=== PATIENT | female | born 1965 | race Caucasian/White ===

== ENCOUNTER 2024-09-18 19:19 | Emergency (ER) | payer MEDICARE, SELFPAY ==
--- NOTE | ~2024-09-18 | US_ITS ---
RIGHT LOWER EXTREMITY VENOUS ULTRASOUND Ordering provider: Kike Kim MD History: . Lower extremity pain evaluate for DVT . Comparison: None. FINDINGS: --COMMON FEMORAL: Patent and free of thrombus. Normal compressibility, phasic flow and augmentation. --PROXIMAL SUPERFICIAL FEMORAL: Patent and free of thrombus. Normal compressibility, phasic flow and augmentation. --DISTAL SUPERFICIAL FEMORAL: Patent and free of thrombus. Normal compressibility, phasic flow and au gmentation. --POPLITEAL: Patent and free of thrombus. Normal compressibility, phasic flow and augmentation. --POSTERIOR TIBIAL: Patent and free of thrombus. Normal compressibility, phasic flow and augmentation . IMPRESSION: Negative right lower extremity venous US. No deep vein thrombosis. Reviewed, dictated and finalized at location A.
--- NOTE | ~2024-09-18 | CT_ITS ---
Procedure: CT knee RT w con Ordering provider: Kike Kim MD History: . Cellulitis/abscess . Comparison: None. Technique: Thin slice axial CT of the IV contrast was given. Sagittal and coronal reformatted images were also obtained and reviewed. Radiation reduction technique utilized.The dose-length product was 4 76.5 mGy-cm. 100 mL Omnipaque 350 was given IV. Findings: BONES: Osteopenia of the bones. No definite fracture noted. JOINT SPACES: Minimal fluid seen in the joint space. Narrowing of both compartments of the knee is se en. SOFT TISSUES: Slightly hyperdense collection is seen anterior to the patella which is suggestive of a bscess measuring 8.5 x 3.1 x 5.6 cm. Further evaluation advised. Hematoma is less likely. Edema and f at stranding is seen in the subcutaneous tissues in the same area. Edema is also seen in the deep sub cutaneous area of the calf.. IMPRESSION: Collection seen anterior to the patella suggestive of an abscess. No definite fractures seen. Reviewed, dictated and finalized at location A.
[2024-09-18 19:19] VITALS: PULSE 85; RESP 11; TEMP 36.8; O2SAT 93
--- OUTSIDE RECORDS SUMMARY | 2024-09-18 20:00 | XMS_ITS | Data Portability ---
Author Organization [facility], Main Office Address [address] [place] [address] Assessment No assessment recorded. Plan of Treatment Reminders Order Date Submit Date Provider Last Modified By Organization Details Last Modified Time Details Appointments None recorded. Lab CBC w/ auto diff 2024 025 [place] [id number] [facility], [address], [address], [place], [address], 09:41:31 lipid panel, serum [address] (Lab), [address] [place], [address], 09:41:30 CMP, serum or plasma [address] (Lab), [address] [place], [address], 09:41:31 glycohemog lobin, total, blood [address] (Lab), [address] [place], [address], 09:41:31 vitamin D, 25-hydroxy , total, serum [address] (Lab), [address] [place], [address], 09:41:31 TSH, serum or plasma 2024 025 [email or web address] [facility] (Lab), [address] [place], [address], 5 09:41:31 glycohemog lobin, total, blood [address] (Lab), [address] [place], [address], 4 08:40:39 vitamin D, 25-hydroxy , total, serum [address] (Lab), [address] [place], [address], 4 08:40:38 lipid panel, serum [address] (Lab), [address] [place], [address], 4 08:40:38 CMP, serum or plasma [address] (Lab), [address] [place], [address], 4 08:40:39 TSH, serum or plasma [address] (Lab), [address] [place], [address], 4 08:40:39 glycohemog lobin, total, blood [address] (Lab), [address] [place], [address], 4 08:41:47 CMP, serum or plasma [address] (Lab), [address] [place], [address], 4 08:41:47 vitamin D, 25-hydroxy , total, serum [address] (Lab), [address] [place], [address], 4 08:41:47 lipid panel, serum [address] (Lab), [address] [place], [address], 4 08:41:47 lipid panel, serum [address] (Lab), [address] [place], [address], 4 08:12:18 glycohemog lobin, total, blood [address] (Lab), [address] [place], [address], 4 08:12:18 vitamin D, 25-hydroxy , total, serum [address] (Lab), [address] [place], [address], 4 08:12:18 TSH, serum or plasma [address] (Lab), [address] [place], [address], 4 08:12:19 Referral neurologis t referral 2023 [email or web address] [id number] Ramesh Muse MD, [address], [address], 4 07:50:47 Procedures None recorded. Surgeries None recorded. Imaging MAMMO, screening, bilateral - Please call patient to schedule. [address], [facility] [place] [address], [place], [address], 5 12:49:34 LDCT, chest, for lung cancer screening - Please call patient to schedule. 2024 025 [facility], [address] [place] [address], [place], [address], 5 12:50:41 DEXA [address], [address] [place] [address], [address], 5 12:49:34 MAMMO, screening, digital, bilateral [address] ([facility]), [address] [place], [address], 4 09:51:50 CT, chest, w/o contrast - Please call patient to schedule. [address] ([facility]), [address] [place], [address], 5 11:36:33 MAMMO, screening, digital, bilateral [address] [place] [address] ([facility]), [address] [place], [address], 4 09:18:16 CT, chest, w/o contrast - No auth required per [facility] website for CPT code [address] ([facility]), [address] [place], [address], 5 17:22:45 Medication Orders Advair Diskus 500 mcg-50 mcg/dose powder for inhalation 2023 024 [email or web address] [facility] [address] [place] [address], [address], 5 18:01:36 Advair Diskus 500 mcg-50 mcg/dose powder for inhalation 2023 024 [email or web address] [facility], [address] [place] [address], [address], 5 18:01:36 metoprolol succinate ER 100 mg tablet,ext ended release 24 hr 2023 024 [facility], [address] [place] [address], [address], 4 16:28:23 Patient TargetsNo targets recorded. Patient InstructionsNo instructions recorded. Reason for Referral Neurologist Referral for Maurilio hsieh Referring Physician: Nino Carrillo, Internal Medicine, Encounter Date: 06/15/2023 Results Created Date Observation Date Name Description Value Unit Range Abnormal Flag Note LastModifiedBy Organization Detail LastModifiedTime 12/02/19 24 12/01/2023 myoca rdial perfu dixie study w/ eject ion fract ion (PROC ) No observ ation record ed. [email or web address] [facility] [address], [place], [address], 12/04/2023 09:39:55 12/04/19 24 12/01/2023 myoca rdial perfu dixie study w/ eject ion fract ion (PROC ) No observ ation record ed. BARCODE Not Available 2023 17:52:46 Result Notes None recorded. Problems Name Problem SNOMED Code Status Onset Date Resolution Date Notes Provider Name and Address Organization Details Recorded Time Dyspnea on exertion 71945314 Active 2022 Anam Baptiste MD [address] [facility], [facility] [address], [place], [address] , [place] [facility] 3 13:14:17 Multiple nodules of lung 916949688 Active 2022 Anam Baptiste MD [address] [facility], [address], [place], [address] , [place] [facility] 3 13:30:46 Atrial fibrillat ion 70390288 Active 2022 Sylvia owen, RMA null, [place] [facility] 3 08:51:51 Hyperchol esterolem ia 04171512 Active 2022 Sylvia owen, RMA null, [place] [facility] 3 08:52:18 Insomnia 128630518 Active 2022 Sylvia owen, RMA null, [place] [facility] 3 14:25:22 Yeast detected 427415046 Active 2022 Maxine Mtz LPN null, [place] - [facility] 3 16:48:57 Pain of left hip joint 81291471027 9100 Active 2022 Nino Carrillo MD [address] [facility], [address], [place], [address] , [facility] 3 12:58:51 Injury of elbow 225304648 Completed Not Available [facility] 3 03:15:58 Chronic obstructi ve pulmonary disease 46153949 Active Not Available [facility] 3 03:15:58 Bipolar disorder 37317279 Active Not Available [facility] 3 03:15:58 Gangrene of toe of left foot 30391087419 559584 Completed 201901/07/2022 Not Available [facility] 3 03:15:58 History of alcoholis m 873627601 Active 2016 Not Available [facility] 3 03:15:58 Transitio n of care 26438615062 05 Completed 202101/07/2022 Not Available [facility] 3 03:15:58 Anxiety disorder 947606025 Active 2021 Not Available [facility] 3 03:15:58 Anxiety disorder 486069457 Completed 201901/11/2021 Not Available [facility] 3 03:15:58 Gastroeso phageal reflux disease 351083128 Active Not Available [facility] 3 03:15:58 Closed fracture of upper end of tibia 87128433 Completed Not Available [facility] 3 03:15:58 Long-term drug therapy Completed 202001/07/2022 Not Available [facility] 3 03:15:59 Edema 918473723 Active 2020 Not Available [facility] 3 03:15:59 Adult health examinati on Active 2020 Not Available [facility] 3 03:15:59 Pain in toe 503274485 Completed 201901/07/2022 Not Available [facility] 3 03:15:59 Pain in left lower limb 833191914 Completed Not Available [facility] 3 03:15:59 Ulcer of toe 075220223 Completed 201901/07/2022 Not Available [facility] 3 03:15:59 Knee pain Completed Not Available [facility] 3 03:15:59 Fracture of tibia 21088867 Completed Not Available [facility] 3 03:15:59 Bronchiti s 83137609 Completed 201901/11/2021 Not Available [facility] 3 03:15:59 Vitamin D deficienc y 07388719 Active 2021 Not Available [facility] 3 03:15:59 Depressiv e disorder 18818643 Active 2019 Not Available [facility] 3 03:15:59 Cannabis abuse 26417135 Active Not Available [facility] 3 03:16:00 Neuropath y 994028489 Active 2020 Not Available [facility] 3 03:16:00 Umbilical hernia 059677074 Active 2021 Not Available [facility] 3 03:16:00 Sleep disorder 14938530 Active 2019 Not Available [facility] 3 03:16:00 Periphera l vascular disease 376747710 Active 2021 Not Available [facility] 3 03:16:00 Hypothyro idism 45047553 Active 2021 Not Available [facility] 3 03:16:00 Fracture of lower leg 872748413 Completed Not Available [facility] 3 03:16:00 Bacterial vaginosis 242922910 Completed Not Available [facility] 3 03:16:01 History of amputatio n of lesser toe 579849472 Active 2019 Not Available [facility] 3 03:16:01 Atypical squamous cells of undetermi al significa nce on cervical Papanicol aou smear 536335120 Active Not Available [facility] 3 03:16:01 Anxiety 00476167 Completed Not Available [facility] 3 03:16:01 Atheroscl erosis of arteries of the extremiti es 71120228 Completed 201901/11/2021 Not Available [facility] 3 03:16:01 Atheroscl erosis of arteries of the extremiti es 05823649 Active 2019 Not Available [facility] 3 03:16:01 Atrial flutter 1408848 Active 2020 Not Available [facility] 3 03:16:02 Hyperlipi demia 20438242 Active Not Available [facility] 3 03:16:02 Cigarette smoker 41790665 Completed 201901/07/2022 Not Available [facility] 3 03:16:02 Urinary tract infectiou s disease 66137589 Completed Not Available [facility] 3 03:16:02 Smoker 52336106 Active Not Available [facility] 3 03:16:02 Overactiv e urinary bladder 421850781 Active 2021 Not Available [facility] 3 03:16:02 Nodule of lung 104089378 Active 2022 Not Available [facility] 3 03:16:03 Hyperglyc emia 77469751 Active Not Available [facility] 3 03:16:03 Pneumonia caused by SARS-CoV- 2 [id number] 6303084 Completed 202101/20/2022 Not Available [facility] 3 03:16:03 Migraine 90114786 Active 2022 Nino Carrillo MD [address], [facility] [address], [address] , [facility] 3 12:52:02 Essential hypertens ion 26316339 Active 2023 Nino Carrillo MD [address], [address], [place], [address] , [facility] 4 11:51:05 Hypoxia 487337584 Active 2024 Nino Carrillo MD [address], [address], [address] , [facility] 5 12:11:57 Congestiv e heart failure 58181503 Active 2024 S[facility] [place], [facility] 5 18:04:52 Notes:Medical History: Anxie ty/Bipolar depression Bilateral hearing loss/tinnitus Alcohol use Cannabis use Nicotine use ?COPD on 4 Lpm exertional and nocturnal O2 c/o [facility] Obesity Hypothyroidism Mixed hyperlipidemia Hypertension Atrial flutter CHAMP Cholelithiasis Umbilical hernia Left adrenal adenoma Urge urinary incontinence Vit D deficiency Osteoporosis Neuropathy PVD Procedure History: Cardiac ablation 2018 Left 5th toe amputation 2020 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 Procedures Surgical History Date Name Laterality Status Provider Name and Address Organization Details Recorded Time 3 Advanced Care Planning completed Ling Moody RN [facility] [employer] 01/19/2023 12:49:00 2 Date of Last Pap Smear completed Ling Moody RN [facility] [employer] 01/19/2023 12:44:34 2 Date of Last Mammogram completed Ling Moody RN [facility] [employer] [facility] 01/19/2023 12:42:58 2 Most Recent Bone Density completed Ling Moody RN [facility] [employer] [facility] 01/19/2023 12:43:18 [employer] Surgery completed Not Available [facility] 08/10/2022 03:08:08 ENT Procedure completed Not Available [facility] 08/10/2022 03:08:08 Imaging Results Imaging Date Name Status LastModified by Organiz ation Details LastModified Time 12/01/2023 myocardial perfusion study w/ ejection fraction (PROC) completed [email or web address] [facility] [address], [place], [address], 12/04/2023 09:39:55 12/01/2023 myocardial perfusion study w/ ejection fraction (PROC) completed [facility] Information not available 12/04/2023 17:52:46 Procedure Notes None recorded. Medical Equipment None Reported. Allergies Allergen ID Allergen Name Allergen Category Reaction Reaction Severity Criticality Documentation Date Start Date Code Code System Note Provider Name and Address Organization Details Recorded Time 5780 lithium Not available vomiting Not available Not available 08/10/2022 6448 RxNorm Not Available [facility] 3 03:25:43 5781 Dolobid medicatio n vomiting Not available Not available 08/10/2022 68416 6 RxNorm Not Available [facility] 3 03:25:43 5782 Dilaudid medicatio n vomiting Not available Not available 08/10/2022 99529 3 RxNorm Not Available [facility] 3 03:25:43 5783 Bactrim medicatio n vomiting Not available Not available 08/10/2022 93963 9 RxNorm Not Available [facility] 3 03:25:43 Medications Name Sig Start Date Stop Date Status Note LastModified by Organization Details LastModified Time multivita min tablet TAKE 1 TABLET BY MOUTH DAILY 08/19 completed Not Available Not Available Not Available quetiapin e 25 mg tablet active Not Available Not Available Not Available cyclobenz aprine 10 mg tablet TAKE 1 TABLET BY MOUTH EVERY 8 HOURS 09/05 completed Not Available Not Available Not Available hydroxyzi ne pamoate 100 mg capsule TK ONE C PO EVERY NIGHT AT BEDTIME active Not Available Not Available No t Available furosemid e 40 mg tablet TAKE 1 TABLET BY MOUTH EVERY MORNING active Not Available Not Available No t Available atorvasta tin 40 mg tablet TAKE 1 TABLET BY MOUTH EVERY DAY active Not Available Not Available No t Available bupropion HCl SR 150 mg tablet,12 hr sustained -release 01/11 completed Not Available Not Available Not Available fluticaso ne 250 mcg-salme terol 50 mcg/dose blistr powdr for inhalatio n INHALE 1 PUFF BY MOUTH TWICE DAILY NEEDED 05/18 completed Not Available Not Available Not Available atorvasta tin 80 mg tablet Take 1 tablet every day by oral route. active Not Available Not Available No t Available acetamino phen 325 mg tablet Take 2 tablets every 4 hours by oral route as needed. 09/19 completed Not Available Not Available Not Available gabapenti n 600 mg tablet TAKE 1 TABLET BY MOUTH 3 TIMES DAILY active Not Available Not Available No t Available doxycycli ne hyclate 100 mg capsule Take 1 capsule twice a day by oral route for 7 days. active Not Available Not Available No t Available atorvasta tin 20 mg tablet TAKE 1 TABLET BY MOUTH EVERY DAY 01/03 completed Not Available Not Available Not Available quetiapin e 300 mg tablet TK 2 TS PO QHS 08/11 completed Not Available Not Available Not Available clindamyc in HCl 300 mg capsule TK 1 C PO Q 8 H FOR 10 DAYS 05/31 completed Not Available Not Available Not Available albuterol sulfate 2.5 mg/3 mL (0.083 %) solution for nebulizat ion USE 3 ML VIA NEBULIZE R EVERY 6 HOURS NEEDED 09/05 completed Not Available Not Available Not Available azithromy zaira 250 mg tablet TK 1 T PO D active Not Available Not Available No t Available ibuprofen 800 mg tablet Take 1 tablet 3 times a day by oral route. active Not Available Not Available No t Available alprazola m 1 mg tablet active Not Available Not Available Not Available tramadol 37.5 mg-acetam inophen 325 mg tablet TK 1 TO 2 TS PO Q 6 H PRN 01/10 completed Not Available Not Available Not Available fluconazo le 150 mg tablet one daily active Not Available Not Available No t Available amiodaron e 200 mg tablet active on hold until after her procdure wed Not Available Not Available Not Available metoprolo l succinate ER 50 mg tablet,ex tended release 24 hr TAKE 1 TABLET BY MOUTH DAILY 11/06 completed Not Available Not Available Not Available sumatript an 100 mg tablet TAKE 1 TABLET BY MOUTH EVERY DAY NEEDED 11/06 completed increase d to 200mg Not Available Not Available Not Available hydrocodo ne 5 mg-acetam inophen 325 mg tablet TAKE 1 TABLET BY MOUTH EVERY 6 HOURS NEEDED 11/06 completed Not Available Not Available Not Available diltiazem CD 240 mg capsule,e xtended release 24 hr TK 1 C PO D 03/12 completed Not Available Not Available Not Available naltrexon e 50 mg tablet Take 1 tablet every day by oral route for 30 days. 01/10 completed Not Available Not Available Not Available metronida zole 0.75 % (37.5 mg/5 gram) vaginal gel Insert 1 applicat orful by vaginal route for 5 days. active Not Available Not Available No t Available lisinopri l 20 mg tablet active Not Available Not Available Not Available ondansetr on HCl 4 mg tablet 07/11 completed Not Available Not Available Not Available prednison e 20 mg tablet TAKE 2 TABLETS BY MOUTH DAILY 11/06 completed Not Available Not Available Not Available clonazepa m 0.5 mg tablet active Not Available Not Available Not Available metoprolo l succinate ER 100 mg tablet,ex tended release 24 hr TAKE 1 TABLET BY MOUTH EVERY DAY active Not Available Not Available No t Available quetiapin e 200 mg tablet TAKE 1 TABLET BY MOUTH DAILY AT BEDTIME 09/05 completed Not Available Not Available Not Available clindamyc in HCl 150 mg capsule TAKE 4 CAPSULES BY MOUTH 1 HOUR BEFORE APPOINTM ENT 08/19 completed Not Available Not Available Not Available clopidogr el 75 mg tablet TAKE 1 TABLET BY MOUTH DAILY active Not Available Not Available No t Available ciproflox acin 250 mg tablet TK 1 T PO Q 12 H FOR 5 DAYS active Not Available Not Available No t Available levofloxa zaria 250 mg tablet TAKE 1 TABLET BY MOUTH DAILY 11/06 completed Not Available Not Available Not Available ciproflox acin 500 mg tablet TK 1 T PO BID TAT 02/27 completed Not Available Not Available Not Available hydrocodo ne 10 mg-acetam inophen 325 mg tablet active Not Available Not Available Not Available peg-elect rolyte solution 420 gram oral solution 09/19 completed Not Available Not Available Not Available omeprazol e 40 mg capsule,d elayed release TAKE ONE CAPSULE BY MOUTH EVERY DAY active Not Available Not Available No t Available aspirin 81 mg tablet,de layed release TAKE 1 TABLET BY MOUTH EVERY DAY 09/05 completed Not Available Not Available Not Available tramadol 50 mg tablet TK 1 T PO Q 6 H active Not Available Not Available No t Available quetiapin e 100 mg tablet TAKE 1 TABLET BY MOUTH EVERY DAY AT BEDTIME FOR MOOD SWINGS active Not Available Not Available No t Available amitripty line 50 mg tablet TAKE 1 TABLET BY MOUTH EVERY NIGHT AT BEDTIME active Not Available Not Available No t Available bupropion HCl SR 100 mg tablet,12 hr sustained -release 01/10 completed Not Available Not Available Not Available vancomyci n 125 mg capsule TK 1 C PO RACHEL 6 HOURS FOR 6 DAYS 09/05 completed Not Available Not Available Not Available levothyro xine 75 mcg tablet TK 1 T PO QAM B JEFFREY 03/12 completed Not Available Not Available Not Available oxycodone -acetamin ophen 5 mg-325 mg tablet 09/05 completed Not Available Not Available Not Available levothyro xine 88 mcg tablet TAKE 1 TABLET BY MOUTH EVERY DAY active Not Available Not Available No t Available famotidin e 20 mg tablet active Not Available Not Available Not Available lorazepam 0.5 mg tablet 01/10 completed Not Available Not Available Not Available oxycodone -acetamin ophen 10 mg-325 mg tablet active Not Available Not Available Not Available lithium carbonate 300 mg capsule active Not Available Not Available Not Available benzonata te 100 mg capsule Take 1 capsule 3 times a day by oral route as needed. 05/20 completed Not Available Not Available Not Available hydrocodo ne 7.5 mg-acetam inophen 325 mg tablet TK 1 T PO TID active Not Available Not Available No t Available cephalexi n 500 mg capsule TAKE 1 CAPSULE BY MOUTH THREE TIMES DAILY 03/07 completed Not Available Not Available Not Available ranitidin e 150 mg tablet active Not Available Not Available Not Available divalproe x ER 500 mg tablet,ex tended release 24 hr TAKE 1 TABLET BY MOUTH AT BEDTIME *PATIENT NEEDS APPOINTM ENT FOR FURTHER REFILLS* active Not Available Not Available No t Available promethaz ine 25 mg tablet TK 1 T PO Q 4 TO 6 H 04/27 completed Not Available Not Available Not Available vancomyci n 250 mg capsule TAKE DIRECTED PER ATTACHED INSTRUCT IONS 03/12 completed Not Available Not Available Not Available fluticaso ne 500 mcg-salme terol 50 mcg/dose blistr powdr for inhalatio n INHALE 1 PUFF BY MOUTH TWICE DAILY active Not Available Not Available No t Available nicotine 21 mg/24 hr daily transderm al patch APPLY 1 PATCH QD FOR 7 DAYS ONLY 12/27 completed Not Available Not Available Not Available gabapenti n 300 mg capsule TAKE ONE CAPSULE BY MOUTH THREE TIMES DAILY 09/19 completed Not Available Not Available Not Available folic acid 1 mg tablet TK 2 TS PO QD. 09/19 completed Not Available Not Available Not Available hydroxyzi ne HCl 25 mg tablet active Not Available Not Available No t Available metoprolo l succinate ER 25 mg tablet,ex tended release 24 hr TAKE 1 TABLET BY MOUTH EVERY DAY 11/06 completed Not Available Not Available Not Available ergocalci ferol (vitamin D2) 1,250 mcg (50,000 unit) capsule Take 1 capsule every week by oral route for 90 days. active Not Available Not Available No t Available clobetaso l 0.05 % topical ointment APPLY THIN LAYER TOPICALL Y TO THE AFFECTED AREA TWICE DAILY 08/19 completed Not Available Not Available Not Available levofloxa zaira 500 mg tablet TAKE 1 TABLET BY MOUTH DAILY 11/06 completed Not Available Not Available Not Available methylpre dnisolone 4 mg tablets in a dose pack FOLLOW PACKAGE DIRECTIO NS 11/06 completed Not Available Not Available Not Available albuterol sulfate HFA 90 mcg/actua tion aerosol inhaler INHALE 2 PUFFS PO QID PRN active Not Available Not Available No t Available Vitamin B-1 100 mg tablet TK 1 T PO QD 09/19 completed Not Available Not Available Not Available ondansetr on 4 mg disintegr ating tablet DIS ONE T PO Q 6 H PRN N 12/22 completed Not Available Not Available Not Available cefdinir 300 mg capsule TAKE ONE CAPSULE BY MOUTH TWICE DAILY FOR 10 DAYS 04/11 completed Not Available Not Available Not Available piroxicam 20 mg capsule active Not Available Not Available Not Available naproxen 500 mg tablet TAKE 1 TABLET BY MOUTH TWICE DAILY WITH FOOD 09/05 completed Not Available Not Available Not Available amoxicill in 875 mg-potass ium clavulana te 125 mg tablet TAKE 1 TABLET BY MOUTH TWICE DAILY 11/06 completed Not Available Not Available Not Available hydroxyzi ne pamoate 25 mg capsule TK ONE C PO BID active Not Available Not Available No t Available divalproe x ER 250 mg tablet,ex tended release 24 hr TAKE 1 TABLET BY MOUTH EVERY DAY AT BEDTIME 11/06 completed increase d to 500mg Not Available Not Available Not Available metoprolo l tartrate 25 mg tablet TAKE 1 TABLET (25 MG TOTAL) BY MOUTH EVERY 8 (EIGHT) HOURS active Not Available Not Available No t Available topiramat e 50 mg tablet TAKE 1 TABLET BY MOUTH TWICE DAILY 11/06 completed Not Available Not Available Not Available acamprosa te 333 mg tablet,de layed release 09/19 completed Not Available Not Available Not Available duloxetin e 20 mg capsule,d elayed release active Not Available Not Available Not Available duloxetin e 30 mg capsule,d elayed release TK 1 C PO QD. 03/13 completed Not Available Not Available Not Available duloxetin e 60 mg capsule,d elayed release TAKE 1 CAPSULE BY MOUTH EVERY DAY IN THE MORNING active Not Available Not Available No t Available fentanyl 12 mcg/hr transderm al patch active Not Available Not Available Not Available Lyrica 50 mg capsule TK ONE C PO TID 11/15 completed Not Available Not Available Not Available vitamin E 09/05 completed Not Available Not Available Not Available Vitamin D3 09/05 completed Not Available Not Available Not Available Medrol (Gene) 4mg - ONCE A DAY 07/30 completed Not Available Not Available Not Available multivita min 09/05 completed Not Available Not Available Not Available Vitamin B12 09/05 completed Not Available Not Available Not Available quetiapin e 400 mg tablet TK 1 T PO QHS 02/14 completed Not Available Not Available Not Available Activella 0.5 mg-0.1 mg tablet Take 1 tablet every day by oral route for 90 days. active Not Available Not Available No t Available Symbicort 160 mcg-4.5 mcg/actua tion HFA aerosol inhaler INL 2 PFS PO BID 03/12 completed Not Available Not Available Not Available fenofibri c acid (choline) 135 mg capsule,d elayed release TAKE 1 CAPSULE BY MOUTH EVERY DAY 12/29 completed Not Available Not Available Not Available Jinteli 1 mg-5 mcg tablet Take 1 tablet every day by oral route. active Not Available Not Available No t Available Chantix Continuin g Month Box 1 mg tablet FPD. active Muddassa ni Not Available Not Available Not Available Saphris (black cordero) 10 mg sublingua l tablet active Not Available Not Available Not Available Eliquis 5 mg tablet TAKE 1 TABLET BY MOUTH TWICE DAILY active Not Available Not Available No t Available Breo Ellipta 100 mcg-25 mcg/dose powder for inhalatio n USE 1 INHALATI ON PO QD. active Not Available Not Available No t Available Jardiance 10 mg tablet 09/05 completed Not Available Not Available Not Available Entresto 49 mg-51 mg tablet TAKE 1 TABLET BY MOUTH TWICE DAILY 09/05 completed Not Available Not Available Not Available Entresto 24 mg-26 mg tablet TAKE 1 TABLET BY MOUTH TWICE DAILY active Not Available Not Available No t Available Gemtesa 75 mg tablet Take 1 tablet every day by oral route. 08/29 completed Not Available Not Available Not Available Vitals Date Recorded Body weight Body mass index (BMI) Body height Body temperature Heart rate Oxygen saturation Oxygen saturation in Arterial blood by Pulse oximetry Systolic blood pressure Diastolic blood pressure Provider Name and Address Organization Details Last Updated DateTime 4 17796 g 28.7 kg/m2 157.48 cm 96.6 [degF] 80 /min 97 % 97 % 150 mm[Hg] 90 mm[Hg] SURESH Hoyt [place] [facility] [place] [employer] [facility] 4 11:25:04 Date Recorded Body height Body mass index (BMI) Body weight Body temperature Heart rate Respiratory rate Oxygen saturation Oxygen saturation in Arterial blood by Pulse oximetry Systolic blood pressure Diastolic blood pressure Provider Name and Address Organization Details Last Updated DateTime 4 157.48 cm 29.4 kg/m2 87640.3 7 g 97.7 [degF] 80 /min 16 /min 94 % 94 % 154 mm[Hg] 84 mm[Hg] Diamond Reddy [place] [facility] [employer] [facility] 4 11:16:43 Date Recorded Body height Body mass index (BMI) Body weight Body temperature Heart rate Oxygen saturation Oxygen saturation in Arterial blood by Pulse oximetry Systolic blood pressure Diastolic blood pressure Provider Name and Address Organization Details Last Updated DateTime 4 157.48 cm 27.6 kg/m2 76868.4 5 g 98.2 [degF] 70 /min 96 % 96 % 138 mm[Hg] 70 mm[Hg] Shannon Anselmo [place] [employer] [facility] [employer] 4 15:39:39 Date Recorded Body height Body mass index (BMI) Body weight Body temperature Heart rate Oxygen saturation Oxygen saturation in Arterial blood by Pulse oximetry Systolic blood pressure Diastolic blood pressure Provider Name and Address Organization Details Last Updated DateTime 4 157.48 cm 27.8 kg/m2 16664.0 4 g 97.1 [degF] 87 /min 90 % 90 % 136 mm[Hg] 80 mm[Hg] SURESH Hoyt [place] [employer] [facility] [employer] 4 11:38:57 Date Recorded Body height Body mass index (BMI) Body weight Body temperature Oxygen saturation Oxygen saturation in Arterial blood by Pulse oximetry Inhaled oxygen flow rate Heart rate Systolic blood pressure Diastolic blood pressure Provider Name and Address Organization Details Last Updated DateTime 5 157.48 cm 32.2 kg/m2 09402.2 6 g 96.8 [degF] 84 % 84 % 4 L/min 84 /min 170 mm[Hg] 84 mm[Hg] SURESH Hoyt [place] [employer] [facility] [employer] 5 11:25:19 Social History Question Answer Notes LastModified by Organization Details LastModified Time Tobacco Smoking Status Current Every Day Smoker Not Available [facility] 08/10/2022 02:52:35 Do You Have An Advance Directive? No MIGRATION.030 [id number] Information not available 08/10/2022 What Is Your Level Of Alcohol Consumption? Occasional MIGRATION.030 164483 Information not available 08/10/2022 Are You Blind Or Do You Have Difficulty Seeing? No MIGRATION.030 [id number] Information not available 08/10/2022 What Is Your Level Of Caffeine Consumption? Moderate MIGRATION.030 521301 Information not available 08/10/2022 In The 14 Days Before Symptom Onset, Have You Had Close Contact With A Laboratory-conf irmed COVID-19 While That Case Was Ill? No MIGRATION.030 098334 Information not available 08/10/2022 In The 14 Days Before Symptom Onset, Have You Had Close Contact With A Person Who Is Under Investigation For COVID-19 While That Person Was Ill? No MIGRATION.030 219067 Information not available 08/10/2022 Are You Deaf Or Do You Have Serious Difficulty Hearing? No MIGRATION.030 611440 Information not available 08/10/2022 What Type Of Diet Are You Following? REGULAR MIGRATION.030 380727 Information not available 08/10/2022 Which Illicit Or Recreational Drugs Have You Used? Marijuana MIGRATION.030 475829 Information not available 08/10/2022 What Is The Highest Grade Or Level Of School You Have Completed Or The Highest Degree You Have Received? [id number] MIGRATION.030 979911 Information not available 08/10/2022 Do You Have An Electrostatic Air Filter? No Information not available 08/29/2022 What Is Your Occupation? N/a MIGRATION.030 817304 Information not available 08/10/2022 Have There Been Any Changes To Your Family Or Social Situation? No MIGRATION.030 096317 Information not available 08/10/2022 What Is The Fluoride Status Of Your Home? Unknown MIGRATION.030 927813 Information not available 08/10/2022 Are There Any Guns Present In Your Home? No MIGRATION.030 330477 Information not available 08/10/2022 Do You Have A Humidifier? Yes Information not available 08/29/2022 Do You Use Insect Repellent Routinely? No MIGRATION.030 779254 Information not available 08/10/2022 Where Do You Live? [place]House MIGRATION.030 589054 Information not available 08/10/2022 Do You Have A Medical Power Of Cutting And Splicing Supervisor? No MIGRATION.030 664620 Information not available 08/10/2022 Do You Have Moisture Problems In Your Home? Yes Leak In Bathroom Information not available 08/29/2022 What Was The Date Of Your Most Recent Tobacco Screening? 01/19/2023 [email or web address] Information not available 01/19/2023 What Is Your Current Pack Years? 30ormorepackyears MIGRATION.0301 111565 Information not available 08/10/2022 Do You Have Any Pets? Yes MIGRATION.0301 779198 Information not available 08/10/2022 What Is Your Relationship Status? MIGRATION.0301 960133 Information not available 08/10/2022 Do You Use Your Seat Belt Or Car Seat Routinely? No MIGRATION.0301 239885 Information not available 08/10/2022 Do You Have Smoke And Carbon Monoxide Detectors In Your Home? Yes MIGRATION.0301 885830 Information not available 08/10/2022 At What Age Did You Start Smoking Tobacco? 11 MIGRATION.0301 474122 Information not available 08/10/2022 Are You Passively Exposed To Smoke? Yes MIGRATION.0301 151544 Information not available 08/10/2022 Are There Any Smokers In Your House? Yes MIGRATION.0301 220715 Information not available 08/10/2022 How Much Tobacco Do You Smoke? 1 PPD MIGRATION.0301 098508 Information not available 08/10/2022 Do You Feel Stressed (tense, Restless, Nervous, Or Anxious, Or Unable To Sleep At Night)? [id number] MIGRATION.0301 586132 Information not available 08/10/2022 Do You Use Any Illicit Or Recreational Drugs? Yes MIGRATION.0301 879722 Information not available 08/10/2022 Do You Use Sunscreen Routinely? No MIGRATION.0301 534358 Information not available 08/10/2022 Has Tobacco Cessation Counseling Been Provided? Yes MIGRATION.0301 548281 Information not available 08/10/2022 On What Date Was Tobacco Cessation Counseling Provided? 09/23/2021 MIGRATION.0301 614416 Information not available 08/10/2022 How Many Years Have You Smoked Tobacco? 48 [email or web address] Information not available 09/05/2024 Have You Recently Traveled Abroad? No MIGRATION.0301 235511 Information not available 08/10/2022 Have You Used IV Drugs? No MIGRATION.0301 536679 Information not available 08/10/2022 Do You Have Any Dietary Restrictions? No MIGRATION.0301 848400 Information not available 08/10/2022 Do You Or Have You Ever Used Any Other Forms Of Tobacco Or Nicotine? No MIGRATION.0301 048277 Information not available 08/10/2022 Sex: Unknown Functional Status Question Answer Note LastModified by Organizat ion Details LastModified Time Do you have difficulty walking or climbing stairs? No MIGRATION.[id number] 026 Information not available 08/10/2022 Do you have transportation difficulties? No MIGRATION.6900686 026 Information not available 08/10/2022 Are you able to walk? YESASSIST MIGRATION.5206993 026 Information not available 08/10/2022 Do you have difficulty doing errands alone? No MIGRATION.7103712 026 Information not available 08/10/2022 Are you able to care for yourself? Yes MIGRATION.3474433 026 Information not available 08/10/2022 Do you have difficulty dressing or bathing? No MIGRATION.6259412 026 Information not available 08/10/2022 What is your exercise level? None MIGRATION.0474481 026 Information not available 08/10/2022 Mental Status Question Answer Note LastModified by Organizat ion Details LastModified Time Do you have difficulty concentrating, remembering or making decisions? No MIGRATION.[id number] 6 Information not available 08/10/2022 Family History Relationship Description Onset Age of this Age Resolved Age Notes LastModified by Organization Details LastModified Time Mother Malignant tumor of esophagus [email or web address] Not available 2022 13:32:41 Mother Heart disease [email or web address] Not available 2022 13:35:01 Maternal Aunt Malignant tumor of lung [email or web address] Not available 2022 13:32:52 Maternal Aunt Diabetes mellitus [email or web address] Not available 2022 13:34:31 Paternal Uncle Malignant tumor of lung [email or web address] Not available 2022 13:33:13 Paternal Uncle Heart disease [email or web address] Not available 2022 13:35:10 Paternal Aunt Malignant tumor of lung [email or web address] Not available 2022 13:33:18 Maternal Uncle Diabetes mellitus [email or web address] Not available 2022 13:34:26 Maternal Uncle Heart disease [email or web address] Not available 2022 13:34:55 Notes:CANCER-MOTHER/AUNTS/CO USINS/UNCLES Medical History No medical history recorded. Gynecological History Statement/Question Response Date of Last Pap Smear 10/29/2021 Date of Last Mammogram 06/15/2021 Most Recent Bone Density 06/15/2021 Obstetrics History GPAL:G 0 P 0 0 0 0 Immunizations Vaccine Type Date Status Note Provider Nam e and Address Organization Details Recorded Time Tdap 2 completed Not Available [facility] 07/22/2023 00:44:00 Influenza, split virus, quadrivalent, PF 7 completed Not Available [facility] 07/22/2023 00:44:00 Influenza, split virus, quadrivalent, preservative 6 completed Not Available [facility] 07/22/2023 00:43:59 pneumococcal polysaccharide PPV23 4 completed Not Available [facility] 07/22/2023 00:43:59 Influenza, split virus, trivalent, PF 4 completed Not Available [facility] 07/22/2023 00:44:00 Past Encounters Encounter ID Performer Location Encounter Start Date Encounter Closed Date Diagnosis/Indication Diagnosis SNOMED-CT Code Diagnosis ICD10 Code Diagnosis Note [id number] [facility] [address] [address] 09/11/2020 00:00:00 09/11/2020 11:08:04 [id number] [facility] [address] [address] 01/11/2021 00:00:00 01/11/2021 14:38:32 [id number] [facility] [address] [address] 05/20/2021 00:00:00 05/20/2021 13:16:35 [id number] [facility] [address] [address] 07/30/2021 00:00:00 07/30/2021 10:49:05 [id number] [facility] [address] [address] 09/23/2021 00:00:00 09/23/2021 13:25:27 [id number] [facility] [address] [facility] [place] [address] 10/29/2021 00:00:00 10/29/2021 15:55:29 [id number] [facility] [address] [facility] [place] [address] 01/20/2022 00:00:00 01/20/2022 13:28:48 [id number] [facility] [address] [facility] [place] [address] 05/18/2022 00:00:00 05/18/2022 12:06:29 [id number] Anam Baptiste MD [facility] [place] [address] [facility] [address] [place] [address] 08/29/2022 12:29:35 08/30/2022 08:35:13 Dyspnea on exertion 45442342 R06.09 Smoker 28919460 F17.218 F17.219 Z87.891 Multiple n odules of lung 939323752 R91.8 [id number] Nino Carrillo MD [facility] Internal Med [place] [address] [facility] [place] [address] 09/21/2022 11:21:46 09/21/2022 12:05:26 Chronic obstructive pulmonary disease 49576581 J44.9 advise dto use o2 Anxiety disorder 5277849 06 F41.9 under control Atrial flutter 9096784 I 48.92 in sinus, to f/u with cardiology Depressive disorder 3548 9007 F32.A under control Gastroesop hageal reflux disease 261391460 K21.9 on omeprazole Hypercholesterolemia 136 53726 E78.00 watch diet Neuropathy 427152448 G62 .9 stable with meds Peripheral vascular disease 330995903 I73.9 better since stents Sleep disorder 73017502 G47.9 better with meds Vitamin D deficiency 347 20664 E55.9 can not tolerate vit d Cannabis abuse 65199184 F12.10 Has not smoked for a long time Hyperglycemia 39754758 R 73.9 watch diet, labs Umbilical hernia 3674858 07 K42.9 small, asymptomat ic Smoker 42628928 F17.218 F17.219 Z87.891 advised to quit Overactive urinary bladder 488448853 N32.81 tried samples Screening mammography 24 589077 Z12.31 [id number] Nino Carrillo MD [facility] Internal Med [address] [facility] [place] [address] 01/19/2023 12:00:06 01/19/2023 13:02:10 Chronic obstructive pulmonary disease 53181780 J44.9 advised to use o2, pulse ox is only 88%, no symptoms Anxiety disorder F41.9 under control Atrial flutter 4935893 I 48.92 in sinus, to f/u with cardiology Depressive disorder 3548 9007 F32.A under control Gastroesop hageal reflux disease 113226233 K21.9 on omeprazole Hypercholesterolemia 136 74844 E78.00 watch diet Neuropathy 828865735 G62 .9 stable with meds Peripheral vascular disease 368137242 I73.9 better since stents Sleep disorder 43317810 G47.9 better with meds Vitamin D deficiency 347 89002 E55.9 can not tolerate vit d Cannabis abuse 45756133 F12.10 Has not smoked for a long time Hyperglycemia 03562142 R 73.9 watch diet, labs Umbilical hernia 8466804 07 K42.9 small, asymptomat ic Smoker 73628033 F17.218 F17.219 Z87.891 advised to quit Overactive urinary bladder 580101137 N32.81 tried samples Adult heal th examination 489567904 Z00.00 Depression screening 171 272303 Z13.[address] care [address]ri st Pain of le ft hip joint 6569027332 54895 M25.552 Screening mammography 24 130564 Z12.31 Body mass index 30+ - obesity 194113670 Z68.30 healthy diet and exercise discussed [id number] Nino Carrillo MD [facility] Internal Med [address] [facility] [place] [address] 05/18/2023 11:47:48 05/18/2023 12:28:38 Chronic obstructive pulmonary disease 21221273 J44.9 advised to use inhalers daily, use o2 Anxiety disorder F41.9 under control Atrial flutter 0350618 I 48.92 in sinus, to f/u with cardiology Depressive disorder 3548 9007 F32.A under control Gastroesop hageal reflux disease 424845940 K21.9 on omeprazole Hypercholesterolemia 136 70763 E78.00 watch diet Neuropathy 376710389 G62 .9 stable with meds Peripheral vascular disease 608339223 I73.9 better since stents Sleep disorder 44458022 G47.9 better with meds Vitamin D deficiency 347 73258 E55.9 can not tolerate vit d Cannabis abuse 72072647 F12.10 Has not smoked for a long time Hyperglycemia 84919979 R 73.9 watch diet, labs Umbilical hernia 1267059 07 K42.9 small, asymptomat ic Smoker 12512659 F17.218 F17.219 Z87.891 advised to quit Overactive urinary bladder 843059944 N32.81 meds did not help Screening mammography 24 096495 Z12.31 Nodule of lung 208369602 R91.1 Hyperlipidemia 90511448 E78.5 on meds Hypothyroidism 89321022 E03.9 on meds Bipolar disorder 4055418 4 F31.9 seeing psych Edema 608061399 R60.9 better [id number] Nino Carrillo MD [facility] Internal Med [address] [address] 05/31/2023 12:08:31 05/31/2023 12:56:01 Migraine 05477242 G43.353 [id number] Nino Carrillo MD [facility] Internal Med [address] [place] [address] 06/15/2023 11:13:51 06/15/2023 11:56:54 Essential hypertension 11999360 I10 ^ METOPROLOL Migraine 62440561 G43.90 9 keep taking the same [id number] Nino Carrillo MD [facility] Internal [address] [place] [address] 11/07/2023 10:54:50 11/07/2023 12:02:07 Chronic obstructive pulmonary disease 15066792 J44.9 use o2 Anxiety disorder F41.9 under control Atrial flutter 9648981 I 48.92 in sinus, Depressive disorder 3548 9007 F32.A under control Gastroesop hageal reflux disease 893002398 K21.9 on omeprazole Hypercholesterolemia 136 42531 E78.00 watch diet Neuropathy 069124999 G62 .9 stable with meds Peripheral vascular disease 845448083 I73.9 better since stents Sleep disorder 68294571 G47.9 better with meds Vitamin D deficiency 347 14173 E55.9 can not tolerate vit d Cannabis abuse 27386985 F12.10 Has not smoked for a long time Hyperglycemia 32324058 R 73.9 watch diet, labs Umbilical hernia 9479424 07 K42.9 small, asymptomat ic Smoker 02852465 F17.218 F17.219 Z87.891 advised to quit Overactive urinary bladder 949486570 N32.81 meds did not help Screening mammography 24 085442 Z12.31 Nodule of lung 693224662 R91.1 Hypothyroidism 50760183 E03.9 on meds Bipolar disorder 3549623 4 F31.9 seeing psych Edema 736255566 R60.9 better [id number] Nino Carrillo MD [facility] [address] [facility] [place] [address] 02/07/2024 15:24:36 02/07/2024 16:18:40 Chronic obstructive pulmonary disease 92692830 J44.9 under control Anxiety disorder 1348867 06 F41.9 under control Atrial flutter 0462251 I 48.92 in sinus, Depressive disorder 3548 9007 F32.A under control Gastroesop hageal reflux disease 003925795 K21.9 on omeprazole Hypercholesterolemia 136 25354 E78.00 watch diet Neuropathy 238871297 G62 .9 stable with meds Peripheral vascular disease 619955722 I73.9 better since stents Sleep disorder 84774133 G47.9 better with meds Vitamin D deficiency 347 08691 E55.9 can not tolerate vit d Cannabis abuse 02718718 F12.10 Has not smoked for a long time Hyperglycemia 49474143 R 73.9 watch diet, labs Umbilical hernia 9259884 07 K42.9 small, asymptomat ic Smoker 71800321 F17.218 F17.219 Z87.891 advised to quit Overactive urinary bladder 674387300 N32.81 meds did not help Screening mammography 24 662779 Z12.31 Nodule of lung 724662226 R91.1 Hypothyroidism 73656589 E03.9 on meds Bipolar disorder 5305047 4 F31.9 seeing psych Edema 556168301 R60.9 better [id number] Nino Carrillo MD [facility] Internal Med [facility] [address] [facility] [place] [address] 03/07/2024 11:24:58 03/07/2024 11:59:21 Chronic obstructive pulmonary disease 68036328 J44.9 under control Anxiety disorder 06 F41.9 under control Atrial flutter 7987358 I 48.92 in sinus, Depressive disorder 3548 9007 F32.A under control Gastroesop hageal reflux disease 579643205 K21.9 on omeprazole Hypercholesterolemia 136 09742 E78.00 watch diet Neuropathy 594703089 G62 .9 meds help Peripheral vascular disease 690121368 I73.9 better since stents Sleep disorder 13500973 G47.9 better with meds Vitamin D deficiency 347 41073 E55.9 can not tolerate vit d Cannabis abuse 40256180 F12.10 Has not smoked for a long time Hyperglycemia 37765286 R 73.9 watch diet, labs Umbilical hernia 1243381 07 K42.9 small, asymptomat ic Smoker 67720865 F17.218 F17.219 Z87.891 advised to quit Overactive urinary bladder 153758976 N32.81 meds did not help Screening mammography 24 300593 Z12.31 Scheduled in Mar Nodule of lung 906093752 R91.1 scheduled 03/2024 Hypothyroidism 75616839 E03.9 on meds Bipolar disorder 0131758 4 F31.9 seeing psych Edema 813585038 R60.9 better Adult heal th examination 943183114 Z00.00 Flu- Declined- 2022 [id number] Nino Carrillo MD [facility] Internal Med [facility] [address] [facility] [place] [address] 09/05/2024 11:06:13 09/05/2024 12:22:51 Chronic obstructive pulmonary disease 57770526 J44.9 under control Anxiety disorder F41.9 under control Atrial flutter 8549250 I 48.92 in sinus, Depressive disorder 3548 9007 F32.A under control Gastroesop hageal reflux disease 054715913 K21.9 on omeprazole Hypercholesterolemia 136 12316 E78.00 watch diet Neuropathy 145341713 G62 .9 meds help Peripheral vascular disease 555993523 I73.9 better since stents Sleep disorder 87125837 G47.9 better with meds Vitamin D deficiency 347 41457 E55.9 can not tolerate vit d Cannabis abuse 74341124 F12.10 Has not smoked for a long time Hyperglycemia 70492494 R 73.9 watch diet, labs Umbilical hernia 1157916 07 K42.9 small, asymptomat ic Smoker 12498087 F17.218 F17.219 Z87.891 advised to quit Overactive urinary bladder 465351530 N32.81 meds did not help Nodule of lung 367850515 R91.1 scheduled 03/2024, to get CT scan Hypothyroidism 12505794 E03.9 on meds Bipolar disorder 6102113 4 F31.9 seeing psych Edema 256004327 R60.9 on Furosemide Adult heal th examination 734951949 Z00.00 Colonoscop y- 03/21/2017 Mammogram- 06/15/2021 ORDEREDDEX A- 06/15/2021 ORDEREDLDC T- 07/22/2022 - ORDEREDFlu - Declined- 3Pneumo vax- NEVERCOVID - DECLINED Screening mammography 24 599927 Z12.31 Scheduled in Mar Screening for osteoporosis 264512581 Z13.820 Essential hypertension 24651417 I10 bp is high, confused about her medshusban d is going to call us today about all her meds Hypoxia 535147864 R09.02 NOT IMPROVING EVEN AFTER MULTIPLE ATTEMPTS, WILL SEND TO ER Health Concerns Section Related Observation LastModified by Organization Detai ls LastModified Time None Recorded Concern Status LastModified by Organization Details LastModified Time None Recorded Advance Directives Directive N: Payers Encounter Date Sequence Insurance Name Policy Number Policy Perez Covered Member ID Perez Member ID Guarantor Name 06/15/2023 1 [facility] [id number] Yaneli Conroy [id number] Yaneli Conroy 11/07/2023 1 [facility] [id number] Yaneli Conroy [id number] Yaneli Conroy 02/07/2024 1 [facility] [id number] Yaneli Conroy [id number] Yanelisteffen Conroy 03/07/2024 1 [facility] [id number] Yanelilanre Conroy [id number] Yaneli Mike Rafiq 09/05/2024 1 [facility] (MEDICARE REPLACEMENT/A DVANTAGE - PPO) [id number] Yaneli Conroy [id number] Yaneli Conroy Notes Date Note Type Note Provider Name and Address Organization Details Recorded Time 06/15/2023 text/html Se is here today wanting a referral to a neurologist.She has been having uncontrollable migraines and the meds that were given at the last OV just is not helping.B/p today is 150/90. States her head does hurt 11/19HER HOME NUMBERS ARE REVIEWED AND BP IS AROUND 160 Nino Carrillo MD [address] [facility] [facility] [address], [place], [address], [facility] [employer] 06/15/2023 11:56:01 11/07/2023 text/html Here today for routine f/u, compliant to meds.COPD- has not quit smoking yet, using inhalers, Advair and proair, some wheezing some times , using o2 when walks and goes out, no o2 needed when resting . ON 4L of O2, NO SYMPTOMSno using Advair daily, needs refillGERD- does not take meds, Milagros helps Hypertension- under control with medsMeds- Metoprolol 100mg dailyH/o A flutter-she had episode of v tach in 07/01 but got hypotensive with metoprolol.had nl GREG, seen fabric inspector. Dr Uribe- Clopidogrel 75 mg daily Migraines- Has not had in a whileMeds- Divalproex ER 500mg HSHyperlipidemia- on meds, LABS 10/02,Meds- Atorvastatin 80 mg qd Hypertriglyceridemia - advised to watch dietAnxiety- stable with meds, seeing psych, not under controlBipolar disorder- seeing psych Dr. Boston grande- A1c- 6.1, advised to watch dietSmoker- advised to quit-still smoking / -1 ppd, LDCT 08/04H/o alcoholism, sober since 2012H/o marijuana abuse, none since 2015Insomnia- Sees Psych, meds helpMeds- Quetiapine 100 mg 2 at bedtimeNeuropathy- better with medsMeds- Gabapentin 600mg TID , Duloxetine 60mg every morningPVD- s/p stents, no symptomsMeds- Plavix 75mg dailyVit d def- taking otc, Pulm nodules- LDCT 08/04, seen pulm , f/u due, has seen dr Oliva Carrillo MD [address] [facility], [address], [place], [address], [place] [facility] 11/07/2023 11:53:22 02/07/2024 text/html Here today for routine f/u, compliant to meds. Has been in and out of the hospital for 1st for dizziness, fever and unstable gait Had UTI. 2nd time for diarrhea Dx w/C.diff still on ABX and getting betterCOPD- has not quit smoking yet, using inhalers, Advair and proair, some wheezing some times , using o2 when walks and goes out and at night time no o2 needed when resting . ON 4L of O2, NO SYMPTOMS GERD- otc Hypertension- under control with medsMeds- Metoprolol 100mg dailyH/o A flutter-she had episode of v tach in 07/01 but got hypotensive with metoprolol.had nl GREG, seen fabric inspector. Dr Uribe- Clopidogrel 75 mg daily Migraines- Has not had in a while, under contyrolMeds- Divalproex ER 500mg HSHyperlipidemia- on meds, LABS 10/02, were orderedMeds- Atorvastatin 80 mg qd Hypertriglyceridemia - advised to watch dietAnxiety- stable with meds, seeing psych, not under controlBipolar disorder- seeing psych Dr. Boston grande- A1c- 6.1, advised to watch diet, has some weightSmoker- advised to quit-still smoking 06/13 -1 ppd, LDCT 08/04H/o alcoholism, sober since 2012H/o marijuana abuse, none since 2015Insomnia- Sees Psych, meds helpMeds- Quetiapine 100 mg 2 at bedtimeNeuropathy- better with medsMeds- Gabapentin 600mg TID , Duloxetine 60mg every morningPVD- s/p stents, no symptomsMeds- Plavix 75mg dailyVit d def- taking otc, Pulm nodules- LDCT 08/04, seen pulm , f/u due, has seen dr Echevarria was ordered, willing to get Nino Carrillo MD [address], [address], [place], [address], [place] [facility] 02/07/2024 16:17:46 03/07/2024 text/html Here today for routine f/u, compliant to meds.PT IS NOT FASTINGCOPD- has not quit smoking yet, using inhalers, Advair and proair, some wheezing some times , using o2 when walks and goes out, no o2 needed when resting . said she does not use her oxygen as she should. Her O2 today is 90GERD- OTC Dejaivette helps Hypertension- under control with medsMeds- Metoprolol 100mg dailyH/o A flutter-she had episode of v tach in 07/01 but got hypotensive with metoprolol.had nl GREG, seen fabric inspector. Dr Uribe- Clopidogrel 75 mg daily Migraines- Has not had in a whileMeds- Divalproex ER 500mg HSHyperlipidemia- on meds, LABS DUEMeds- Atorvastatin 80 mg qd Hypertriglyceridemia - advised to watch dietAnxiety- stable with meds, seeing psych, not under controlBipolar disorder- seeing psych Dr. Mead christiane- A1c- 6.1, advised to watch dietSmoker- advised to quit-still smoking 1/2 -1 ppd, LDCT 08/04, GIN TO HAVE LDCT next monthH/o alcoholism, sober since 2012H/o marijuana abuse, none since 2015Insomnia- Sees Psych, meds helpMeds- Quetiapine 100 mg 2 at bedtimeNeuropathy- better with meds , FEELS SYMPTOMS IF MISSES HER MEDSMeds- Gabapentin 600mg TID , Duloxetine 60mg every morningPVD- s/p stents, no symptomsMeds- Plavix 75mg dailyVit d def- taking otc, Pulm nodules- LDCT 08/04, seen pulm , f/u due, has seen dr Oliva Carrillo MD [address], [address], [place], [address], [place] [facility] 03/07/2024 11:57:05 09/05/2024 text/html Here today for routine f/u, compliant to meds.PT IS FASTING ( [facility] )Evicted from her place, now living in a trailer, not active, diet not under control and gaining lots of weight, advised to watch diet. She has gained 24 lbs since last OV, Not able to walk. States that she has been falling a lot when she does try, Has already fell twice this week. Nothing major just bruising herself up in the process COPD- has not quit smoking yet, using inhalers, some wheezing some times , using o2 when walks and goes out, no o2 needed when restingmeds- Casimiro, Constanceband said she does not use her oxygen as she should. Her O2 today is 84 when she came on , later on found out that her o2 tank was empty, put a new tank and 02 sat 82- 84 % on 4 LGE- OTC Deja-bluer helps Hypertension- Has been running high at home and also C/o having a lot of headaches. Her b/p today is 170/84SHE IS VERY CONFUSED WITH HER MEDS AND COULD NOT NAME HER MEDSMeds- Metoprolol 100mg dailyH/o A flutter-she had episode of v tach in 07/01 but got hypotensive with metoprolol.had nl GREG, seen fabric inspector. Dr Uribe- Clopidogrel 75 mg daily Migraines- Has not had in a whileMeds- Divalproex ER 500mg HSHyperlipidemia- on meds, LABS DUEMeds- Atorvastatin 80 mg qd Hypertriglyceridemia - advised to watch dietAnxiety- stable with meds, seeing psych, not under controlBipolar disorder- seeing psych Dr. Vermaglycarlos a grande- A1c- 6.1, advised to watch dietSmoker- advised to quit-still smoking 1/2 -1 ppd, LDCT 08/04was orderedH/o alcoholism, sober since 2012H/o marijuana abuse, none since 2015Insomnia- Sees Psych, meds helpMeds- Quetiapine 100 mg 2 at bedtimeNeuropathy- better with meds , FEELS SYMPTOMS IF MISSES HER MEDSMeds- Gabapentin 600mg TID , Duloxetine 60mg every morningPVD- s/p stents, no symptomsMeds- Plavix 75mg dailyVit d def- taking otc, Pulm nodules- LDCT 08/04, seen pulm , f/u due, has seen dr Oliva Carrillo MD [address] [facility], [facility] [address], [place], [address], [place] [facility] 09/05/2024 12:13:06 OBGyn Episode No OBEpisode recorded.
--- OUTSIDE RECORDS SUMMARY | 2024-09-18 20:00 | XMS_ITS | Data Portability ---
Author Organization [facility] [place] Address [address] [place] [address] Care Team Providers Care Double End Tenoner Setter Name Role Phone EMILIE VERMA Primary Care Provider Assessment No assessment recorded. Plan of Treatment Reminders Order Date Submit Date Provider Last Modified By Organization Details Last Modified Time Details Appointments None record ed. Lab None record ed. Referral None record ed. Procedures None record ed. Surgeries None record ed. Imaging None record ed. Medication Orders None record ed. Patient TargetsNo targets recorded. Patient InstructionsNo instructions recorded. Reason for Referral None Reported. Results Created Date Observation Date Name Description Value Unit Range Abnormal Flag Note LastModifiedBy Organization Detail LastModifiedTime 01/21/20 22 01/20/2022 [facility] surgical pathology SEE RESULT S BELOW CASE REPOR T: [facility]urgi [facility] Patho logy Repor t Case: [id number] Autho tristian cohen Provi zane: Connor Disla Colle cted: 01/20 1312 UNIT SECRETARY Order ing Locat ion: [place] [facility] Recei marah: 01/21 0613 Patho logis t: Ryan Painter MD Speci mens: A) - Cervi x, TMZ B) - Endoc ervix , ECC FINAL DIAGN OSIS: A. Cervi x, trans forma tion zone, biops y: -Foca l low-g rade squam ous intra epith elial lesio n (MARY- 1). B. Endoc ervix , curet tage: -Frag ments of benig n ectoc ervic al mucos a. -No endoc ervic al mucos a prese nt for evalu ation . Elect cristopher shaffer by Ryan Painter MD on 2021 at 1:26 PM ----- ----- ----- ----- ----- ----- ----- ----- ----- ----- ----- ----- ----- ----- ----- ----- ----- ---- CLINI ADORE INFOR MATIO N: r87.6 12 MICRO SCOPI C DESCR IPTIO N: A micro scopi c exami natio n was perfo rmed. GROSS DESCR IPTIO N: A. Cervi x. The speci men is label ed with the patie nt's name, demog raphi cs and TMZ. Recei marah in forma jackson is a 2.0 x 1.5 x 0.1 cm aggre gate of mucus and minut e white -garcia tissu e. The entir e speci men is submi tted in one casse tte. Gross ed by Federica Simmons. Endoc ervix . The speci men is label ed with the patie nt's name, demog raphi cs and ECC . Recei marah in forma jackson is a 0.2 x 0.2 x 0.1 cm aggre gate of mucus and minut e white -garcia tissu e. The entir e speci men is submi tted in one casse tte. Pleas e note speci men a is recei marah on a cervi adore ECC biops y brush and speci men B is recei marah on a cervi adore biops y spin brush , despi te label ing. Gross ed by Federica Pruitt Not Available [facility] [address] [place], [address], 01/21/2022 14:29:19 Result Notes None recorded. Procedures Surgical History Date Name Laterality Status Provider Name and Address Organization Details Recorded Time 01/21/20 22 Colposcopy completed Abbie Barajas, [facility]- [address], [place], [address], [facility] 01/20/2022 09:54:24 01/21/20 22 Colposcopy completed [facility] 01/20/2022 09:39:47 10/30/19 22 Date of Last Pap Smear completed Kiana Leena [facility] 03/28/2022 18:06:36 04/12/20 20 amputation of toe completed [facility] 01/18/2022 14:48:49 04/12/20 20 fluoroscopy guided angioplasty of bilateral iliac arteries and insertion of bilateral iliac artery stents with contrast completed [facility] 01/18/2022 14:49:05 Imaging Results None recorded. Procedure Notes None recorded. Medical Equipment None Reported. Allergies Allergen ID Allergen Name Allergen Category Reaction Reaction Severity Criticality Documentation Date Start Date Code Code System Note Provider Name and Address Organization Details Recorded Time 52488 lithium Not available Not available Not available Not available 01/18/2022 6448 RxNorm [facility] 2 14:41:39 85812 Dolobid medicatio n Not available Not available Not available 01/18/2022 50504 6 RxNorm [facility] 2 14:41:55 Medications Name Sig Start Date Stop Date Status Note LastModified by Organization Details LastModified Time multivitami n tablet TAKE 1 TABLET BY MOUTH DAILY active Not Available Not Available No t Available furosemide 40 mg tablet TAKE 1 TABLET BY MOUTH EVERY MORNING active Not Available Not Available No t Available atorvastati n 40 mg tablet TAKE 1 TABLET BY MOUTH EVERY DAY active Not Available Not Available No t Available fluticasone 250 mcg-salmete rol 50 mcg/dose blistr powdr for inhalation INHALE 1 PUFF BY MOUTH TWICE DAILY NEEDED active Not Available Not Available No t Available gabapentin 600 mg tablet TAKE 1 TABLET BY MOUTH THREE TIMES DAILY active Not Available Not Available No t Available albuterol sulfate 2.5 mg/3 mL (0.083 %) solution for nebulizatio n USE 3 ML VIA NEBULIZER EVERY 6 HOURS NEEDED active Not Available Not Available No t Available azithromyci n 250 mg tablet TAKE 1 TABLET BY MOUTH EVERY DAY 01/18 completed Not Available Not Available Not Available fluconazole 150 mg tablet TAKE 1 TABLET BY MOUTH EVERY 72 HOURS FOR 9 DAYS 01/18 completed Not Available Not Available Not Available metoprolol succinate ER 50 mg tablet,exte nded release 24 hr TAKE 1 TABLET BY MOUTH DAILY active Not Available Not Available No t Available quetiapine 200 mg tablet active Not Available Not Available Not Available clopidogrel 75 mg tablet TAKE 1 TABLET BY MOUTH DAILY active Not Available Not Available No t Available quetiapine 100 mg tablet 01/18 completed Not Available Not Available Not Available amitriptyli ne 50 mg tablet TAKE 1 TABLET BY MOUTH EVERY NIGHT AT BEDTIME active Not Available Not Available No t Available levothyroxi ne 88 mcg tablet TAKE 1 TABLET BY MOUTH EVERY DAY active Not Available Not Available No t Available clobetasol 0.05 % topical ointment APPLY THIN LAYER TOPICALLY TO THE AFFECTED AREA TWICE DAILY active Not Available Not Available No t Available methylpredn isolone 4 mg tablets in a dose pack FOLLOW PACKAGE DIRECTION S 01/18 completed Not Available Not Available Not Available divalproex ER 250 mg tablet,exte nded release 24 hr TAKE 1 TABLET BY MOUTH DAILY active Not Available Not Available No t Available duloxetine 60 mg capsule,del ayed release active Not Available Not Available Not Available Vitals Date Recorded Body weight Provider Name an d Address Organization Details Last Updated DateTime 01/18/2022 32740.25 g Belia Layne [facility] 01/18/2022 14:40:25 Date Recorded Systolic blood pressure Diastolic blood pressure Provider Name and Address Organization Details Last Updated DateTime 01/18/2022 136 mm[Hg] 82 mm[Hg] Abbie Barajas, [facility]- [address], [place], [address], [facility] 01/18/2022 14:58:03 Date Recorded Body weight Systolic blood pressure Diastolic blood pressure Provider Name and Address Organization Details Last Updated DateTime 01/20/2022 39719.25 g 108 mm[Hg] 70 mm[Hg] Belia Layne [facility] 01/20/2022 09:39:18 Date Recorded Body weight Systolic blood pressure Diastolic blood pressure Provider Name and Address Organization Details Last Updated DateTime 03/28/2022 14803.52 g 137 mm[Hg] 69 mm[Hg] Kiana Setrn [facility] 03/28/2022 17:33:41 Social History Question Answer Notes LastModified by Organizat ion Details LastModified Time Tobacco Smoking Status Current Every Day Smoker Belia Layne [facility] 01/18/2022 14:48:21 What Is Your Level Of Alcohol Consumption? None Information not available 01/18/2022 Are You Blind Or Do You Have Difficulty Seeing? No Information not available 01/18/2022 What Is Your Level Of Caffeine Consumption? None Information not available 01/18/2022 Are You Deaf Or Do You Have Serious Difficulty Hearing? No Information not available 01/18/2022 What Type Of Diet Are You Following? REGULAR Information not available 01/18/2022 Do You Use Your Seat Belt Or Car Seat Routinely? Yes Information not available 01/18/2022 Do You Have Smoke And Carbon Monoxide Detectors In Your Home? Yes Information not available 01/18/2022 Do You Feel Stressed (tense, Restless, Nervous, Or Anxious, Or Unable To Sleep At Night)? [id number] Information not available 01/18/2022 Do You Use Any Illicit Or Recreational Drugs? No Information not available 01/18/2022 Do You Use Sunscreen Routinely? Yes Information not available 01/18/2022 Sex: Unknown Functional Status Question Answer Note LastModified by Organizat ion Details LastModified Time Do you have difficulty walking or climbing stairs? Yes Information not available 01/18/2022 Are you able to walk? YESASSIST Information not available 01/18/2022 Are you able to care for yourself? Yes Information not available 01/18/2022 Do you have difficulty dressing or bathing? No Information not available 01/18/2022 What is your exercise level? None Information not available 01/18/2022 Mental Status None recorded. Family History Relationship Description Onset Age of this Age Resolved Age Notes LastModified by Organization Details LastModified Time Mother Heart disease Not available 2021 14:45:37 Maternal Grandfather Heart disease Not available 2021 14:45:37 Maternal Grandmother Heart disease Not available 2021 14:45:37 Paternal Grandfather Heart disease Not available 2021 14:45:37 Paternal Grandmother Heart disease Not available 2021 14:45:37 Paternal Grandmother Mental disorder Not available 2021 14:47:30 Brother Heart disease Not available 2021 14:45:44 Brother Asthma Not available 14:46:02 Brother Hypercholest erolemia Not available 2021 14:46:45 Brother Hypertensive disorder Not available 2021 14:46:55 Maternal Uncle Heart disease Not available 2021 14:45:53 Maternal Uncle Diabetes mellitus Not available 2021 14:46:36 Maternal Aunt Malignant tumor of breast Not available 2021 14:46:14 Maternal Aunt Blood coagulation disorder Not available 2021 14:46:21 Maternal Aunt Diabetes mellitus Not available 2021 14:46:36 Maternal Aunt Malignant tumor of lung Not available 2021 14:47:08 Paternal Uncle Malignant tumor of lung Not available 2021 14:47:08 Father Mental disorder Not available 2021 14:47:30 Sister Mental disorder Not available 2021 14:47:30 Medical History Condition Response Other Y Thyroid Problems Y Gynecological History Statement/Question Response Age of first menstrual cycle 13 Abnormal Pap Y If Post Menopausal, Age at Menopause [age] Date of Last Pap Smear 10/29/2021 Current Control Method Menopause Obstetrics History GPAL:G 0 P 0 0 0 0 Type Value Living 0 Total 0 Past Encounters Encounter ID Performer Location Encounter Start Date Encounter Closed Date Diagnosis/Indication Diagnosis SNOMED-CT Code Diagnosis ICD10 Code Diagnosis Note [id number] Abbie Barajas [facility] [address] [address] 01/18/2022 14:10:17 01/18/2022 15:18:35 Low grade squamous intraepithelial lesion on cervical Papanicolaou smear [id number] 9105 R87.612 Today we agreed on an updated Colposcopy & possible MD referral based on those results.Re quest for additional pap records YAHAIRA signed Counseled on Pap/HPV guidelines /Testing/R esults with understand ing verbalized .All questions answered to patient satisfacti on. Booklet & additional resources regarding pap smear/HPV/ Pap results given. [email or web address].cancer.g ov/types/c ervical/un derstandin g-abnormal -hpv-and-p ap-test-re sults/unde rstanding- cervical-c hanges.pdf Scheduled for Colposcopy . Time spent in visit is a total of 30 mins with at least 50% of visit consisting of counseling and review of plan of care. [id number] Abbie Barajas [facility] [address],[place] [address] 01/20/2022 09:04:35 01/20/2022 10:06:23 Low grade squamous intraepithelial lesion on cervical Papanicolaou smear [id number] 9105 R87.612 See procedure notes.Post -procedure instructio ns reviewed with understand ing verbalized .Will contact with results & next steps in plan of care.Likel y need MD consult for persistent ly abn pap/HPV readings.R OI signed last visit & awaiting additional documentat ion of pap/hpv hx. Counseled on Pap/HPV guidelines /Testing/R esults with understand ing verbalized .All questions answered to patient satisfacti on. Booklet & additional resources regarding pap smear/HPV/ Pap results given. [email or web address] [email or web address].g ov/types/c ervical/un kyliein g-abnormal -hpv-and-p ap-test-re sults/unde rstanding- cervical-c hangkirill.pdf [id number] David Angel MD [place] [address] [address] 03/28/2022 16:27:49 03/29/2022 14:49:16 Dysplasia of cervix [id number] N87.9 This patient is a 57-year-ol d female with longstandi ng abnormal Pap smears and biopsies with mild cervical dysplasia. We discussed HPV, cervical dysplasia, cervical cancer. We discussed HPV transmissi on, natural history, and dormancy. We discussed cervical dysplasia screening, diagnosis, treatment. She was given precaution s about follow-up. She was warned of the potential cervical cancer as an outcome in this situation. We discussed LEEP procedure. We discussed possible cervical incompeten ce as it relates to the LEEP procedure. Talked about colposcopi c exam. we will proceed with a colposcopi c examinatio n. We considered LEEP very seriously to try to cure the patient of this longstandi ng problem. She is on blood thinners. She has a bleeding history. We agreed to continue observatio n for this time. We will consider treatment if she gets severe dysplasia. We spent over 40 minutes face-to-fa ce. More than 50% was counseling . She will return in 1 year for colposcopi c examinatio n. Health Concerns Section Related Observation LastModified by Organization Detai ls LastModified Time None Recorded Concern Status LastModified by Organization Details LastModified Time None Recorded Advance Directives Directive None Recorded Payers Encounter Date Sequence Insurance Name Policy Number Policy Perez Covered Member ID Perez Member ID Guarantor Name 01/18/2022 1 [facility] Yaneli Conroy [id number] Yaneli Conroy 01/20/2022 1 [facility] Yaneli Conroy [id number] Yaneli Conroy 03/28/2022 1 [facility] Yaneli Conroy [id number] Yaneli Conroy Notes Date Note Type Note Provider Name and Address Organization Details Recorded Time 01/18/2022 text/html Referred from Dr Esthela Marrufo's office for continuous abn pap. Here today with this years pap/hpv testing 10/2021 LGSIL with assumed HPV.She voices a Hx of abn pap smear results since her late 30's.She has had colposcopy's but does not report Hx of Leep or other procedure like cryo that she can recall when asked these questions. Feels pap/hpv have been on/off normal/abn.Consist ent abn pap/hpv for the past few years which feels frustrating to her as she has come back q3-6mos for repeat pap/hpv testing. Her general hx has been updated as documented. Abbie Barajas [facility] [address], [place], [address], [facility] 01/18/2022 15:06:38 01/20/2022 text/html Here today for colposcopy. Abbie Barajas [facility] [address], [place], [address], [facility] 01/20/2022 10:01:05 03/28/2022 text/html This patient is a 57-year-old female with longstanding abnormal Pap smears and biopsies with mild cervical dysplasia. We discussed HPV, cervical dysplasia, cervical cancer. We discussed HPV transmission, natural history, and dormancy. We discussed cervical dysplasia screening, diagnosis, treatment. She was given precautions about follow-up. She was warned of the potential cervical cancer as an outcome in this situation. We discussed LEEP procedure. We discussed possible cervical incompetence as it relates to the LEEP procedure. Talked about colposcopic exam. we will proceed with a colposcopic examination. We considered LEEP very seriously to try to cure the patient of this longstanding problem. She is on blood thinners. She has a bleeding history. We agreed to continue observation for this time. We will consider treatment if she gets severe dysplasia. We spent over 40 minutes sufr-bn-ikov. More than 50% was counseling. She will return in 1 year for colposcopic examination. David Angel MD [address], [place], [address], [facility] 03/28/2022 22:06:04 OBGyn Episode No OBEpisode recorded.
--- OUTSIDE RECORDS SUMMARY | 2024-09-18 20:00 | XMS_ITS | Clinical Summary ---
Author Organization [email or web address] Address [address] [place] [address] Care Team Providers Care Credit Card Specialist Name Role Phone Nayan Torre MD Primary Care Provider Source Comments [email or web address],non-owned Affiliates and Associated Physician Practices is amultiple site organization consisting of ambulatory clinics and hospital sitesin [place], [place], [place] and [place]. This disclosure is being madepursuant to the Care Everywhere program and may not contain all information available regarding this patient. Last updated 18.[email or web address] Allergies Active Allergy Reactions Criticality Noted Date Comments Diflunisal Vomiting 07/18/2019 Hydromorphone Nausea and/or Vomiting,Vomiting 01/07/2017 Latex Itching,Rash Medium 03/06/2012 [place] Vomiting 01/07/2017 Propoxyphene Other Low 03/06/2012 Vaginal bleeding Sulfamethoxazole-Trimet hoprim Anaphylaxis High 02/05/2012 Medications * Be aware that medications may not be up to date on this document. Always verify current medications with the patient. Medication Sig Dispensed Refills Start Date End Date Status levothyroxine (SYNTHROID) 75 MCG tabletIndications:H ypothyroidism,Pt takes 80mcg at home Take 75 mcg by mouth daily before breakfast Reasons: Underactive Thyroid, Pt takes 80mcg at home Active gabapentin (NEURONTIN) 600 MG tablet Take 600 mg by mouth 3 times daily Active amitriptyline (ELAVIL) 50 MG tablet Take 50 mg by mouth at bedtime Active furosemide (LASIX) 40 MG tablet Take 40 mg by mouth once daily Active DULoxetine (CYMBALTA) 60 MG capsule Take 60 mg by mouth at bedtime Active metoprolol tartrate (LOPRESSOR) 25 MG tablet Take 1 tablet by mouth 2 times daily 60 tablet 07/04/2019 Active estradiol-norethind anthony (ACTIVELLA) 0.5-0.1 MG tablet every 24 hours Act matty albuterol HFA (PROVENTIL;VENTOLIN ;PROAIR) 108 (90 Base) MCG/ACT inhaler albuterol sulfate HFA 90 mcg/actuation aerosol inhaler INHALE 2 PUFFS BY MOUTH FOUR TIMES DAILY NEEDED Active atorvastatin (LIPITOR) 40 MG tablet TK 1 T PO QD 05/10/2019 Active fluticasone-salmete rol (ADVAIR DISKUS) 250-50 MCG/DOSE inhaler Advair Diskus 250 mcg-50 mcg/dose powder for inhalation Inhale 1 puff twice a day by inhalation route as needed for 30 days. 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 Anxiety 07/18/2019 Cannabis abuse 07/18/2019 Chronic obstructive lung disease 07/18/2019 C. 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 No evidence of recurrence. Pt reports groin healing ok. Needs to continue apixaban until November 2019. No followup required unless recurrence. 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 I discussed ablation procedure with patient and with Dr. Jeb Mayen. Due to patient's history of hypothyroidism, I do not recommend half-way use of amiodarone for rhythm control. Atrial flutter ablation has a high success rate. Patient aware of risks of procedure. All in agreement to proceed with atrial flutter ablation on 08/14/19. Continue amiodarone as ordered. Hold amiodarone 7 days prior to ablation per Dr. Mayen. Continue Eliquis 5 mg BID. Immunizations Name Administration Dates Next Due TD (ADULT), 5 LF TETANUS TOXOID, ADSORBED, PF Family History Medical History Relation Name Comments Cancer Maternal Aunt Diabetes Maternal Aunt Mental Illness Maternal Uncle Alcohol abuse Mother COPD - Chronic Obstructive Pulmonary Disease Mother Cancer Mother Depression Mother Drug Abuse Mother Heart Disease Mother Hypertension Mother Learning Disability Mother Mental Illness Mother Mental Retardation Mother Stillbirth/Multiple Miscarriages/Infertility Mother Relation Name Status Comments Maternal Aunt Maternal Uncle Mother Social History Tobacco Use Types Packs/Day Years Used Date Smoking Tobacco: Every Day Cigarettes Smokeless Tobacco: Never Tobacco Cessation:Ready to Q uit: No; Counseling Given: No Alcohol Use Standard Drinks/Week Comments Yes 40 (1 standard drink = 0.6 oz pu re alcohol) AUDIT-C Answer Date Recorded Frequency of Alcohol Consumption Never 08/26/2019 Average Number of Drinks 1 or 2 020 Frequency of Binge Drinking Never 08/10 Sex and Gender Information Value Date Recorded Sex Assigned at Not on file Gender Identity Not on file Sexual Orientation Not on file Last Filed Vital Signs Vital Sign Reading Time Taken Comments Blood Pressure 93/59 08/27/2019 8:00 AM CDT Pulse 84 08/27/2019 8:00 AM CDT Temperature 36.6 C (97.9 F) 08/27/2019 8:00 AM CDT Respiratory Rate 18 08/27/2019 8:00 AM CDT Oxygen Saturation 98% 08/27/2019 8:00 AM CDT Inhaled Oxygen Concentration 40% 06/30/2019 1 2:48 PM SET MAKING 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 Weight 81.6 kg (180 lb) 08/26/2019 6:48 AM CDT Height 158.8 cm (5' 2.5 ) 08/26/2019 6:48 AM CDT Body Mass Index 32.4 08/26/2019 6:48 AM CDT Plan of Treatment Health Maintenance Due Date Last Done Comments COLOGUARD (AGES 45-75) - COLON CA SCREENING 1966 COLON MONITORING 1966 COLONOSCOPY - COLON CA SCREENING 1966 CT COLONOGRAPHY - COLON CA SCREENING 1966 Colorectal Cancer Screening 1966 FIT - COLON CA SCREENING 1966 FLEX SIG - COLON CA SCREENING 1966 MAMMOGRAM 1966 PAP SMEAR 1966 HIV SCREENING 1981 HEPATITIS C SCREENING 02/10/1984 HEPATITIS B VACCINE (1 of 3 - 19+ 3-dose series) 1985 PNEUMOCOCCAL VACCINE 50+ (1 of 2 - PCV) 1985 PNEUMOCOCCAL VACCINE (1 of 2 - PCV) 1985 ZOSTER VACCINE (1 of 2) 02/15/2016 DTAP/TDAP/TD VACCINES (2 - Td or Tdap) 02/04/2022 02/05/2012 SCREENING FOR DIABETES 08/25/2022 0, 07/04/2019, 07/03/2019, Additional history exists COVID-19 VACCINE ( - 2023- season) 2024 MEDICARE AWV CALENDAR YEAR 2024 INFLUENZA VACCINE (Season Ended) 2025 HIB VACCINE Aged Out No longer eligi ble based on patient's age to complete this topic HPV VACCINE Aged Out No longer eligi ble based on patient's age to complete this topic MENINGOCOCCAL (Group B) VACCINE SHARED DECISION-MAKING Aged Out No longer eligible based on patient's age to complete this topic MENINGOCOCCAL GROUPS A/C/Y/W VACCINE Aged Out No longer eligible based on patient's age to complete this topic Procedures Procedure Name Priority Date/Time Associated Diagnosis Comments BASIC METABOLIC PANEL (CALCIUM TOTAL) STAT 08/26/2019 6:42 AM CDT Typical atrial flutter from Last 3 Months or Most Recently Relevant to Health Maintenance Results * (ABNORMAL) BASIC METABOLIC PANEL (CALCIUM TOTAL) (08/26/2019 6:42 AM CDT) BUN 8 7 - 26 mg/dL 08/26/2019 7:16 AM [facility] Creatinine 1.0 0.6 - 1.2 mg/dL 08/26/2019 7:16 AM [facility] Sodium 136 136 - 145 mmol/L 08/26/2019 7:16 AM [facility] Potassium 4.7(H) 3.5 - 4.5 mmol/L 08/26/2019 7:16 AM [facility] Comment:Hemolysis detected i n this specimen. Hemolysis is known to cause elevations in this analyte. Caution should be exercised in the interpretation of this result. Recommend repeat testing if clinically indicated. Chloride 100 98 - 107 mmol/L 08/26/2019 7:16 AM [facility] CO2 24 22 - 29 mmol/L 08/26/2019 7:16 AM [facility] Glucose 101 70 - 115 mg/dL 08/26/2019 7:16 AM [facility] Calcium 8.8 8.4 - 10.2 mg/dL 08/26/2019 7:16 AM [facility] Anion Gap 17 8 - 18 08/26/2019 7:16 AM [facility] BUN/Creatinine Ratio 8 7 - 23 08/26/2019 7:16 AM [facility] Osmolality Calculated 280 270 - 300 mOsm/kg 08/26/2019 7:16 AM [facility] eGFR 58(L) >60 mL/min/1. 73 m2 08/26/2019 7:16 AM [facility] Blood BLOOD SPECIMEN / Unknown Venipuncture / Unknown 08/26/2019 6:42 AM CDT 08/26/2019 6:49 AM CDT Uriel Marie MD LAB - CHEMISTRY [facility] Organization Address City/State/ZIP Co de Phone Number [facility] [address] [phone] from Last 3 Months or Most Recently Relevant to Health Maintenance Additional Health Concerns Infection Onset Date Last Indicated C DIFF 06/30/2019 06/30/2019 Advance Directives * Full Code (Latest Code Status on File) Date Activated Date Inactivated Comments 08/26/2019 12:21 PM 08/27/2019 12:06 PM * Full Code Date Activated Date Inactivated Comments 06/30/2019 12:42 AM 07/04/2019 6:09 PM Care Teams Credit Card Specialist Relationship Specialty Start Date End Date Nayan Torre MD [address] [place] [address] PCP - General 07/26/21
--- OUTSIDE RECORDS SUMMARY | 2024-09-18 20:01 | XMS_ITS | CONTINUITY OF CARE DOCUMENT ---
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; s/p amputation active Micky Guerra MD Depression / anxiety active Micky Guerra MD Hyperlipidemia active Micky Guerra MD Sleep disorder active Micky Guerra MD Tobacco abuse active Micky Guerra MD Cardiac arrhythmia active Micky Guerra MD COPD active Micky Guerra MD HTN essential active Micky Guerra MD Hypothyroidism active Micky Guerra MD Neuropathy active Micky Guerra MD Leg pain - left active Micky Guerra MD CHF, systolic dysfunction active Micky angel MD Hypoxemia active Micky Guerra MD AFIB active Micky Guerra MD ENCOUNTERS Date Type Provider Location Encounter Diag nosis 7 - 7 In-person encounter Office Visit Micky Guerra MD [facility] AFIB 1 - 1 In-person encounter Office Visit Micky Guerra MD [facility] Hypoxemia 0 - 0 In-person encounter Office Visit Micky Guerra MD [facility] 8 - 8 In-person encounter Office Visit Micky Guerra MD [facility] CHF, systolic dysfunction 5 - 5 In-person encounter Office Visit Micky Guerra MD [facility] 5 - 5 In-person encounter Office Visit Micky Guerra MD [facility] 0 - 0 In-person encounter Office Visit Micky Guerra MD [facility] 6 - 6 In-person encounter Office Visit Micky Guerra MD [facility] Leg pain - left 9 - 9 In-person encounter Office Visit Micky Guerra MD [facility] 8 - 9 In-person encounter Office Visit Micky Guerra MD [facility] Atherosclerotic PVD with gangrene, 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; s/p amputation 6 - 6 In-person encounter Office Visit Micky Guerra MD [facility] 8 - 8 In-person encounter Office Visit Micky Guerra MD [facility] Cardiology examinationAtherosclerotic PVD with gangrene, L 5th toe; s/p amputationDepression / anxietyHyperlipidemiaSleep disorderTobacco abuseCardiac arrhythmiaCOPDHTN essentialHypothyroidismNeuropathy VITAL SIGNS Date Observation Value Provider Body Mass Index (Ratio) 29.99 kg/m2 Joyce Guerra MD blood pressure, diastolic 89 mm[Hg] [facility]se [facility], systolic 147 mm[Hg] Imani wills [facility] oxygen saturation, oximetry 98 % Brenda [facility] pulse rate 65 /min Brenda [facility] blood pressure, cuff size regular Therese stanton [facility] weight E&M 164 [lb_av] Brenda [facility] height E&M 62 [in_i] [facility] Body Mass Index (Ratio) 28.49 kg/m2 Joyce Guerra MD blood pressure, diastolic 87 mm[Hg] [facility] blood pressure, systolic 128 mm[Hg] [facility] blood pressure, cuff size regular [facility] oxygen saturation, oximetry 89 % [facility] pulse rate 97 /min [facility] respiratory rate E&M 18 /min [facility] weight E&M 155.8 [lb_av] [facility] height E&M 62 [in_i] [facility] Body Mass Index (Ratio) 27.25 kg/m2 Joyce Guerra MD blood pressure, cuff size regular Ke rri Gruenenfeld blood pressure, diastolic 70 mm[Hg] Ke rri Gruenenfelder blood pressure, systolic 142 mm[Hg] Herminio ri Leonoranedaryl oxygen saturation, oximetry 86 % Valerie Leonoranenfeldrobinson respiratory rate E&M 12 /min Valerie Philippe benderenenfelder pulse rate 93 /min Valerie Rojas lder weight E&M 149 [lb_av] Valerie Leonoraneligiae [facility] height E&M 62 [in_i] Valerie ward blood pressure, diastolic 87 mm[Hg] An regina Bryant blood pressure, systolic 142 mm[Hg] Any camille Bryant pulse rate 74 /min Giovana Bryant oxygen saturation, oximetry 89 % Giovana Bryant blood pressure, cuff size large An regina Bryant height E&M 62 [in_i] Giovana Bryant Body Mass Index (Ratio) 28.90 kg/m2 Joyce Guerra MD Inhaled O2 4 L/min [facility] pulse rate 86 /min [facility] blood pressure, cuff size regular [facility] blood pressure, diastolic 52 mm[Hg] [facility] blood pressure, systolic 144 mm[Hg] [facility] oxygen saturation, oximetry 93 % [facility] respiratory rate E&M 16 /min Breanna [facility] weight E&M 158 [lb_av] [facility] height E&M 62 [in_i] [facility] Body Mass Index (Ratio) 30.18 kg/m2 Joyce Guerra MD blood pressure, cuff size regular Ke rri Win blood pressure, diastolic 100 mm[Hg] Ke rri Johanueneavtar blood pressure, systolic 160 mm[Hg] Herminio Loaiza oxygen saturation, oximetry 83 % Valerie Loaiza respiratory rate E&M 12 /min Valerie rodgers pulse rate 96 /min Valerie Rojas [facility] weight E&M 165 [lb_av] Valerie Rojas [facility] height E&M 62 [in_i] Valerie Rojas nabil Body Mass Index (Ratio) 30.76 kg/m2 Joyce Guerra MD blood pressure, diastolic 73 mm[Hg] St acy Triston blood pressure, systolic 109 mm[Hg] Sta cy [place] oxygen saturation, oximetry 86 % Luluhamlet Goldstein pulse rate 90 /min Lulu Triston respiratory rate E&M 16 /min Lulu D gerald weight E&M 168.2 [lb_av] Luluhamlet Goldstein height E&M 62 [in_i] Lulu Goldstein Body Mass Index (Ratio) 31.27 kg/m2 Joyce Guerra MD blood pressure, diastolic 90 mm[Hg] Li n[facility]Logic blood pressure, systolic 140 mm[Hg] Allegra kLogrob blood pressure, diastolic 90 mm[Hg] St acmoe Goldstein blood pressure, systolic 140 mm[Hg] Sta cy Triston oxygen saturation, oximetry 89 % Luluhamlet Goldstein pulse rate 81 /min Luluhamlet Goldstein weight E&M 171 [lb_av] Lulu Triston respiratory rate E&M 18 /min Lulu D gerald height E&M 62 [in_i] Luluhamlet Goldstein Body Mass Index (Ratio) 27.25 kg/m2 Joyce Guerra MD blood pressure, diastolic 70 mm[Hg] Ajay greenha O'Williams blood pressure, systolic 110 mm[Hg] Tiarra ralph O'Williams oxygen saturation, oximetry 94 % Jodie O'Williams respiratory rate E&M 18 /min Jodie O'Williams pulse rate 99 /min Jodie O'Williams blood pressure, resting Yes [place] cardoso O'Williams weight E&M 149 [lb_av] Jodie Cyr'Williams height E&M 62 [in_i] Jodie Klarissa'Williams Body Mass Index (Ratio) 29.44 kg/m2 Joyce Guerra MD blood pressure, cuff size regular Ke rri Johanuenedaryl blood pressure, diastolic 70 mm[Hg] Ke rri Johanuenedaryl blood pressure, systolic 120 mm[Hg] Herminio star Loaiza oxygen saturation, oximetry 93 % Valerie Loaiza respiratory rate E&M 16 /min Valerie rodgers pulse rate 105 /min Valerie Rojas [facility] weight E&M 161 [lb_av] Valerie Rojas [facility] height E&M 62 [in_i] Valerie Rojas [facility] Body Mass Index (Ratio) 32.92 kg/m2 Joyce Guerra MD blood pressure, diastolic 60 mm[Hg] Ajay radhaRosario Whitley blood pressure, systolic 102 mm[Hg] Tiarra Whitley oxygen saturation, oximetry 95 % Marisabel Whitely respiratory rate E&M 20 /min Andree Whitley pulse rate 100 /min Marisabel belle weight E&M 180 [lb_av] Marisabellexie montiel height E&M 62 [in_i] Marisabel belle Body Mass Index (Ratio) 33.83 kg/m2 Joyce Guerra MD blood pressure, resting No Cynt emanuel Weinstein blood pressure, diastolic 68 mm[Hg] Cy jayson Weinstein blood pressure, systolic 94 mm[Hg] Pamela thicamille Weinstein blood pressure, cuff size regular Cy jayson Weinstein pulse rate 103 /min Sara lopez oxygen saturation, oximetry 93 % Sara Weinstein respiratory rate E&M 18 /min Sara Weinstein height E&M 62 [in_i] Sara lopez weight E&M 185 [lb_av] Sara lopez ALLERGIES Allergy Name Onset Date Reaction Criticality Status BACTRIM Low Criticality active LITHIUM CARBONATE Low Criticality ac tive RESULTS Date Observation Value Provider Reference Range Interpretation Location prothrombin time (patient) 10.5 s [facility] 9.1-12.0 international normalized ratio (INR) 1.0 [facility] 0.9-1.2 lipoprotein, beta, serum, point, quantitative, calculated 107 mg/dL [facility] 0-99 High HDL cholesterol, serum 22 mg/dL [facility] >39 Low triglyceride, serum, random 270 mg/dL [facility] 0-149 High cholesterol, serum 176 mg/dL [facility] 543-559 3243/10/0 9 calcium, serum 9.1 mg/dL [facility] 8.7-10.2 carbon dioxide, venous blood 30 mmol/L [facility] 20-29 High chloride, serum 90 mmol/L [facility] 96-106 Low potassium, serum 3.7 mmol/L [facility] 3.5-5.2 sodium, serum 139 mmol/L [facility] 071-606 7808/10/0 9 urea nitrogen/creatinin e ratio, serum 7 [facility] 9-23 Low 9 eGFR if 60 mL/min/{1. 73_m2} [facility] >59 9 eGFR if not 52 mL/min/{1. 73_m2} [facility] >59 Low creatinine, serum 1.18 mg/dL [facility] 0.57-1.00 High 2020/10/0 9 urea nitrogen, blood 8 mg/dL [facility] 6-24 9 blood glucose, random 97 mg/dL [facility] 65-99 9 basophil count, absolute 0.1 x10E3/uL [facility] 0.0-0.2 Eosinophil Absolute Count 0.0 X10E3/UL [facility] 0.0-0.4 9 monocyte count, blood, automated 2.4 X10E3/UL [facility] 0.1-0.9 High lymphocyte count, blood, automated 2.5 X10E3/UL [facility] 0.7-3.1 Absolute Neutrophils 9.7 X10E3/UL [facility] 1.4-7.0 High basophils as percent of blood leukocytes 1 % [facility] Not Estab. 9 eosinophils as percent of blood leukocytes 0 % [facility] Not Estab. 9 monocytes as percent of blood leukocytes 16 % [facility] Not Estab. 9 lymphocytes as percent of blood leukocytes 17 % [facility] Not Estab. 9 neutrophils as percent of blood leukocytes 65 % [facility] Not Estab. platelet count 479 X10E3/UL [facility] 150-450 High red blood cell distribution width 15.0 % [facility] 11.7-15.4 9 mean corpuscular hemoglobin concentration, RBC 33.9 G/DL [facility] 31.5-35.7 9 mean corpuscular hemoglobin, RBC 31.8 pg [facility] 26.6-33.0 9 mean corpuscular volume, RBC 94 fL [facility] 79-97 hematocrit, blood 39.5 % [facility] 34.0-46.6 9 hemoglobin, blood 13.4 g/dL [facility] 11.1-15.9 9 erythrocyte (RBC) count 4.21 X10E6/UL [facility] 3.77-5.28 9 leukocyte count, blood 14.7 X10E3/UL [facility] 3.4-10.8 High HISTORY OF MEDICATION USE Medication Status Instructions Dates Provider Indications Com ments cephalexin 500 mg capsule active Take 1 capsule by mouth three times a day Terry Wilkerson MD Percocet 5-325 mg tablet active Take 1 tablet by mouth every six hours for pain TAKE 1 TABLET BY MOUTH EVERY 6 HOURS NEEDED FOR PAIN, do not share, abuse or sell Terry Wilkerson MD clopidogrel 75 mg tablet active TAKE 1 TABLET BY MOUTH DAILY Kev Feng Eliquis 5 mg tablet active TAKE 1 TABLET BY MOUTH TWICE DAILY Meggan Forrester Entresto 24-26 mg tablet active Take 1 tablet by mouth twice a day Micky Guerra MD metoprolol succinate 100 mg tablet extended release 24 hr active TAKE 1 TABLET BY MOUTH DAILY Micky Guerra MD Eliquis 5 mg tablet completed Take 1 tablet by mouth twice a day - Meggan Forrester clopidogrel 75 mg tablet completed TAKE 1 TABLET BY MOUTH DAILY - Micky Guerra MD AMITRIPTYLINE HCL 50 MG ORAL TABLET completed ONE TAB. DAILY - Valerie Loaiza HYDROCODONE-PAIGE TAMINOPHEN 5-325 MG ORAL TABLET completed every 4-6 hours as needed - Valerie Loaiza ASPIRIN 81 81 MG TBEC active 1 tablet by mouth once a day Elizabeth Morelos clopidogrel 75 mg tablet completed 1 tablet by mouth once a day - Elizabeth Morelos albuterol sulfate 90 mcg/actuation HFA aerosol inhaler active Inhale 2 puff by mouth every six hours as needed Sara Weinstein #8.5, 25 days supply, Prescribed by LE LEE, Filled 10/25/2019 Breo Ellipta 100-25 mcg/dose blister with device active Use 1 by mouth once a day Sara Weinstein #60, 30 days supply, Prescribed by LE LEE, Filled 10/23/2019 Symbicort 160-4.5 mcg/actuation HFA aerosol inhaler completed Inhale 2 puff by mouth twice a day - Sara Weinstein #10.2, 30 days supply, Prescribed by LE LEE, Filled 08/05/2019 METOPROLOL TARTRATE 50 MG ORAL TABLET completed 50 mg po bid - Valerie Loaiza #60, 30 days supply, Prescribed by CLAUDIO RICHARDSON, Filled 07/04/2019 levothyroxine 88 mcg tablet active 1 tablet once a day Marisabel Whitley #90, 90 days supply, Prescribed by MADELINE JAMIL, Filled 05/06/2019 FUROSEMIDE 40 MG ORAL TABLET completed TK 1 T PO QHS - Micky Guerra MD #30, 30 days supply, Prescribed by NINO CARRILLO, Filled 05/03/2019 atorvastatin 40 mg tablet active Take 1 tablet by mouth once a day Sara Weinstein #30, 30 days supply, Prescribed by NINO CARRILLO, Filled 03/13/2019 duloxetine 60 mg capsule,delayed release(DR/EC) active Take 1 capsule by mouth once a day Sara Weinstein #30, 30 days supply, Prescribed by Lexie CALLAWAY, Filled 03/13/2019 quetiapine 100 mg tablet active once a day Marisabel Whitley #60, 30 days supply, Prescribed by Lexie CALLAWAY, Filled 03/13/2019 tramadol 50 mg tablet completed Take 1 tablet by mouth every six hours as needed - Sara Weinstein #10, 3 days supply, Prescribed by JACOB MORROW, Filled 03/01/2019 amitriptyline 50 mg tablet active Take 1 tablet by mouth every night Sara Weinstein #30, 30 days supply, Prescribed by NINO CARRILLO, Filled 02/25/2019 gabapentin 600 mg tablet active Take 1 tablet by mouth three times a day Sara Weinstein #90, 30 days supply, Prescribed by NINO CARRILLO, Filled 02/18/2019 SOCIAL HISTORY Date Observation Value Provider smoking/tobacco cess ation, patient education and counseling yes Micky Guerra MD number of years as a smoker 46 a Micky Guerra MD smoking history, tot al pack/day 1/3 PPD Micky Guerra MD cigarette use yes Micky Diallo smoking status Current every day smoker U mickey Guerra MD smoking/tobacco cess ation, patient education and counseling yes Denisha Fuentes number of years as a smoker 46 a Denisha Fuentes smoking history, tot al pack/day 1/3 PPD Denisha Fuentes cigarette use yes Denisha Fuentes smoking status Current every day smoker L karsten Fuentes smoking/tobacco cess ation, patient education and counseling yes Micky Guerra MD number of years as a smoker 45 a Micky Guerra MD smoking history, tot al pack/day 1/3 PPD Micky Guerra MD cigarette use yes Micky Diallo smoking status Current every day smoker U mickey Guerra MD smoking/tobacco cess ation, patient education and counseling yes Giovana Hurtado number of years as a smoker 46 a Giovana Hurtado smoking history, tot al pack/day 1/3 PPD Giovanacamille Hurtado cigarette use yes Giovanacamille Hurtado smoking status Current every day smoker A enidcamille Hurtado smoking/tobacco cess ation, patient education and counseling yes Breanna Conroy number of years as a smoker 46 a Breanna Conroy smoking history, tot al pack/day 1/2 PPD Breanna Conroy cigarette use yes Breanna Conroy smoking status Current every day smoker F emelyn Conroy social history E&M S moking History: P atminal currently smokes every day. P atient has been counseled to quit. Micky Guerra MD smoking/tobacco cess ation, patient education and counseling yes Micky Guerra MD smoking status Current every day smoker Violet mickey Guerra MD social history reviewed E&M revi ewed - no changes required Micky Guerra MD social history E&M S moking History: P atient currently smokes every day. P atient has been counseled to quit. Micky Guerra MD social history reviewed E&M revi ewed - no changes required Micky Guerra MD smoking/tobacco cess ation, patient education and counseling yes Lulu Goldstein number of years as a smoker 46 a Lulu Triston smoking history, tot al pack/day 1/2 PPD Lulu Goldstein cigarette use yes Lulu Goldstein smoking status Current every day smoker S nilaymoe Goldstein smoking status Current every day smoker Violet mickey Guerra MD social history E&M S moking History: P atient currently smokes every day. P atient has been counseled to quit. Micky Guerra MD social history reviewed E&M revi ewed - no changes required Micky Guerra MD smoking/tobacco cess ation, patient education and counseling yes Lulu Goldstein number of years as a smoker 46 a Lulu Goldstein smoking history, tot al pack/day 1/2 PPD Lulu Goldstein cigarette use yes Lulu Goldstein social history reviewed E&M revi ewed - no changes required Micky Guerra MD social history E&M S moking History: P atient currently smokes every day. P atient has been counseled to quit. Micky Guerra MD smoking/tobacco cess ation, patient education and counseling yes Jodie John number of years as a smoker 46 a Jodie O'Williams smoking history, tot al pack/day 1/2 PPD Jodie O'Williams cigarette use yes Jodie O'Williams smoking status Current every day smoker Get Cyr'Williams social history E&M S moking History: P atient currently smokes every day. P atient has been counseled to quit. Micky Guerra MD social history reviewed E&M revi ewed - no changes required Micky Guerra MD smoking/tobacco cess ation, patient education and counseling yes Valerie Josse number of years as a smoker 46 a Valerie Josse smoking history, tot al pack/day 1/2 PPD Valerie Josse cigarette use yes Valerie Ivory katz smoking status Current every day smoker Rahel jarquin Josse social history E&M S moking History: P atient currently smokes every day. P atient has been counseled to quit. Micky Guerra MD social history reviewed E&M revi ewed - no changes required Micky Guerra MD smoking/tobacco cess ation, patient education and counseling yes Marisabel Whitley number of years as a smoker 46 a Marisabel Whitley smoking history, tot al pack/day 1/2 PPD Marisabel Whitley cigarette use yes Marisabel hurd smoking status Current every day smoker M Nehal Whitley number of grandchildren Micky Guerra MD U mickey Guerra MD social history E&M S moking History: P atient currently smokes every day. P atient has been counseled to quit. Micky Guerra MD social history reviewed E&M revi ewed - no changes required Micky Guerra MD smoking/tobacco cess ation, patient education and counseling yes Micky Guerra MD smoking history, tot al pack/day 1/2 PPD Sara Weinstein number of years as a smoker 46 a Sara Weinstein cigarette use yes Sara cano smoking status Current every day smoker C silvino Js FAMILY HISTORY Family Member Condition Father Family History of Co ronary Artery Disease: Uncle Family History of Co ronary Artery Disease: Mother Family History of Co ronary Artery Disease: INSURANCE PROVIDERS Payer name Policy type / Coverage type [place] [employer] party ID [id number] (PPO C-SNP) [employer] insurance [employer] [id number] [facility] Medicaid 1 [id number] ADVANCE DIRECTIVES Name Date DISCUSSED - NO DECISION MADE TREATMENT PLAN Date Name Performer [id number],C,T he patient is on a statin H er updated medication list for this problem includes: Atorvastatin 40 Mg Tablet (Atorvastatin) ..... Take 1 tablet by mouth once a day Micky Guerra MD [id number],C,P t has been instructed to start taking BP at home I f higher than 140/90 she will be started on medication BP today: 160/100 P rior BP: 109/73 (12/29/2022) Labs Reviewed: C reat: 1.18 (03/20/2020) C hol: 176 (03/20/2020) HDL: 22 (03/20/2020) Micky Guerra MD [id number],C,T he Patient was reencouraged to stop smoking. Micky Guerra MD [id number],C,U ses at home O2 O 2 Sat is 83% Micky Guerra MD [id number],C, B P today: 109/73 P rior BP: 140/90 (12/15/2022) Labs Reviewed: C reat: 1.18 (03/20/2020) C hol: 176 (03/20/2020) HDL: 22 (03/20/2020) Micky Guerra MD [id number],C,i t is more liekly to be arthritis and she has no signficant peripheral artery disease Micky Guerra MD [id number],C,S he has Hx of PAD, has stents in both illiacs and now has pain in left. We will do an ultrasound to check for any changes. Micky Guerra MD [id number],B,L 5th toe has healed since Rishabh A BI today showed that everything is patent. W ill check an ultrasound. Micky Guerra MD [id number],S, Micky Guerra MD [id number],S,o n statin p er PCP H er updated medication list for this problem includes: Atorvastatin 40 Mg Tablet (Atorvastatin) ..... Take 1 tablet by mouth once a day Micky Guerra MD [id number],S,w ell controlled B P today: 110/70 P rior BP: 120/70 (07/20/2020) Labs Reviewed: C reat: 1.18 (03/20/2020) C hol: 176 (03/20/2020) HDL: 22 (03/20/2020) Micky Guerra MD [id number],S, Micky Guerra MD [id number],S,T he Patient was reencouraged to stop smoking. Micky Guerra MD Cardiology:Continue using supple mental O2 Micky Guerra MD Cardiology:Appears t o be becoming more chronic, her afib is fast typically > 100 bpm A c with yeni Guerra MD Cardiology: H er updated medication list for this problem includes: Atorvastatin 40 Mg Tablet (Atorvastatin) ..... Take 1 tablet by mouth once a day Micky Guerra MD Cardiology: H er updated medication list for this problem includes: Metoprolol Succinate 100 Mg Tablet Extended Release 24 Hr (Metoprolol succinate) ..... Take 1 tablet by mouth daily & #13;BP today: 147/89 P rior BP: 128/87 (04/12/2024) Labs Reviewed: C reat: 1.18 (03/20/2020) C hol: 176 (03/20/2020) HDL: 22 (03/20/2020) LDL: 107 (03/20/2020) T (03/20/2020) Micky Guerra MD Cardiology:Repeat he r echo, assess lvef T his visit has been a part of the consistent, comprehensive, and ongoing management of the chronic medical condition(s) listed above for the patient. a ppears compensated Micky Guerra MD Cardiology:continue medical therapy c laudication distance improved Micky Guerra MD Cardiology: H er updated medication list for this problem includes: Atorvastatin 40 Mg Tablet (Atorvastatin) ..... Take 1 tablet by mouth once a day Micky Guerra MD Cardiology: H er updated medication list for this problem includes: Metoprolol Succinate 100 Mg Tablet Extended Release 24 Hr (Metoprolol succinate) ..... Take 1 tablet by mouth daily & #13;BP today: 128/87 P rior BP: 142/70 (02/09/2024) Labs Reviewed: C reat: 1.18 (03/20/2020) C hol: 176 (03/20/2020) HDL: 22 (03/20/2020) LDL: 107 (03/20/2020) T (03/20/2020) Micky Guerra MD Cardiology:ON apropr iate medical therapy Micky Guerra MD Cardiology:Not able to get full canisters from her [employer] S he is currently Sats in the 80s Micky Guerra MD Cardiology:Strongly discussed with her smoking cessation. Given her O2 Sat is 80% in the office I have strongly recommended tobacco cessation. H as supplemental at home O2 Micky Guerra MD Cardiology: H er updated medication list for this problem includes: Metoprolol Succinate 100 Mg Tablet Extended Release 24 Hr (Metoprolol succinate) ..... Take 1 tablet by mouth daily & #13;BP today: 142/70 P rior BP: 142/87 (10/18/2023) Labs Reviewed: C reat: 1.18 (03/20/2020) C hol: 176 (03/20/2020) HDL: 22 (03/20/2020) LDL: 107 (03/20/2020) T (03/20/2020) Micky Guerra MD Cardiology: R ecent hospitalization with echo revealing EF 45%. Moderate pulmonary htn. She contonues to have intermittent edema. Better today. Most likely due to poorly controlled BP. Entresto increased. Micky Guerra MD Cardiology:The Patie nt was reencouraged to stop smoking. S moking cessation techniques and education provided Micky Guerra MD Cardiology:Has had p revious intervention n o sx of claudication Micky Guerra MD Cardiology:Strongly discussed with her smoking cessation H er O2 Sat is 80% in the office H as supplemental at home O2 Micky Guerra MD Cardiology:O2 dependent. Micky douglas MD Cardiology:LDL 43 on recent in p atient labs. Micky Guerra MD Cardiology:Recent ho spitalization with echo revealing EF 45%. Moderate pulmonary htn. She contonues to have intermittent edema. Better today. Most likely due to poorly controlled BP. Entresto increased. WIll plan for nuclear stress test to rule out underlying ischemia. WIll do lexiscan stress as pt unable to ambulate, uses cane and is O2 dependent. Micky Guerra MD Cardiology: H er updated medication list for this problem includes: Levothyroxine 88 Mcg Tablet (Levothyroxine) ..... 1 tablet once a day Micky Guerra MD Cardiology Micky Guerra MD Cardiology Micky Guerra MD Cardiology: H er updated medication list for this problem includes: Atorvastatin 40 Mg Tablet (Atorvastatin) ..... Take 1 tablet by mouth once a day Micky Guerra MD Cardiology:The Patient was reenc ouraged to stop smoking. Micky Guerra MD Cardiology:on 100mg BB once daily, recently increased from 50mg once daily H er updated medication list for this problem includes: Metoprolol Succinate 100 Mg Tablet Extended Release 24 Hr (Metoprolol succinate) ..... Take 1 tablet by mouth daily BP today: 144/52 P rior BP: 160/100 (03/06/2023) Labs Reviewed: C reat: 1.18 (03/20/2020) C hol: 176 (03/20/2020) HDL: 22 (03/20/2020) LDL: 107 (03/20/2020) T (03/20/2020) Micky Guerra MD Cardiology:The patie nt is on a statin H er updated medication list for this problem includes: Atorvastatin 40 Mg Tablet (Atorvastatin) ..... Take 1 tablet by mouth once a day Micky Guerra MD Cardiology:Pt has be en instructed to start taking BP at home I f higher than 140/90 she will be started on medication BP today: 160/100 P rior BP: 109/73 (12/29/2022) Labs Reviewed: C reat: 1.18 (03/20/2020) C hol: 176 (03/20/2020) HDL: 22 (03/20/2020) Micky Guerra MD Cardiology:The Patient was reenc ouraged to stop smoking. Micky Guerra MD Cardiology:Uses at h ome O2 O 2 Sat is 83% Micky Guerra MD Cardiology: B P today: 109/73 P rior BP: 140/90 (12/15/2022) Labs Reviewed: C reat: 1.18 (03/20/2020) C hol: 176 (03/20/2020) HDL: 22 (03/20/2020) Micky Guerra MD Cardiology:it is mor e liekly to be arthritis and she has no signficant peripheral artery disease Micky Guerra MD Cardiology:She has H x of PAD, has stents in both illiacs and now has pain in left. We will do an ultrasound to check for any changes. Micky Guerra MD Cardiology:L 5th toe has healed since Rishabh A BI today showed that everything is patent. W ill check an ultrasound. Micky Guerra MD Cardiology Micky Guerra MD Cardiology:on statin p er PCP H er updated medication list for this problem includes: Atorvastatin 40 Mg Tablet (Atorvastatin) ..... Take 1 tablet by mouth once a day Micky Guerra MD Cardiology:well cont rolled B P today: 110/70 P rior BP: 120/70 (07/20/2020) Labs Reviewed: C reat: 1.18 (03/20/2020) C hol: 176 (03/20/2020) HDL: 22 (03/20/2020) Micky Guerra MD Cardiology Micky Guerra MD Cardiology:The Patient was reenc ouraged to stop smoking. Micky Guerra MD Cardiology Follow up :The Patient was reencouraged to stop smoking. Micky Guerra MD Cardiology Follow up : H er updated medication list for this problem includes: Atorvastatin Calcium 40 Mg Oral Tablet (Atorvastatin calcium) ..... Tk 1 t po qd C HOL: 176 (03/20/2020) HDL: 22 (03/20/2020) Micky Guerra MD Cardiology Follow up : B P today: 120/70 P rior BP: 102/60 (04/17/2020) Labs Reviewed: C reat: 1.18 (03/20/2020) C hol: 176 (03/20/2020) HDL: 22 (03/20/2020) The following medications were removed from the medication list: Metoprolol Tartrate 50 Mg Oral Tablet (Metoprolol tartrate) ..... 50 mg po bid Her updated medication list for this problem includes: Aspirin 81 81 Mg Oral Tablet Delayed Release (Aspirin) ..... One tab by mouth daily Micky Guerra MD Cardiology Follow u p :S/p amputation per Dr. Bakari Amanda dvised smoking cessation, DAPT, and continue current meds A BI today revealed patent stents and she complains of no sx. F/u in 6 months with an RISHABH Micky Guerra MD Cardiology Micky Guerra MD Cardiology: H er updated medication list for this problem includes: Atorvastatin Calcium 40 Mg Oral Tablet (Atorvastatin calcium) ..... Tk 1 t po qd Micky Guerra MD Cardiology Micky Guerra MD Cardiology:The Patie nt was reencouraged to stop smoking. Micky Guerra MD Cardiology:Hypotensi ve. Will DC lasix B P today: 102/60 P rior BP: 94/68 (03/19/2020) Labs Reviewed: C reat: 1.18 (03/20/2020) C hol: 176 (03/20/2020) HDL: 22 (03/20/2020) Micky Guerra MD Cardiology:S/p AIF i ntervention. 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 Lower extremities are warmer and she is not in near as much pain. Will hold lasix so that her BP improves. She is hypotensive. Needs surgery to remove gangrene per Dr. Bakari Guerra MD Cardiology New Patient Micky thompson MD Cardiology New Patie nt : H er updated medication list for this problem includes: Atorvastatin Calcium 40 Mg Oral Tablet (Atorvastatin calcium) ..... Tk 1 t po qd Micky Guerra MD Cardiology New Patient :s/p abla tion. Will obtain records Micky Guerra MD Cardiology New Patie nt : H er updated medication list for this problem includes: Levothyroxine Sodium 75 Mcg Oral Tablet (Levothyroxine sodium) ..... Tk 1 t po qam b geeta Micky Guerra MD Cardiology New Patie nt :The Patient was reencouraged to stop smoking. Micky Guerra MD Cardiology New Patie nt :On Tramadol and Gabapentin for neuropathic pain in LE. Micky Guerra MD Cardiology New Patie nt :Hypotensive today. BP was taken in b/l UE and was equal B P today: 94/68 Micky Guerra MD Cardiology New Patie nt :Will proceed with AIF [place] [facility] will obtain necessary labs. Patient has an active ulcer on the plantar surface of L foot and has diminished ABIs in this leg. L 5th toe is gangrenous Micky Guerra MD Date Name Stress Regadenoson COMPREHENSIVE METABO LIC PANEL, W/EGFR Complete Echo Arterial Duplex Bi-L ower EX Arterial Duplex Bi-L ower EX Arterial Duplex Bi-L ower EX Arterial Duplex Bi-L ower EX PROTHROMBIN TIME WIT H INR LIPID PANEL CBC (INCLUDES DIFF/P LT) BASIC METABOLIC PANE L W/EGFR AIF Intervention - [facility] HISTORY OF PROCEDURES Procedure Date Procedure Name Provider Procedure Notes S tatus Complex e/m visit add on Micky Guerra MD completed Complex e/m visit add on Micky Guerra MD completed EKG Leonel Quintanilla MD completed EKG Micky Guerra MD completed
--- OUTSIDE RECORDS SUMMARY | 2024-09-18 20:01 | XMS_ITS ---
Author Organization [facility] Care Team Providers Care Stringed Instrument Assembler Name Role Phone Kirill Whatley Unavailable Unavailable Allergies and adverse reactions Code CodeSystem Substance Reaction Severity StartDate Concern Status 71808 RXNORM Blades Unknown 10/11/2019 active Latex Unknown 10/11/2019 active Dilaudid Unknown 10/11/2019 active Bactrim Unknown 10/11/2019 active Care Team Name Role Address Phone Organization Dates Kirill Whatley PCP [address], [place], [facility], [place] (Office): : : [facility] 10/12/2019 - 10/23/2019 Mental Status Section Date Assessment Total Score Description 10/23/2019 CAM 0 No delirium ind icated 10/17/2019 BIMS 15 cognitively int act CAM 0 No delirium ind icated PHQ-9 03 minimal depress ion Problems Problem # Description Date of onset Resolved Date Code CodeSystem Concern Status 1 CONTACT WITH AND (SUSPECTED) EXPOSURE TO OTHER VIRAL COMMUNICABLE DISEASES [address] active 2 [address]KALOSIS [address] active 3 ANXIETY DISORDER, UNSPECIFIED [address] active 4 CHRONIC OBSTRUCTIVE PULMONARY DISEASE, UNSPECIFIED [address] active 5 CHRONIC RESPIRATORY FAILURE WITH HYPOXIA [address] active 6 DIFFICULTY IN WALKING, NOT ELSEWHERE CLASSIFIED [address] active 7 ESSENTIAL (PRIMARY) HYPERTENSION [address] active 8 FALL ON SAME LEVEL FROM SLIPPING, TRIPPING AND STUMBLING WITHOUT SUBSEQUENT STRIKING AGAINST OBJECT, SUBSEQUENT ENCOUNTER [address] active 9 GASTRO-ESOPHAGEAL REFLUX DISEASE WITHOUT ESOPHAGITIS [address] active 10 HYPERLIPIDEMIA, UNSPECIFIED [address] active 11 [address]KALEMIA [address] active 12 HYPOTHYROIDISM, UNSPECIFIED [address] active 13 MAJOR DEPRESSIVE DISORDER, RECURRENT, UNSPECIFIED [address] active 14 METABOLIC ENCEPHALOPATHY [address] active 15 MUSCLE WEAKNESS (GENERALIZED) [address] active 16 PAIN IN LEFT KNEE [address] active 17 SEPSIS, UNSPECIFIED ORGANISM [address] active 18 UNSPECIFIED ATRIAL FIBRILLATION [address] active 19 URINARY TRACT INFECTION, SITE NOT SPECIFIED [address] active 20 WEAKNESS [address] active Reason for Referral No Reasons for Referral Entered Social History Social History Observation Description Start Date End Date Code Code System Current Smoking Status Tobacco smoking consumption unknown 724267055 SNOMED CT Sex Assigned At Female 1965 08365-0 [facility]
--- OUTSIDE RECORDS SUMMARY | 2024-09-18 20:01 | XMS_ITS | Clinical Summary ---
Author Organization [facility] Address [address] [place] [address] Care Team Providers Care Quick Mixer Operator Name Role Phone Nino Carrillo MD Primary Care Provider [phone] Terry Wilkerson MD Unavailable Bashir Glaser MD Unavailable Micky Guerra MD Unavailable Desmond Quintanilla MD Unavailable [phone] Canelo Youssef MD Unavailable Allergies Active Allergy Reactions Criticality Noted Date Comments Diltiazem Other (See comments) High 12/04/2023 IV AND PO-ANY dose causes pauses. EVEN small doses of 30 mg Diflunisal Vomiting Low 07/18/2019 Hydromorphone Nausea And Vomiting,Nausea only,Vomiting Low 01/07/2017 Latex Hives,Itching,Rash Medium 03/06/2012 [place] Vomiting Low 01/07/2017 Sulfamethoxazole-Trimeth oprim Anaphylaxis,Other (See comments) High 02/05/2012 Cant remember Medications empagliflozin (JARDIANCE) 10 mg tablet Take 1 tablet (10 mg total) by mouth daily 30 tablet 09/14/19 25 025 Active topiramate (TOPAMAX) 50 mg tablet Take 1 tablet (50 mg total) by mouth 2 (two) times a day 60 tablet 09/14/19 25 025 Active albuterol HFA (PROVENTIL HFA,VENTOLIN HFA,PROAIR HFA) 90 mcg/actuation inhaler Inhale 2 puffs every 4 (four) hours as needed for wheezing or shortness of breath 1 each 09/14/19 25 Active amitriptyline (ELAVIL) 50 mg tablet Take 1 tablet (50 mg total) by mouth nightly 30 tablet 09/14/19 25 Active atorvastatin (LIPITOR) 40 mg tablet Take 1 tablet (40 mg total) by mouth daily 30 tablet 09/14/19 25 Active divalproex ER (DEPAKOTE ER) 500 mg 24 hr tablet Take 1 tablet (500 mg total) by mouth nightly 30 tablet 09/14/[address] (CYMBALTA) 60 mg capsule Take 1 capsule (60 mg total) by mouth daily 30 capsule 09/14/19 25 Active fluticasone propion-salme teroL (ADVAIR DISKUS) 500-50 mcg/dose diskus inhaler Inhale 1 puff 2 (two) times a day Rinse mouth with water after use. Do not swallow. 1 each 09/14/19 25 Active levothyroxine (SYNTHROID) 88 mcg tablet Take 1 tablet (88 mcg total) by mouth dry charge process attendant before breakfast 30 tablet 09/14/19 25 Active metoprolol tartrate (LOPRESSOR) 25 mg immediate release tablet Take 0.5 tablets (12.5 mg total) by mouth 2 (two) times a day Hold if SBP less than 100, HR less than 60 30 tablet 09/14/19 25 Active QUEtiapine (SEROquel) 100 mg tablet Take 1 tablet (100 mg total) by mouth nightly 30 tablet 09/14/19 25 Active ergocalcifero l (VITAMIN D) 50,000 unit capsule Take 1 capsule (50,000 Units total) by mouth once a week for 11 doses 11 capsule 09/20/19 25 Active Additional Information Patient taking differently:50,000 Units oral Weekly, , Reported on 09/14/2024 polyethylene glycol (MIRALAX) 17 gram/dose bulk powder Take 17 g by mouth daily 510 g 09/14/19 25 Active lidocaine (ASPERCREME) 4 % adhesive patch,medicat edIndications :right leg medial to knee Place 1 patch on the skin daily for 12 hours 30 patch 09/15/19 25 Active gabapentin (NEURONTIN) 300 mg capsule Take 1 capsule (300 mg total) by mouth daily Active tiotropium (SPIRIVA) 18 mcg per inhalation capsule Place 1 puff (1 capsule total) into inhaler and inhale daily 30 capsule 09/15/19 25 025 Active amitriptyline (ELAVIL) 50 mg tablet Take 1 tablet (50 mg total) by mouth nightly 025 Discontinued apixaban (ELIQUIS) 5 mg tablet Take 1 tablet (5 mg total) by mouth 2 (two) times a day 025 Discontinued(St op Taking at Discharge) atorvastatin (LIPITOR) 40 mg tablet Take 1 tablet (40 mg total) by mouth daily 025 Discontinued clopidogreL (PLAVIX) 75 mg tablet Take 1 tablet (75 mg total) by mouth daily 025 Discontinued(St op Taking at Discharge) divalproex ER (DEPAKOTE ER) 500 mg 24 hr tablet Take 1 tablet (500 mg total) by mouth nightly [address] (CYMBALTA) 60 mg capsule Take 1 capsule (60 mg total) by mouth daily 025 Discontinued fluticasone propion-salme teroL (ADVAIR DISKUS) 500-50 mcg/dose diskus inhaler Inhale 1 puff 2 (two) times a day Rinse mouth with water after use. Do not swallow. 025 Discontinued gabapentin (NEURONTIN) 600 mg tablet Take 1 tablet (600 mg total) by mouth 3 (three) times a day 025 Discontinued(St op Taking at Discharge) levothyroxine (SYNTHROID) 88 mcg tablet Take 1 tablet (88 mcg total) by mouth dry charge process attendant before breakfast 025 Discontinued QUEtiapine (SEROquel) 100 mg tablet Take 1 tablet (100 mg total) by mouth nightly 025 Discontinued albuterol HFA (PROVENTIL HFA,VENTOLIN HFA,PROAIR HFA) 90 mcg/actuation inhaler Inhale 2 puffs every 6 (six) hours as needed for wheezing or shortness of breath 025 Discontinued cyclobenzapri ne (FLEXERIL) 10 mg tablet Take 1 tablet (10 mg total) by mouth 3 (three) times a day as needed 025 Discontinued(St op Taking at Discharge) SUMAtriptan (IMITREX) 100 mg tablet Take 1 tablet (100 mg total) by mouth daily as needed 025 Discontinued(St op Taking at Discharge) topiramate (TOPAMAX) 50 mg tablet Take 1 tablet (50 mg total) by mouth 2 (two) times a day 025 Discontinued oxyCODONE-amanda taminophen (PERCOCET) 5-325 mg per tablet Take 1 tablet by mouth every 6 (six) hours as needed for pain 12/06/19 24 025 Discontinued(St op Taking at Discharge) metoprolol tartrate (LOPRESSOR) 25 mg immediate release tablet Take 0.5 tablets (12.5 mg total) by mouth 2 (two) times a day 30 tablet 11 12/19/19 24 025 Discontinued(St op Taking at Discharge) empagliflozin (JARDIANCE) 10 mg tablet Take 1 tablet (10 mg total) by mouth daily 30 tablet 12/20/19 24 025 Discontinued Entresto 49-51 mg tablet Take 1 tablet by mouth 2 (two) times a day 01/16/20 24 025 Discontinued(St op Taking at Discharge) aspirin 81 mg enteric coated tablet Take 1 tablet (81 mg total) by mouth daily 025 Discontinued(St op Taking at Discharge) furosemide (LASIX) 40 mg tablet Take 1 tablet (40 mg total) by mouth daily for 6 days 6 tablet 01/28/20 24 025 Discontinued(St op Taking at Discharge) gabapentin (NEURONTIN) 300 mg capsule Take 1 capsule (300 mg total) by mouth daily 30 capsule 09/15/19 25 025 Discontinued tiotropium (SPIRIVA) 18 mcg per inhalation capsule Place 1 puff (1 capsule total) into inhaler and inhale daily 30 capsule 09/14/19 25 025 Discontinued Active Problems Problem Noted Date Diagnosed Date Hematoma of right knee region 09/14/2024 Traumatic hematoma of right knee, sequela 2024 Vitamin D deficiency 09/12/2024 JEANETTE (acute kidney injury) 09/11/2024 Pain and swelling of right knee 09/11/2024 Fall 09/11/2024 Fall, initial encounter 09/06/2024 Hypokalemia 09/06/2024 Knee effusion, right 09/06/2024 Coronary artery disease invo lving [place] coronary artery of [place] heart without angina pectoris 09/06/2024 Dyslipidemia associated with type 2 diabetes amado litus 09/06/2024 Acquired hypothyroidism 09/06/2024 Neuropathy 09/06/2024 Panlobular emphysema 09/06/2024 Acute pain of right knee 09/06/2024 Abdominal pain 01/24/2024 Acute UTI (urinary tract infection) 01/07/2024 Acute chest pain 12/09/2023 Paroxysmal atrial fibrillation 12/03/2023 Sinus pause 12/02/2023 Sick sinus syndrome 12/02/2023 Atherosclerosis of arteries of extremities 03/12 Anxiety and depression 03/12/2020 Primary hypertension 10/11/2019 Tobacco dependence syndrome 08/05/2019 Chronic heart failure with p reserved ejection fraction (HFpEF) 07/28/2019 Gastroesophageal reflux disease without esophagi tis 07/22/2019 Hyperlipidemia 07/22/2019 Anxiety 07/18/2019 Chronic obstructive pulmonary disease 07/18/2019 Chronic respiratory failure with hypoxia 019 Bipolar 1 disorder 01/11/2017 Resolved Problems Problem Noted Date Diagnosed Date Resolved Date Acute on chronic systolic co ngestive heart failure 09/06/2024 09/14/2024 Encounters Date Type Department Care Team Description 09/14/2024 7:35 PM CDT - 09/14/2024 11:59 PM CDT Hospital Encounter [facility] [address] [place] [address] [id number] Discharge Disposition: Discharge to home or self care 09/14/2024 1:10 AM CDT - 09/14/2024 7:36 PM CDT Emergency [facility] [id number] [place] [id number] Bert Roldan MD [place], MD Jose Elias Pearce, Babs Boggs MD Hematoma of right knee region (Primary Dx); Cellulitis of right lower extremity Discharge Disposition: Discharge to SNF 09/10/2024 Telephone [facility] [address] [place] [address] Negro Hazel MA 09/10/2024 Telephone [facility] [address] [place] [address] Negro Hazel MA 09/10/2024 Telephone [facility] [address] [place] [address] Negro Hazel MA 09/05/2024 8:12 PM CDT - 09/13/2024 3:29 PM CDT Hospital Encounter [address] [address] Bert Roldan MD Brother, MD Oleksandr Tyson, MD Jay Bravo, Carissa Griffin MD Fall, initial encounter (Primary Dx); Traumatic hematoma of right knee, initial encounter; Acute on chronic congestive heart failure, unspecified heart failure type (HCC); Acute respiratory failure with hypoxia (HCC); Hypokalemia; Acute pain of right knee; Chronic respiratory failure with hypoxia (HCC); Fall, sequela; Pain and swelling of right knee; Acquired hypothyroidism; JEANETTE (acute kidney injury); Vitamin D deficiency Discharge Disposition: Discharge to SNF from Last 3 Months Immunizations Immunization Administration Dates Next Due Influenza, Quadrivalent, Split, Intramuscular Influenza, Quadrivalent, Spl it, Preservative Free, Intramuscular 03/30/2017 Influenza, Trivalent, Preservative Free, Intramu scular 06/02/2014 Pneumococcal Polysaccharide PPV23 06/02/2014 TD Preservative Free 02/05/2012 Tdap 09/23/2021 Medical History Medical History Date Comments Oxygen dependent Hypertension Diabetes mellitus (HCC) COPD (chronic obstructive pulmonary disease) (HC C) Emphysema lung (HCC) Smoker Sinus pause Atrial fibrillation, new onset (HCC) Sick sinus syndrome (HCC) GERD (gastroesophageal reflux disease) Overactive bladder Anxiety Septic shock (HCC) Acute on chronic respiratory failure with hypoxe christiane (HCC) Infarction of spleen Fall Social History Tobacco Use Types Packs/Day Years Used Date Smoking Tobacco: Every Day Cigarettes 0.1 44.3 Started: 1980 Smokeless Tobacco: Never Tobacco Cessation:Ready to Q uit: No; Counseling Given: Not Answered Alcohol Use Standard Drinks/Week Comments Not Currently 0 (1 standard drink = 0.6 oz pur e alcohol) [facility] Utilities Answer Date Recorded In the past 12 months has th e electric, gas, oil, or water company threatened to shut off services in your home? No 09/06/2024 Social Connection and Isolat ion Panel [NHANES] Answer Date Recorded In a typical week, how many times do you talk on the phone with family, friends, or neighbors? More than three times a week 09/06/2024 How often do you get togethe r with friends or relatives? More than three times a week 09/06/2024 How often do you attend chur ch or alevism services? Never 09/06/2024 Do you belong to any clubs o r organizations such as jainism groups, unions, fraternal or athletic groups, or school groups? No 09/06/2024 How often do you attend meet ings of the clubs or organizations you belong to? Never 09/06/2024 Are you , , di vorced, , never , or living with a partner? 09/06/2024 AUDIT-C Answer Date Recorded Q1: How often do you have a drink containing alcohol? Never 12/03/2023 Q2: How many drinks containi ng alcohol do you have on a typical day when you are drinking? Patient does not drink Q3: How often do you have si x or more drinks on one occasion? Never 12/03/2023 Overall Financial Resource Strain (CARDIA) Answe r Date Recorded How hard is it for you to pa y for the very basics like food, housing, medical care, and heating? Not hard at all 09/06/2024 PHQ-2 Answer Date Recorded PHQ-2 Total Score (If total score is 3 or more points, staff should administer the PHQ-9) 0 12/15/2023 Hunger Vital Sign Answer Date Recorded Within the past 12 months, y ou worried that your food would run out before you got the money to buy more. Never true 09/07/19 25 Within the past 12 months, t he food you bought just didn't last and you didn't have money to get more. Never true 09/06/2024 PRAPARE - Transportation Answer Date Re corded In the past 12 months, has l ack of transportation kept you from medical appointments or from getting medications? No 08/11 In the past 12 months, has l ack of transportation kept you from meetings, work, or from getting things needed for daily living? No 09/06/2024 PHQ-9 Answer Date Recorded PHQ-9 Total Score 0 12/10/2023 Housing Stability Vital Sign Answer Frank e Recorded In the last 12 months, was t here a time when you were not able to pay the mortgage or rent on time? No 09/06/2024 In the past 12 months, how m any times have you moved where you were living? 0 09/06/2024 At any time in the past 12 m [facility], were you homeless or living in a group home (including now)? No 09/06/2024 Personal Safety Answer Date Recorded Have you ever been in or are you currently in a harmful physical or emotional relationship or is someone making you feel afraid or unsafe? 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 Gender Identity Not on file Sexual Orientation Not on file Obstetrics History Last Filed Vital Signs Vital Sign Reading Time Taken Comments Blood Pressure 183/95 09/14/2024 2:47 PM CDT Pulse 92 09/14/2024 2:47 PM CDT Temperature 36.9 C (98.4 F) 09/14/2024 2:47 PM CDT Respiratory Rate 23 09/14/2024 2:47 PM CDT Oxygen Saturation 91% 09/14/2024 2:47 PM CDT Inhaled Oxygen Concentration - - Weight 80.9 kg (178 lb 5.6 oz) 09/14/2024 11:14 AM CDT Height 152.4 cm (5') 09/14/2024 9:50 AM CDT Body Mass Index 34.83 09/14/2024 9:50 AM CDT Plan of Treatment Health Maintenance Due Date Last Done Comments Albumin Creatinine Ratio, Urine 1966 Breast Cancer Screening-Mammogram 1966 Cervical Cancer Screening 1966 Colon Cancer Screening-Colonoscopy 1966 Hepatitis C Screening 1966 Dilated Eye Exam 1966 Foot Exam 1966 Lipid Panel 1966 Hepatitis B Screening 02/15/1984 Regular Well Visit/Exam 18-64 02/15/1984 Pneumococcal vaccine <65 (2 of 2 - PCV) 06/02/2015 06/02/2014 Zoster Vaccine (1 of 2) 02/15/2016 Depression Screening 12/08/2024 12/09/2023, 12/09/19 24 Influenza Vaccine (Season Ended) 2025 03/30/2017, 03/29/2016, 06/02/2014 Hemoglobin A1C 03/09/2025 09/06/2024 eGFR 09/14/2025 09/14/2024, 04/0 09/2024, 09/12/2024, Additional history exists DTaP/Tdap/Td Vaccine (2 - Td or Tdap) 09/24/2031 09/23/2021, 02/05/2012 Medical Devices Implanted Type Area Wireless Internet Installer Device Identifier Shelf Expiration Date Model / Serial / Lot DLS Loop Recorder Monitor Cardiac Biomonitor [id number] - [id number] - [id number] Implanted:Qty: 1 on 12/06/2023 by Terry Wilkerson MD at [facility] [employer] 03/11/2025 [id number] / [id number] / Procedures Procedure Name Priority Date/Time Associated Diagnosis Comments XR CHEST PA LATERAL 2 VIEWS ED Urgent/IP Urgent 09/14/2024 5:26 PM CDT BLOOD GAS, ARTERIAL Routine 09/14/2024 1 :30 PM CDT BLOOD CULTURE Routine 09/14/2024 9:45 AM CDT BLOOD CULTURE Routine 09/14/2024 9:[address] KNEE RIGHT WO CONTRAST ED 09/14/2024 7:10 AM CDT US VEIN DUPLEX LOWER EXTREMITY RIGHT LIMITED ED 09/14/2024 5:29 AM CDT XR KNEE RIGHT 4 OR MORE VIEWS ED 09/14/2024 3:01 AM CDT EGFR STAT 09/14/2024 1:55 AM CDT DIFFERENTIAL AUTO STAT 09/14/2024 1:5 5 AM CDT COMPREHENSIVE METABOLIC PANEL STAT 09/14/2024 1:55 AM CDT SEPSIS LACTATE WITH REFLEX STAT 09/14/2024 1:55 AM CDT CBC WITH AUTO DIFFERENTIAL STAT 09/14/2024 1:55 AM CDT EGFR Routine 09/13/2024 5:48 AM CDT DIFFERENTIAL AUTO Routine 09/13/2024 5:4 8 AM CDT CBC WITH AUTO DIFFERENTIAL Routine 09/13/2024 5:48 AM CDT BASIC METABOLIC PANEL Routine 09/13/2024 5:48 AM CDT EGFR Routine 09/12/2024 5:03 AM CDT DIFFERENTIAL AUTO Routine 09/12/2024 5:0 3 AM CDT CALCIUM,IONIZED, WHOLE BLOOD Routine 09/12/2024 5:03 AM CDT PTH Routine 09/12/2024 5:03 AM CDT VITAMIN D 25 HYDROXY Routine 09/12/2024 5:03 AM CDT MAGNESIUM Routine 09/12/2024 5:03 AM CDT HEPATIC FUNCTION PANEL Routine 09/12/2024 5:03 AM CDT CBC WITH AUTO DIFFERENTIAL Routine 09/12/2024 5:03 AM CDT CREATINE KINASE (CK), TOTAL Routine 09/12/2024 5:03 AM CDT BASIC METABOLIC PANEL Routine 09/12/2024 5:[address] HEAD WO CONTRAST IP Routine 09/11/2024 4 :18 PM CDT EGFR Routine 09/11/2024 3:33 AM CDT BASIC METABOLIC PANEL Routine 09/11/2024 3:33 AM CDT DIFFERENTIAL AUTO STAT 09/10/2024 10: 13 AM CDT CBC WITH AUTO DIFFERENTIAL STAT 09/10/2024 10:13 AM CDT EGFR Routine 09/10/2024 6:57 AM CDT BASIC METABOLIC PANEL Routine 09/10/2024 6:57 AM CDT HOME O2 EVAL (DESATURATION SCREEN) Routine 09/09/2024 4:10 PM CDT POCT GLUCOSE DEVICE Routine 09/09/2024 4 :07 PM CDT POCT GLUCOSE DEVICE Routine 09/09/2024 1 2:49 PM CDT POCT GLUCOSE DEVICE Routine 09/09/2024 8 :44 AM CDT US VEIN DUPLEX LOWER EXTREMITY RIGHT LIMITED IP Routine 09/09/2024 7:59 AM CDT EGFR Routine 09/09/2024 5:40 AM CDT BASIC METABOLIC PANEL Routine 09/09/2024 5:40 AM CDT POCT GLUCOSE DEVICE Routine 09/08/2024 9 :08 PM CDT POCT GLUCOSE DEVICE Routine 09/08/2024 5 :41 PM CDT EGFR Routine 09/08/2024 4:01 AM CDT DIFFERENTIAL AUTO Timed 09/08/2024 4:0 1 AM CDT BASIC METABOLIC PANEL Routine 09/08/2024 4:01 AM CDT CBC WITH AUTO DIFFERENTIAL Timed 09/08/2024 4:01 AM CDT URINALYSIS AND REFLEX TO MICROSCOPIC AND CULTURE Routine 09/07/2024 6:00 PM CDT POCT GLUCOSE DEVICE Routine 09/07/2024 1 2:23 PM CDT POCT GLUCOSE DEVICE Routine 09/07/2024 7 :57 AM CDT TRANSTHORACIC ECHO (TTE) COMPLETE W DOPPLER/CF W CONTRAST Routine 09/07/2024 7:55 AM CDT POCT GLUCOSE DEVICE Routine 09/07/2024 5 :12 AM CDT EGFR Timed 09/07/2024 4:58 AM CDT DIFFERENTIAL AUTO Timed 09/07/2024 4:5 8 AM CDT BASIC METABOLIC PANEL Timed 09/07/2024 4:58 AM CDT CBC WITH AUTO DIFFERENTIAL Timed 09/07/2024 4:58 AM CDT POCT GLUCOSE DEVICE Routine 09/06/2024 9 :[address] HEAD WO CONTRAST IP Routine 09/06/2024 4 :30 PM CDT POCT GLUCOSE DEVICE Routine 09/06/2024 4 :[address] KNEE RIGHT WO CONTRAST IP Routine 09/06/2024 2:10 PM CDT POCT GLUCOSE DEVICE Routine 09/06/2024 1 :31 PM CDT POTASSIUM LEVEL Timed 09/06/2024 11:37 AM CDT VITAMIN D 25 HYDROXY Routine 09/06/2024 10:05 AM CDT PTH Routine 09/06/2024 10:05 AM CDT POTASSIUM LEVEL STAT 09/06/2024 10:05 AM CDT POCT GLUCOSE DEVICE Routine 09/06/2024 9 :51 AM CDT BLOOD GAS, ARTERIAL STAT 09/06/2024 6 :30 AM CDT TROPONIN T HIGH-SENSITIVITY 6-HOUR Timed 09/06/2024 4:06 AM CDT T4, FREE Routine 09/06/2024 3:04 AM CDT EGFR Routine 09/06/2024 3:04 AM CDT DIFFERENTIAL AUTO Routine 09/06/2024 3:0 4 AM CDT HEMOGLOBIN A1C Routine 09/06/2024 3:04 AM CDT COMPREHENSIVE METABOLIC PANEL Routine 09/06/2024 3:04 AM CDT CBC WITH AUTO DIFFERENTIAL Routine 09/06/2024 3:04 AM CDT THYROID FUNCTION CASCADE Routine 09/06/2024 3:04 AM CDT TROPONIN T HIGH-SENSITIVITY 4-HR Timed 09/06/2024 3:04 AM CDT [place] CRITICAL CARE ILL/INJURED PATIENT INIT 30-74 MIN Routine 09/06/2024 2:57 AM CDT MAGNESIUM Routine 09/06/2024 1:12 AM CDT TROPONIN T HIGH-SENSITIVITY 2-HOUR Timed 09/06/2024 1:[address] CHEST PE W CONTRAST ED 09/05/2024 11:42 PM CDT EGFR STAT 09/05/2024 10:32 PM CDT DIFFERENTIAL AUTO STAT 09/05/2024 10: 32 PM CDT LIPASE STAT 09/05/2024 10:32 PM CDT AMYLASE STAT 09/05/2024 10:32 PM CDT PRO B-TYPE NATRIURETIC PEPTIDE STAT 09/05/2024 10:32 PM CDT TROPONIN T HIGH-SENSITIVITY SERIES (BASELINE, 2HR, 4HR, 6HR) Routine 09/05/2024 10:32 PM CDT PROTIME-INR STAT 09/05/2024 10:32 PM CDT COMPREHENSIVE METABOLIC PANEL STAT 09/05/2024 10:32 PM CDT CBC WITH AUTO DIFFERENTIAL STAT 09/05/2024 10:32 PM CDT ECG 12-LEAD STAT 09/05/2024 10:22 PM CDT XR KNEE RIGHT 4 OR MORE VIEWS ED 09/05/2024 7:41 PM CDT from Last 3 Months Results * XR Chest Pa Lateral 2 Views (09/14/2024 5:26 PM CDT) Anatomical Region Laterality Modality Body, Chest N/A Computed Radiogr aphy 09/14/2024 6:53 PM CDT Impressions 09/14/2024 6:53 PM CDT Pulmonary vascular congestion along with a right effusion. Electronically signed by: Darrell Mcnair M.D. Narrative 09/14/2024 6:53 PM CDT EXAMINATION: XR CHEST PA LATERAL 2 VIEWS HISTORY: The patient is a 59-year-old female who presents with a history of COPD. Comparison made with the previous study dated 01/07/2024. TECHNIQUE: AP and lateral portable view of the chest. FINDINGS: Cardiomegaly with aortic atherosclerosis. Findings of pulmonary vascular congestion. There is a small right pleural effusion. No focal consolidation. Procedure Note Darrell Mcnair MD - 09/14/2024 EXAMINATION: XR CHEST PA LATERAL 2 VIEWS HISTORY: The patient is a 59-year-old female who presents with a history of COPD. Comparison made with the previous study dated 01/07/2024. TECHNIQUE: AP and lateral portable view of the chest. FINDINGS: Cardiomegaly with aortic atherosclerosis. Findings of pulmonary vascular congestion. There is a small right pleural effusion. No focal consolidation. IMPRESSION: Pulmonary vascular congestion along with a right effusion. Electronically signed by: Darrell Mcnair M.D. Teresa Bardales NP IMG XR PROCEDURES Final Result * (ABNORMAL) Blood gas, arterial (09/14/2024 1:30 PM CDT) pH, Art 7.36 7.35 - 7.45 PCO2, Arterial 54(H) 35 - 45 mmHg [facility] PO2, Arterial 61(L) 83 - 108 mmHg [facility] HCO3 Art (Calculated) 28 20 - 30 mmol/L [facility] BE, art 5 mmol/L [facility] Comment: Interpretive Data No Reference Range Established Current Interpretive Data was last revised on 2017 O2 Sat Art (Measured) 88(L) 90 - 95 % [facility] Blood 09/14/2024 1:30 PM CDT 09/14/2024 1:48 PM CDT Babs Moctezuma MD LAB BLOOD ORDERABLES F inal Result [facility] [address] [address] Department [place] [address] * Blood culture Blood (09/14/2024 9:45 AM CDT) Report Final Report: No growth Comment:Testing performed by : [facility], [address] [place]., [address] Blood 09/14/2024 9:45 AM CDT 09/14/2024 11:45 AM CDT Zain [facility]RE[facility] - 09/18/2024 12:00 PM CDT From a different site than #1. 1. Blood cultures are incubated for 4 days on a continuously monitored blood culture system. The first report of a negative culture is issued within 24 hours of receipt of the specimen in the laboratory. 2. Positive culture results are reported as soon as they are detected. 3. The most important factor for detection of microbes in the setting of bloodstream infection is the volume of blood submitted for culture. Failure to collect an optimal blood volume can result in false negative blood cultures. 4. For pediatric patients, the recommended blood volume to collect follows a weight based strategy. See the electronic test catalog for collection instructions. 5. For positive blood cultures, a rapid molecular test may be performed for organism identification using the haylee ePlex blood culture identification panel for gram positive (BCID-GP) and gram negative (BCID-GN) organisms. This nucleic acid amplification test detects microbial DNA in positive blood culture broth. This assay has been cleared by the [place] Food and Drug Administration and its performance characteristics have been verified by the [facility]. For questions about this culture, contact the Microbiology Laboratory at [phone]. Interpretive data was last revised on 24. us Bert Roldan MD LAB MICROBIOLOGY - GENERAL ORDERABLES Final Result [facility] [address] [address] Department [place] [address] * Blood culture Blood (09/14/2024 9:45 AM CDT) Report Final Report: No growth Comment:Testing performed by : [facility], [address] [place]., [address] Blood 09/14/2024 9:45 AM CDT 09/14/2024 11:45 AM CDT Zain [facility] 09/18/2024 12:00 PM CDT 1. Blood cultures are incubated for 4 days on a continuously monitored blood culture system. The first report of a negative culture is issued within 24 hours of receipt of the specimen in the laboratory. 2. Positive culture results are reported as soon as they are detected. 3. The most important factor for detection of microbes in the setting of bloodstream infection is the volume of blood submitted for culture. Failure to collect an optimal blood volume can result in false negative blood cultures. 4. For pediatric patients, the recommended blood volume to collect follows a weight based strategy. See the electronic test catalog for collection instructions. 5. For positive blood cultures, a rapid molecular test may be performed for organism identification using the haylee ePlex blood culture identification panel for gram positive (BCID-GP) and gram negative (BCID-GN) organisms. This nucleic acid amplification test detects microbial DNA in positive blood culture broth. This assay has been cleared by the [place] Food and Drug Administration and its performance characteristics have been verified by the [facility] Microbiology Laboratory. For questions about this culture, contact the Microbiology Laboratory at [phone]. Interpretive data was last revised on 24. Bert Roldan MD LAB MICROBIOLOGY - GENERAL ORDERABLES Final Result MOUNA [address] Department [place] [address] * CT Knee Right WO Contrast (09/14/2024 7:10 AM CDT) Anatomical Region Laterality Modality Lower Extremities Right Computed Tomog martina 09/14/2024 8:46 AM CDT Impressions 09/14/2024 8:46 AM CDT 1. Slight decrease in size of large anterior medial hematoma. 2. No acute osseous abnormality. Given concern for nondisplaced fracture, consider MRI of the right knee for further evaluation. 3. Lucent intraosseous tibial lesion may represent fibrous dysplasia, fibroxanthoma, or intraosseous cyst. Findings may place patient at increased risk of pathologic fracture. This can be further evaluated on suggested MRI of the right knee with intravenous contrast. 4. Chronic findings as above. Electronically signed by: Price Styles II, D.O. Narrative 09/14/2024 8:46 AM CDT EXAMINATION: CT KNEE RIGHT WO CONTRAST DATE: 09/14/2024 7:00 AM HISTORY: Knee pain. COMPARISON: 09/06/2024. TECHNIQUE: Transaxial computed tomographic images of the right knee were obtained without contrast. Multiplanar coronal and sagittal images were reformatted. FINDINGS: Diffuse osteopenia. There is a lucent lesion in the proximal left femur measuring approximately 3.6 x 2.1 cm, which may represent fibroxanthoma, fibrous dysplasia, or intraosseous cyst. Mild tricompartmental osteoarthrosis. There is an osteophyte arising from the medial portion of the lateral tibial plateau, which may contribute to underlying meniscal injury. Small joint effusion. There is a hematoma overlying the prepatellar and infrapatellar subcutaneous tissues, which appears slightly decreased in size now measuring 5.9 x 1.1 cm, previously approximately 1.6 x 7.1 cm. No associated patella fracture or additional fractures are demonstrated. Procedure Note Price Styles II, - 09/14/2024 EXAMINATION: CT KNEE RIGHT WO CONTRAST DATE: 09/14/2024 7:00 AM HISTORY: Knee pain. COMPARISON: 09/06/2024. TECHNIQUE: Transaxial computed tomographic images of the right knee were obtained without contrast. Multiplanar coronal and sagittal images were reformatted. FINDINGS: Diffuse osteopenia. There is a lucent lesion in the proximal left femur measuring approximately 3.6 x 2.1 cm, which may represent fibroxanthoma, fibrous dysplasia, or intraosseous cyst. Mild tricompartmental osteoarthrosis. There is an osteophyte arising from the medial portion of the lateral tibial plateau, which may contribute to underlying meniscal injury. Small joint effusion. There is a hematoma overlying the prepatellar and infrapatellar subcutaneous tissues, which appears slightly decreased in size now measuring 5.9 x 1.1 cm, previously approximately 1.6 x 7.1 cm. No associated patella fracture or additional fractures are demonstrated. IMPRESSION: 1. Slight decrease in size of large anterior medial hematoma. 2. No acute osseous abnormality. Given concern for nondisplaced fracture, consider MRI of the right knee for further evaluation. 3. Lucent intraosseous tibial lesion may represent fibrous dysplasia, fibroxanthoma, or intraosseous cyst. Findings may place patient at increased risk of pathologic fracture. This can be further evaluated on suggested MRI of the right knee with intravenous contrast. 4. Chronic findings as above. Electronically signed by: Price Styles II, D.O. us Bert Roldan MD [facility] CT PROCEDURES Final Res ult * US Vein Duplex Lower Extremity Right Limited, Unilateral (09/14/2024 5:29 AM CDT) Anatomical Region Laterality Modality Vascular Right Ultrasound Impressions 09/14/2024 6:46 AM CDT 1. No evidence of deep vein thrombosis of imaged portions of the the right lower extremity. Electronically signed by: MD Zain Mims 09/14/2024 6:46 AM CDT EXAMINATION: RIGHT LOWER EXTREMITY VENOUS DOPPLER HISTORY: Right leg swelling. COMPARISON: None TECHNIQUE: Ultrasound examination of the right lower extremity was attempted from the groin to the ankle using leal scale, duplex color flow, and spectral analysis. The proximal saphenous, common femoral, superficial femoral, popliteal, posterior tibial and peroneal veins were partially evaluated. Both augmentation and compression maneuvers were performed. The patient terminated the examination prior to completion. Therefore, images of portions of the distal right lower extremity were not saved. FINDINGS: The imaged veins of the right leg are normally compressible and augment normally. Normal respiratory variation is identified. us Bert Roldan MD [facility] US PROCEDURES Edited Re sult - Final * XR Knee Right 4+ Vw (Routine) (09/14/2024 3:01 AM CDT) Anatomical Region Laterality Modality Lower Extremities, Knee Right Computed Radiography 09/14/2024 7:14 AM CDT Impressions 09/14/2024 7:14 AM CDT 1. No acute right knee fracture. 2. Soft tissue swelling corresponding to the known anteromedial right knee hematoma. 3. Moderate medial compartment predominant tricompartmental right knee osteoarthritis. Electronically signed by: Carlos Nuñez MD Narrative 09/14/2024 7:14 AM CDT EXAMINATION: XR KNEE RIGHT 4 OR MORE VIEWS HISTORY: Right knee pain, edema FINDINGS: Comparison dated 09/06/2024. There is moderate anteromedial soft tissue swelling, consistent with the patient's known hematoma at this site. Alignment is normal. No acute fracture. Diffuse demineralization. Moderate medial compartment predominant tricompartmental right knee osteoarthritis. Small right knee joint effusion. Vascular calcifications. Procedure Note Carlos Nuñez MD - 09/14/2024 EXAMINATION: XR KNEE RIGHT 4 OR MORE VIEWS HISTORY: Right knee pain, edema FINDINGS: Comparison dated 09/06/2024. There is moderate anteromedial soft tissue swelling, consistent with the patient's known hematoma at this site. Alignment is normal. No acute fracture. Diffuse demineralization. Moderate medial compartment predominant tricompartmental right knee osteoarthritis. Small right knee joint effusion. Vascular calcifications. IMPRESSION: 1. No acute right knee fracture. 2. Soft tissue swelling corresponding to the known anteromedial right knee hematoma. 3. Moderate medial compartment predominant tricompartmental right knee osteoarthritis. Electronically signed by: Carlos Nuñez MD Bert Roldan MD IMG XR PROCEDURES Final Res ult * Sepsis Lactate w/ Reflex (09/14/2024 1:55 AM CDT) [facility] Sepsis Lactate 1.0 0.7 - 2.0 mmol/L Blood 09/14/2024 1:55 AM CDT 09/14/2024 1:58 AM CDT Bert Roldan MD LAB BLOOD ORDERABLES Final Result [address] Department [place] [address] * eGFR (09/14/2024 1:55 AM CDT) eGFR 60 >=60 mL/min/1. 73 m2 Comment: Interpretive Data Reference Interval Normal >/= 90 mL/min/1.73m2 Mildly decreased* 60 - 89 mL/min/1.73m2 Mildly to moderately decreased 45 - 59 mL/min/1.73m2 Moderately to severely decreased 30 - 44 mL/min/1.73m2 Severely decreased 15 - 29 mL/min/1.73m2 Kidney Failure < 15 mL/min/1.73m2 *Relative to young adult level Estimated glomerular filtration rate is determined by the 2020 CKD-EPI equation recommended by the National Kidney Foundation (A Unifying Approach to GFR Estimation: Recommendations of the NKF-ASK Task Force on Reassessing the Inclusion of Race in Diagnosing Kidney Disease, JASN 2020). The CKD-EPI equation should not be used for patients with unstable renal function and has not been validated in children and those over 70. Current interpretive data was last reviewed 2021. Blood 09/14/2024 1:55 AM CDT 09/14/2024 1:59 AM CDT us Bert Roldan MD LAB BLOOD ORDERABLES Final Result [facility] [address] [place] [address] * (ABNORMAL) Differential, auto (09/14/2024 1:55 AM CDT) Pathologist [facility] Neutrophil abs 7.18(H) 1.50 - 6.50 K/cumm Imm gran abs 0.06 0.00 - 0.10 K/cumm [facility] Lymphocyte abs 1.41 0.80 - 3.30 K/cumm [facility] Monocyte abs 1.74(H) 0.20 - 0.80 K/cumm [facility] Eosinophil abs 0.22 0.00 - 0.50 K/cumm [facility] Basophil abs 0.06 0.00 - 0.10 K/cumm [facility] Neutrophil pct 67.2 % [facility] Comment: Interpretive Data Percent cell count reference ranges are not reported, since discordance with absolute values may lead to misinterpretation of CBC data. Current Interpretive Data was last revised on 2017. Imm gran pct 0.6 % [facility] Comment: Interpretive Data Percent cell count reference ranges are not reported, since discordance with absolute values may lead to misinterpretation of CBC data. Current Interpretive Data was last revised on 2017. Lymphocyte pct 13.2 % [facility] Comment: Interpretive Data Percent cell count reference ranges are not reported, since discordance with absolute values may lead to misinterpretation of CBC data. Current Interpretive Data was last revised on 2017. Monocyte pct 16.3 % [facility] Comment: Interpretive Data Percent cell count reference ranges are not reported, since discordance with absolute values may lead to misinterpretation of CBC data. Current Interpretive Data was last revised on 2017. Eosinophil pct 2.1 % [facility] Comment: Interpretive Data Percent cell count reference ranges are not reported, since discordance with absolute values may lead to misinterpretation of CBC data. Current Interpretive Data was last revised on 2017. Basophil pct 0.6 % [facility] Comment: Interpretive Data Percent cell count reference ranges are not reported, since discordance with absolute values may lead to misinterpretation of CBC data. Current Interpretive Data was last revised on 2017. Blood 09/14/2024 1:55 AM CDT 09/14/2024 1:59 AM CDT us Bert Roldan MD LAB BLOOD ORDERABLES Final Result [facility] [address] Department [place] [address] * (ABNORMAL) CBC with auto differential (09/14/2024 1:55 AM CDT) WBC 10.67(H) 3.80 - 9.90 K/cumm Hgb 8.0(L) 11.9 - 15.5 g/dL [facility] Hct 27.7(L) 35.6 - 45.5 % [facility] Plt 461(H) 150 - 400 K/cumm [facility] MPV 10.7 9.1 - 12.3 fL [facility] RBC 3.01(L) 3.90 - 5.20 M/cumm [facility] MCV 92.0 81.3 - 96.4 fL [facility] MCH 26.6(L) 27.1 - 33.3 pg [facility] MCHC 28.9(L) 32.3 - 35.7 g/dL [facility] RDW CV 20.2(H) 11.1 - 14.9 % [facility] RDW SD 66.6(H) 35.7 - 48.1 fL [facility] NRBC abs 0.02(H) 0.00 - 0.01 K/cumm [facility] Blood Venous blood specimen / Unknown 09/14/2024 1:55 AM CDT 09/14/2024 1:59 AM CDT us Bert Roldan MD LAB BLOOD ORDERABLES Final Result [facility] [address] Department [place] [address] * (ABNORMAL) Comprehensive metabolic panel (09/14/2024 1:55 AM CDT) Sodium 139 135 - 145 mmol/L Potassium, pl 4.2 3.3 - 4.9 mmol/L [facility] Chloride 102 97 - 110 mmol/L [facility] CO2 29 22 - 32 mmol/L [facility] Anion gap 8 2 - 15 mmol/L [facility] BUN 12 6 - 25 mg/dL [facility] Creatinine 1.08 0.60 - 1.10 mg/dL [facility] Glucose 80 70 - 199 mg/dL [facility] Comment: Interpretive Data Fasting glucose >/= 126 mg/dl is diagnostic for diabetes. Fasting is defined as no caloric intake for at least 8 hours. Fasting glucose between 100 mg/dl to 125 mg/dl is diagnostic of prediabetes. In a patient with classic symptoms of hyperglycemia or hyperglycemic crisis, a random glucose >/= 200 mg/dl is diagnostic for diabetes. In the absence of unequivocal hyperglycemia, results should be confirmed by repeat testing. The classification and Diagnosis of Diabetes Diabetes Care 202; 46: S19-S40. Current interpretive data was last revised 2022. Calcium 8.1(L) 8.5 - 10.3 mg/dL [facility] Bilirubin, total 0.4 0.1 - 1.2 mg/dL [facility] Protein, pl 6.0(L) 6.5 - 8.5 g/dL [facility] Albumin 2.6(L) 3.5 - 5.0 g/dL [facility] Alk phos 99 40 - 130 Units/L [facility] ALT 11 7 - 45 Units/L [facility] AST 22 10 - 45 Units/L [facility] Blood 09/14/2024 1:55 AM CDT 09/14/2024 1:59 AM CDT us Bert Roldan MD LAB BLOOD ORDERABLES Final Result [facility] [address] Department of Laboratories [place] [id number] * (ABNORMAL) eGFR (09/13/2024 5:48 AM CDT) eGFR 40(L) >=60 mL/min/1. 73 m2 Comment: Interpretive Data Reference Interval Normal >/= 90 mL/min/1.73m2 Mildly decreased* 60 - 89 mL/min/1.73m2 Mildly to moderately decreased 45 - 59 mL/min/1.73m2 Moderately to severely decreased 30 - 44 mL/min/1.73m2 Severely decreased 15 - 29 mL/min/1.73m2 Kidney Failure < 15 mL/min/1.73m2 *Relative to young adult level Estimated glomerular filtration rate is determined by the 2020 CKD-EPI equation recommended by the National Kidney Foundation (A Unifying Approach to GFR Estimation: Recommendations of the NKF-ASK Task Force on Reassessing the Inclusion of Race in Diagnosing Kidney Disease, JASN 202). The CKD-EPI equation should not be used for patients with unstable renal function and has not been validated in children and those over 70. Current interpretive data was last reviewed 2021. Blood 09/13/2024 5:48 AM CDT 09/13/2024 6:56 AM CDT us Margaret Leggett MD LAB BLOOD ORDERABLES Final Res ult [facility] [address] [place] [address] * (ABNORMAL) Differential, auto (09/13/2024 5:48 AM CDT) Neutrophil abs 5.46 1.50 - 6.50 K/cumm Imm gran abs 0.07 0.00 - 0.10 K/cumm [facility] Lymphocyte abs 1.37 0.80 - 3.30 K/cumm [facility] Monocyte abs 1.38(H) 0.20 - 0.80 K/cumm [facility] Eosinophil abs 0.24 0.00 - 0.50 K/cumm [facility] Basophil abs 0.05 0.00 - 0.10 K/cumm [facility] Neutrophil pct 63.7 % [facility] Comment: Interpretive Data Percent cell count reference ranges are not reported, since discordance with absolute values may lead to misinterpretation of CBC data. Current Interpretive Data was last revised on 2017. Imm gran pct 0.8 % [facility] Comment: Interpretive Data Percent cell count reference ranges are not reported, since discordance with absolute values may lead to misinterpretation of CBC data. Current Interpretive Data was last revised on 2017. Lymphocyte pct 16.0 % [facility] Comment: Interpretive Data Percent cell count reference ranges are not reported, since discordance with absolute values may lead to misinterpretation of CBC data. Current Interpretive Data was last revised on 2017. Monocyte pct 16.1 % [facility] Comment: Interpretive Data Percent cell count reference ranges are not reported, since discordance with absolute values may lead to misinterpretation of CBC data. Current Interpretive Data was last revised on 2017. Eosinophil pct 2.8 % [facility] Comment: Interpretive Data Percent cell count reference ranges are not reported, since discordance with absolute values may lead to misinterpretation of CBC data. Current Interpretive Data was last revised on 2017. Basophil pct 0.6 % [facility] Comment: Interpretive Data Percent cell count reference ranges are not reported, since discordance with absolute values may lead to misinterpretation of CBC data. Current Interpretive Data was last revised on 2017. Blood 09/13/2024 5:48 AM CDT 09/13/2024 6:58 AM CDT Carissa Thompson MD LAB BLOOD ORDERABLE S Final Result Performing Organization Address City/[facility]/ZIP Co de Phone Number [facility] [address] [place] [place] [address] * (ABNORMAL) CBC with auto differential (09/13/2024 5:48 AM CDT) WBC 8.57 3.80 - 9.90 K/cumm Hgb 8.0(L) 11.9 - 15.5 g/dL [facility] Hct 27.2(L) 35.6 - 45.5 % [facility] Plt 433(H) 150 - 400 K/cumm [facility] MPV 10.9 9.1 - 12.3 fL [facility] RBC 2.98(L) 3.90 - 5.20 M/cumm [facility] MCV 91.3 81.3 - 96.4 fL [facility] MCH 26.8(L) 27.1 - 33.3 pg [facility] MCHC 29.4(L) 32.3 - 35.7 g/dL [facility] RDW CV 19.9(H) 11.1 - 14.9 % [facility] RDW SD 63.8(H) 35.7 - 48.1 fL [facility] NRBC abs 0.00 0.00 - 0.01 K/cumm [facility] Blood 09/13/2024 5:48 AM CDT 09/13/2024 6:58 AM CDT Carissa Thompson MD LAB BLOOD ORDERABLE S Final Result Performing Organization Address City/[facility]/ZIP Co de Phone Number [facility] [address] [place] [address] * (ABNORMAL) Basic metabolic panel (09/13/2024 5:48 AM CDT) Sodium 141 135 - 145 mmol/L Potassium, pl 4.1 3.3 - 4.9 mmol/L [facility] Chloride 101 97 - 110 mmol/L [facility] CO2 32 22 - 32 mmol/L [facility] Anion gap 8 2 - 15 mmol/L [facility] BUN 17 6 - 25 mg/dL [facility] Creatinine 1.49(H) 0.60 - 1.10 mg/dL [facility] Glucose 94 70 - 199 mg/dL [facility] Comment: Interpretive Data Fasting glucose >/= 126 mg/dl is diagnostic for diabetes. Fasting is defined as no caloric intake for at least 8 hours. Fasting glucose between 100 mg/dl to 125 mg/dl is diagnostic of prediabetes. In a patient with classic symptoms of hyperglycemia or hyperglycemic crisis, a random glucose >/= 200 mg/dl is diagnostic for diabetes. In the absence of unequivocal hyperglycemia, results should be confirmed by repeat testing. The classification and Diagnosis of Diabetes Diabetes Care 2021; 46: S19-S40. Current interpretive data was last revised 2022. Calcium 8.0(L) 8.5 - 10.3 mg/dL [facility] Blood 09/13/2024 5:48 AM CDT 09/13/2024 6:56 AM CDT us Margaret Leggett MD LAB BLOOD ORDERABLES Final Res ult Performing Organization Address [facility] Co de Phone Number [facility] [address] Department of Laboratories [place], [place] [id number] * (ABNORMAL) Calcium, ionized, whole blood (09/12/2024 5:03 AM CDT) Ca, ionized, bld 4.35(L) 4.50 - 5.10 mg/dL Blood 09/12/2024 5:03 AM CDT 09/12/2024 5:26 AM CDT Carissa Thompson MD LAB BLOOD ORDERABLE S Final Result Performing Organization Address City/[facility]/ZIP Co de Phone Number [facility] [address] [place] [address] * (ABNORMAL) eGFR (09/12/2024 5:03 AM CDT) eGFR 32(L) >=60 mL/min/1. 73 m2 Comment: Interpretive Data Reference Interval Normal >/= 90 mL/min/1.73m2 Mildly decreased* 60 - 89 mL/min/1.73m2 Mildly to moderately decreased 45 - 59 mL/min/1.73m2 Moderately to severely decreased 30 - 44 mL/min/1.73m2 Severely decreased 15 - 29 mL/min/1.73m2 Kidney Failure < 15 mL/min/1.73m2 *Relative to young adult level Estimated glomerular filtration rate is determined by the 2020 CKD-EPI equation recommended by the National Kidney Foundation (A Unifying Approach to GFR Estimation: Recommendations of the NKF-ASK Task Force on Reassessing the Inclusion of Race in Diagnosing Kidney Disease, JASN 2020). The CKD-EPI equation should not be used for patients with unstable renal function and has not been validated in children and those over 70. Current interpretive data was last reviewed 2021. Blood 09/12/2024 5:03 AM CDT 09/12/2024 5:35 AM CDT Margaret Leggett MD LAB BLOOD ORDERABLES Final Res ult Performing Organization Address [facility] Co de Phone Number [facility] [address] Department [place] [address] * (ABNORMAL) Differential, auto (09/12/2024 5:03 AM CDT) Neutrophil abs 9.26(H) 1.50 - 6.50 K/cumm Imm gran abs 0.16(H) 0.00 - 0.10 K/cumm [facility] Lymphocyte abs 1.25 0.80 - 3.30 K/cumm [facility] Monocyte abs 1.51(H) 0.20 - 0.80 K/cumm [facility] Eosinophil abs 0.24 0.00 - 0.50 K/cumm [facility] Basophil abs 0.09 0.00 - 0.10 K/cumm [facility] Neutrophil pct 74.0 % [facility] Comment: Interpretive Data Percent cell count reference ranges are not reported, since discordance with absolute values may lead to misinterpretation of CBC data. Current Interpretive Data was last revised on 2017. Imm gran pct 1.3 % [facility] Comment: Interpretive Data Percent cell count reference ranges are not reported, since discordance with absolute values may lead to misinterpretation of CBC data. Current Interpretive Data was last revised on 2017. Lymphocyte pct 10.0 % [facility] Comment: Interpretive Data Percent cell count reference ranges are not reported, since discordance with absolute values may lead to misinterpretation of CBC data. Current Interpretive Data was last revised on 2017. Monocyte pct 12.1 % [facility] Comment: Interpretive Data Percent cell count reference ranges are not reported, since discordance with absolute values may lead to misinterpretation of CBC data. Current Interpretive Data was last revised on 2017. Eosinophil pct 1.9 % [facility] Comment: Interpretive Data Percent cell count reference ranges are not reported, since discordance with absolute values may lead to misinterpretation of CBC data. Current Interpretive Data was last revised on 2017. Basophil pct 0.7 % [facility] Comment: Interpretive Data Percent cell count reference ranges are not reported, since discordance with absolute values may lead to misinterpretation of CBC data. Current Interpretive Data was last revised on 2017. Blood 09/12/2024 5:03 AM CDT 09/12/2024 5:26 AM CDT us Carissa Thompson MD LAB BLOOD ORDERABLE S Final Result [facility] [address] Department [place] [address] * (ABNORMAL) CBC with auto differential (09/12/2024 5:03 AM CDT) WBC 12.51(H) 3.80 - 9.90 K/cumm Hgb 8.8(L) 11.9 - 15.5 g/dL [facility] Hct 29.8(L) 35.6 - 45.5 % [facility] Plt 440(H) 150 - 400 K/cumm [facility] MPV 10.9 9.1 - 12.3 fL [facility] RBC 3.24(L) 3.90 - 5.20 M/cumm [facility] MCV 92.0 81.3 - 96.4 fL [facility] MCH 27.2 27.1 - 33.3 pg [facility] MCHC 29.5(L) 32.3 - 35.7 g/dL [facility] RDW CV 19.9(H) 11.1 - 14.9 % [facility] RDW SD 64.2(H) 35.7 - 48.1 fL [facility] NRBC abs 0.05(H) 0.00 - 0.01 K/cumm [facility] Blood 09/12/2024 5:03 AM CDT 09/12/2024 5:26 AM CDT Carissa Thompson MD LAB BLOOD ORDERABLE S Final Result [facility] [place] [address] * (ABNORMAL) Vitamin D 25 hydroxy (09/12/2024 5:03 AM CDT) Vitamin D 25-OH 17(L) 30 - 80 ng/mL Blood 09/12/2024 5:03 AM CDT 09/12/2024 5:22 AM CDT Carissa Thompson MD LAB BLOOD ORDERABLE S Final Result [facility] [address] [facility] [employer] [place], [place] [id number] * (ABNORMAL) PTH (09/12/2024 5:03 AM CDT) PTH 197(H) 15 - 65 pg/mL Blood 09/12/2024 5:03 AM CDT 09/12/2024 5:24 AM CDT us Carissa Thompson MD LAB BLOOD ORDERABLE S Final Result Performing Organization Address [facility] [facility] Co de Phone Number KRYSTIANKATIE GRIFFITHS [address] [place] [address] * Magnesium (09/12/2024 5:03 AM CDT) Pathologist [facility] Magnesium 2.4 1.4 - 2.5 mg/dL Blood 09/12/2024 5:03 AM CDT 09/12/2024 5:24 AM CDT Carissa Thompson MD LAB BLOOD ORDERABLE S Final Result Performing Organization Address [facility] Co de Phone Number MOUNA GRIFFITHS [address] [place] [address] * Creatine kinase (CK), total (09/12/2024 5:03 AM CDT) Pathologist [facility] CK 41 30 - 200 Units/L Blood 09/12/2024 5:03 AM CDT 09/12/2024 5:24 AM CDT Carissa Thompson MD LAB BLOOD ORDERABLE S Final Result Performing Organization Address [facility] Co de Phone Number KRYSTIANKATIE GRIFFITHS [address] [place] [address] * (ABNORMAL) Hepatic function panel (09/12/2024 5:03 AM CDT) Bilirubin, total 0.5 0.1 - 1.2 mg/dL Bilirubin, direct 0.2 0.1 - 0.3 mg/dL [facility] Protein, pl 5.2(L) 6.5 - 8.5 g/dL [facility] Albumin 2.2(L) 3.5 - 5.0 g/dL [facility] Alk phos 100 40 - 130 Units/L [facility] ALT 9 7 - 45 Units/L [facility] AST 17 10 - 45 Units/L [facility] Blood 09/12/2024 5:03 AM CDT 09/12/2024 5:24 AM CDT Carissa Thompson MD LAB BLOOD ORDERABLE S Final Result [facility] [place] [address] [place] [address] * (ABNORMAL) Basic metabolic panel (09/12/2024 5:03 AM CDT) Sodium 134(L) 135 - 145 mmol/L Potassium, pl 4.1 3.3 - 4.9 mmol/L [facility] Chloride 94(L) 97 - 110 mmol/L [facility] CO2 28 22 - 32 mmol/L [facility] Anion gap 12 2 - 15 mmol/L [facility] BUN 17 6 - 25 mg/dL [facility] Creatinine 1.80(H) 0.60 - 1.10 mg/dL [facility] Glucose 117 70 - 199 mg/dL [facility] Comment: Interpretive Data Fasting glucose >/= 126 mg/dl is diagnostic for diabetes. Fasting is defined as no caloric intake for at least 8 hours. Fasting glucose between 100 mg/dl to 125 mg/dl is diagnostic of prediabetes. In a patient with classic symptoms of hyperglycemia or hyperglycemic crisis, a random glucose >/= 200 mg/dl is diagnostic for diabetes. In the absence of unequivocal hyperglycemia, results should be confirmed by repeat testing. The classification and Diagnosis of Diabetes Diabetes Care 202; 46: S19-S40. Current interpretive data was last revised 2022. Calcium 7.8(L) 8.5 - 10.3 mg/dL [facility] Blood 09/12/2024 5:03 AM CDT 09/12/2024 5:24 AM CDT Margaret Leggett MD LAB BLOOD ORDERABLES Final Res ult MOUNA GRIFFITHS [address] [place] [address] * CT Head WO Contrast (09/11/2024 4:18 PM CDT) Anatomical Region Laterality Modality Head and Neck N/A Computed Tomogra phy 09/11/2024 4:28 PM CDT Impressions 09/11/2024 4:28 PM CDT Mild involutional changes. No bleed or mass. Mild bilateral chronic mastoiditis. Electronically signed by: Darrell Mcnair M.D. Narrative 09/11/2024 4:28 PM CDT EXAMINATION: CT HEAD WO CONTRAST HISTORY: The patient is a 59-year-old female who presents with trauma to the head after a fall. Comparison made with the previous study dated 09/06/2024. TECHNIQUE: Axial images obtained through the brain with thin sections and viewed both in soft tissue and bone window settings. Following this, coronal and sagittal reconstructions were performed. FINDINGS: Axial images through the brain reveals prominence of the 4th, 3rd and lateral ventricles. No midline shift is seen. Cerebral sulci are mildly prominent. No intracerebral hemorrhage or extra-axial fluid collection is noted. Images obtained in the coronal and in the sagittal planes adds no further information. Axial images obtained bone window settings reveal the cranial vault to be intact. There is slight clouding of the mastoid air cells bilaterally. Paranasal sinuses are normally aerated. Procedure Note Darrell Mcnair MD - 09/11/2024 EXAMINATION: CT HEAD WO CONTRAST HISTORY: The patient is a 59-year-old female who presents with trauma to the head after a fall. Comparison made with the previous study dated 09/06/2024. TECHNIQUE: Axial images obtained through the brain with thin sections and viewed both in soft tissue and bone window settings. Following this, coronal and sagittal reconstructions were performed. FINDINGS: Axial images through the brain reveals prominence of the 4th, 3rd and lateral ventricles. No midline shift is seen. Cerebral sulci are mildly prominent. No intracerebral hemorrhage or extra-axial fluid collection is noted. Images obtained in the coronal and in the sagittal planes adds no further information. Axial images obtained bone window settings reveal the cranial vault to be intact. There is slight clouding of the mastoid air cells bilaterally. Paranasal sinuses are normally aerated. IMPRESSION: Mild involutional changes. No bleed or mass. Mild bilateral chronic mastoiditis. Electronically signed by: Darrell Mcnair M.D. Carissa Thompson MD IMG CT PROCEDURES F inal Result * (ABNORMAL) eGFR (09/11/2024 3:33 AM CDT) eGFR 50(L) >=60 mL/min/1. 73 m2 Comment: Interpretive Data Reference Interval Normal >/= 90 mL/min/1.73m2 Mildly decreased* 60 - 89 mL/min/1.73m2 Mildly to moderately decreased 45 - 59 mL/min/1.73m2 Moderately to severely decreased 30 - 44 mL/min/1.73m2 Severely decreased 15 - 29 mL/min/1.73m2 Kidney Failure < 15 mL/min/1.73m2 *Relative to young adult level Estimated glomerular filtration rate is determined by the 2020 CKD-EPI equation recommended by the National Kidney Foundation (A Unifying Approach to GFR Estimation: Recommendations of the NKF-ASK Task Force on Reassessing the Inclusion of Race in Diagnosing Kidney Disease, JASN 2020). The CKD-EPI equation should not be used for patients with unstable renal function and has not been validated in children and those over 70. Current interpretive data was last reviewed 2021. Blood 09/11/2024 3:33 AM CDT 09/11/2024 4:25 AM CDT us Margaret Leggett MD LAB BLOOD ORDERABLES Final Res ult MOUNA GRIFFITHS [address] [place] [address] * (ABNORMAL) Basic metabolic panel (09/11/2024 3:33 AM CDT) Sodium 136 135 - 145 mmol/L Potassium, pl 3.8 3.3 - 4.9 mmol/L MOUNA GRIFFITHS Chloride 97 97 - 110 mmol/L [facility] CO2 29 22 - 32 mmol/L [facility] Anion gap 10 2 - 15 mmol/L [facility] BUN 10 6 - 25 mg/dL [facility] Creatinine 1.25(H) 0.60 - 1.10 mg/dL [facility] Glucose 130 70 - 199 mg/dL [facility] Comment: Interpretive Data Fasting glucose >/= 126 mg/dl is diagnostic for diabetes. Fasting is defined as no caloric intake for at least 8 hours. Fasting glucose between 100 mg/dl to 125 mg/dl is diagnostic of prediabetes. In a patient with classic symptoms of hyperglycemia or hyperglycemic crisis, a random glucose >/= 200 mg/dl is diagnostic for diabetes. In the absence of unequivocal hyperglycemia, results should be confirmed by repeat testing. The classification and Diagnosis of Diabetes Diabetes Care 2021; 46: S19-S40. Current interpretive data was last revised 2022. Calcium 7.9(L) 8.5 - 10.3 mg/dL [facility] Blood 09/11/2024 3:33 AM CDT 09/11/2024 4:25 AM CDT us Margaret Leggett MD LAB BLOOD ORDERABLES Final Res ult [facility] [address] [place] [address] * (ABNORMAL) Differential, auto (09/10/2024 10:13 AM CDT) Neutrophil abs 7.18(H) 1.50 - 6.50 K/cumm Imm gran abs 0.02 0.00 - 0.10 K/cumm [facility] Lymphocyte abs 1.07 0.80 - 3.30 K/cumm [facility] Monocyte abs 1.51(H) 0.20 - 0.80 K/cumm [facility] Eosinophil abs 0.28 0.00 - 0.50 K/cumm [facility] Basophil abs 0.04 0.00 - 0.10 K/cumm [facility] Neutrophil pct 70.9 % [facility] Comment: Interpretive Data Percent cell count reference ranges are not reported, since discordance with absolute values may lead to misinterpretation of CBC data. Current Interpretive Data was last revised on 2017. Imm gran pct 0.4 % [facility] Comment: Interpretive Data Percent cell count reference ranges are not reported, since discordance with absolute values may lead to misinterpretation of CBC data. Current Interpretive Data was last revised on 2017. Lymphocyte pct 10.6 % [facility] Comment: Interpretive Data Percent cell count reference ranges are not reported, since discordance with absolute values may lead to misinterpretation of CBC data. Current Interpretive Data was last revised on 2017. Monocyte pct 14.9 % [facility] Comment: Interpretive Data Percent cell count reference ranges are not reported, since discordance with absolute values may lead to misinterpretation of CBC data. Current Interpretive Data was last revised on 2017. Eosinophil pct 2.8 % [facility] Comment: Interpretive Data Percent cell count reference ranges are not reported, since discordance with absolute values may lead to misinterpretation of CBC data. Current Interpretive Data was last revised on 2017. Basophil pct 0.4 % [facility] Comment: Interpretive Data Percent cell count reference ranges are not reported, since discordance with absolute values may lead to misinterpretation of CBC data. Current Interpretive Data was last revised on 2017. Blood 09/10/2024 10:1 3 AM CDT 09/10/2024 10:25 AM CDT us Margaret Leggett MD LAB BLOOD ORDERABLES Final Res ult [facility] [address] [place] [address] * (ABNORMAL) CBC with auto differential (09/10/2024 10:13 AM CDT) WBC 10.12(H) 3.80 - 9.90 K/cumm Hgb 8.0(L) 11.9 - 15.5 g/dL [facility] Hct 27.5(L) 35.6 - 45.5 % [facility] Plt 398 150 - 400 K/cumm [facility] MPV 10.8 9.1 - 12.3 fL [facility] RBC 3.01(L) 3.90 - 5.20 M/cumm [facility] MCV 91.4 81.3 - 96.4 fL [facility] MCH 26.6(L) 27.1 - 33.3 pg [facility] MCHC 29.1(L) 32.3 - 35.7 g/dL [facility] RDW CV 19.2(H) 11.1 - 14.9 % [facility] RDW SD 63.4(H) 35.7 - 48.1 fL [facility] NRBC abs 0.02(H) 0.00 - 0.01 K/cumm [facility] Blood 09/10/2024 10:1 3 AM CDT 09/10/2024 10:25 AM CDT Margaret Leggett MD LAB BLOOD ORDERABLES Final Res ult [facility] [address] [place] [address] * eGFR (09/10/2024 6:57 AM CDT) eGFR 71 >=60 mL/min/1. 73 m2 Comment: Interpretive Data Reference Interval Normal >/= 90 mL/min/1.73m2 Mildly decreased* 60 - 89 mL/min/1.73m2 Mildly to moderately decreased 45 - 59 mL/min/1.73m2 Moderately to severely decreased 30 - 44 mL/min/1.73m2 Severely decreased 15 - 29 mL/min/1.73m2 Kidney Failure < 15 mL/min/1.73m2 *Relative to young adult level Estimated glomerular filtration rate is determined by the 2020 CKD-EPI equation recommended by the National Kidney Foundation (A Unifying Approach to GFR Estimation: Recommendations of the NKF-ASK Task Force on Reassessing the Inclusion of Race in Diagnosing Kidney Disease, JASN 2020). The CKD-EPI equation should not be used for patients with unstable renal function and has not been validated in children and those over 70. Current interpretive data was last reviewed 2021. Blood 09/10/2024 6:57 AM CDT 09/10/2024 7:23 AM CDT Margaret Leggett MD LAB BLOOD ORDERABLES Final Res ult Performing Organization Address City/[facility]/ZIP Co de Phone Number MOUNA GRIFFITHS [address] Department [place] [address] * (ABNORMAL) Basic metabolic panel (09/10/2024 6:57 AM CDT) Pathologist [facility] Sodium 137 135 - 145 mmol/L Potassium, pl 3.9 3.3 - 4.9 mmol/L [facility] Chloride 97 97 - 110 mmol/L [facility] CO2 33(H) 22 - 32 mmol/L [facility] Anion gap 7 2 - 15 mmol/L [facility] BUN 9 6 - 25 mg/dL [facility] Creatinine 0.93 0.60 - 1.10 mg/dL [facility] Glucose 88 70 - 199 mg/dL [facility] Comment: Interpretive Data Fasting glucose >/= 126 mg/dl is diagnostic for diabetes. Fasting is defined as no caloric intake for at least 8 hours. Fasting glucose between 100 mg/dl to 125 mg/dl is diagnostic of prediabetes. In a patient with classic symptoms of hyperglycemia or hyperglycemic crisis, a random glucose >/= 200 mg/dl is diagnostic for diabetes. In the absence of unequivocal hyperglycemia, results should be confirmed by repeat testing. The classification and Diagnosis of Diabetes Diabetes Care 2021; 46: S19-S40. Current interpretive data was last revised 2022. Calcium 8.1(L) 8.5 - 10.3 mg/dL [facility] Blood 09/10/2024 6:57 AM CDT 09/10/2024 7:23 AM CDT Margaret Leggett MD LAB BLOOD ORDERABLES Final Res ult Performing Organization Address City/[facility]/ZIP Co de Phone Number MOUNA GRIFFITHS [address] Department [place] [address] * POCT glucose (09/09/2024 4:07 PM CDT) Glucose, POC 118 70 - 199 mg/dL POC Performer [id number] [facility] Blood 09/09/2024 4:07 PM CDT 09/09/2024 4:07 PM CDT Margaret Leggett MD LAB POCT ORDERABLES - DEVICE F inal Result Performing Organization Address [facility] Co de Phone Number MOUNA GRIFFITHS [address] [place] [address] * POCT glucose (09/09/2024 12:49 PM CDT) Glucose, POC 83 70 - 199 mg/dL POC Performer [id number] [facility] Blood 09/09/2024 12:4 9 PM CDT 09/09/2024 12:49 PM CDT Margaret Leggett MD LAB POCT ORDERABLES - DEVICE F inal Result Performing Organization Address [facility] Co de Phone Number MOUNA GRIFFITHS [address] [place] [address] * POCT glucose (09/09/2024 8:44 AM CDT) Glucose, POC 95 70 - 199 mg/dL POC Performer [id number] [facility] Blood 09/09/2024 8:44 AM CDT 09/09/2024 8:44 AM CDT Margaret Leggett MD LAB POCT ORDERABLES - DEVICE F inal Result Performing Organization Address City/[facility] Co de Phone Number MOUNA GRIFFITHS [address] [facility] [place] [address] * US VEIN DUPLEX LOWER EXTREMITY RIGHT LIMITED, UNILATERAL (09/09/2024 7:59 AM CDT) Anatomical Region Laterality Modality Vascular Right Ultrasound 09/09/2024 10:1 7 AM CDT Addenda Addendum by Darrell Mcnair MD on 09/13/2024 1:26 PM CDT Correction TECHNIQUE: Right LOWER extremity venous duplex study was performed with leal scale imaging, color Doppler imaging and spectral waveform analysis. Edited by: Jah Thompson Electronically signed by: Darrell Mcnair M.D. Impressions 09/09/2024 10:17 AM CDT There is no evidence of acute DVT in the right lower extremity. Electronically signed by: Darrell Mcnair M.D. Narrative 09/09/2024 10:17 AM CDT EXAMINATION: US VEIN DUPLEX LOWER EXTREMITY RIGHT LIMITED, UNILATERAL HISTORY: The patient is a 59-year-old female who presents with right leg edema. Comparison made with the previous study dated 08/01/2019. TECHNIQUE: Right upper extremity venous duplex study was performed with leal scale imaging, color Doppler imaging and spectral waveform analysis. FINDINGS: There is normal compressibility and phasicity in both common femoral veins as well as the right superficial and deep femoral veins, popliteal, posterior tibial and peroneal veins and the right saphenofemoral junction. Imaging of these veins reveals no thrombus or reflux. Procedure Note Darrell Mcnair MD - 09/09/2024 EXAMINATION: US VEIN DUPLEX LOWER EXTREMITY RIGHT LIMITED, UNILATERAL HISTORY: The patient is a 59-year-old female who presents with right leg edema. Comparison made with the previous study dated 08/01/2019. TECHNIQUE: Right upper extremity venous duplex study was performed with leal scale imaging, color Doppler imaging and spectral waveform analysis. FINDINGS: There is normal compressibility and phasicity in both common femoral veins as well as the right superficial and deep femoral veins, popliteal, posterior tibial and peroneal veins and the right saphenofemoral junction. Imaging of these veins reveals no thrombus or reflux. IMPRESSION: There is no evidence of acute DVT in the right lower extremity. Electronically signed by: Darrell Mcnair M.D. Ashu Flores MD [facility] US PROCEDURES Edit ed Result - Final * (ABNORMAL) eGFR (09/09/2024 5:40 AM CDT) eGFR 55(L) >=60 mL/min/1. 73 m2 Comment: Interpretive Data Reference Interval Normal >/= 90 mL/min/1.73m2 Mildly decreased* 60 - 89 mL/min/1.73m2 Mildly to moderately decreased 45 - 59 mL/min/1.73m2 Moderately to severely decreased 30 - 44 mL/min/1.73m2 Severely decreased 15 - 29 mL/min/1.73m2 Kidney Failure < 15 mL/min/1.73m2 *Relative to young adult level Estimated glomerular filtration rate is determined by the 2020 CKD-EPI equation recommended by the National Kidney Foundation (A Unifying Approach to GFR Estimation: Recommendations of the NKF-ASK Task Force on Reassessing the Inclusion of Race in Diagnosing Kidney Disease, JASN 2020). The CKD-EPI equation should not be used for patients with unstable renal function and has not been validated in children and those over 70. Current interpretive data was last reviewed 2021. Blood 09/09/2024 5:40 AM CDT 09/09/2024 6:09 AM CDT Margaret Leggett MD LAB BLOOD ORDERABLES Final Res ult [facility] [address] [place] [address] * (ABNORMAL) Basic metabolic panel (09/09/2024 5:40 AM CDT) Pathologist [facility] Sodium 134(L) 135 - 145 mmol/L Potassium, pl 4.4 3.3 - 4.9 mmol/L [facility] Chloride 93(L) 97 - 110 mmol/L [facility] CO2 32 22 - 32 mmol/L [facility] Anion gap 9 2 - 15 mmol/L [facility] BUN 12 6 - 25 mg/dL [facility] Creatinine 1.16(H) 0.60 - 1.10 mg/dL [facility] Glucose 91 70 - 199 mg/dL [facility] Comment: Interpretive Data Fasting glucose >/= 126 mg/dl is diagnostic for diabetes. Fasting is defined as no caloric intake for at least 8 hours. Fasting glucose between 100 mg/dl to 125 mg/dl is diagnostic of prediabetes. In a patient with classic symptoms of hyperglycemia or hyperglycemic crisis, a random glucose >/= 200 mg/dl is diagnostic for diabetes. In the absence of unequivocal hyperglycemia, results should be confirmed by repeat testing. The classification and Diagnosis of Diabetes Diabetes Care 2021; 46: S19-S40. Current interpretive data was last revised 2022. Calcium 7.9(L) 8.5 - 10.3 mg/dL [facility] Blood 09/09/2024 5:40 AM CDT 09/09/2024 6:09 AM CDT Margaret Leggett MD LAB BLOOD ORDERABLES Final Res ult Performing Organization Address [facility] Co de Phone Number MOUNA TUNDE [address] [facility] [place] [address] * POCT glucose (09/08/2024 9:08 PM CDT) Glucose, POC 137 70 - 199 mg/dL POC Performer [id number] [facility] Blood 09/08/2024 9:08 PM CDT 09/08/2024 9:08 PM CDT Margaret Leggett MD LAB POCT ORDERABLES - DEVICE F inal Result Performing Organization Address [facility] de Phone Number MOUNA TUNDE [address] [place] [address] * POCT glucose (09/08/2024 5:41 PM CDT) Glucose, POC 120 70 - 199 mg/dL POC Performer [id number] [facility] Blood 09/08/2024 5:41 PM CDT 09/08/2024 5:41 PM CDT Margaret Leggett MD LAB POCT ORDERABLES - DEVICE F inal Result Performing Organization Address [facility] Co de Phone Number KRYSTIANKATIE GRIFFITHS [address] [place] [address] * eGFR (09/08/2024 4:01 AM CDT) eGFR 75 >=60 mL/min/1. 73 m2 Comment: Interpretive Data Reference Interval Normal >/= 90 mL/min/1.73m2 Mildly decreased* 60 - 89 mL/min/1.73m2 Mildly to moderately decreased 45 - 59 mL/min/1.73m2 Moderately to severely decreased 30 - 44 mL/min/1.73m2 Severely decreased 15 - 29 mL/min/1.73m2 Kidney Failure < 15 mL/min/1.73m2 *Relative to young adult level Estimated glomerular filtration rate is determined by the 2020 CKD-EPI equation recommended by the National Kidney Foundation (A Unifying Approach to GFR Estimation: Recommendations of the NKF-ASK Task Force on Reassessing the Inclusion of Race in Diagnosing Kidney Disease, JASN 2020). The CKD-EPI equation should not be used for patients with unstable renal function and has not been validated in children and those over 70. Current interpretive data was last reviewed 2021. Blood 09/08/2024 4:01 AM CDT 09/08/2024 6:22 AM CDT Margaret Leggett MD LAB BLOOD ORDERABLES Final Res ult MOUNA GRIFFITHS [address] [place] [address] * (ABNORMAL) Differential, auto (09/08/2024 4:01 AM CDT) Neutrophil abs 6.6(H) 1.5 - 6.5 K/cumm Imm gran abs 0.1 0.0 - 0.1 K/cumm [facility] Lymphocyte abs 1.4 0.8 - 3.3 K/cumm [facility] Monocyte abs 1.7(H) 0.2 - 0.8 K/cumm [facility] Eosinophil abs 0.2 0.0 - 0.5 K/cumm [facility] Basophil abs 0.1 0.0 - 0.1 K/cumm [facility] Neutrophil pct 66.0 % [facility] Comment: Interpretive Data Percent cell count reference ranges are not reported, since discordance with absolute values may lead to misinterpretation of CBC data. Current Interpretive Data was last revised on 2017. Imm gran pct 0.5 % [facility] Comment: Interpretive Data Percent cell count reference ranges are not reported, since discordance with absolute values may lead to misinterpretation of CBC data. Current Interpretive Data was last revised on 2017. Lymphocyte pct 14.4 % [facility] Comment: Interpretive Data Percent cell count reference ranges are not reported, since discordance with absolute values may lead to misinterpretation of CBC data. Current Interpretive Data was last revised on 2017. Monocyte pct 16.6 % [facility] Comment: Interpretive Data Percent cell count reference ranges are not reported, since discordance with absolute values may lead to misinterpretation of CBC data. Current Interpretive Data was last revised on 2017. Eosinophil pct 2.0 % [facility] Comment: Interpretive Data Percent cell count reference ranges are not reported, since discordance with absolute values may lead to misinterpretation of CBC data. Current Interpretive Data was last revised on 2017. Basophil pct 0.5 % [facility] Comment: Interpretive Data Percent cell count reference ranges are not reported, since discordance with absolute values may lead to misinterpretation of CBC data. Current Interpretive Data was last revised on 2017. Blood 09/08/2024 4:01 AM CDT 09/08/2024 6:20 AM CDT us Margaret Leggett MD LAB BLOOD ORDERABLES Final Res ult [facility] [address] Department [place] [address] * (ABNORMAL) CBC with auto differential (09/08/2024 4:01 AM CDT) WBC 10.0(H) 3.8 - 9.9 K/cumm Hgb 8.9(L) 11.9 - 15.5 g/dL MOUNA Hct 31.1(L) 35.6 - 45.5 % [facility] Plt 412(H) 150 - 400 K/cumm [facility] MPV 11.2 9.1 - 12.3 fL [facility] RBC 3.34(L) 3.90 - 5.20 M/cumm [facility] MCV 93.1 81.3 - 96.4 fL [facility] MCH 26.6(L) 27.1 - 33.3 pg [facility] MCHC 28.6(L) 32.3 - 35.7 g/dL [facility] RDW CV 18.7(H) 11.1 - 14.9 % [facility] RDW SD 63.3(H) 35.7 - 48.1 fL [facility] NRBC abs 0.00 0.00 - 0.01 K/cumm [facility] Blood 09/08/2024 4:01 AM CDT 09/08/2024 6:20 AM CDT Margaret Leggett MD LAB BLOOD ORDERABLES Final Res ult [facility] [address] [place] [address] * (ABNORMAL) Basic metabolic panel (09/08/2024 4:01 AM CDT) Sodium 139 135 - 145 mmol/L Potassium, pl 3.8 3.3 - 4.9 mmol/L [facility] Chloride 95(L) 97 - 110 mmol/L [facility] CO2 36(H) 22 - 32 mmol/L [facility] Anion gap 8 2 - 15 mmol/L [facility] BUN 8 6 - 25 mg/dL [facility] Creatinine 0.89 0.60 - 1.10 mg/dL [facility] Glucose 78 70 - 199 mg/dL [facility] Comment: Interpretive Data Fasting glucose >/= 126 mg/dl is diagnostic for diabetes. Fasting is defined as no caloric intake for at least 8 hours. Fasting glucose between 100 mg/dl to 125 mg/dl is diagnostic of prediabetes. In a patient with classic symptoms of hyperglycemia or hyperglycemic crisis, a random glucose >/= 200 mg/dl is diagnostic for diabetes. In the absence of unequivocal hyperglycemia, results should be confirmed by repeat testing. The classification and Diagnosis of Diabetes Diabetes Care 2021; 46: S19-S40. Current interpretive data was last revised 2022. Calcium 8.2(L) 8.5 - 10.3 mg/dL [facility] Blood 09/08/2024 4:01 AM CDT 09/08/2024 6:22 AM CDT Margaret Leggett MD LAB BLOOD ORDERABLES Final Res ult [facility] [address] Department of Laboratories [place], [place] [id number] * (ABNORMAL) Urinalysis reflex to microscopic and culture Urine (09/07/2024 6:00 PM CDT) Color, ur Yellow Yellow Clarity, ur Turbid(A) Clear [facility] Specific gravity, ur 1.007 1.003 - 1.030 [facility] pH, urine 8.0 [facility] Comment: Interpretive Data U rine pH is affected by diet, medications, systemic acid-base disturbances, and renal tubular function. pH may affect urinary stone formation. For example, urine pH below 6.0 may help reduce the tendency for calcium phosphate stones and pH greater than 6.0 may reduce the tendency for uric acid stone formation. Source: [facility] [place] Current Interpretive Data was last revised on 2017 Protein, ur ql Negative Negative [facility] Glucose, ur ql 1+(A) Negative [facility] Ketones, ur Negative Negative [facility] Bilirubin, ur Negative Negative [facility] Blood, ur Negative Negative [facility] Urobilinogen, ur 2.0(A) <2.0 mg/dL [facility] Nitrite, ur Negative Negative [facility] Leukocyte esterase, ur Negative Negative [facility] UA reflex comment Reflex conditions for microscopic UA and culture not met. [facility] Urine 09/07/2024 6:00 PM CDT 09/07/2024 6:41 PM CDT Marcy Chacon NP LAB MICROBIOLOGY - GENERA L ORDERABLES Final Result Performing Organization Address [facility] Co de Phone Number MOUNA GRIFFITHS [address] [place] [address] * POCT glucose (09/07/2024 12:23 PM CDT) Glucose, POC 107 70 - 199 mg/dL POC Performer [id number] [facility] Blood 09/07/2024 12:2 3 PM CDT 09/07/2024 12:23 PM CDT Margaret Leggett MD LAB POCT ORDERABLES - DEVICE F inal Result Performing Organization Address [facility] Co de Phone Number KRYSTIANKATIE GRIFFITHS [address] [place] [address] * POCT glucose (09/07/2024 7:57 AM CDT) Glucose, POC 107 70 - 199 mg/dL POC Performer [id number] [facility] Blood 09/07/2024 7:57 AM CDT 09/07/2024 7:57 AM CDT Margaret Leggett MD LAB POCT ORDERABLES - DEVICE F inal Result Performing Organization Address [facility] Co de Phone Number MOUNA GRIFFITHS [address] [address] * TRANSTHORACIC ECHO (TTE) COMPLETE W DOPPLER/CF W CONTRAST (09/07/2024 7:55 AM CDT) Anatomical Region Laterality Modality Ultrasound 09/07/2024 6:38 AM CDT Narrative 09/07/2024 12:23 PM CDT [place] [id number] Echocardiogram Report Patient Name: DOREEN CONROY J : 1965 Study Date: 09/07/2024 6:38:58 AM Gender: F Tech: MS Location: [id number] Ref Provider: BASHIR GLASER Height(Cm): 158 BSA: 1.86 Weight(Kg): 79 Heart Rate: 90 BP: 140 / 73 Quality: Good Order Provider: BASHIR GLASER PROCEDURES: Echocardiographic Report: Transthoracic echocardiogram with complete 2D, M-Mode, color Doppler examination and contrast. INDICATIONS: Chest Pain. MEASUREMENTS: 2D/MM Value Range Doppler Value Range EF Teich 2D 52.1 percent [ 54.0 - 74.0 ] KRISTYN Vmax 2.24 cm2 EF Mod BP 65 % [ 54 - 74 ] AV Mean PG 5 mmHg LVIDd 2D 4.92 cm [ 3.80 - 5.20 ] AV Peak Elijah 1.68 m/s [ 1.00 - 1.70 ] LVIDs 2D 3.60 cm [ 2.20 - 3.50 ] AV VTI 31.80 cm LVPWd 2D 1.39 cm [ 0.60 - 0.90 ] LVOT Diam 1.99 cm IVSd 2D 1.24 cm [ 0.60 - 0.90 ] LVOT Peak Elijah 1.21 m/s [ 0.70 - 1.10 ] LA Dimension 2D 4.74 cm [ 2.70 - 3.80 ] LVOT VTI 24.45 cm LA Dimension MM 5.07 cm [ 2.70 - 3.80 ] SI LVOT 41.9 ml/m2 [ >= 35.0 ] AoR Diam 2D 2.47 cm [ 2.70 - 3.70 ] MV E Peak Eljiah 1.06 m/s [ 0.60 - 1.30 ] AoR Diam MM 2.57 cm [ 2.70 - 3.70 ] MV A Peak Elijah 0.91 m/s [ 1.00 - 1.20 ] LA Volume Index 39.16 cc/m2 [ 16.00 - 34.00 ] MV Mean PG 2 mmHg ACS MM 1.99 cm MV PHT 51 msec [ 20 - 100 ] MVA PHT 4.32 cm2 MV Decel Time 175 msec [ 104 - 258 ] PV Peak Elijah 0.84 m/s [ 0.40 - 0.80 ] TR Peak Elijah 3.35 m/s [ 1.00 - 2.80 ] TR Peak PG 45 mmHg E` 0.05 m/s E/E` 10.14 2D/MM Value Range Doppler Value Range - FINDINGS: Atrial Septum: Normal atrial septum. Left Ventricle: Normal left ventricular size. Normal left ventricular systolic function with no focal wall motion abnormalities. Mild concentric left ventricular hypertrophy. Normal left ventricular diastolic function. Ejection fraction is measured at 65 %. Left Atrium: There is moderate enlargement of left atrium. Right Ventricle: Normal right ventricular size. Normal right ventricular systolic function. Right Atrium: The right atrium is normal in size. Aortic Valve: Normal structure of the aortic valve. Trileaflet aortic valve. No evidence of hemodynamically significant aortic stenosis by Doppler. Mitral Valve: Mitral valve leaflets appear mildly thickened. Mild mitral valve regurgitation. Pulmonic Valve: Normal structure of the pulmonic valve. No evidence of pulmonic regurgitation. Tricuspid Valve: Normal structure of the tricuspid valve. Mild pulmonary hypertension based on right ventricular systolic pressure. Estimated peak RVSP is 45 mmHg. Mild tricuspid regurgitation. Pericardium: Normal pericardium with no significant pericardial effusion. Aorta: Normal aortic root. IVC: Normal size and normal respiratory collapse consistent with normal right atrial pressure (<5 mmHg). Pulmonary Artery: Pulmonary artery not well visualized. CONCLUSIONS: Technically difficult study with suboptimal visualization. Optison contrast utilized. Normal left ventricular size. Normal left ventricular systolic function with no focal wall motion abnormalities. Mild concentric left ventricular hypertrophy. Normal left ventricular diastolic function. Ejection fraction is measured at 65 %. Normal right ventricular size. Normal right ventricular systolic function. There is moderate enlargement of left atrium. Mitral valve leaflets appear mildly thickened. Mild mitral valve regurgitation. Normal structure of the aortic valve. Trileaflet aortic valve. No evidence of hemodynamically significant aortic stenosis by Doppler. Normal structure of the tricuspid valve. Mild pulmonary hypertension based on right ventricular systolic pressure. Estimated peak RVSP is 45 mmHg. Mild tricuspid regurgitation. Normal pericardium with no significant pericardial effusion. Electronically Signed By: Rocío Flores MD 09/07/2024 12:22:18 PM CDT Procedure Note Rocío Flores MD - 09/07/2024 [place] [address] Echocardiogram Report Patient Name: DOREEN CONROY J : 1965 Study Date: 09/07/2024 6:38:58 AM Gender: F Tech: MS Location: [address] Provider: BASHIR GLASER Height(Cm): 158 BSA: 1.86 Weight(Kg): 79 Heart Rate: 90 BP: 140 / 73 Quality: Good Order Provider: BASHIR GLASER PROCEDURES: Echocardiographic Report: Transthoracic echocardiogram with complete 2D, M-Mode, color Dopplerexamination and contrast. INDICATIONS: Chest Pain. MEASUREMENTS: 2D/MM Value Range DopplerValue Range EF Teich 2D 52.1 percent [ 54.0 - 74.0 ] KRISTYN Vmax2.24 cm2 EF Mod BP 65 % [ 54 - 74 ] AV Mean PG 5mmHg LVIDd 2D 4.92 cm [ 3.80 - 5.20 ] AV Peak Vel1.68 m/s [ 1.00 - 1.70 ] LVIDs 2D 3.60 cm [ 2.20 - 3.50 ] AV VTI31.80 cm LVPWd 2D 1.39 cm [ 0.60 - 0.90 ] LVOT Diam1.99 cm IVSd 2D 1.24 cm [ 0.60 - 0.90 ] LVOT Peak Vel1.21 m/s [ 0.70 - 1.10 ] LA Dimension 2D 4.74 cm [ 2.70 - 3.80 ] LVOT VTI24.45 cm LA Dimension MM 5.07 cm [ 2.70 - 3.80 ] SI LVOT41.9 ml/m2 [ >= 35.0 ] AoR Diam 2D 2.47 cm [ 2.70 - 3.70 ] MV E Peak Vel1.06 m/s [ 0.60 - 1.30 ] AoR Diam MM 2.57 cm [ 2.70 - 3.70 ] MV A Peak Vel0.91 m/s [ 1.00 - 1.20 ] LA Volume Index 39.16 cc/m2 [ 16.00 - 34.00 ] MV Mean PG 2mmHg ACS MM 1.99 cm MV PHT51 msec [ 20 - 100 ] MVA PHT 4.32 cm2 MV Decel Time 175 msec [ 104 - 258 ] PV Peak Elijah 0.84 m/s [ 0.40 - 0.80 ] TR Peak Elijah 3.35 m/s [ 1.00 - 2.80 ] TR Peak PG 45 mmHg E` 0.05 m/s E/E` 10.14 2D/MM Value Range DopplerValue Range - FINDINGS: Atrial Septum: Normal atrial septum. Left Ventricle: Normal left ventricular size. Normal left ventricular systolic functionwith no focal wall motion abnormalities. Mild concentric left ventricular hypertrophy.Normal left ventricular diastolic function. Ejection fraction is measured at 65 %. Left Atrium: There is moderate enlargement of left atrium. Right Ventricle: Normal right ventricular size. Normal right ventricular systolicfunction. Right Atrium: The right atrium is normal in size. Aortic Valve: Normal structure of the aortic valve. Trileaflet aortic valve. No evidenceof hemodynamically significant aortic stenosis by Doppler. Mitral Valve: Mitral valve leaflets appear mildly thickened. Mild mitral valveregurgitation. Pulmonic Valve: Normal structure of the pulmonic valve. No evidence of pulmonicregurgitation. Tricuspid Valve: Normal structure of the tricuspid valve. Mild pulmonary hypertension basedon right ventricular systolic pressure. Estimated peak RVSP is 45 mmHg. Mildtricuspid regurgitation. Pericardium: Normal pericardium with no significant pericardial effusion. Aorta: Normal aortic root. IVC: Normal size and normal respiratory collapse consistent with normal rightatrial pressure (<5 mmHg). Pulmonary Artery: Pulmonary artery not well visualized. CONCLUSIONS: Technically difficult study with suboptimal visualization. Optisoncontrast utilized. Normal left ventricular size. Normal left ventricular systolic functionwith no focal wall motion abnormalities. Mild concentric left ventricular hypertrophy.Normal left ventricular diastolic function. Ejection fraction is measured at 65 %. Normal right ventricular size. Normal right ventricular systolicfunction. There is moderate enlargement of left atrium. Mitral valve leaflets appear mildly thickened. Mild mitral valveregurgitation. Normal structure of the aortic valve. Trileaflet aortic valve. No evidenceof hemodynamically significant aortic stenosis by Doppler. Normal structure of the tricuspid valve. Mild pulmonary hypertension basedon right ventricular systolic pressure. Estimated peak RVSP is 45 mmHg. Mildtricuspid regurgitation. Normal pericardium with no significant pericardial effusion. Electronically Signed By: Rocío Flores MD 09/07/2024 12:22:18 PM CDT Bashir Glaser MD CV ECHO PROCEDURES Final Result * POCT glucose (09/07/2024 5:12 AM CDT) Pathologist [facility] Glucose, POC 102 70 - 199 mg/dL POC Performer [id number] MOUNA GRIFFITHS Blood 09/07/2024 5:12 AM CDT 09/07/2024 5:12 AM CDT Margaret Leggett MD LAB POCT ORDERABLES - DEVICE F inal Result MOUNA [address] Department [place] [address] * eGFR (09/07/2024 4:58 AM CDT) eGFR 87 >=60 mL/min/1. 73 m2 Comment: Interpretive Data Reference Interval Normal >/= 90 mL/min/1.73m2 Mildly decreased* 60 - 89 mL/min/1.73m2 Mildly to moderately decreased 45 - 59 mL/min/1.73m2 Moderately to severely decreased 30 - 44 mL/min/1.73m2 Severely decreased 15 - 29 mL/min/1.73m2 Kidney Failure < 15 mL/min/1.73m2 *Relative to young adult level Estimated glomerular filtration rate is determined by the 2020 CKD-EPI equation recommended by the National Kid[employer] (A Unifying Approach to GFR Estimation: Recommendations of the NKF-ASK Task Force on Reassessing the Inclusion of Race in Diagnosing Kidney Disease, JASN 2020). The CKD-EPI equation should not be used for patients with unstable renal function and has not been validated in children and those over 70. Current interpretive data was last reviewed 2021. Blood 09/07/2024 4:58 AM CDT 09/07/2024 5:30 AM CDT us Margaret Leggett MD LAB BLOOD ORDERABLES Final Res ult [facility] [address] [place] [address] * (ABNORMAL) Differential, auto (09/07/2024 4:58 AM CDT) Neutrophil abs 7.8(H) 1.5 - 6.5 K/cumm Imm gran abs 0.0 0.0 - 0.1 K/cumm [facility] Lymphocyte abs 1.3 0.8 - 3.3 K/cumm [facility] Monocyte abs 1.8(H) 0.2 - 0.8 K/cumm [facility] Eosinophil abs 0.1 0.0 - 0.5 K/cumm [facility] Basophil abs 0.1 0.0 - 0.1 K/cumm [facility] Neutrophil pct 70.5 % [facility] Comment: Interpretive Data Percent cell count reference ranges are not reported, since discordance with absolute values may lead to misinterpretation of CBC data. Current Interpretive Data was last revised on 2017. Imm gran pct 0.4 % [facility] Comment: Interpretive Data Percent cell count reference ranges are not reported, since discordance with absolute values may lead to misinterpretation of CBC data. Current Interpretive Data was last revised on 2017. Lymphocyte pct 11.7 % [facility] Comment: Interpretive Data Percent cell count reference ranges are not reported, since discordance with absolute values may lead to misinterpretation of CBC data. Current Interpretive Data was last revised on 2017. Monocyte pct 16.3 % [facility] Comment: Interpretive Data Percent cell count reference ranges are not reported, since discordance with absolute values may lead to misinterpretation of CBC data. Current Interpretive Data was last revised on 2017. Eosinophil pct 0.6 % [facility] Comment: Interpretive Data Percent cell count reference ranges are not reported, since discordance with absolute values may lead to misinterpretation of CBC data. Current Interpretive Data was last revised on 2017. Basophil pct 0.5 % [facility] Comment: Interpretive Data Percent cell count reference ranges are not reported, since discordance with absolute values may lead to misinterpretation of CBC data. Current Interpretive Data was last revised on 2017. Blood 09/07/2024 4:58 AM CDT 09/07/2024 5:28 AM CDT Margaret Leggett MD LAB BLOOD ORDERABLES Final Res ult [facility] [address] [place] [address] * (ABNORMAL) CBC with auto differential (09/07/2024 4:58 AM CDT) WBC 11.1(H) 3.8 - 9.9 K/cumm Hgb 8.8(L) 11.9 - 15.5 g/dL [facility] Hct 29.8(L) 35.6 - 45.5 % [facility] Plt 438(H) 150 - 400 K/cumm [facility] MPV 10.7 9.1 - 12.3 fL [facility] RBC 3.24(L) 3.90 - 5.20 M/cumm [facility] MCV 92.0 81.3 - 96.4 fL [facility] MCH 27.2 27.1 - 33.3 pg [facility] MCHC 29.5(L) 32.3 - 35.7 g/dL [facility] RDW CV 18.6(H) 11.1 - 14.9 % [facility] RDW SD 62.3(H) 35.7 - 48.1 fL [facility] NRBC abs 0.02(H) 0.00 - 0.01 K/cumm [facility] Blood 09/07/2024 4:58 AM CDT 09/07/2024 5:28 AM CDT Margaret Leggett MD LAB BLOOD ORDERABLES Final Res ult [facility] [place] [address] [place] [address] * (ABNORMAL) Basic metabolic panel (09/07/2024 4:58 AM CDT) Pathologist [facility] Sodium 140 135 - 145 mmol/L Potassium, pl 3.7 3.3 - 4.9 mmol/L [facility] Chloride 96(L) 97 - 110 mmol/L [facility] CH CO2 36(H) 22 - 32 mmol/L [facility] CH Anion gap 8 2 - 15 mmol/L [facility] BUN 5(L) 6 - 25 mg/dL [facility] Creatinine 0.79 0.60 - 1.10 mg/dL [facility] Glucose 86 70 - 199 mg/dL [facility] Comment: Interpretive Data Fasting glucose >/= 126 mg/dl is diagnostic for diabetes. Fasting is defined as no caloric intake for at least 8 hours. Fasting glucose between 100 mg/dl to 125 mg/dl is diagnostic of prediabetes. In a patient with classic symptoms of hyperglycemia or hyperglycemic crisis, a random glucose >/= 200 mg/dl is diagnostic for diabetes. In the absence of unequivocal hyperglycemia, results should be confirmed by repeat testing. The classification and Diagnosis of Diabetes Diabetes Care 2021; 46: S19-S40. Current interpretive data was last revised 2022. Calcium 7.7(L) 8.5 - 10.3 mg/dL [facility] Blood 09/07/2024 4:58 AM CDT 09/07/2024 5:30 AM CDT Margaret Leggett MD LAB BLOOD ORDERABLES Final Res ult [facility] [place] [address] [place] [address] * POCT glucose (09/06/2024 9:58 PM CDT) Glucose, POC 154 70 - 199 mg/dL POC Performer [id number] MOUNA GRIFFITHS Blood 09/06/2024 9:58 PM CDT 09/06/2024 9:58 PM CDT Margaret Leggett MD LAB POCT ORDERABLES - DEVICE F inal Result [facility] [place] [address] [place] [address] * CT Head WO Contrast (09/06/2024 4:30 PM CDT) Anatomical Region Laterality Modality Head and Neck N/A Computed Tomogra phy 09/06/2024 4:36 PM CDT Impressions 09/06/2024 4:36 PM CDT Mild involutional changes. No bleed or mass. Electronically signed by: Darrell Mcnair M.D. Narrative 09/06/2024 4:36 PM CDT EXAMINATION: CT HEAD WO CONTRAST HISTORY: The patient is a 59-year-old female who presents with memory loss and frequent falls. Comparison made with the previous study dated 12/11/2023. TECHNIQUE: Axial images were obtained through the brain with thin sections and viewed both in soft tissue and bone window settings. Following this, coronal and sagittal reconstructions were performed FINDINGS: Axial images through the brain reveals mild prominence of the 4th, 3rd and lateral ventricles as well as the cerebral sulci. No midline shift is seen. No intracerebral hemorrhage or extra-axial fluid collection is noted. Images obtained in the coronal and sagittal planes adds no further information. Axial images obtained at bone window settings reveal the cranial vault to be intact. There is mild clouding of the mastoid air cells bilaterally. Paranasal sinuses are normally aerated other than for mild mucosal thickening in the floor of both maxillary antra. Procedure Note Darrell Mcnair MD - 09/06/2024 EXAMINATION: CT HEAD WO CONTRAST HISTORY: The patient is a 59-year-old female who presents with memory loss and frequent falls. Comparison made with the previous study dated 12/11/2023. TECHNIQUE: Axial images were obtained through the brain with thin sections and viewed both in soft tissue and bone window settings. Following this, coronal and sagittal reconstructions were performed FINDINGS: Axial images through the brain reveals mild prominence of the 4th, 3rd and lateral ventricles as well as the cerebral sulci. No midline shift is seen. No intracerebral hemorrhage or extra-axial fluid collection is noted. Images obtained in the coronal and sagittal planes adds no further information. Axial images obtained at bone window settings reveal the cranial vault to be intact. There is mild clouding of the mastoid air cells bilaterally. Paranasal sinuses are normally aerated other than for mild mucosal thickening in the floor of both maxillary antra. IMPRESSION: Mild involutional changes. No bleed or mass. Electronically signed by: Darrell Mcnair M.D. Margaret Leggett MD IMG CT PROCEDURES Final Result * POCT glucose (09/06/2024 4:10 PM CDT) [facility] Signature Glucose, POC 120 70 - 199 mg/dL POC Performer [id number] MOUNA GRIFFITHS Blood 09/06/2024 4:10 PM CDT 09/06/2024 4:10 PM CDT Margaret Leggett MD LAB POCT ORDERABLES - DEVICE F inal Result MOUNA [address] Department [place] [address] * CT Knee Right WO Contrast (09/06/2024 2:10 PM CDT) Anatomical Region Laterality Modality Lower Extremities Right Computed Tomog martina 09/06/2024 2:32 PM CDT Impressions 09/06/2024 2:32 PM CDT 1. DIFFUSE OSTEOPENIA. 2. NO EVIDENCE OF ACUTE BONY INJURY. 3. MINIMAL JOINT EFFUSION. 4. LARGE ANTEROMEDIAL HEMATOMA. 5. SUBCUTANEOUS EDEMA. Electronically signed by: Beni Alexander M.D. Narrative 09/06/2024 2:32 PM CDT EXAMINATION: CT KNEE RIGHT WO CONTRAST DATE: 09/06/2024 1:45 PM HISTORY: Trauma with pain in the right knee. TECHNIQUE: Transaxial computed tomographic images of the right knee were obtained without the administration of intravenous contrast. Multiplanar coronal and sagittal images were reformatted. COMPARISON: Radiographs the right knee from 09/05/2024. FINDINGS: The bones are diffusely demineralized. There is no evidence of a fracture or dislocation. There is a minimal joint effusion. There is a hematoma in the anterior soft tissues, medial to the patella, which measures 4.8 cm AP, 5.3 cm transverse and 8.5 cm craniocaudal. There is mild subcutaneous edema. Procedure Note Beni Alexander MD - 09/06/2024 EXAMINATION: CT KNEE RIGHT WO CONTRAST DATE: 09/06/2024 1:45 PM HISTORY: Trauma with pain in the right knee. TECHNIQUE: Transaxial computed tomographic images of the right knee were obtained without the administration of intravenous contrast. Multiplanar coronal and sagittal images were reformatted. COMPARISON: Radiographs the right knee from 09/05/2024. FINDINGS: The bones are diffusely demineralized. There is no evidence of a fracture or dislocation. There is a minimal joint effusion. There is a hematoma in the anterior soft tissues, medial to the patella, which measures 4.8 cm AP, 5.3 cm transverse and 8.5 cm craniocaudal. There is mild subcutaneous edema. IMPRESSION: 1. DIFFUSE OSTEOPENIA. 2. NO EVIDENCE OF ACUTE BONY INJURY. 3. MINIMAL JOINT EFFUSION. 4. LARGE ANTEROMEDIAL HEMATOMA. 5. SUBCUTANEOUS EDEMA. Electronically signed by: Beni Alexander M.D. Maxine MAHONEY IMG CT PROCEDURES Final Resu lt * POCT glucose (09/06/2024 1:31 PM CDT) Glucose, POC 118 70 - 199 mg/dL POC Performer [id number] MOUNA Blood 09/06/2024 1:31 PM CDT 09/06/2024 1:31 PM CDT Margaret Leggett MD LAB POCT ORDERABLES - DEVICE F inal Result Performing Organization Address [facility] Co de Phone Number KRYSTIANKATIE GRIFFITHS [address] [facility] [facility] [place], [place] [id number] * (ABNORMAL) Potassium (09/06/2024 11:37 AM CDT) Potassium, pl 2.9(L) 3.3 - 4.9 mmol/L Blood 09/06/2024 11:3 7 AM CDT 09/06/2024 11:57 AM CDT Marcy Chacon LARD RENDERER LAB BLOOD ORDERABLES Jalyn l Result Performing Organization Address [facility] Co de Phone Number KRYSTIANKATIE GRIFFITHS [address] [facility] [place] [address] * (ABNORMAL) Vitamin D 25 hydroxy (09/06/2024 10:05 AM CDT) Vitamin D 25-OH 23(L) 30 - 80 ng/mL Blood 09/06/2024 10:0 5 AM CDT 09/06/2024 10:10 AM CDT Margaret Leggett MD LAB BLOOD ORDERABLES Final Res ult Performing Organization Address [facility] Co de Phone Number MOUNA [address] [facility] [place] [address] * (ABNORMAL) Potassium (09/06/2024 10:05 AM CDT) Potassium, pl 3.0(L) 3.3 - 4.9 mmol/L Blood 09/06/2024 10:0 5 AM CDT 09/06/2024 10:10 AM CDT Margaret Leggett MD LAB BLOOD ORDERABLES Final Res ult Performing Organization Address [facility] Co de Phone Number KRYSTIANKATIE GRIFFITHS [address] [place] [address] * (ABNORMAL) PTH (09/06/2024 10:05 AM CDT) Pathologist [facility] PTH 246(H) 15 - 65 pg/mL Blood 09/06/2024 10:0 5 AM CDT 09/06/2024 10:10 AM CDT Margaret Leggett MD LAB BLOOD ORDERABLES Final Res ult Performing Organization Address [facility] Co de Phone Number MOUNA GRIFFITHS [address] [facility] [place] [address] * POCT glucose (09/06/2024 9:51 AM CDT) [facility] Glucose, POC 111 70 - 199 mg/dL POC Performer [phone] [facility] Blood 09/06/2024 9:51 AM CDT 09/06/2024 9:51 AM CDT Margaret Leggett MD LAB POCT ORDERABLES - DEVICE F inal Result Performing Organization Address [facility] de Phone Number KRYSTIANKATIE GRIFFITHS [address] [facility] [place] [address] * (ABNORMAL) Blood gas, arterial (09/06/2024 6:30 AM CDT) Pathologist [facility] pH, Art 7.38 7.35 - 7.45 PCO2, Arterial 64(C) 35 - 45 mmHg CERNER Comment:Alert value pcO2 adore led to and read back by Mary Jo Palumbo at 09/06/2024 06:48:44 CDT by Lor Chaudhari MT(ASCP) PO2, Arterial 62(L) 83 - 108 mmHg [facility] CH HCO3 Art (Calculated) 34(H) 20 - 30 mmol/L [facility] CH BE, art 12 mmol/L [facility] Comment: Interpretive Data No Reference Range Established Current Interpretive Data was last revised on 2017 O2 Sat Art (Measured) 90 90 - 95 % [facility]ER Blood 09/06/2024 6:30 AM CDT 09/06/2024 6:38 AM CDT Marcy Chacon LARD RENDERER LAB BLOOD ORDERABLES Jalyn l Result Performing Organization Address [facility] Co de Phone Number MOUNA GRIFFITHS [address] [facility] [place] [address] * (ABNORMAL) Troponin T high-sensitivity 6-hour (09/06/2024 4:06 AM CDT) Trop T hs 66(H) <=14 ng/L Comment: Interpretive Data For further hscTnT resources including the diagnostic algorithm and an aid in interpretation, copy and paste this link: https://nrl.testRage Frameworks.org/show/hsTrop Current Interpretive Data last revised 2020. Trop T hs delta 8 ng/L [facility] CH Trop T hs interp Equivocal [facility] CH Blood 09/06/2024 4:06 AM CDT 09/06/2024 4:26 AM CDT Bert Roldan MD LAB BLOOD ORDERABLES Final Result Performing Organization Address [facility] Co de Phone Number MOUNA GRIFFITHS [address] [address] [facility] [place] [address] * (ABNORMAL) Troponin T high-sensitivity 4-hour (09/06/2024 3:04 AM CDT) Trop T hs 64(H) <=14 ng/L Comment: Interpretive Data For further hscTnT resources including the diagnostic algorithm and an aid in interpretation, copy and paste this link: https://nrl.testRage [employer]works.org/show/hsTrop Current Interpretive Data last revised 2020. Trop T hs delta 6 ng/L [facility] CH Trop T hs interp Equivocal [facility] CH Blood 09/06/2024 3:04 AM CDT 09/06/2024 4:26 AM CDT Bert Roldan MD LAB BLOOD ORDERABLES Final Result Performing Organization Address City/[facility] Co de Phone Number MOUNA GRIFFITHS [address] [place] [address] * eGFR (09/06/2024 3:04 AM CDT) eGFR 83 >=60 mL/min/1. 73 m2 Comment: Interpretive Data Reference Interval Normal >/= 90 mL/min/1.73m2 Mildly decreased* 60 - 89 mL/min/1.73m2 Mildly to moderately decreased 45 - 59 mL/min/1.73m2 Moderately to severely decreased 30 - 44 mL/min/1.73m2 Severely decreased 15 - 29 mL/min/1.73m2 Kidney Failure < 15 mL/min/1.73m2 *Relative to young adult level Estimated glomerular filtration rate is determined by the 2020 CKD-EPI equation recommended by the National Kidney Foundation (A Unifying Approach to GFR Estimation: Recommendations of the NKF-ASK Task Force on Reassessing the Inclusion of Race in Diagnosing Kidney Disease, JASN 2020). The CKD-EPI equation should not be used for patients with unstable renal function and has not been validated in children and those over 70. Current interpretive data was last reviewed 2021. Blood 09/06/2024 3:04 AM CDT 09/06/2024 4:26 AM CDT Marcy Chacon NP LAB BLOOD ORDERABLES Jalyn l Result Performing Organization Address City/[facility]/ZIP Co de Phone Number MOUNA GRIFFITHS [address] Department [place] [address] * (ABNORMAL) Differential, auto (09/06/2024 3:04 AM CDT) Neutrophil abs 8.9(H) 1.5 - 6.5 K/cumm Imm gran abs 0.1 0.0 - 0.1 K/cumm [facility] Lymphocyte abs 1.5 0.8 - 3.3 K/cumm [facility] Monocyte abs 1.6(H) 0.2 - 0.8 K/cumm [facility] Eosinophil abs 0.1 0.0 - 0.5 K/cumm [facility] Basophil abs 0.1 0.0 - 0.1 K/cumm [facility] Neutrophil pct 72.5 % [facility] Comment: Interpretive Data Percent cell count reference ranges are not reported, since discordance with absolute values may lead to misinterpretation of CBC data. Current Interpretive Data was last revised on 2017. Imm gran pct 1.1 % [facility] Comment: Interpretive Data Percent cell count reference ranges are not reported, since discordance with absolute values may lead to misinterpretation of CBC data. Current Interpretive Data was last revised on 2017. Lymphocyte pct 12.3 % [facility] Comment: Interpretive Data Percent cell count reference ranges are not reported, since discordance with absolute values may lead to misinterpretation of CBC data. Current Interpretive Data was last revised on 2017. Monocyte pct 13.0 % [facility] Comment: Interpretive Data Percent cell count reference ranges are not reported, since discordance with absolute values may lead to misinterpretation of CBC data. Current Interpretive Data was last revised on 2017. Eosinophil pct 0.6 % [facility] Comment: Interpretive Data Percent cell count reference ranges are not reported, since discordance with absolute values may lead to misinterpretation of CBC data. Current Interpretive Data was last revised on 2017. Basophil pct 0.5 % [facility] Comment: Interpretive Data Percent cell count reference ranges are not reported, since discordance with absolute values may lead to misinterpretation of CBC data. Current Interpretive Data was last revised on 2017. Blood 09/06/2024 3:04 AM CDT 09/06/2024 4:25 AM CDT us Marcy Chacon NP LAB BLOOD ORDERABLES Jalyn lopez Result MOUNA GRIFFITHS [address] [place] [address] * (ABNORMAL) Thyroid Function [place] (09/06/2024 3:04 AM CDT) TSH 10.50(H) 0.30 - 4.20 mcIUnit/mL Blood 09/06/2024 3:04 AM CDT 09/06/2024 4:26 AM CDT us Jah Ferreira MD LAB BLOOD ORDERABLES Final Re sult Performing Organization Address [facility] Co de Phone Number MOUNA GRIFFITHS [address] [place] [address] * (ABNORMAL) CBC with auto differential (09/06/2024 3:04 AM CDT) WBC 12.2(H) 3.8 - 9.9 K/cumm Hgb 10.1(L) 11.9 - 15.5 g/dL [facility] Hct 33.6(L) 35.6 - 45.5 % [facility] Plt 509(H) 150 - 400 K/cumm [facility] MPV 10.7 9.1 - 12.3 fL [facility] RBC 3.76(L) 3.90 - 5.20 M/cumm [facility] CH MCV 89.4 81.3 - 96.4 fL [facility] MCH 26.9(L) 27.1 - 33.3 pg [facility] CH MCHC 30.1(L) 32.3 - 35.7 g/dL [facility] RDW CV 18.8(H) 11.1 - 14.9 % [facility] CH RDW SD 61.1(H) 35.7 - 48.1 fL [facility] NRBC abs 0.05(H) 0.00 - 0.01 K/cumm [facility] Blood 09/06/2024 3:04 AM CDT 09/06/2024 4:25 AM CDT us Marcy Chacon NP LAB BLOOD ORDERABLES Jalyn l Result MOUNA GRIFFITHS [address] [place], [place] [id number] * T4, free (09/06/2024 3:04 AM CDT) Free T4 1.12 0.90 - 1.70 ng/dL Blood 09/06/2024 3:04 AM CDT 09/06/2024 4:26 AM CDT Jah Ferreira MD LAB BLOOD ORDERABLES Final Re sult Performing Organization Address [facility] de Phone Number [facility] [address] [facility] [place] [address] * (ABNORMAL) Hemoglobin A1c (09/06/2024 3:04 AM CDT) Hgb A1C 6.0(H) 4.0 - 5.6 % Estimated Average Glucose 126 mg/dL [facility] Comment: The ADA recommends reporting an estimated Average Glucose (eAG) with all Hemoglobin A1c results using the equation derived from a study of 507 normal and diabetic adults. Minority populations were underrepresented and children were not included. (Diabetes Care 31:0454-9324, 2008). The eAG is not equivalent to a fasting glucose. Blood 09/06/2024 3:04 AM CDT 09/06/2024 4:25 AM CDT Marcy Chacon NP LAB BLOOD ORDERABLES Jalyn l Result Performing Organization Address [facility] de Phone Number [facility] [address] [facility] [place] [address] * (ABNORMAL) Comprehensive metabolic panel (09/06/2024 3:04 AM CDT) Pathologist [facility] Sodium 138 135 - 145 mmol/L Potassium, pl 2.9(L) 3.3 - 4.9 mmol/L [facility] Chloride 94(L) 97 - 110 mmol/L [facility] CO2 34(H) 22 - 32 mmol/L [facility] Anion gap 10 2 - 15 mmol/L [facility] BUN 4(L) 6 - 25 mg/dL [facility] Creatinine 0.82 0.60 - 1.10 mg/dL [facility] Glucose 99 70 - 199 mg/dL [facility] Comment: Interpretive Data Fasting glucose >/= 126 mg/dl is diagnostic for diabetes. Fasting is defined as no caloric intake for at least 8 hours. Fasting glucose between 100 mg/dl to 125 mg/dl is diagnostic of prediabetes. In a patient with classic symptoms of hyperglycemia or hyperglycemic crisis, a random glucose >/= 200 mg/dl is diagnostic for diabetes. In the absence of unequivocal hyperglycemia, results should be confirmed by repeat testing. The classification and Diagnosis of Diabetes Diabetes Care 2021; 46: S19-S40. Current interpretive data was last revised 2022. Calcium 7.6(L) 8.5 - 10.3 mg/dL [facility] Bilirubin, total 0.3 0.1 - 1.2 mg/dL [facility] CH Protein, pl 6.2(L) 6.5 - 8.5 g/dL [facility] Albumin 2.8(L) 3.5 - 5.0 g/dL [facility] Alk phos 149(H) 40 - 130 Units/L [facility] ALT 10 7 - 45 Units/L [facility] AST 21 10 - 45 Units/L [facility] Blood 09/06/2024 3:04 AM CDT 09/06/2024 4:26 AM CDT us Marcy Chacon NP LAB BLOOD ORDERABLES Jalyn lopez Result MOUNA [address] [place] [address] * [place] CRITICAL CARE ILL/INJURED PATIENT INIT 30-74 MIN (09/06/2024 2:57 AM CDT) Narrative Bert Roldan MD - 09/06/2024 2:57 AM CDT Bert Roldan MD 09/06/2024 2:58 AM Critical Care Performed by: Betr Roldan MD Authorized by: Bert Roldan MD Critical care provider statement: As reflected in the history, physical exam, orders, notes, and/or MDM, I was personally present while the patient was critically ill and provided critical care services for 35 minutes, excluding time involved in separately billable procedures. Critical care was necessary to treat or prevent imminent or life-threatening deterioration of the following condition(s): acute congestive heart failure excerbation (CHF) and severe cardiac condition hypoxic respiratory failure, acute respiratory insufficiency, severe respiratory condition and COPD with acute exacerbation Critical care was time spent by me providing the following: continuous telemetry, continuous pulse oximetry, continuous capnography, interpretation of bedside monitors, imaging, and arterial/venous lab draws, serial bedside patient exams and serial laboratory checks acute diuresis initiation of steroids I provided emergent necessary critical care medicine services to this patient. I spent time discussing the management of this critically ill patient with consultants and the medical staff. I spent time discussing the management and therapeutic options for this critically ill patient with the patient themselves or with the appropriate designated surrogate decision-maker. I ordered and reviewed test results and/or imaging studies. I spent time documenting in the medical record. I admitted this patient to a continuous cardiac monitored bed. Bert Roldan MD IN CLINIC/BEDSIDE ORDERABLE S Final Result * (ABNORMAL) Troponin T high-sensitivity 2-hour (09/06/2024 1:12 AM CDT) Trop T hs 60(H) <=14 ng/L Comment: Interpretive Data For further hscTnT resources including the diagnostic algorithm and an aid in interpretation, copy and paste this link: https://nrl.testcatalog.org/show/hsTrop Current Interpretive Data last revised 2020. Trop T hs delta 2 ng/L MOUNA Trop T hs interp Insignificant MOUNA Blood 09/06/2024 1:12 AM CDT 09/06/2024 1:19 AM CDT Bert Roldan MD LAB BLOOD ORDERABLES Final Result MOUNA GRIFFITHS [address] Department [place] [address] * Magnesium (09/06/2024 1:12 AM CDT) Magnesium 2.1 1.4 - 2.5 mg/dL Blood 09/06/2024 1:12 AM CDT 09/06/2024 1:19 AM CDT us Marcy Chacon NP LAB BLOOD ORDERABLES Jalyn lopez Result MOUNA GRIFFITHS [address] [place] [address] * CT Chest PE (CTA) W Contrast (09/05/2024 11:42 PM CDT) Anatomical Region Laterality Modality Body N/A Computed Tomogra phy 09/05/2024 11:3 3 PM CDT Impressions 09/06/2024 7:55 AM CDT 1. As on the prior study of 12/12/2023, there are continued moderate pleural effusions right greater than left with compressive atelectasis in the lower lobes. Since the prior study, there has been overall increased conspicuity and prominence of interstitial markings throughout both lung garcia. This raises the question interstitial edema superimposed on ground-glass opacities present throughout both lung garcia right greater than left and more conspicuous compared to the prior study. Heart is borderline prominent. There has been significant reduction in pericardial effusion since prior study. Is there clinical evidence of congestive heart failure/fluid overload? Underlying airspace/interstitial inflammatory disease can not be excluded. 2. Prominent to somewhat enlarged lymph nodes in mediastinum as on prior study. 3. There is no thoracic aortic dissection or aneurysm. 4. There is no evidence of pulmonary embolism. 5. Cholelithiasis, Stable left adrenal lesion and other incidental findings as above.. Electronically signed by: Gregg Lang M.D. Narrative 09/06/2024 7:55 AM CDT EXAMINATION: CT CHEST PE (CTA) W CONTRAST HISTORY: Chest pain ORDER DATE: 09/05/2024 11:35 PM TECHNIQUE: CT chest images were acquired using a chest angiographic protocol with 3-D imaging optimized for PE is obtained utilizing 75 mL of Optiray 350 IV. 2D Coronal and sagittal reformats were obtained. 3-D rendering (not supervised by radiologist) MIP and/or 3-D reconstructed images were created by the technologist. COMPARISON: CT CHEST WO CONTRAST 12/12/2023 FINDINGS: Clinical correlation for prior cardiac loop recorder Pulmonary arteries: There is no evidence of pulmonary embolism. Aorta: There is no thoracic aortic dissection or aneurysm. 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 Renal arteries: Atrophy left kidney appears stable with likely vascular calcification and non visualization left renal artery could be further evaluated with dedicated CTA. Gallbladder and biliary ducts: There are gallstones. Pleural spaces: As on the prior study of 12/12/2023, there are continued moderate pleural effusions right greater than left with compressive atelectasis in the lower lobes. Since the prior study, there has been overall increased conspicuity and prominence of interstitial markings throughout both lung garcia. This raises the question interstitial edema superimposed on ground-glass opacities present throughout both lung garcia right greater than left and more conspicuous compared to the prior study. Heart is borderline prominent. There has been significant reduction in pericardial effusion since prior study. There is coronary artery calcification and valvular calcification as before. Underlying airspace/interstitial inflammatory disease can not be excluded. Lymph nodes: Somewhat enlarged lymph nodes in mediastinum as on prior study. Adrenal glands: Stable left adrenal lesion. Bones/joints: Deformity mid posterior right rib likely due to prior fracture.. Procedure Note Gregg Lang MD - 09/06/2024 EXAMINATION: CT CHEST PE (CTA) W CONTRAST HISTORY: Chest pain ORDER DATE: 09/05/2024 11:35 PM TECHNIQUE: CT chest images were acquired using a chest angiographic protocol with 3-D imaging optimized for PE is obtained utilizing 75 mL of Optiray 350 IV. 2D Coronal and sagittal reformats were obtained. 3-D rendering (not supervised by radiologist) MIP and/or 3-D reconstructed images were created by the technologist. COMPARISON: CT CHEST WO CONTRAST 12/12/2023 FINDINGS: Clinical correlation for prior cardiac loop recorder Pulmonary arteries: There is no evidence of pulmonary embolism. Aorta: There is no thoracic aortic dissection or aneurysm. 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 Renal arteries: Atrophy left kidney appears stable with likely vascular calcification and non visualization left renal artery could be further evaluated with dedicated CTA. Gallbladder and biliary ducts: There are gallstones. Pleural spaces: As on the prior study of 12/12/2023, there are continued moderate pleural effusions right greater than left with compressive atelectasis in the lower lobes. Since the prior study, there has been overall increased conspicuity and prominence of interstitial markings throughout both lung garcia. This raises the question interstitial edema superimposed on ground-glass opacities present throughout both lung garcia right greater than left and more conspicuous compared to the prior study. Heart is borderline prominent. There has been significant reduction in pericardial effusion since prior study. There is coronary artery calcification and valvular calcification as before. Underlying airspace/interstitial inflammatory disease can not be excluded. Lymph nodes: Somewhat enlarged lymph nodes in mediastinum as on prior study. Adrenal glands: Stable left adrenal lesion. Bones/joints: Deformity mid posterior right rib likely due to prior fracture.. IMPRESSION: 1. As on the prior study of 12/12/2023, there are continued moderate pleural effusions right greater than left with compressive atelectasis in the lower lobes. Since the prior study, there has been overall increased conspicuity and prominence of interstitial markings throughout both lung garcia. This raises the question interstitial edema superimposed on ground-glass opacities present throughout both lung garcia right greater than left and more conspicuous compared to the prior study. Heart is borderline prominent. There has been significant reduction in pericardial effusion since prior study. Is there clinical evidence of congestive heart failure/fluid overload? Underlying airspace/interstitial inflammatory disease can not be excluded. 2. Prominent to somewhat enlarged lymph nodes in mediastinum as on prior study. 3. There is no thoracic aortic dissection or aneurysm. 4. There is no evidence of pulmonary embolism. 5. Cholelithiasis, Stable left adrenal lesion and other incidental findings as above.. Electronically signed by: Gregg Lang M.D. Bert Roldan MD IM CT PROCEDURES Final Res ult * (ABNORMAL) Troponin T high-sensitivity series (baseline, 2hr, 4hr, 6hr) (09/05/2024 10:32 PM CDT) Trop T hs 58(H) <=14 ng/L Comment: Interpretive Data For further hscTnT resources including the diagnostic algorithm and an aid in interpretation, copy and paste this link: https://nrl.testcatalog.org/show/hsTrop Current Interpretive Data last revised 2020. Blood 09/05/2024 10:3 2 PM CDT 09/05/2024 10:37 PM CDT us Bert Roldan MD LAB BLOOD ORDERABLES Edited Result - Final Performing Organization Address City/[facility]/ZIP Co de Phone Number MOUNA GRIFFITHS [address] Department [address] [place], [place] [id number] * eGFR (09/05/2024 10:32 PM CDT) eGFR 78 >=60 mL/min/1. 73 m2 Comment: Interpretive Data Reference Interval Normal >/= 90 mL/min/1.73m2 Mildly decreased* 60 - 89 mL/min/1.73m2 Mildly to moderately decreased 45 - 59 mL/min/1.73m2 Moderately to severely decreased 30 - 44 mL/min/1.73m2 Severely decreased 15 - 29 mL/min/1.73m2 Kidney Failure < 15 mL/min/1.73m2 *Relative to young adult level Estimated glomerular filtration rate is determined by the 2020 CKD-EPI equation recommended by the National Kidney Foundation (A Unifying Approach to GFR Estimation: Recommendations of the NKF-ASK Task Force on Reassessing the Inclusion of Race in Diagnosing Kidney Disease, JASN 2020). The CKD-EPI equation should not be used for patients with unstable renal function and has not been validated in children and those over 70. Current interpretive data was last reviewed 2021. Blood 09/05/2024 10:3 2 PM CDT 09/05/2024 10:37 PM CDT us Bert Roldan MD LAB BLOOD ORDERABLES Final Result MOUNA GRIFFITHS [address] Department of Laboratories [place], [place] [id number] * (ABNORMAL) Differential, auto (09/05/2024 10:32 PM CDT) Neutrophil abs 6.6(H) 1.5 - 6.5 K/cumm Imm gran abs 0.0 0.0 - 0.1 K/cumm [facility] Lymphocyte abs 1.6 0.8 - 3.3 K/cumm [facility] Monocyte abs 1.2(H) 0.2 - 0.8 K/cumm [facility] Eosinophil abs 0.1 0.0 - 0.5 K/cumm [facility] Basophil abs 0.0 0.0 - 0.1 K/cumm [facility] Neutrophil pct 69.0 % [facility] Comment: Interpretive Data Percent cell count reference ranges are not reported, since discordance with absolute values may lead to misinterpretation of CBC data. Current Interpretive Data was last revised on 2017. Imm gran pct 0.4 % [facility] Comment: Interpretive Data Percent cell count reference ranges are not reported, since discordance with absolute values may lead to misinterpretation of CBC data. Current Interpretive Data was last revised on 2017. Lymphocyte pct 16.4 % [facility] Comment: Interpretive Data Percent cell count reference ranges are not reported, since discordance with absolute values may lead to misinterpretation of CBC data. Current Interpretive Data was last revised on 2017. Monocyte pct 12.6 % [facility] Comment: Interpretive Data Percent cell count reference ranges are not reported, since discordance with absolute values may lead to misinterpretation of CBC data. Current Interpretive Data was last revised on 2017. Eosinophil pct 1.2 % [facility] Comment: Interpretive Data Percent cell count reference ranges are not reported, since discordance with absolute values may lead to misinterpretation of CBC data. Current Interpretive Data was last revised on 2017. Basophil pct 0.4 % [facility] Comment: Interpretive Data Percent cell count reference ranges are not reported, since discordance with absolute values may lead to misinterpretation of CBC data. Current Interpretive Data was last revised on 2017. Blood 09/05/2024 10:3 2 PM CDT 09/05/2024 10:37 PM CDT us Bert Roldan MD LAB BLOOD ORDERABLES Final Result [facility] [address] [place] [address] * (ABNORMAL) Pro B-type natriuretic peptide (09/05/2024 10:32 PM CDT) NT-proBNP 35,831(H) <=300 pg/mL Comment: Interpretive Comments: A. Dyspnea in Acute Care Setting All Ages: < 300 pg/ml, acute heart failure unlikely. < 50 yrs: 300 - 450 pg/ml, further investigation warranted. > 450 pg/ml, acute heart failure likely. 50 - 74 yrs: 300 - 900 pg/ml, further investigation warranted. > 900 pg/ml, acute heart failure likely . > or = 75 yrs: 450 - 1800 pg/ml, further investigation warranted. > 1800 pg/ml, acute heart failure likely. B. Non-acute Setting < 75 yrs < 125 pg/ml, rules out heart failure. > or = 125 pg/ml, further investigation warranted. > or = 75 yrs < 450 pg/ml, rules out heart failure. > or = 450 pg/ml, further investigation warranted. - Knowledge of each individual patient's NT-proBNP range may be more useful than using similar cut-points for every patient. Please note that marked elevations in NT-proBNP levels may be observed in state other than Left Ventricular Congestive Failure, including: acute coronary syndromes, right heart strain/failure (including pulmonary embolism and cor pulmonale), critical illness, renal failure, as well as advanced age. - References: 1. Sandra PRICE et.al. Eur Heart J. 2006:27:330-337. 2. Christ RW, Laura AM. J. AM Messi Cardiol: Cardiovasc Imag. 2009;2: 216- 225. Interpretive Data Last Revised Date: 2018. Blood 09/05/2024 10:3 2 PM CDT 09/05/2024 10:37 PM CDT us Bert Roldan MD LAB [place] [address] [address] [place] [address] * (ABNORMAL) CBC with auto differential (09/05/2024 10:32 PM CDT) WBC 9.5 3.8 - 9.9 K/cumm Hgb 10.3(L) 11.9 - 15.5 g/dL [facility] Hct 34.5(L) 35.6 - 45.5 % [facility] Plt 510(H) 150 - 400 K/cumm [facility] MPV 10.1 9.1 - 12.3 fL [facility] RBC 3.87(L) 3.90 - 5.20 M/cumm [facility] MCV 89.1 81.3 - 96.4 fL [facility] MCH 26.6(L) 27.1 - 33.3 pg [facility] MCHC 29.9(L) 32.3 - 35.7 g/dL [facility] RDW CV 18.8(H) 11.1 - 14.9 % [facility] RDW SD 60.7(H) 35.7 - 48.1 fL [facility] NRBC abs 0.02(H) 0.00 - 0.01 K/cumm [facility] Blood 09/05/2024 10:3 2 PM CDT 09/05/2024 10:37 PM CDT Bert Roldan MD LAB BLOOD ORDERABLES Final Result [address] [address] [place] [address] * (ABNORMAL) Protime-INR (09/05/2024 10:32 PM CDT) Pathologist [facility] PT 16.9(H) 9.7 - 13.0 sec INR 1.55(H) 0.90 - 1.20 [facility] Comment: Interpretive data Oral anticoagulant therapeutic ranges: Venous thromboembolism prophylaxis or treatment: 2.0-3.0 CARDIOLOGY Standard range: 2.0-3.0 High-intensity range: 2.5-3.5 Refer to indication-specific guidelines for appropriate target ranges for prosthetic heart valve replacement. Current interpretive data was last revised on 2019. Blood 09/05/2024 10:3 2 PM CDT 09/05/2024 10:37 PM CDT us Bert Roldan MD LAB BLOOD ORDERABLES Final Result Performing Organization Address [facility]/ZIP Co de Phone Number [facility] [place] [address] [facility] [place] [address] * Lipase (09/05/2024 10:32 PM CDT) Lipase 13 10 - 99 Units/L Blood 09/05/2024 10:3 2 PM CDT 09/05/2024 10:37 PM CDT Bert Roldan MD LAB BLOOD ORDERABLES Final Result Performing Organization Address [facility] Co de Phone Number [facility] [place] [address] [facility] [place] [address] * Amylase (09/05/2024 10:32 PM CDT) Amylase 33 30 - 99 Units/L Blood 09/05/2024 10:3 2 PM CDT 09/05/2024 10:37 PM CDT Bert Roldan MD LAB BLOOD ORDERABLES Final Result Performing Organization Address [facility] de Phone Number [place] [place] [address] [place] [address] * (ABNORMAL) Comprehensive metabolic panel (09/05/2024 10:32 PM CDT) Sodium 139 135 - 145 mmol/L Potassium, pl 2.4(C) 3.3 - 4.9 mmol/L [facility] Comment:Critical Result call ed to and read back by Jazmin Morales, DATE: 2024-09-05 23:07:33 BY: Isael Warren Chloride 93(L) 97 - 110 mmol/L [facility] CO2 34(H) 22 - 32 mmol/L [facility] Anion gap 12 2 - 15 mmol/L [facility] BUN 4(L) 6 - 25 mg/dL [facility] Creatinine 0.86 0.60 - 1.10 mg/dL [facility] Glucose 110 70 - 199 mg/dL [facility] Comment: Interpretive Data Fasting glucose >/= 126 mg/dl is diagnostic for diabetes. Fasting is defined as no caloric intake for at least 8 hours. Fasting glucose between 100 mg/dl to 125 mg/dl is diagnostic of prediabetes. In a patient with classic symptoms of hyperglycemia or hyperglycemic crisis, a random glucose >/= 200 mg/dl is diagnostic for diabetes. In the absence of unequivocal hyperglycemia, results should be confirmed by repeat testing. The classification and Diagnosis of Diabetes Diabetes Care 202; 46: S19-S40. Current interpretive data was last revised 2022. Calcium 7.9(L) 8.5 - 10.3 mg/dL [facility] Bilirubin, total 0.4 0.1 - 1.2 mg/dL [facility] Protein, pl 6.3(L) 6.5 - 8.5 g/dL [facility] Albumin 2.8(L) 3.5 - 5.0 g/dL [facility] Alk phos 153(H) 40 - 130 Units/L [facility] ALT 11 7 - 45 Units/L [facility] AST 23 10 - 45 Units/L [facility] Blood 09/05/2024 10:3 2 PM CDT 09/05/2024 10:37 PM CDT us Bert Roldan MD LAB BLOOD ORDERABLES Final Result [facility] [address] [place] [address] * ECG 12 lead (09/05/2024 10:22 PM CDT) 09/05/2024 10:2 2 PM CDT Narrative [facility] - 09/06/2024 6:51 AM CDT Vent Rate: 86 bpm RR Interval: 690 msec [place] Interval: 155 msec QRS Duration: 111 msec QT Interval: 386 msec QTC Interval: 430 msec P-R-T Roann: 55 - -9 - -5 degrees IMPRESSION: SINUS RHYTHM WITH OCCASIONAL SUPRAVENTRICULAR PREMATURE COMPLEXES POSSIBLE LEFT ATRIAL ENLARGEMENT [-0.1mV P-WAVE IN V1/V2] MODERATE INTRAVENTRICULAR CONDUCTION DELAY [110+ ms QRS DURATION] NONSPECIFIC ST \T\ T-WAVE ABNORMALITY BORDERLINE ECG Electronically Signed By: Dr. Rula Mccray [facility] us Bert Roldan MD ECG ORDERABLES Final Resul t [facility] * XR Knee Right 4 or More Views (09/05/2024 7:41 PM CDT) Anatomical Region Laterality Modality Lower Extremities, Knee Right Computed Radiography 09/05/2024 7:56 PM CDT Impressions 09/05/2024 7:56 PM CDT Marked soft tissue swelling. Electronically signed by: Darrell Mcnair M.D. Narrative 09/05/2024 7:56 PM CDT EXAMINATION: XR KNEE RIGHT 4 OR MORE VIEWS HISTORY: The patient is a 59-year-old female who presents with right knee pain. TECHNIQUE: 5 views. FINDINGS: No fracture or dislocation is seen. The tibiofemoral and the patellofemoral joints are normal. There is marked soft tissue swelling seen anterior to the patella. Procedure Note Darrell Mcnair MD - 09/05/2024 EXAMINATION: XR KNEE RIGHT 4 OR MORE VIEWS HISTORY: The patient is a 59-year-old female who presents with right knee pain. TECHNIQUE: 5 views. FINDINGS: No fracture or dislocation is seen. The tibiofemoral and the patellofemoral joints are normal. There is marked soft tissue swelling seen anterior to the patella. IMPRESSION: Marked soft tissue swelling. Electronically signed by: Darrell Mcnair M.D. Annabelle Flaherty LARD RENDERER IMG XR PROCEDURES Fin al Result from Last 3 Months Insurance IDPA [facility] MEDICARE ADVANTAGE [facility] MEDICARE ADVANTAGE Advance Directives For more information, please contact: [phone] * Full Code (Latest Code Status on File) Date Activated Date Inactivated Comments 09/14/2024 11:14 AM 09/14/2024 11:42 PM * Full Code Date Activated Date Inactivated Comments 09/06/2024 1:31 AM 09/13/2024 7:34 PM * Full Code Date Activated Date Inactivated Comments 01/07/2024 8:43 PM 01/12/2024 5:19 PM * Full Code Date Activated Date Inactivated Comments 12/09/2023 11:36 PM 12/19/2023 10:49 PM * Full Code Date Activated Date Inactivated Comments 12/09/2023 11:33 PM 12/09/2023 11:36 PM 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 Relationship Specialty Start Date End Date Nino Carrillo MD [address] [place] [address] PCP - General Internal Medicine 12/04/23 Terry Wilkerson MD [address] [place] [address] Consulting Physician Cardiology 12/06/23 Bashir Glaser MD [address] [place] [address] Referring Physician Cardiology 12/19/23 Micky Guerra MD [address] [place] [address] Consulting Physician Cardiovascular Disease 01/29/24 [place] [address] [facility] [address] [place] [address] Consulting Physician Nephrology 09/13/24 [place] [address] [facility] [address] [place] [address] Consulting Physician Pulmonary Disease 09/13/24
--- OUTSIDE RECORDS SUMMARY | 2024-09-18 20:01 | XMS_ITS | Referral Summary ---
Author Organization [facility] Address [address] [place] [id number] Care Team Providers Care Glass Maker Name Role Phone Nino Carrillo MD Primary Care Provider [phone] Terry Wilkerson MD Unavailable Bashir Glaser MD Unavailable Micky Guerra MD Unavailable Desmond Quintanilla MD Unavailable [phone] Canelo Youssef MD Unavailable Encounters Date Type Department Care Team Description 09/14/2024 7:35 PM CDT - 09/14/2024 11:59 PM CDT Hospital Encounter [facility] [address] [place] [address] Discharge Disposition: Discharge to home or self care 09/14/2024 1:10 AM CDT - 09/14/2024 7:36 PM CDT Emergency [address] [address] Bert Roldan MD [place], Nicholas Peter, MD Hultgren, Babs Boggs MD Hematoma of right knee region (Primary Dx); Cellulitis of right lower extremity Discharge Disposition: Discharge to SNF 09/05/2024 8:12 PM CDT - 09/13/2024 3:29 PM CDT Hospital Encounter [address] [address] Roldan, Bert, MD Brother, Jah, MD Leggett, Margaret Thuc, MD Thompson, Carissa Venkatkrishna, MD Fall, initial encounter (Primary Dx); Traumatic hematoma of right knee, initial encounter; Acute on chronic congestive heart failure, unspecified heart failure type (HCC); Acute respiratory failure with hypoxia (HCC); Hypokalemia; Acute pain of right knee; Chronic respiratory failure with hypoxia (HCC); Fall, sequela; Pain and swelling of right knee; Acquired hypothyroidism; JEANETTE (acute kidney injury); Vitamin D deficiency Discharge Disposition: Discharge to [facility] 09/10/[address] [facility] Home Care Services [address] [place] [phone] Negro Hzael MA 09/10/[address] [facility] Home Care Services [address] [place] [phone] Negro Hazel MA 09/10/[address] [facility] Care Services [address] [place] [phone] Negro Hazel MA from Last 3 Months Allergies Active Allergy Reactions Criticality Noted Date Comments Diltiazem Other (See comments) High 12/04/2023 IV AND PO-ANY dose causes pauses. EVEN small doses of 30 mg Diflunisal Vomiting Low 07/18/2019 Hydromorphone Nausea And Vomiting,Nausea only,Vomiting Low 01/07/2017 Latex Hives,Itching,Rash Medium 03/06/2012 [place] Vomiting Low 01/07/2017 Sulfamethoxazole-Trimeth oprim Anaphylaxis,Other (See [...] use. Do not swallow. 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 30 tablet 09/14/19 Active metoprolol tartrate (LOPRESSOR) 25 mg immediate release tablet Take 0.5 tablets (12.5 mg total) by mouth 2 (two) times a day Hold if SBP less than 100, HR less than 60 30 tablet 09/14/19 Active QUEtiapine (SEROquel) 100 mg tablet Take [...] daily for 12 hours 30 patch 09/15/19 Active gabapentin (NEURONTIN) 300 mg capsule Take [...] 1 tablet (88 mcg total) by mouth turpentine distiller before breakfast 025 Discontinued QUEtiapine (SEROquel) 100 [...] (six) hours as needed for pain 12/06/19 025 Discontinued(St op Taking at Discharge) metoprolol tartrate (LOPRESSOR) 25 mg immediate release tablet Take 0.5 tablets (12.5 mg total) by mouth 2 (two) times a day 30 tablet 12/19/19 025 Discontinued(St op Taking at Discharge) empagliflozin (JARDIANCE) 10 mg tablet Take 1 tablet (10 mg total) by mouth daily 30 tablet 12/20/19 025 Discontinued Entresto 49-51 mg tablet Take 1 tablet by mouth 2 (two) times a day 01/16/20 025 Discontinued(St op Taking at Discharge) aspirin 81 mg enteric coated tablet Take 1 tablet (81 mg total) by mouth daily 025 Discontinued(St op Taking at Discharge) furosemide (LASIX) 40 mg tablet Take 1 tablet (40 mg total) by mouth daily for 6 days 6 tablet 01/28/20 025 Discontinued(St op Taking at Discharge) gabapentin (NEURONTIN) 300 mg capsule Take 1 capsule (300 mg total) by mouth daily 30 capsule 09/15/19 025 Discontinued tiotropium (SPIRIVA) 18 mcg per inhalation capsule Place 1 puff (1 capsule total) into inhaler and inhale daily 30 capsule 09/14/19 025 Discontinued Active Problems Problem Noted Date Diagnosed Date Hematoma of right knee region 09/14/2024 Traumatic hematoma of right knee, sequela 2024 Vitamin D deficiency 09/12/2024 JEANETTE (acute kidney injury) 09/11/2024 Pain and swelling of right knee 09/11/2024 Fall 09/11/2024 Fall, initial encounter 09/06/2024 Hypokalemia 09/06/2024 Knee effusion, right 09/06/2024 Coronary artery disease invo lving cheesh-na coronary artery of cheesh-na heart without angina pectoris 09/06/2024 Dyslipidemia associated [...] systolic co ngestive heart failure 09/06/2024 09/14/2024 Immunizations Immunization Administration Dates Next Due Influenza, Quadrivalent, Split, Intramuscular Influenza, Quadrivalent, Spl it, Preservative Free, Intramuscular 03/30/2017 Influenza, Trivalent, Preservative Free, Intramu scular 06/02/2014 Pneumococcal Polysaccharide PPV23 06/02/2014 TD Preservative Free 02/05/2012 Tdap 09/23/2021 Social History Tobacco Use Types Packs/Day Years Used Date Smoking Tobacco: Every Day Cigarettes 0.1 44.3 Started: 1980 Smokeless Tobacco: Never Tobacco Cessation:Ready to Q uit: No; Counseling Given: Not Answered Alcohol Use Standard Drinks/Week Comments Not Currently 0 (1 standard drink = 0.6 oz pur e alcohol) [facility] Utilities Answer Date Recorded In the past 12 months has e [employer], gas, oil, or water company threatened to [...] often do you attend chur ch or spiritism services? Never 09/06/2024 Do you belong to any clubs o r organizations such as restorationist groups, unions, fraternal or athletic groups, or [...] any time in the past 12 m [facility], were you homeless or living in a usp (including now)? No 09/06/2024 Personal Safety Answer Date Recorded Have you ever been in or are you currently in a harmful physical or emotional relationship or is someone making you feel afraid or unsafe? Denies 09/14/2024 Comments Unknown Sex and Gender Information Value Date Recorded Sex Assigned at Not on file Legal Sex Female 3:28 PM [employer] Gender Identity Not on file Sexual Orientation [...] 09/14/2024 9:50 AM CDT Plan of Treatment Not on file Medical Devices Implanted Type Area Reticle Printer Device Identifier Shelf Expiration Date Model / Serial / Lot Rooks Fashions [employer] Accessories Loop Recorder Monitor Cardiac Biomonitor [id number] - [id number] - [id number] Implanted:Qty: 1 on 12/06/2023 by Terry Wilkerson MD at [facility] MD [employer] [facility] 03/11/2025 [id number] / [id number] / Procedures Procedure Name Priority Date/Time Associated [...] HIGH-SENSITIVITY 4-HR Timed 09/06/2024 3:04 AM CDT OK CRITICAL CARE ILL/INJURED PATIENT INIT 30-74 MIN [...] effusion. Electronically signed by: Darrell Mcnair M.D. us Teresa Bardales DENTAL DIRECTOR IMG XR PROCEDURES Final Result * (ABNORMAL) Blood gas, arterial (09/14/2024 1:30 PM CDT) pH, Art 7.36 7.35 - 7.45 PCO2, Arterial 54(H) 35 - 45 mmHg [facility] PO2, Arterial 61(L) 83 - 108 mmHg [facility] HCO3 Art (Calculated) 28 20 - 30 mmol/L [facility] BE, art 5 mmol/L [facility] Comment: Interpretive Data No Reference Range Established Current Interpretive Data was last revised on 2017 O2 Sat Art (Measured) 88(L) 90 - 95 % [facility] Blood 09/14/2024 1:30 PM CDT 09/14/2024 1:48 PM CDT Babs Moctezuma MD LAB BLOOD ORDERABLES F inal Result [facility] [address] Department [place] [address] * Blood culture Blood (09/14/2024 9:45 AM CDT) Report Final Report: No growth Comment:Testing performed by : [facility], [address] [place]., [address] Blood 09/14/2024 9:45 AM CDT 09/14/2024 11:45 AM CDT Narrative [facility] - 09/18/2024 12:00 PM CDT From a [...] performance characteristics have been verified by the [facility] Microbiology Laboratory. For questions about this culture, contact the Microbiology Laboratory at [phone]. Interpretive data was last revised on 24. Bert Roldan MD LAB MICROBIOLOGY - GENERAL ORDERABLES Final Result [address]NA [address] Department [place] [address] * Blood culture Blood (09/14/2024 9:45 AM CDT) Report Final Report: No growth Comment:Testing performed by : [facility], [address] [place]., [address] Blood 09/14/2024 9:45 AM CDT 09/14/2024 11:45 AM CDT [facility] MOUNA [facility] 09/18/2024 12:00 PM CDT 1. Blood cultures [...] performance characteristics have been verified by the [facility] Microbiology Laboratory. For questions about this culture, contact the Microbiology Laboratory at [phone]. Interpretive data was last revised on 24. us Bert Roldan MD LAB MICROBIOLOGY - GENERAL ORDERABLES Final Result MOUNA [address] [address] [facility] Department [place] [address] * CT Knee Right WO Contrast (09/14/2024 [...] Chronic findings as above. Electronically signed by: Toy Jennings IIOEsthela us Bert Roldan MD IMG CT PROCEDURES Final Res ult * US Vein Duplex Lower Extremity Right Limited, Unilateral (09/14/2024 5:29 AM CDT) Anatomical Region Laterality Modality Vascular Right Ultrasound Impressions 09/14/2024 6:46 AM CDT 1. No evidence of deep vein thrombosis of imaged portions of the the right lower extremity. Electronically signed by: Carlos Nuñez MD Narrative 09/14/2024 6:46 AM CDT EXAMINATION: RIGHT LOWER [...] variation is identified. us Bert Roldan MD [facility] US PROCEDURES Edited Re sult - Final [...] by: Carlos Nuñez MD Bert Roldan MD [facility] XR PROCEDURES Final Res ult * Sepsis Lactate w/ Reflex (09/14/2024 1:55 AM CDT) Sepsis Lactate 1.0 0.7 - 2.0 mmol/L Blood 09/14/2024 1:55 AM CDT 09/14/2024 1:58 AM CDT Bert Roldan MD LAB BLOOD ORDERABLES Final Result [facility] [place] [employer] [place], [place] [id number] * eGFR (09/14/2024 1:55 AM CDT) eGFR [...] LAB BLOOD ORDERABLES Final Result MOUNA [place] [address] [place] [address] * (ABNORMAL) Differential, auto (09/14/2024 1:55 AM CDT) Neutrophil abs 7.18(H) 1.50 - 6.50 K/cumm Imm gran abs 0.06 0.00 - 0.10 K/cumm [facility] Lymphocyte abs 1.41 0.80 - 3.30 K/cumm [facility] Monocyte abs 1.74(H) 0.20 - 0.80 K/cumm [facility] Eosinophil abs 0.22 0.00 - 0.50 K/cumm [facility] Basophil abs 0.06 0.00 - 0.10 K/cumm [facility] Neutrophil pct 67.2 % [facility] Comment: Interpretive Data Percent cell count reference ranges are not reported, since discordance with absolute values may lead to misinterpretation of CBC data. Current Interpretive Data was last revised on 2017. Imm gran pct 0.6 % [facility] Comment: Interpretive Data Percent cell count reference ranges are not reported, since discordance with absolute values may lead to misinterpretation of CBC data. Current Interpretive Data was last revised on 2017. Lymphocyte pct 13.2 % [facility] Comment: Interpretive Data Percent cell count reference ranges are not reported, since discordance with absolute values may lead to misinterpretation of CBC data. Current Interpretive Data was last revised on 2017. Monocyte pct 16.3 % [facility] Comment: Interpretive Data Percent cell count reference ranges are not reported, since discordance with absolute values may lead to misinterpretation of CBC data. Current Interpretive Data was last revised on 2017. Eosinophil pct 2.1 % [facility] Comment: Interpretive Data Percent cell count reference ranges are not reported, since discordance with absolute values may lead to misinterpretation of CBC data. Current Interpretive Data was last revised on 2017. Basophil pct 0.6 % [facility] Comment: Interpretive Data Percent cell count reference ranges are not reported, since discordance with absolute values may lead to misinterpretation of CBC data. Current Interpretive Data was last revised on 2017. Blood 09/14/2024 1:55 AM CDT 09/14/2024 1:59 AM CDT Bert Roldan MD LAB BLOOD ORDERABLES Final Result Performing Organization Address City/[facility]/ZIP Co de Phone Number MOUNA [place] [address] Department [place] [address] * (ABNORMAL) CBC with auto differential (09/14/2024 1:55 AM CDT) WBC 10.67(H) 3.80 - 9.90 K/cumm Hgb 8.0(L) 11.9 - 15.5 g/dL [facility] Hct 27.7(L) 35.6 - 45.5 % [facility] Plt 461(H) 150 - 400 K/cumm [facility] MPV 10.7 9.1 - 12.3 fL [facility] RBC 3.01(L) 3.90 - 5.20 M/cumm [facility] MCV 92.0 81.3 - 96.4 fL [facility] MCH 26.6(L) 27.1 - 33.3 pg [facility] MCHC 28.9(L) 32.3 - 35.7 g/dL [facility] RDW CV 20.2(H) 11.1 - 14.9 % [facility] RDW SD 66.6(H) 35.7 - 48.1 fL [facility] NRBC abs 0.02(H) 0.00 - 0.01 K/cumm [facility] Blood Venous blood specimen / Unknown 09/14/2024 1:55 AM CDT 09/14/2024 1:59 AM CDT Bert Roldan MD LAB BLOOD ORDERABLES Final Result Performing Organization Address City/[facility]/ZIP Co de Phone Number MOUNA [place] [address] Department of Laboratories [place], [place] [id number] * (ABNORMAL) Comprehensive metabolic panel (09/14/2024 1:55 AM CDT) Pathologist [facility] Sodium 139 135 - 145 mmol/L Potassium, pl 4.2 3.3 - 4.9 mmol/L [facility] Chloride 102 97 - 110 mmol/L [facility] CO2 29 22 - 32 mmol/L [facility] Anion gap 8 2 - 15 mmol/L [facility] BUN 12 6 - 25 mg/dL [facility] Creatinine 1.08 0.60 - 1.10 mg/dL [facility] Glucose 80 70 - 199 mg/dL [facility] Comment: [...] 1:55 AM CDT 09/14/2024 1:59 AM CDT Bert Roldan MD LAB BLOOD ORDERABLES Final Result MOUNA [address] Department [place] [address] * (ABNORMAL) eGFR (09/13/2024 5:48 AM CDT) [...] 5:48 AM CDT 09/13/2024 6:56 AM CDT Margaret Leggett MD LAB BLOOD ORDERABLES Final Res ult [facility] [address] Department [place] [address] * (ABNORMAL) Differential, auto (09/13/2024 5:48 AM CDT) Neutrophil abs 5.46 1.50 - 6.50 K/cumm Imm gran abs 0.07 0.00 - 0.10 K/cumm [facility] Lymphocyte abs 1.37 0.80 - 3.30 K/cumm [facility] Monocyte abs 1.38(H) 0.20 - 0.80 K/cumm [facility] Eosinophil abs 0.24 0.00 - 0.50 K/cumm [facility] Basophil abs 0.05 0.00 - 0.10 K/cumm [facility] Neutrophil pct 63.7 % [facility] Comment: Interpretive Data Percent cell count reference ranges are not reported, since discordance with absolute values may lead to misinterpretation of CBC data. Current Interpretive Data was last revised on 2017. Imm gran pct 0.8 % [facility] Comment: Interpretive Data Percent cell count reference ranges are not reported, since discordance with absolute values may lead to misinterpretation of CBC data. Current Interpretive Data was last revised on 2017. Lymphocyte pct 16.0 % [facility] Comment: Interpretive Data Percent cell count reference ranges are not reported, since discordance with absolute values may lead to misinterpretation of CBC data. Current Interpretive Data was last revised on 2017. Monocyte pct 16.1 % [facility] Comment: Interpretive Data Percent cell count reference ranges are not reported, since discordance with absolute values may lead to misinterpretation of CBC data. Current Interpretive Data was last revised on 2017. Eosinophil pct 2.8 % [facility] Comment: Interpretive Data Percent cell count reference ranges are not reported, since discordance with absolute values may lead to misinterpretation of CBC data. Current Interpretive Data was last revised on 2017. Basophil pct 0.6 % [facility] Comment: Interpretive Data Percent cell count reference ranges are not reported, since discordance with absolute values may lead to misinterpretation of CBC data. Current Interpretive Data was last revised on 2017. Blood 09/13/2024 5:48 AM CDT 09/13/2024 6:58 AM CDT us Carissa Thompson MD LAB BLOOD ORDERABLE S Final Result [facility] [address] Department of Laboratories [place], [place] [id number] * (ABNORMAL) CBC with auto differential (09/13/2024 5:48 AM CDT) WBC 8.57 3.80 - 9.90 K/cumm Hgb 8.0(L) 11.9 - 15.5 g/dL [facility] Hct 27.2(L) 35.6 - 45.5 % [facility] Plt 433(H) 150 - 400 K/cumm [facility] MPV 10.9 9.1 - 12.3 fL [facility] RBC 2.98(L) 3.90 - 5.20 M/cumm [facility] MCV 91.3 81.3 - 96.4 fL [facility] MCH 26.8(L) 27.1 - 33.3 pg [facility] MCHC 29.4(L) 32.3 - 35.7 g/dL [facility] RDW CV 19.9(H) 11.1 - 14.9 % [facility] RDW SD 63.8(H) 35.7 - 48.1 fL [facility] NRBC abs 0.00 0.00 - 0.01 K/cumm [facility] Blood 09/13/2024 5:48 AM CDT 09/13/2024 6:58 AM CDT Carissa Thompson MD LAB BLOOD ORDER[place] [address] Department [place] [address] * (ABNORMAL) Basic metabolic panel (09/13/2024 5:48 AM CDT) Sodium 141 135 - 145 mmol/L Potassium, pl 4.1 3.3 - 4.9 mmol/L [facility] Chloride 101 97 - 110 mmol/L [facility] CO2 32 22 - 32 mmol/L [facility] Anion gap 8 2 - 15 mmol/L [facility] BUN 17 6 - 25 mg/dL [facility] Creatinine 1.49(H) 0.60 - 1.10 mg/dL [facility] Glucose 94 70 - 199 mg/dL [facility] Comment: [...] 2022. Calcium 8.0(L) 8.5 - 10.3 mg/dL [facility] Blood 09/13/2024 5:48 AM CDT 09/13/2024 6:56 AM CDT Margaret Leggett MD LAB [place]LOOD [place] [address] Department [place] [address] * (ABNORMAL) Calcium, ionized, whole blood (09/12/2024 5:03 AM CDT) Ca, ionized, bld 4.35(L) 4.50 - 5.10 mg/dL Blood 09/12/2024 5:03 AM CDT 09/12/2024 5:26 AM CDT us Carissa Thompson MD LAB BLOOD ORDERABLE S Final Result Performing Organization Address [facility] [place] [address] [address] Department [place] [address] * (ABNORMAL) eGFR (09/12/2024 5:03 AM CDT) [...] 5:03 AM CDT 09/12/2024 5:35 AM CDT us Margaret Leggett MD LAB BLOOD ORDERABLES Final Res ult [facility] [address] Department [place] [address] * (ABNORMAL) Differential, auto (09/12/2024 5:03 AM CDT) Neutrophil abs 9.26(H) 1.50 - 6.50 K/cumm Imm gran abs 0.16(H) 0.00 - 0.10 K/cumm [facility] Lymphocyte abs 1.25 0.80 - 3.30 K/cumm [facility] Monocyte abs 1.51(H) 0.20 - 0.80 K/cumm [facility] Eosinophil abs 0.24 0.00 - 0.50 K/cumm [facility] Basophil abs 0.09 0.00 - 0.10 K/cumm [facility] Neutrophil pct 74.0 % [facility] Comment: Interpretive Data Percent cell count reference ranges are not reported, since discordance with absolute values may lead to misinterpretation of CBC data. Current Interpretive Data was last revised on 2017. Imm gran pct 1.3 % [facility] Comment: Interpretive Data Percent cell count reference ranges are not reported, since discordance with absolute values may lead to misinterpretation of CBC data. Current Interpretive Data was last revised on 2017. Lymphocyte pct 10.0 % [facility] Comment: Interpretive Data Percent cell count reference ranges are not reported, since discordance with absolute values may lead to misinterpretation of CBC data. Current Interpretive Data was last revised on 2017. Monocyte pct 12.1 % [facility] Comment: Interpretive Data Percent cell count reference ranges are not reported, since discordance with absolute values may lead to misinterpretation of CBC data. Current Interpretive Data was last revised on 2017. Eosinophil pct 1.9 % [facility] Comment: Interpretive Data Percent cell count reference ranges are not reported, since discordance with absolute values may lead to misinterpretation of CBC data. Current Interpretive Data was last revised on 2017. Basophil pct 0.7 % [facility] Comment: Interpretive Data Percent cell count reference ranges are not reported, since discordance with absolute values may lead to misinterpretation of CBC data. Current Interpretive Data was last revised on 2017. Blood 09/12/2024 5:03 AM CDT 09/12/2024 5:26 AM CDT Carissa Thompson MD LAB BLOOD ORDERABLE S Final Result Performing Organization Address City/[facility]/ZIP Co de Phone Number MOUNA GRIFF[address] [place] [address] * (ABNORMAL) CBC with auto differential (09/12/2024 [...] LAB BLOOD ORDERABLE S Final Result [address] [place] [address] * (ABNORMAL) Vitamin D 25 hydroxy (09/12/2024 5:03 AM CDT) Pathologist [facility] Vitamin D 25-OH 17(L) 30 - 80 ng/mL Blood 09/12/2024 5:03 AM CDT 09/12/2024 5:22 AM CDT us Carissa Thompson MD LAB BLOOD ORDERABLE S Final Result Performing Organization Address [facility] Co de Phone Number K[place]ST[place] [address] [facility] [place] [address] * (ABNORMAL) PTH (09/12/2024 5:03 AM CDT) [facility] PTH 197(H) 15 - 65 pg/mL Blood 09/12/2024 5:03 AM CDT 09/12/2024 5:24 AM CDT us Carissa Thompson MD LAB BLOOD ORDERABLE S Final Result Performing Organization Address [facility] de Phone Number MOUNA [address] [facility] [place] [address] * Magnesium (09/12/2024 5:03 AM CDT) [facility] Magnesium 2.4 1.4 - 2.5 mg/dL Blood 09/12/2024 5:03 AM CDT 09/12/2024 5:24 AM CDT us Carissa Thompson MD LAB BLOOD ORDERABLE S Final Result Performing Organization Address [facility] Co de Phone Number [facility] [address] [facility] [place] [address] * Creatine kinase (CK), total (09/12/2024 5:03 AM CDT) [facility] CK 41 30 - 200 Units/L Blood 09/12/2024 5:03 AM CDT 09/12/2024 5:24 AM CDT us Carissa Thompson MD LAB BLOOD ORDERABLE S Final Result [facility] [address] Department [place] [address] * (ABNORMAL) Hepatic function panel (09/12/2024 5:03 AM CDT) Bilirubin, total 0.5 0.1 - 1.2 mg/dL Bilirubin, direct 0.2 0.1 - 0.3 mg/dL [facility] Protein, pl 5.2(L) 6.5 - 8.5 g/dL [facility] Albumin 2.2(L) 3.5 - 5.0 g/dL [facility] Alk phos 100 40 - 130 Units/L [facility] ALT 9 7 - 45 Units/L [facility] AST 17 10 - 45 Units/L [facility] Blood 09/12/2024 5:03 AM CDT 09/12/2024 5:24 AM CDT Carissa Thompson MD LAB BLOOD ORDERABLE S Final Result [facility] [address] Department [place] [address] * (ABNORMAL) Basic metabolic panel (09/12/2024 5:03 [...] 2022. Calcium 7.8(L) 8.5 - 10.3 mg/dL [facility] G[facility]FF[facility] Blood 09/12/2024 5:03 AM CDT 09/12/2024 5:24 AM CDT us Margaretkee Leggett MD LAB BLOOD ORDERABLES Final Res ult [facility] [place] [address] Department [place] [address] * CT Head WO Contrast (09/11/2024 4:18 [...] 3:33 AM CDT 09/11/2024 4:25 AM CDT Margaret Leggett MD LAB BLOOD ORDERABLES Final Res ult Performing Organization Address City/[facility]/ZIP Co de Phone Number M[facility]NA G[place] [address] Department [place] [address] * (ABNORMAL) Basic metabolic panel (09/11/2024 3:33 AM CDT) Pathologist [facility] Sodium 136 135 - 145 mmol/L Potassium, pl 3.8 3.3 - 4.9 mmol/L [facility] Chloride 97 97 - 110 mmol/L [facility] CO2 29 22 - 32 mmol/L [facility] Anion gap 10 2 - 15 mmol/L [facility] BUN 10 6 - 25 mg/dL [facility] [facility] Creatinine 1.25(H) 0.60 - 1.10 mg/dL [facility] Glucose 130 70 - 199 mg/dL [facility] Comment: Interpretive Data Fasting glucose >/= 126 [...] 2022. Calcium 7.9(L) 8.5 - 10.3 mg/dL [facility] Blood 09/11/2024 3:33 AM CDT 09/11/2024 4:25 AM CDT Margaret Leggett MD LAB BLOOD ORDERABLES Final Res ult Performing Organization Address City/[facility]/ZIP Co de Phone Number MOUNA GRIFFITHS [address] Department [place] [address] * (ABNORMAL) Differential, auto (09/10/2024 10:13 AM CDT) Neutrophil abs 7.18(H) 1.50 - 6.50 K/cumm Imm gran abs 0.02 0.00 - 0.10 K/cumm [facility] CH Lymphocyte abs 1.07 0.80 - 3.30 K/cumm [facility] Monocyte abs 1.51(H) 0.20 - 0.80 K/cumm [facility] Eosinophil abs 0.28 0.00 - 0.50 K/cumm [facility] Basophil abs 0.04 0.00 - 0.10 K/cumm [facility] Neutrophil p[facility] 70.9 % [facility] Comment: Interpretive Data Percent cell count reference ranges are not reported, since discordance with absolute values may lead to misinterpretation of CBC data. Current Interpretive Data was last revised on 2017. Imm gran pct 0.4 % [facility] Comment: Interpretive Data Percent cell count reference ranges are not reported, since discordance with absolute values may lead to misinterpretation of CBC data. Current Interpretive Data was last revised on 2017. Lymphocyte pct 10.6 % [facility] Comment: Interpretive Data Percent cell count reference ranges are not reported, since discordance with absolute values may lead to misinterpretation of CBC data. Current Interpretive Data was last revised on 2017. Monocyte pct 14.9 % [facility] Comment: Interpretive Data Percent cell count reference ranges are not reported, since discordance with absolute values may lead to misinterpretation of CBC data. Current Interpretive Data was last revised on 2017. Eosinophil pct 2.8 % [facility] Comment: Interpretive Data Percent cell count reference ranges are not reported, since discordance with absolute values may lead to misinterpretation of CBC data. Current Interpretive Data was last revised on 2017. Basophil pct 0.4 % [facility] Comment: Interpretive Data Percent cell count reference ranges are not reported, since discordance with absolute values may lead to misinterpretation of CBC data. Current Interpretive Data was last revised on 2017. Blood 09/10/2024 10:1 3 AM CDT 09/10/2024 10:25 AM CDT us Margaret Thuc Leggett MD LAB BLOOD ORDERABLES Final Res ult Performing Organization Address City/[facility]/ZIP Co de Phone Number MOUNA GRIFFITHS [address] [address] * (ABNORMAL) CBC with auto differential (09/10/2024 10:13 AM CDT) Pathologist [facility] [place] WBC 10.12(H) 3.80 - 9.90 K/cumm Hgb 8.0(L) 11.9 - 15.5 g/dL [facility] CH Hct 27.5(L) 35.6 - 45.5 % [facility] CH Plt 398 150 - 400 K/cumm [facility] MPV 10.8 9.1 - 12.3 fL [facility] RBC 3.01(L) 3.90 - 5.20 M/cumm [facility] MCV 91.4 81.3 - 96.4 fL [facility] CH MCH 26.6(L) 27.1 - 33.3 pg [facility] MCHC 29.1(L) 32.3 - 35.7 g/dL [facility] RDW CV 19.2(H) 11.1 - 14.9 % [facility] CH RDW SD 63.4(H) 35.7 - 48.1 fL [facility] NRBC abs 0.02(H) 0.00 - 0.01 K/cumm [facility] CH Blood 09/10/2024 10:1 3 AM CDT 09/10/2024 10:25 AM CDT Margaret Leggett MD LAB BLOOD ORDERABLES Final Res ult Performing Organization Address City/[facility]/ZIP Co de Phone Number MOUNA GRIFFITHS [address] Department [employer] [place], [place] [phone] * eGFR (09/10/2024 6:57 AM CDT) Pathologist [facility] [place] eGFR 71 >=60 mL/min/1. 73 m2 Comment: [...] Inclusion of Race in Diagnosing Kidney Disease, JASMarquita 2020). The CKD-EPI equation should not be used for patients with unstable renal function and has not been validated in children and those over 70. Current interpretive data was last reviewed 2021. Blood 09/10/2024 6:57 AM CDT 09/10/2024 7:23 AM CDT Margaret Leggett MD LAB BLOOD ORDERABLES Final Res ult [facility] [address] Department [place] [address] * (ABNORMAL) Basic metabolic panel (09/10/2024 6:57 AM CDT) Sodium 137 135 - 145 mmol/L Potassium, pl 3.9 3.3 - 4.9 mmol/L [facility] Chloride 97 97 - 110 mmol/L [facility] CO2 33(H) 22 - 32 mmol/L [facility] Anion gap 7 2 - 15 mmol/L [facility] BUN 9 6 - 25 mg/dL [facility] Creatinine 0.93 0.60 - 1.10 mg/dL [facility] Glucose 88 70 - 199 mg/dL [facility] Comment: Interpretive Data Fasting glucose >/= 126 [...] 8.1(L) 8.5 - 10.3 mg/dL [facility] CH Blood 09/10/2024 6:57 AM CDT 09/10/2024 7:23 AM CDT Margaret Leggett MD LAB BLOOD ORDERABLES Final Res ult Performing Organization Address [facility] Co de Phone Number MOUNA GRIFFITHS [address] [facility] [place] [address] * POCT glucose (09/09/2024 4:07 PM CDT) Glucose, POC 118 70 - 199 mg/dL POC Performer [id number] [facility] Blood 09/09/2024 4:07 PM CDT 09/09/2024 4:07 PM CDT Margaret Leggett MD LAB POCT ORDERABLES - DEVICE F inal Result Performing Organization Address [facility] de Phone Number MOUNA GRIFFITHS [address] [facility] [place] [address] * POCT glucose (09/09/2024 12:49 PM CDT) Glucose, POC 83 70 - 199 mg/dL POC Performer [id number] [facility] Blood 09/09/2024 12:4 9 PM CDT 09/09/2024 12:49 PM CDT Margaret Leggett MD LAB POCT ORDERABLES - DEVICE F inal Result Performing Organization Address [facility] Co de Phone Number MOUNA GRIFFITHS [address] [facility] [employer] [place], [place] [phone] * POCT glucose (09/09/2024 8:44 AM CDT) Glucose, POC 95 70 - 199 mg/dL POC Performer [id number] [facility] Blood 09/09/2024 8:44 AM CDT 09/09/2024 8:44 AM CDT Margaret Leggett MD LAB POCT ORDERABLES - DEVICE F inal Result MOUNA [address] [facility] Department [place] [address] * US VEIN DUPLEX LOWER EXTREMITY RIGHT [...] by: Darrell Mcnair M.D. Ashu Flores MD IMG US PROCEDURES Edit ed Result - Final [...] LAB BLOOD ORDERABLES Final Res ult MOUNA [address] Department [place] [address] * (ABNORMAL) Basic metabolic panel (09/09/2024 5:40 AM CDT) Sodium 134(L) 135 - 145 mmol/L Potassium, pl 4.4 3.3 - 4.9 mmol/L [facility] Chloride 93(L) 97 - 110 mmol/L [facility] CH CO2 32 22 - 32 mmol/L [facility] Anion gap 9 2 - 15 mmol/L [facility] CH BUN 12 6 - 25 mg/dL [facility] Creatinine 1.16(H) 0.60 - 1.10 mg/dL [facility] CH Glucose 91 70 - 199 mg/dL [facility] Comment: [...] 2022. Calcium 7.9(L) 8.5 - 10.3 mg/dL [facility] Blood 09/09/2024 5:40 AM CDT 09/09/2024 6:09 AM CDT Margaret Leggett MD LAB BLOOD ORDERABLES Final Res ult Performing Organization Address [facility]/ZIP Co de Phone Number [facility] [address] Department [place] [address] * POCT glucose (09/08/2024 9:08 PM CDT) Glucose, POC 137 70 - 199 mg/dL POC Performer [id number] [facility] Blood 09/08/2024 9:08 PM CDT 09/08/2024 9:08 PM CDT Margaret Leggett MD LAB POCT ORDERABLES - DEVICE F inal Result Performing Organization Address City/[facility]/ZIP Co de Phone Number MOUNA GRIFFITHS [address] [place] [address] * POCT glucose (09/08/2024 5:41 PM CDT) Glucose, POC 120 70 - 199 mg/dL POC Performer [id number] KRYSTIANKATIE GRIFFITHS Blood 09/08/2024 5:41 PM CDT 09/08/2024 5:41 PM CDT us Margaret Leggett MD LAB POCT ORDERABLES - DEVICE F inal Result Performing Organization Address [facility] Co de Phone Number MOUNA GRIFFITHS [address] [facility] [place] [address] * eGFR (09/08/2024 4:01 AM CDT) eGFR [...] ORDERABLES Final Res ult Performing Organization Address City/[facility]/ZIP Co de Phone Number MOUNA GRIFFITHS [address] Department [place] [address] * (ABNORMAL) Differential, auto (09/08/2024 4:01 AM CDT) Neutrophil abs 6.6(H) 1.5 - 6.5 K/cumm Imm gran abs 0.1 0.0 - 0.1 K/cumm [facility] Lymphocyte abs 1.4 0.8 - 3.3 K/cumm [facility] Monocyte abs 1.7(H) 0.2 - 0.8 K/cumm [facility] Eosinophil abs 0.2 0.0 - 0.5 K/cumm [facility] Basophil abs 0.1 0.0 - 0.1 K/cumm [facility] Neutrophil pct 66.0 % [facility] Comment: Interpretive Data Percent cell count reference ranges are not reported, since discordance with absolute values may lead to misinterpretation of CBC data. Current Interpretive Data was last revised on 2017. Imm gran pct 0.5 % [facility] Comment: Interpretive Data Percent cell count reference ranges are not reported, since discordance with absolute values may lead to misinterpretation of CBC data. Current Interpretive Data was last revised on 2017. Lymphocyte pct 14.4 % [facility] Comment: Interpretive Data Percent cell count reference ranges are not reported, since discordance with absolute values may lead to misinterpretation of CBC data. Current Interpretive Data was last revised on 2017. Monocyte pct 16.6 % [facility] Comment: Interpretive Data Percent cell count reference ranges are not reported, since discordance with absolute values may lead to misinterpretation of CBC data. Current Interpretive Data was last revised on 2017. Eosinophil pct 2.0 % [facility] Comment: Interpretive Data Percent cell count [...] ORDERABLES Final Res ult Performing Organization Address City/[facility]/ZIP Co de Phone Number MOUNA [address] Department [employer] [place], [place] [phone] * (ABNORMAL) CBC with auto differential (09/08/2024 4:01 AM CDT) WBC 10.0(H) 3.8 - 9.9 K/cumm Hgb 8.9(L) 11.9 - 15.5 g/dL [facility] CH Hct 31.1(L) 35.6 - 45.5 % CERNER [...] LAB BLOOD ORDERABLES Final Res ult MOUNA [address] Department [employer] [place], [place] [id number] * (ABNORMAL) Basic metabolic panel (09/08/2024 4:01 AM CDT) Sodium 139 135 - 145 mmol/L Potassium, pl 3.8 3.3 - 4.9 mmol/L [facility] Chloride 95(L) 97 - 110 mmol/L [facility] CO2 36(H) 22 - 32 mmol/L [facility] Anion gap 8 2 - 15 mmol/L [facility] BUN 8 6 - 25 mg/dL [facility] Creatinine 0.89 0.60 - 1.10 mg/dL [facility] Glucose 78 70 - 199 mg/dL [facility] Comment: Interpretive Data Fasting glucose >/= 126 [...] 2022. Calcium 8.2(L) 8.5 - 10.3 mg/dL [facility] Blood 09/08/2024 4:01 AM CDT 09/08/2024 6:22 AM CDT Margaret Leggett MD LAB BLOOD ORDERABLES Final Res ult [facility] [address] Department [place] [address] * (ABNORMAL) Urinalysis reflex to microscopic and culture Urine (09/07/2024 6:00 PM CDT) Color, ur Yellow Yellow Clarity, ur Turbid(A) Clear [facility] Specific gravity, ur 1.007 1.003 - 1.030 [facility] pH, urine 8.0 [facility] Comment: Interpretive Data U rine pH is affected by diet, medications, systemic acid-base disturbances, and renal tubular function. pH may affect urinary stone formation. For example, urine pH below 6.0 may help reduce the tendency for calcium phosphate stones and pH greater than 6.0 may reduce the tendency for uric acid stone formation. Source: [facility] [address] Current Interpretive Data was last revised on [...] CDT 09/07/2024 6:41 PM CDT Marcy Chacon DENTAL DIRECTOR LAB MICROBIOLOGY - GENERA L ORDERABLES Final Result Performing Organization Address [facility] Co de Phone Number KRYSTIANKATIE GRIFFITHS [address] [place] [address] * POCT glucose (09/07/2024 12:23 PM CDT) Glucose, POC 107 70 - 199 mg/dL POC Performer [id number] [facility] Blood 09/07/2024 12:2 3 PM CDT 09/07/2024 12:23 PM CDT Margaret Leggett MD LAB POCT ORDERABLES - DEVICE F inal Result Performing Organization Address [facility] Co de Phone Number MOUNA GRIFFITHS [address] [place] [address] * POCT glucose (09/07/2024 7:57 AM CDT) Glucose, POC 107 70 - 199 mg/dL POC Performer [id number] [facility] Blood 09/07/2024 7:57 AM CDT 09/07/2024 7:57 AM CDT Margaret Leggett MD LAB POCT ORDERABLES - DEVICE F inal Result Performing Organization Address [facility] Co de Phone Number KRYSTIANKATIE GRIFFITHS [address] [facility] Department [place] [address] * TRANSTHORACIC ECHO (TTE) COMPLETE W DOPPLER/CF W CONTRAST (09/07/2024 7:55 AM CDT) Anatomical Region Laterality Modality Ultrasound 09/07/2024 6:38 AM CDT Narrative 09/07/2024 12:23 PM CDT [place] [id number] Echocardiogram Report Patient Name: DOREEN CONROY J : 1965 Study Date: 09/07/2024 6:38:58 AM Gender: F Tech: REGGIE Location: [id number] Ref Provider: BASHIR GLASER Height(Cm): 158 BSA: [...] 2.70 - 3.70 ] MV E Peak Elijah 1.06 m/s [ 0.60 - 1.30 ] [...] Procedure Note Rocío Flores MD - 09/07/2024 [place] [address] Echocardiogram Report Patient Name: DOREEN CONROY J : 1965 Study Date: 09/07/2024 6:38:58 AM Gender: F Tech: KS Location: [id number] Ref Provider: BASHIR GLASER Height(Cm): 158 BSA: [...] * POCT glucose (09/07/2024 5:12 AM CDT) [facility] Signature Glucose, POC 102 70 - 199 mg/dL POC Performer [id number] MOUNA Blood 09/07/2024 5:12 AM CDT 09/07/2024 5:12 AM CDT us Margaret Leggett MD LAB POCT ORDERABLES - DEVICE F inal Result [facility] [address] [place] [address] * eGFR (09/07/2024 4:58 AM CDT) eGFR [...] MD LAB BLOOD ORDERABLES Final Res ult [facility] [address] Department [place] [address] * (ABNORMAL) Differential, auto (09/07/2024 4:58 AM CDT) Pathologist [facility] Neutrophil abs 7.8(H) 1.5 - 6.5 K/cumm Imm gran abs 0.0 0.0 - 0.1 K/cumm [facility] Lymphocyte abs 1.3 0.8 - 3.3 K/cumm [facility] Monocyte abs 1.8(H) 0.2 - 0.8 K/cumm [facility] Eosinophil abs 0.1 0.0 - 0.5 K/cumm [facility] Basophil abs 0.1 0.0 - 0.1 K/cumm [facility] Neutrophil pct 70.5 % [facility] Comment: Interpretive Data Percent cell count reference ranges are not reported, since discordance with absolute values may lead to misinterpretation of CBC data. Current Interpretive Data was last revised on 2017. Imm gran pct 0.4 % [facility] Comment: Interpretive Data Percent cell count reference ranges are not reported, since discordance with absolute values may lead to misinterpretation of CBC data. Current Interpretive Data was last revised on 2017. Lymphocyte pct 11.7 % [facility] Comment: Interpretive Data Percent cell count reference ranges are not reported, since discordance with absolute values may lead to misinterpretation of CBC data. Current Interpretive Data was last revised on 2017. Monocyte pct 16.3 % [facility] Comment: Interpretive Data Percent cell count reference ranges are not reported, since discordance with absolute values may lead to misinterpretation of CBC data. Current Interpretive Data was last revised on 2017. Eosinophil pct 0.6 % [facility] Comment: Interpretive Data Percent cell count reference ranges are not reported, since discordance with absolute values may lead to misinterpretation of CBC data. Current Interpretive Data was last revised on 2017. Basophil pct 0.5 % [facility] Comment: Interpretive Data Percent cell count reference ranges are not reported, since discordance with absolute values may lead to misinterpretation of CBC data. Current Interpretive Data was last revised on 2017. Blood 09/07/2024 4:58 AM CDT 09/07/2024 5:28 AM CDT us Margaret Leggett MD LAB BLOOD ORDERABLES Final Res ult [facility] [address] Department [place] [address] * (ABNORMAL) CBC with auto differential (09/07/2024 4:58 AM CDT) WBC 11.1(H) 3.8 - 9.9 K/cumm Hgb 8.8(L) 11.9 - 15.5 g/dL [facility] Hct 29.8(L) 35.6 - 45.5 % [facility] Plt 438(H) 150 - 400 K/cumm [facility] MPV 10.7 9.1 - 12.3 fL [facility] RBC 3.24(L) 3.90 - 5.20 M/cumm [facility] MCV 92.0 81.3 - 96.4 fL [facility] MCH 27.2 27.1 - 33.3 pg [facility] MCHC 29.5(L) 32.3 - 35.7 g/dL [facility] CH RDW CV 18.6(H) 11.1 - 14.9 % [facility] CH RDW SD 62.3(H) 35.7 - 48.1 fL [facility] NRBC abs 0.02(H) 0.00 - 0.01 K/cumm [facility] Blood 09/07/2024 4:58 AM CDT 09/07/2024 5:28 AM CDT Margaret Leggett MD LAB BLOOD ORDERABLES Final Res ult [facility] [address] Department [place] [address] * (ABNORMAL) Basic metabolic panel (09/07/2024 4:58 AM CDT) Sodium 140 135 - 145 mmol/L Potassium, pl 3.7 3.3 - 4.9 mmol/L [facility] Chloride 96(L) 97 - 110 mmol/L [facility] CO2 36(H) 22 - 32 mmol/L [facility] Anion gap 8 2 - 15 mmol/L [facility] BUN 5(L) 6 - 25 mg/dL [facility] Creatinine 0.79 0.60 - 1.10 mg/dL [facility] Glucose 86 70 - 199 mg/dL [facility] Comment: Interpretive Data Fasting glucose >/= 126 [...] 2022. Calcium 7.7(L) 8.5 - 10.3 mg/dL [facility] Blood 09/07/2024 4:58 AM CDT 09/07/2024 5:30 AM CDT Margaret Leggett MD LAB BLOOD ORDERABLES Final Res ult Performing Organization Address [facility] Co de Phone Number MOUNA [address] [place] [address] * POCT glucose (09/06/2024 9:58 PM CDT) Glucose, POC 154 70 - 199 mg/dL POC Performer [id number] [facility] Blood 09/06/2024 9:58 PM CDT 09/06/2024 9:58 PM CDT Margaret Leggett MD LAB POCT ORDERABLES - DEVICE F inal Result Performing Organization Address [facility] de Phone Number MOUNA [address] [facility] [place] [address] * CT Head WO Contrast (09/06/2024 4:30 [...] * POCT glucose (09/06/2024 4:10 PM CDT) Glucose, POC 120 70 - 199 mg/dL POC Performer [id number] MOUNA GRIFFITHS Blood 09/06/2024 4:10 PM CDT 09/06/2024 4:10 PM CDT Margaret Leggett MD LAB POCT ORDERABLES - DEVICE F inal Result MOUNA GRIFFITHS [address] Department [place] [address] * CT Knee Right WO Contrast (09/06/2024 [...] 118 70 - 199 mg/dL POC Performer [id number] [facility] Blood 09/06/2024 1:31 PM CDT 09/06/2024 1:31 PM CDT Margaret Leggett MD LAB POCT ORDERABLES - DEVICE F inal Result Performing Organization Address [facility] Co de Phone Number MOUNA [address] [place] [address] * (ABNORMAL) Potassium (09/06/2024 11:37 AM CDT) Potassium, pl 2.9(L) 3.3 - 4.9 mmol/L Blood 09/06/2024 11:3 7 AM CDT 09/06/2024 11:57 AM CDT Marcy Chacon DENTAL DIRECTOR LAB BLOOD ORDERABLES Jalyn l Result Performing Organization Address [facility] Co de Phone Number MOUNA [address] [place] [address] * (ABNORMAL) Vitamin D 25 hydroxy (09/06/2024 10:05 AM CDT) Vitamin D 25-OH 23(L) 30 - 80 ng/mL Blood 09/06/2024 10:0 5 AM CDT 09/06/2024 10:10 AM CDT Margaret Leggett MD LAB BLOOD ORDERABLES Final Res ult Performing Organization Address [facility] Co de Phone Number MOUNA GRIFFITHS [address] [facility] [place] [address] * (ABNORMAL) Potassium (09/06/2024 10:05 AM CDT) Potassium, pl 3.0(L) 3.3 - 4.9 mmol/L Blood 09/06/2024 10:0 5 AM CDT 09/06/2024 10:10 AM CDT Margaret Leggett MD LAB BLOOD ORDERABLES Final Res ult Performing Organization Address [facility] Co de Phone Number KRYSTIANKATIE GRIFFITHS [address] [place] [address] * (ABNORMAL) PTH (09/06/2024 10:05 AM CDT) PTH 246(H) 15 - 65 pg/mL Blood 09/06/2024 10:0 5 AM CDT 09/06/2024 10:10 AM CDT Margaret Leggett MD LAB BLOOD ORDERABLES Final Res ult Performing Organization Address [facility] Co de Phone Number KRYSTIANKATIE GRIFFITHS [address] [facility] [place] [address] * POCT glucose (09/06/2024 9:51 AM CDT) Glucose, POC 111 70 - 199 mg/dL POC Performer [id number] MOUNA Blood 09/06/2024 9:51 AM CDT 09/06/2024 9:51 AM CDT Margaret Leggett MD LAB POCT ORDERABLES - DEVICE F inal Result Performing Organization Address City/[facility] Co de Phone Number MOUNA GRIFFITHS [address] [facility] [place] [address] * (ABNORMAL) Blood gas, arterial (09/06/2024 6:30 AM CDT) pH, Art 7.38 7.35 - 7.45 PCO2, Arterial 64(C) 35 - 45 mmHg [facility] Comment:Alert value pcO2 adore led to and [...] (Measured) 90 90 - 95 % [facility] Blood 09/06/2024 6:30 AM CDT 09/06/2024 6:38 AM CDT Marcy Chacon DENTAL DIRECTOR LAB BLOOD ORDERABLES Jalyn l Result Performing Organization Address City/[facility]/ZIP Co de Phone Number MOUNA GRIFFITHS [address] [place] [address] * (ABNORMAL) Troponin T high-sensitivity 6-hour (09/06/2024 4:06 AM CDT) Pathologist [facility] [place] Trop T hs 66(H) <=14 ng/L Comment: Interpretive Data For further hscTnT resources including the diagnostic algorithm and an aid in interpretation, copy and paste this link: https://nrl.testcatalog.org/show/hsTrop Current Interpretive Data last revised 2020. Trop T hs delta 8 ng/L [facility] Trop T hs interp Equivocal [facility] Blood 09/06/2024 4:06 AM CDT 09/06/2024 4:26 AM CDT Bert Roldan MD LAB BLOOD ORDERABLES Final Result Performing Organization Address City/[facility]/ZIP Co de Phone Number MOUNA GRIFFITHS [address] Department [employer] [place], [place] [phone] * (ABNORMAL) Troponin T high-sensitivity 4-hour (09/06/2024 3:04 AM CDT) Trop T hs 64(H) <=14 ng/L Comment: Interpretive Data For further hscTnT resources including the diagnostic algorithm and an aid in interpretation, copy and paste this link: https://nrl.testcatalog.org/show/hsTrop Current Interpretive Data last revised 2020. Trop T hs delta 6 ng/L MOUNA Trop T hs interp Equivocal [facility] Blood 09/06/2024 3:04 AM CDT 09/06/2024 4:26 AM CDT us Bert Roldan MD LAB BLOOD ORDERABLES Final Result MOUNA GRIFFITHS [address] Department [place] [address] * eGFR (09/06/2024 3:04 AM CDT) eGFR [...] CDT 09/06/2024 4:26 AM CDT us Marcy G. Torbert DENTAL DIRECTOR LAB BLOOD ORDERABLES Jalyn lopez Result [facility] [address] Department [place] [address] * (ABNORMAL) Differential, auto (09/06/2024 3:04 AM CDT) Neutrophil abs 8.9(H) 1.5 - 6.5 K/cumm Imm gran abs 0.1 0.0 - 0.1 K/cumm [facility] Lymphocyte abs 1.5 0.8 - 3.3 K/cumm [facility] Monocyte abs 1.6(H) 0.2 - 0.8 K/cumm [facility] Eosinophil abs 0.1 0.0 - 0.5 K/cumm [facility] Basophil abs 0.1 0.0 - 0.1 K/cumm [facility] Neutrophil pct 72.5 % [facility] Comment: Interpretive Data Percent cell count reference ranges are not reported, since discordance with absolute values may lead to misinterpretation of CBC data. Current Interpretive Data was last revised on 2017. Imm gran pct 1.1 % [facility] Comment: Interpretive Data Percent cell count reference ranges are not reported, since discordance with absolute values may lead to misinterpretation of CBC data. Current Interpretive Data was last revised on 2017. Lymphocyte pct 12.3 % [facility] Comment: Interpretive Data Percent cell count reference ranges are not reported, since discordance with absolute values may lead to misinterpretation of CBC data. Current Interpretive Data was last revised on 2017. Monocyte pct 13.0 % [facility] Comment: Interpretive Data Percent cell count reference ranges are not reported, since discordance with absolute values may lead to misinterpretation of CBC data. Current Interpretive Data was last revised on 2017. Eosinophil pct 0.6 % [facility] Comment: Interpretive Data Percent cell count [...] 09/06/2024 4:25 AM CDT us Marcy Chacon DENTAL DIRECTOR LAB BLOOD ORDERABLES Jalyn l Result Performing Organization Address City/[facility]/ZIP Co de Phone Number MOUNA GRIFFITHS [address] Department [place] [address] * (ABNORMAL) Thyroid Function [place] (09/06/2024 3:04 AM CDT) TSH 10.50(H) 0.30 - 4.20 mcIUnit/mL Blood 09/06/2024 3:04 AM CDT 09/06/2024 4:26 AM CDT Jah Ferreira MD LAB BLOOD ORDERABLES Final Re sult Performing Organization Address [facility] Co de Phone Number MOUNA GRIFFITHS [address] [place] [address] * (ABNORMAL) CBC with auto differential (09/06/2024 3:04 AM CDT) WBC 12.2(H) 3.8 - 9.9 K/cumm Hgb 10.1(L) 11.9 - 15.5 g/dL [facility] Hct 33.6(L) 35.6 - 45.5 % [facility] Plt 509(H) 150 - 400 K/cumm [facility] MPV 10.7 9.1 - 12.3 fL [facility] RBC 3.76(L) 3.90 - 5.20 M/cumm [facility] MCV 89.4 81.3 - 96.4 fL [facility] MCH 26.9(L) 27.1 - 33.3 pg [facility] MCHC 30.1(L) 32.3 - 35.7 g/dL [facility] RDW CV 18.8(H) 11.1 - 14.9 % [facility] RDW SD 61.1(H) 35.7 - 48.1 fL [facility] NRBC abs 0.05(H) 0.00 - 0.01 K/cumm [facility] Blood 09/06/2024 3:04 AM CDT 09/06/2024 4:25 AM CDT Marcy Chacon DENTAL DIRECTOR LAB BLOOD ORDERABLES Jalyn l Result Performing Organization Address [facility] de Phone Number [facility] [address] [facility] [address], [place] [id number] * T4, free (09/06/2024 3:04 AM CDT) Free T4 1.12 0.90 - 1.70 ng/dL Blood 09/06/2024 3:04 AM CDT 09/06/2024 4:26 AM CDT Result [facility] Jah Ferreira MD LAB BLOOD ORDERABLES Final Re sult Performing Organization Address [facility] Phone Number [facility] [address] [facility] [place] [address] * (ABNORMAL) Hemoglobin A1c (09/06/2024 3:04 AM CDT) Hgb A1C 6.0(H) 4.0 - 5.6 % Estimated Average Glucose 126 mg/dL [facility] Comment: The ADA recommends reporting an estimated Average Glucose (eAG) with all Hemoglobin A1c results using the equation derived from a study of 507 normal and diabetic adults. Minority populations were underrepresented and children were not included. (Diabetes Care 31:4630-1454, 2008). The eAG is not equivalent to a fasting glucose. Blood 09/06/2024 3:04 AM CDT 09/06/2024 4:25 AM CDT Marcy Chacon NP LAB BLOOD ORDERABLES Jalyn l Result Performing Organization Address [facility] Co de Phone Number [facility] [address] [facility] [place] [address] * (ABNORMAL) Comprehensive metabolic panel (09/06/2024 3:04 AM CDT) Sodium 138 135 - 145 mmol/L Potassium, pl 2.9(L) 3.3 - 4.9 mmol/L [facility] Chloride 94(L) 97 - 110 mmol/L [facility] CO2 34(H) 22 - 32 mmol/L [facility] Anion gap 10 2 - 15 mmol/L [facility] BUN 4(L) 6 - 25 mg/dL [facility] Creatinine 0.82 0.60 - 1.10 mg/dL [facility] Glucose 99 70 - 199 mg/dL [facility] Comment: [...] AM CDT 09/06/2024 4:26 AM CDT us Maryc Chacon NP LAB BLOOD ORDERABLES Jalyn lopez Result [facility] [address] Department [place] [address] * [place] CRITICAL CARE ILL/INJURED PATIENT INIT 30-74 MIN [...] 2020. Trop T hs delta 2 ng/L [facility] Trop T hs interp Insignificant [facility] Blood 09/06/2024 1:12 AM CDT 09/06/2024 1:19 AM CDT Bert Roldan MD LAB BLOOD ORDERABLES Final Result [facility] [address] [place] [address] * Magnesium (09/06/2024 1:12 AM CDT) Magnesium 2.1 1.4 - 2.5 mg/dL Blood 09/06/2024 1:12 AM CDT 09/06/2024 1:19 AM CDT Marcy Chacon NP LAB BLOOD ORDERABLES Jalyn l Result Performing Organization Address [facility] Co de Phone Number M[facility]NA GRIFF[facility] [address] [place] [address] * CT Chest PE (CTA) W Contrast [...] above.. Electronically signed by: Gregg Lang M.D. us Bert Roldan MD IMG CT PROCEDURES Final Res ult * (ABNORMAL) [...] LAB BLOOD ORDERABLES Edited Result - Final MOUNA [address] [facility] Department [place] [address] * eGFR (09/05/2024 10:32 PM CDT) eGFR [...] Roldan MD LAB BLOOD ORDERABLES Final Result [facility] [address] Department [place] [address] * (ABNORMAL) Differential, auto (09/05/2024 10:32 PM CDT) Neutrophil abs 6.6(H) 1.5 - 6.5 K/cumm Imm gran abs 0.0 0.0 - 0.1 K/cumm [facility] Lymphocyte abs 1.6 0.8 - 3.3 K/cumm [facility] Monocyte abs 1.2(H) 0.2 - 0.8 K/cumm [facility] Eosinophil abs 0.1 0.0 - 0.5 K/cumm [facility] Basophil abs 0.0 0.0 - 0.1 K/cumm [facility] Neutrophil pct 69.0 % [facility] Comment: Interpretive Data Percent cell count reference ranges are not reported, since discordance with absolute values may lead to misinterpretation of CBC data. Current Interpretive Data was last revised on 2017. Imm gran pct 0.4 % [facility] Comment: Interpretive Data Percent cell count reference ranges are not reported, since discordance with absolute values may lead to misinterpretation of CBC data. Current Interpretive Data was last revised on 2017. Lymphocyte pct 16.4 % [facility] Comment: Interpretive Data Percent cell count reference ranges are not reported, since discordance with absolute values may lead to misinterpretation of CBC data. Current Interpretive Data was last revised on 2017. Monocyte pct 12.6 % [facility] Comment: Interpretive Data Percent cell count reference ranges are not reported, since discordance with absolute values may lead to misinterpretation of CBC data. Current Interpretive Data was last revised on 2017. Eosinophil pct 1.2 % [facility] Comment: Interpretive Data Percent cell count reference ranges are not reported, since discordance with absolute values may lead to misinterpretation of CBC data. Current Interpretive Data was last revised on 2017. Basophil pct 0.4 % [facility] Comment: Interpretive Data Percent cell count reference ranges are not reported, since discordance with absolute values may lead to misinterpretation of CBC data. Current Interpretive Data was last revised on 2017. Blood 09/05/2024 10:3 2 PM CDT 09/05/2024 10:37 PM CDT us Bert Roldan MD LAB BLOOD ORDERABLES Final Result [facility]RIFF[facility] [address] Department [place] [address] * (ABNORMAL) Pro B-type natriuretic peptide (09/05/2024 [...] et.al. Eur Heart J. 2006:27:330-337. 2. Christ VEGA, Laura SHARMA. J. AM Messi Cardiol: Cardiovasc Imag. 2009;2: 216- 225. Interpretive Data Last Revised Date: 2018. Blood 09/05/2024 10:3 2 PM CDT 09/05/2024 10:37 PM CDT Bert Roldan MD LAB BLOOD ORDERABLES Final Result Performing Organization Address City/[facility]/ZIP Co de Phone Number MONUA GRIFFITHS [address] [place] [address] * (ABNORMAL) CBC with auto differential (09/05/2024 10:32 PM CDT) [facility] WBC 9.5 3.8 - 9.9 K/cumm Hgb 10.3(L) 11.9 - 15.5 g/dL [facility] Hct 34.5(L) 35.6 - 45.5 % [facility] Plt 510(H) 150 - 400 K/cumm [facility] MPV 10.1 9.1 - 12.3 fL [facility] RBC 3.87(L) 3.90 - 5.20 M/cumm [facility] MCV 89.1 81.3 - 96.4 fL [facility] MCH 26.6(L) 27.1 - 33.3 pg [facility] MCHC 29.9(L) 32.3 - 35.7 g/dL [facility] RDW CV 18.8(H) 11.1 - 14.9 % [facility] RDW SD 60.7(H) 35.7 - 48.1 fL [facility] NRBC abs 0.02(H) 0.00 - 0.01 K/cumm [facility] Blood 09/05/2024 10:3 2 PM CDT 09/05/2024 10:37 PM CDT Bert Roldan MD LAB BLOOD ORDERABLES Final Result Performing Organization Address City/[facility]/ZIP Co de Phone Number MOUNA GRIFFITHS [address] [place] [address] * (ABNORMAL) Protime-INR (09/05/2024 10:32 PM CDT) PT 16.9(H) 9.7 - 13.0 sec INR 1.55(H) 0.90 - 1.20 [facility] Comment: Interpretive data Oral anticoagulant therapeutic ranges: Venous thromboembolism prophylaxis or treatment: 2.0-3.0 CARDIOLOGY Standard range: 2.0-3.0 High-intensity range: 2.5-3.5 Refer to indication-specific guidelines for appropriate target ranges for prosthetic heart valve replacement. Current interpretive data was last revised on 2019. Blood 09/05/2024 10:3 2 PM CDT 09/05/2024 10:37 PM CDT us Bert Roldan MD LAB BLOOD ORDERABLES Final Result Performing Organization Address [facility] Co de Phone Number MOUNA [address] [facility] [place] [address] * Lipase (09/05/2024 10:32 PM CDT) Lipase 13 10 - 99 Units/L Blood 09/05/2024 10:3 2 PM CDT 09/05/2024 10:37 PM CDT Bert Roldan MD LAB BLOOD ORDERABLES Final Result Performing Organization Address City/[facility]/ZIP Co de Phone Number MOUNA [address] [facility] [place] [address] * Amylase (09/05/2024 10:32 PM CDT) Amylase 33 30 - 99 Units/L Blood 09/05/2024 10:3 2 PM CDT 09/05/2024 10:37 PM CDT us Bert Roldan MD LAB BLOOD ORDERABLES Final Result Performing Organization Address City/[facility]/[place] [address] Department [place] [address] * (ABNORMAL) Comprehensive metabolic panel (09/05/2024 10:32 [...] BLOOD ORDERABLES Final Result Performing Organization Address [facility] Co de Phone Number MOUNA GRIFFITHS [address] Department [place] [address] * ECG 12 lead (09/05/2024 10:22 PM CDT) 09/05/2024 10:2 2 PM CDT Narrative [facility] - 09/06/2024 6:51 AM CDT Vent Rate: 86 bpm RR Interval: 690 msec [place] Interval: 155 msec QRS Duration: 111 msec QT Interval: 386 msec QTC Interval: 430 msec P-R-T [place]: 55 - -9 - -5 degrees IMPRESSION: SINUS RHYTHM WITH OCCASIONAL SUPRAVENTRICULAR PREMATURE COMPLEXES POSSIBLE LEFT ATRIAL ENLARGEMENT [-0.1mV P-WAVE IN V1/V2] MODERATE INTRAVENTRICULAR CONDUCTION DELAY [110+ ms QRS DURATION] NONSPECIFIC ST \T\ T-WAVE ABNORMALITY BORDERLINE ECG Electronically Signed By: Dr. Rula Mccray [facility] us Bert Roldan MD ECG ORDERABLES Final Resul t Performing Organization Address [facility] de Phone Number [facility] [employer] [facility] * XR Knee Right 4 or More [...] swelling. Electronically signed by: Darrell Mcnair M.D. Annabelleguille Flaherty DENTAL DIRECTOR IMG XR PROCEDURES Fin al Result from Last 3 Months Insurance [employer] [facility] MEDICARE ADVANTAGE [facility] MEDICARE ADVANTAGE Advance Directives For more information, please contact: [phone] * Full Code (Latest Code Status on [...] 11:33 PM 12/09/2023 11:36 PM Care Teams Glass Maker Relationship Specialty Start Date End Date Nino Carrillo MD [address] [place] [address] PCP - General Internal Medicine 12/04/23 Terry Wilkerson MD [address] [place] [address] Consulting Physician Cardiology 12/06/23 Bashir Glaser MD [address] [place] [address] Referring Physician Cardiology 12/19/23 Micky Guerra MD [address] [place] [address] Consulting Physician Cardiovascular Disease 01/29/24 [place] [address] [address] Consulting Physician Nephrology 09/13/24 [place] [address] [place] [address] Consulting Physician Pulmonary Disease 09/13/24
--- OUTSIDE RECORDS SUMMARY | 2024-09-18 20:01 | XMS_ITS | Clinical Summary ---
Author Organization [facility] Address [address] [place] [address] Phone Care Team Providers Care Process Laboratory Specialist Name Role Phone Nino Carrillo MD Primary Care Provider [phone] Allergies Active Allergy Reactions Criticality Noted Date Comments Sulfamethoxazole-Trimetho prim Other (see Comments) 01/07/2017 Cant remember Hydromorphone Hcl Nausea 01/07/2017 [place]x Hives 01/30/2017 [place] Vomiting 01/07/2017 Medications gabapentin (NEURONTIN) 600 MG Tablet Take 600 mg by mouth 3 times daily. Active DULoxetine (CYMBALTA) [address] Particles Take 60 mg by mouth daily. Active amitriptyline (ELAVIL) 50 MG Tablet Take 50 mg by mouth nightly. Active atorvastatin (LIPITOR) 40 MG TabletIndicatio ns:Hyperlipidem ia Take 40 mg by mouth daily. Indications: High Amount of Fats in the Blood Active divalproex (DEPAKOTE ER) 500 MG TABLET SR 24 HRIndications:f or sleep Take 500 mg by mouth nightly. Indications: for sleep Active albuterol (PROVENTIL, VENTOLIN) (2.5 MG/3ML) 0.083% Nebulizer SolnIndications :Macrocytic anemia 3 mL by Nebulization route every 6 hours as needed for Wheezing or Shortness of Breath. 360 mL 9 Active furosemide (LASIX) 40 MG Tablet Take 1 Tab by mouth daily. 90 Tab 9 Active apixaban (ELIQUIS) 5 MG Tablet Take 5 mg by mouth 2 times daily. Active budesonide-form oterol fumarate (SYMBICORT) 160-4.5 MCG/ACT Aerosol take 2 Puffs by inhalation 2 times daily. 1 Inhaler 0 Active levothyroxine (SYNTHROID) 88 MCG Tablet Take 1 Tab by mouth daily. 90 Tab 0 Active metoprolol Succinate (TOPROL-XL) 50 MG TABLET SR 24 HR Take 1 Tab by mouth daily. 90 Tab 0 Active Additional Information Patient taking differently: 25 mgOral2 TIMES DAILY, Reported on 10/08/2019 QUEtiapine (SEROQUEL) 100 MG Tablet Take 200 mg by mouth nightly. Active HYDROcodone-amanda taminophen (NORCO) 5-325 MG Tablet Take 1-2 Tabs by mouth every 6 hours as needed for Moderate or more severe pain. 10 Tab 0 Active clopidogrel (PLAVIX) 75 MG Tablet Take 75 mg by mouth daily. Active cyclobenzaprine (FLEXERIL) 10 MG Tablet Take 10 mg by mouth 3 times daily as needed. Active Multiple Vitamin (MULTIVITAMIN PO) Take by mouth. Activ e SUMAtriptan (IMITREX) 100 MG Tablet Take 100 mg by mouth daily as needed. Use as directed. May repeat dose in 2 hours if headache recurs. Active Topiramate 50 MG Tablet Take 50 mg by mouth 2 times daily. Active Cyanocobalamin (B-12 PO) Take by mouth. Activ e Cholecalciferol (VITAMIN D-3 PO) Take by mouth. Activ e VITAMIN E PO Take by mouth. Ac tive methylPREDNISol one (MEDROL DOSPACK) 4 MG Tablet Therapy Pack See product package insert for dosing schedule 21 Tablet 4 Active Active Problems Problem Noted Date Diagnosed Date UTI (urinary tract infection) 10/08/2019 Severe sepsis with acute organ dysfunction 10/07 Encephalopathy 10/08/2019 Acute pain of left knee 10/08/2019 Fall from ground level 10/08/2019 Generalized weakness 10/08/2019 Hypokalemia 10/08/2019 Metabolic alkalosis 10/08/2019 History of atrial fibrillation 10/08/2019 C. difficile colitis 08/05/2019 Tobacco dependency 08/05/2019 COPD exacerbation 08/05/2019 Chronic atrial fibrillation 08/05/2019 Hyponatremia 07/28/2019 Normocytic anemia 07/28/2019 (HFpEF) heart failure with preserved ejection fr action 07/28/2019 Acute on chronic respiratory failure with hypoxe christiane 02/04/2019 Acute renal failure (ARF) 02/04/2019 Hypothyroidism 02/04/2019 Thrombocytosis 01/30/2017 Panlobular emphysema 01/11/2017 Pure hypercholesterolemia 01/11/2017 Bipolar 1 disorder 01/11/2017 Infarction of spleen 01/11/2017 Hypertension GERD (gastroesophageal reflux disease) HLD (hyperlipidemia) Depression Anxiety COPD (chronic obstructive pulmonary disease) Tobacco dependence syndrome Resolved Problems Problem Noted Date Diagnosed Date Resolved Date Spleen laceration 01/11/2017 01/11/2017 Mitral prolapse 01/11/2017 01/11/2017 Immunizations Immunization Administration Dates Next Due Influenza Vaccine, Quadrivalent, PF 08/05/2019() ,08/02/2019() Family History Medical History Relation Name Comments Heart Attack Brother Diabetes Maternal Aunt Diabetes Maternal Uncle Heart Disease Maternal Uncle Hypertension Maternal Uncle Cancer Mother Heart Attack Mother Hypertension Mother Diabetes Paternal Aunt Diabetes Paternal Uncle Relation Name Status Comments Brother Alive Maternal Aunt Maternal Uncle Mother Paternal Aunt Paternal Uncle Social History Tobacco Use Types Packs/Day Years Used Date Smoking Tobacco: Every Day Cigarettes 1 44.7 Started: 01/12/1980 Smokeless Tobacco: Never Tobacco Cessation:Ready to Q uit: No; Counseling Given: Yes Alcohol Use Standard Drinks/Week Comments Not Currently 0 (1 standard drink = 0.6 oz pur e alcohol) AUDIT-C Answer Date Recorded Frequency of Alcohol Consumption Never 02/03/2019 Average Number of Drinks Not on file 019 Frequency of Binge Drinking Not on file 01/11 Comments No Sex and Gender Information Value Date Recorded Sex Assigned at Not on file Legal Sex Female 10:47 PM CDT Gender Identity Not on file Sexual Orientation Not on file Last Filed Vital Signs Vital Sign Reading Time Taken Comments Blood Pressure 152/88 08/11/2023 9:00 PM [facility] Pulse 74 08/11/2023 9:00 PM [facility] Temperature 37.1 C (98.7 F) 08/11/2023 7:13 PM [facility] Respiratory Rate 20 08/11/2023 9:00 PM [facility] Oxygen Saturation 98% 08/11/2023 9:00 PM [facility] Inhaled Oxygen Concentration - - Weight 73.5 kg (162 lb) 08/11/2023 7:13 PM [facility] Height 157.5 cm (5' 2 ) 08/11/2023 7:13 PM [facility] Body Mass Index 29.63 08/11/2023 7:13 PM [facility] Plan of Treatment Health Maintenance Due Date Last Done Comments Hepatitis C Virus (HCV) Screening 1966 Mammogram 1966 Hepatitis B Immunization (1 of 3 - 19+ 3-dose series) 1985 Pap Smear 1987 Cervical Cancer Screening (CCS) 02/15/1996 HPV/Cotest 02/15/1996 Colonoscopy 2011 Pneumococcal Immunization (5 0+ years) (2 of 2 - PCV) 06/02/2015 06/02/2014 Cologuard 02/15/2016 Zoster Immunization (1 of 2) 02/15/2016 Colorectal Cancer Screening 07/29/2019 Immunochemical Fecal Occult Blood 07/28/2020 07/28/2019 Influenza Immunization (#1) 02/11/202403/12, 03/29/2016, 06/02/2014 SARS-COV-2 Immunization ( - season) 2024 Respiratory Syncytial Virus (RSV) Immunization (Adult) (1 - 1-dose 75+ series) 2041 Pneumococcal Immunization Combined Discontinued 06/02/2014 Lung Cancer Screening Discontinued 07/28/2019 , 02/04/2019 DTaP/Tdap/Td Immunization Discontinued 2021, 02/05/2012 TdaP Immunization Completed 09/23/2021 Meningococcal Immunization (ACWY) Aged Out No longer eligible based on patient's age to complete this topic Rotavirus Immunization Aged Out No lo nger eligible based on patient's age to complete this topic Procedures Procedure Name Priority Date/Time Associated Diagnosis Comments STOOL, OCCULT BLOOD, DIAGNOSTIC, VIA GUAIAC Routine 07/28/2019 3:[address] [facility] [address] CHEST W/O CONTRAST Routine 07/28/2019 12:38 PM [facility] [employer] from Last 3 Months or Most Recently Relevant to Health Maintenance Results * (ABNORMAL) Stool, Occult Blood, Diagnostic (07/28/2019 3:37 PM [facility] [employer]) OCCULT BLOOD DIAG, GI BLEED Positive(A ) Negative 07/28/2019 3:58 PM [facility] Stool specimen (specimen) STOOL SPECIMEN / Unknown Non-Phlebotomy Collection / Unknown 07/28/2019 3:37 PM [facility] [employer] [facility] 07/28/2019 3:52 PM [facility] [employer] Hudson Thomason APRN, CNP BODY FLUIDS & STOO LS ORDERABLES Final Result [facility] [address] [place] [address] * CT CHEST W/O CONTRAST (07/28/2019 12:38 PM [facility] [employer]) Anatomical Region Laterality Modality Chest N/A Computed Tomogra phy 07/28/2019 2:37 PM [facility] Impressions 07/28/2019 2:40 PM [facility] IMPRESSION: 1. Evaluation of the lung parenchyma is limited due to motion artifact secondary to poor patient breath hold. There are mild areas of subsegmental atelectasis and scarring in the periphery of both lungs with bibasilar predominance, but there is no focal consolidation to suggest pneumonia or other acute findings. 2. No suspicious lung nodules are seen. Of note, small nodules could be obscured by motion. 3. Mild cardiomegaly, and findings of coronary artery disease. 4. Other incidental findings as described above. Narrative 07/28/2019 2:40 PM [facility] EXAM DESCRIPTION: CT CHEST W/O CONTRAST REASON FOR STUDY: Shortness of breath for 1-2 days. Chronic obstructive pulmonary disease for 5 years. Rule out lung cancer. TECHNIQUE: CT scan of the chest performed without intravenous contrast using helical scanning technique. Reconstructed coronal and sagittal MPR images reviewed. All images stored on PACS. Automated exposure control was used as a dose optimization technique for this examination. COMPARISON: CT of the chest dated 02/04/2019 FINDINGS: The sensitivity for detection of solid visceral lesions is diminished without the use of intravenous contrast. LUNGS: Evaluation of the lung parenchyma is somewhat limited due to motion artifact secondary to poor breath hold. Mild areas of subsegmental atelectasis and scarring are noted in the periphery of both lungs with bibasilar predominance. There is no focal consolidation to suggest pneumonia. There is at least mild centrilobular emphysema, but characterization is limited by motion. No suspicious lung nodules are identified, but small nodules could be obscured by motion. The airways are widely patent. Bronchial caliber appears normal, accounting for motion. No bronchial wall thickening is seen. PLEURA: The there is no pleural effusion or pneumothorax. MEDIASTINUM/ELENA: No lymphadenopathy or masses. HEART: Mild cardiomegaly. There are extensive atherosclerotic calcifications in the coronary arteries. No pericardial thickening or effusion. VASCULATURE: The thoracic aorta is mildly atherosclerotic, but normal in caliber. Central pulmonary arteries have normal caliber. AXILLA: No adenopathy. CHEST WALL: No masses. No subcutaneous air. HARDWARE/LINES/TUBES: None. UPPER ABDOMEN: Imaged portions of the liver, gallbladder, spleen, pancreas, and right adrenal gland are normal. There is a low-attenuation nodule in the left adrenal gland, image 118, measuring 19 mm in greatest diameter. Attenuation demonstrates macroscopic fat, and this could represent a benign myelolipoma. A benign adenoma is also a consideration, but felt to be less likely. Upper poles of the kidneys are unremarkable. MUSCULOSKELETAL: Examination of bone windows demonstrates no suspicious lytic or blastic lesions. Mild degenerative changes in the thoracic spine. OTHER: No other significant abnormality. THIS IS AN ELECTRONICALLY VERIFIED FINAL REPORT 07/28/2019 2:37 PM - Electronically signed by Quintin Ayoub M.D. RL: SAMANTHA Report ID: [id number] Reading Location: [id number] Procedure Note Quintin Ayoub MD - 07/28/2019 EXAM DESCRIPTION: CT CHEST W/O CONTRAST REASON FOR STUDY: Shortness of breath for 1-2 days. Chronic obstructive pulmonary disease for 5 years. Rule out lung cancer. TECHNIQUE: CT scan of the chest performed without intravenous contrast using helical scanning technique. Reconstructed coronal and sagittal MPR images reviewed. All images stored on PACS. Automated exposure control was used as a dose optimization technique for this examination. COMPARISON: CT of the chest dated 02/04/2019 FINDINGS: The sensitivity for detection of solid visceral lesions is diminished without the use of intravenous contrast. LUNGS: Evaluation of the lung parenchyma is somewhat limited due to motion artifact secondary to poor breath hold. Mild areas of subsegmental atelectasis and scarring are noted in the periphery of both lungs with bibasilar predominance. There is no focal consolidation to suggest pneumonia. There is at least mild centrilobular emphysema, but characterization is limited by motion. No suspicious lung nodules are identified, but small nodules could be obscured by motion. The airways are widely patent. Bronchial caliber appears normal, accounting for motion. No bronchial wall thickening is seen. PLEURA: The there is no pleural effusion or pneumothorax. MEDIASTINUM/ELENA: No lymphadenopathy or masses. HEART: Mild cardiomegaly. There are extensive atherosclerotic calcifications in the coronary arteries. No pericardial thickening or effusion. VASCULATURE: The thoracic aorta is mildly atherosclerotic, but normal in caliber. Central pulmonary arteries have normal caliber. AXILLA: No adenopathy. CHEST WALL: No masses. No subcutaneous air. HARDWARE/LINES/TUBES: None. UPPER ABDOMEN: Imaged portions of the liver, gallbladder, spleen, pancreas, and right adrenal gland are normal. There is a low-attenuation nodule in the left adrenal gland, image 118, measuring 19 mm in greatest diameter. Attenuation demonstrates macroscopic fat, and this could represent a benign myelolipoma. A benign adenoma is also a consideration, but felt to be less likely. Upper poles of the kidneys are unremarkable. MUSCULOSKELETAL: Examination of bone windows demonstrates no suspicious lytic or blastic lesions. Mild degenerative changes in the thoracic spine. OTHER: No other significant abnormality. THIS IS AN ELECTRONICALLY VERIFIED FINAL REPORT 07/28/2019 2:37 PM - Electronically signed by Quintin Ayoub M.D. RL: SAMANTHA Report ID: [id number] Reading Location: [id number] IMPRESSION: 1. Evaluation of the lung parenchyma is limited due to motion artifact secondary to poor patient breath hold. There are mild areas of subsegmental atelectasis and scarring in the periphery of both lungs with bibasilar predominance, but there is no focal consolidation to suggest pneumonia or other acute findings. 2. No suspicious lung nodules are seen. Of note, small nodules could be obscured by motion. 3. Mild cardiomegaly, and findings of coronary artery disease. 4. Other incidental findings as described above. Kirill Whatley MD [facility] [place] CT ORDERABLES Final Result from Last 3 Months or Most Recently Relevant to Health Maintenance Insurance MEDICAID [place] MEDICARE C [employer] Advance Directives * Full Code (Latest Code Status on File) Date Activated Date Inactivated Comments 10/09/2019 1:40 AM 10/11/2019 8:03 PM CPR-Full Deyanira tment: FULL ARREST: Attempt Resuscitation/CPR wit intubation and mechanical ventilation. PRE-ARREST: Use entire range of life support measures to stabilize the patient. * Full Code Date Activated Date Inactivated Comments 07/28/2019 6:53 AM 08/05/2019 8:03 PM CPR-Full Jaime atment: FULL ARREST: Attempt Resuscitation/CPR wit intubation and mechanical ventilation. PRE-ARREST: Use entire range of life support measures to stabilize the patient. * Full Code Date Activated Date Inactivated Comments 02/03/2019 9:00 PM 02/08/2019 8:01 PM CPR-Full Jaime atment: FULL ARREST: Attempt Resuscitation/CPR wit intubation and mechanical ventilation. PRE-ARREST: Use entire range of life support measures to stabilize the patient. * Full Code Date Activated Date Inactivated Comments 01/11/2017 8:25 AM 01/12/2017 3:36 PM CPR-Full Treat ment: FULL ARREST: Attempt Resuscitation/CPR wit intubation and mechanical ventilation. PRE-ARREST: Use entire range of life support measures to stabilize the patient. Care Teams Process Laboratory Specialist Relationship Specialty Start Date End Date Nino Carrillo MD PCP - General Internal Medicine 01/07/17
--- NOTE | 2024-09-18 20:03 | ED_ITS ---
HPI - General Adult General Chief complaint: Extremity Injury, Lower Stated complaint: RIGHT KNEE INFECTION Time Seen by Provider: 09/18/24 19:33 History of Present Illness HPI narrative: Patient is a 59-year-old female who presents emergency department with chief complaint of right knee red and swollen. Patient had a ground level fall several weeks ago and was admitted at [facility] and ultimately was [facility] the patient at that time had been told that she had a traumatic hemarthrosis and reports that there were blisters on the right knee the patient reports that the area has become more bruised and more reddened patient denies fever Review of Systems 2 Review of Systems: A 10 system review of systems was completed on the patient and is negative except for what is stated in the HPI. Nursing and ancillary documentation was reviewed. Exam 2 Narrative: GENERAL: Well-appearing, well-nourished, and in no acute distress. HEAD: Normocephalic, atraumatic. EYES: PERRLA and EOMI. ENT: Nares clear, no rhinorrhea or epistaxis. Mucous membranes moist. NECK: Supple. CHEST: Clear to auscultation. No respiratory distress. HEART: Regular rate and rhythm. No murmur heard. Normal peripheral pulses. ABDOMEN: Soft, nontender, nondistended, normal active bowel sounds. EXTREMITIES: Normal range of motion. No edema. In all extremities except for right lower extremity. There is bruising and redness present in the right knee there are several superficial ulcerations of the knee there is bruising present to the right calf SKIN: Warm, dry, no rash. NEURO: No focal deficits. Alert and oriented x3. PSYCH: Normal mood and affect. Course Vital Signs Vital signs: Vital Signs Temperature 36.8 C 09/18/24 19:19 Pulse Rate 85 09/18/24 19:19 Respiratory Rate 11 L 09/18/24 19:19 Pulse Oximetry 93 09/18/24 19:19 Oxygen Delivery Nasal Cannula 09/18/24 19:19 Oxygen Flow Rate 4 09/18/24 19:19 Temperature 36.8 C 09/18/24 19:19 Pulse Rate 93 09/18/24 23:48 Respiratory Rate 15 09/18/24 23:48 Blood Pressure 188/95 H 09/18/24 23:48 Pulse Oximetry 94 09/18/24 23:48 Oxygen Delivery Nasal Cannula 09/18/24 23:47 Oxygen Flow Rate 6 09/18/24 23:47 Medical Decision Making MDM Narrative Medical decision making narrative: Differential diagnosis includes hematoma, abscess, Patient is currently afebrile the area is bruised and shows signs of a hematoma Hemoglobin was 8.5 white blood cell count was 8.9 procalcitonin 0.1 venous duplex showed no evidence of DVT CT scan of the knee showed evidence of a prepatellar bursal fluid collection that the radiologist stated case to be abscess or hematoma given the patient's trauma history this is most likely hematoma. The case was discussed with Orthopedic surgery Dr. Pretty who felt the patient could be managed as an outpatient and states that he can see the patient on Monday in the office. Vital Signs Vital Signs: Vital Signs Temperature 36.8 C 09/18/24 19:19 Pulse Rate 85 09/18/24 19:19 Respiratory Rate 11 L 09/18/24 19:19 Pulse Oximetry 93 09/18/24 19:19 Oxygen Delivery Nasal Cannula 09/18/24 19:19 Oxygen Flow Rate 4 09/18/24 19:19 Temperature 36.8 C 09/18/24 19:19 Pulse Rate 93 09/18/24 23:48 Respiratory Rate 15 09/18/24 23:48 Blood Pressure 188/95 H 09/18/24 23:48 Pulse Oximetry 94 09/18/24 23:48 Oxygen Delivery Nasal Cannula 09/18/24 23:47 Oxygen Flow Rate 6 09/18/24 23:47 Lab Data 09/18/24 21:34 09/18/24 21:34 Labs: Lab Results 09/18/24 09/18/24 Range/Units 21:34 21:35 WBC 8.9 (4.5-10.0) K/mm3 RBC 3.20 L (4.2-5.4) M/mm3 Hgb 8.5 L (12.0-15.0) g/dL Hct 30.6 L (37.0-47.0) % MCV 95.6 (80-100) fl MCH 26.6 (26-34) pg MCHC 27.8 L (32-36) g/dl RDW 20.8 H (11.5-14.5) % Plt Count 563 H (150-375) k/mm3 MPV 10.3 (7.4-10.4) fl Immature Gran % (Auto) 0.7 H (0-0.5) % Neut % (Auto) 76.2 H (45.5-73.1) % Lymph % (Auto) 7.8 L (18.3-44.2) % [place] % (Auto) 12.8 H (2.6-8.5) % Eos % (Auto) 1.7 (0-4.4) % Baso % (Auto) 0.8 (0.2-1.2) % Lymph # (Auto) 0.69 L (0.9-3.2) K/mm3 [place] # (Auto) 1.1 H (0.1-0.6) K/mm3 Eos # (Auto) 0.2 (0-0.3) K/mm3 Baso # (Auto) 0.1 (0.0-0.1) K/mm3 Abs Immat Gran (auto) 0.06 H (0.00-0.031) K/mm3 Absolute Neuts (auto) 6.8 H (1.3-6.7) K/mm3 Absolute Nucleated RBC 0.000 (0.0-0.012) K/mm3 Band Neutrophils % 0 (0-6) % Nucleated RBC % 0.0 (0.0-0.2) % Platelet Estimate Increased (Adequate) Clumped Platelets Present Hypochromasia 1+ Anisocytosis 3+ Schistocytes None seen PT 14.3 (11.1-14.7) Seconds INR 1.1 APTT 32.4 (22.3-36.8) Seconds Sodium 138 (137-145) mmol/L Potassium 3.4 (3.4-5.0) mmol/L Chloride 104 (98-107) mmol/L Carbon Dioxide 28 (22-30) mmol/L Anion Gap 6 (4-12) mmol/L BUN 6 L (7-17) mg/dL Creatinine 0.97 (0.7-1.0) mg/dL Estim Creat Clear Calc 54 ml/min Estimated GFR 59 (59 - ) Glucose 92 (65-110) mg/dL Lactic Acid 0.9 (0.7-2.0) mmol/L Calcium 7.9 L (8.4-10.2) mg/dL Magnesium 2.0 (1.6-2.3) mg/dL Total Bilirubin 0.5 (0.2-1.3) mg/dL AST 21 (14-36) U/L ALT 12 (6-35) U/L Alkaline Phosphatase 107 (38-126) U/L Total Protein 6.0 L (6.3-8.2) g/dL Albumin 2.9 L (3.5-5.1) g/dL Procalcitonin 0.1 ng/mL Discharge Plan Discharge Clinical Impression: Traumatic hematoma of knee Patient Disposition: NH Senior Living/Asst Living Condition: Stable Instructions: Antibiotic Form, Hematoma (ED) Additional Instructions: Please call Dr. Pretty's office in the morning to schedule an appointment for Monday Patient Language: Thai Follow-up/Referrals: Breezy Pretty MD [Physician] - UNKNOWN,DOCTOR [Primary Care Provider] - Time of Disposition: 23:57
[2024-09-18 20:07] VITALS: BP 153/79
[2024-09-18 21:45] LABS: Basophils Absolute Auto 0.1 K/mm3 (0.0-0.1); Basophils Percent Auto 0.8 % (0.2-1.2); Eosinophils Absolute Auto 0.2 K/mm3 (0-0.3); Eosinophils Percent Auto 1.7 % (0-4.4); Hematocrit 30.6 % (37.0-47.0); Hemoglobin 8.5 g/dL (12.0-15.0); Immature Granulocyte Absolute 0.06 K/mm3 (0.00-0.031); Immature Granulocyte Percent A 0.7 % (0-0.5); Lymphocytes Absolute Auto 0.69 K/mm3 (0.9-3.2); Lymphocytes Percent Auto 7.8 % (18.3-44.2); Mean Corpuscular HGB Conc 27.8 g/dl (32-36); Mean Corpuscular Hemoglobin 26.6 pg (26-34); Mean Corpuscular Volume 95.6 fl (80-100); Mean Platelet Volume 10.3 fl (7.4-10.4); Monocytes Absolute Auto 1.1 K/mm3 (0.1-0.6); Monocytes Percent Auto 12.8 % (2.6-8.5); Neutrophils Absolute Auto 6.8 K/mm3 (1.3-6.7); Neutrophils Percent Auto 76.2 % (45.5-73.1); Platelet Count Result 563 k/mm3 (150-375); Red Cell Distribution Width 20.8 % (11.5-14.5); White Blood Count 8.9 K/mm3 (4.5-10.0)
[2024-09-18 21:54] LABS: Alanine Aminotransferase 12 U/L (6-35); Albumin Level 2.9 g/dL (3.5-5.1); Alkaline Phosphatase 107 U/L (38-126); Anion Gap 6 mmol/L (4-12); Aspartate Amino Transferase 21 U/L (14-36); Bilirubin,Total 0.5 mg/dL (0.2-1.3); Blood Urea Nitrogen 6 mg/dL (7-17); Calcium 7.9 mg/dL (8.4-10.2); Carbon Dioxide 28 mmol/L (22-30); Chloride 104 mmol/L (98-107); Estimated CRCL calculation 54 ml/min; Estimated Glomerular Filt Rate 59; Glucose 92 mg/dL (65-110); Potassium 3.4 mmol/L (3.4-5.0); Sodium 138 mmol/L (137-145)
[2024-09-18 21:55] LABS: Lactic Acid Reflex 0.9 mmol/L (0.7-2.0)
[2024-09-18 21:59] LABS: INR 1.1; Prothrombin Time 14.3 Seconds (11.1-14.7)
[2024-09-18 22:00] LABS: Partial Thromboplastin Time 32.4 Seconds (22.3-36.8)
[2024-09-18 22:13] LABS: Hypochromasia 1+; Platelet Estimate Increased (Adequate); Schistocytes None Seen
[2024-09-18 22:14] LABS: Anisocytosis 3+; Platelet Clumps Present
[2024-09-18 22:15] LABS: Band Neutrophils Percent 0 % (0-6)
[2024-09-18 22:26] LABS: Procalcitonin 0.1 ng/mL
[2024-09-18 23:47] VITALS: O2SAT 95
[2024-09-18 23:48] VITALS: BP 188/95; PULSE 93; RESP 15; O2SAT 94
--- NOTE | 2024-09-19 00:17 | PC.NURSE ---
This RN spoke with pt RN at facility and updated on pt POC and arrival
[2024-09-19 02:00] VITALS: PULSE 95; RESP 24; O2SAT 94
[2024-09-19 03:48] VITALS: BP 153/79; PULSE 95; RESP 24; O2SAT 94
== END 2024-09-19 03:51 ==
PROVIDERS: Emergency Provider Emergency Medicine
DX: S80.01XA Contusion of right knee, initial encounter (principal); M79.604 Pain in right leg; W18.30XA Fall on same level, unspecified, initial encounter
CPT/HCPCS: 36415; 73701; 80053; 83605; 83735; 84145; 85025; 85610; 85730; 87040; 93971; 99284; Q9967

== ENCOUNTER 2024-09-29 12:52 | Emergency (ER) | payer MEDICARE, SELFPAY ==
[2024-09-29] VITALS (12 sets, daily range): BP systolic 80–118; BP diastolic 34–66; PULSE 64–71; RESP 12–18; TEMP 36.6; O2SAT 93–99
--- NOTE | ~2024-09-29 | XR_ITS ---
EXAMINATION: XR chest 1V portable Exam Date/Time: 09/29/2024 15:40 CDT HISTORY: syncope; slightly low BP Comparison: 12/30/2016. RESULT: Lines, tubes, and devices: Loop recorder. Lungs and pleura: Subsegmental bibasilar opacities. 1.4 cm nodular opacity in the right lower lung. Cardiomediastinal silhouette: Stable. Other: No acute osseous or upper abdominal finding. IMPRESSION: 1.4 cm nodular opacity in the right lower lung, recommend nonemergent but timely low-dose noncontrast CT of the chest for further characterization. Subsegmental bibasilar atelectasis/consolidation. Reviewed, dictated and finalized at location K. IMPRESSION: 1.4 cm nodular opacity in the right lower lung, recommend nonemergent but timel y low-dose noncontrast CT of the chest for further characterization. Subsegmental bibasilar atelectasis/consolidation.
--- NOTE | ~2024-09-29 | CT_ITS ---
EXAMINATION: CT cervical spine wo con DATE: 09/29/2024 13:34 INDICATION: Status post fall. TECHNIQUE: Computed tomography (CT) of the cervical spine was performed without intravenous contrast. The dose-length product was 458 mGy-cm. COMPARISON: None FINDINGS: There are bilateral mastoid effusions. Vertebral body heights are maintained. Craniovertebr al junction is normal. Odontoid process is normal. There is emphysematous change of the lung apices. No paraspinal soft tissue abnormality. There is disc narrowing at C3-4 through C7-T1. No acute fractu re or traumatic malalignment. There is multilevel uncinate and facet hypertrophy. IMPRESSION: 1. No acute fracture. 2: Severe cervical spondylosis. 3: Bilateral mastoid effusions. Reviewed, dictated and finalized at location A.
--- NOTE | ~2024-09-29 | XR_ITS ---
XR ankle LT 2V 09/29/2024 13:18 Indication: Left ankle pain after injury Procedure: 4 views left ankle Comparison: No prior studies for comparison. Findings: There is a comminuted oblique distal fibular metadiaphyseal fracture with lateral displacem ent and approximately one third bone width. There is moderate lateral soft tissue swelling. There is a comminuted intra-articular displaced fracture of the medial malleolus. Talar dome is unremarkable. Impression: 1: Comminuted displaced bimalleolar fracture. Reviewed, dictated and finalized at location A. Impression: 1: Comminuted displaced bimalleolar fracture.
--- NOTE | ~2024-09-29 | CT_ITS ---
EXAMINATION: CTA chest PE protocol DATE: 09/29/2024 17:22 INDICATION: syncope; recent ortho injury, +ddimer TECHNIQUE: Computed tomography angiography (CTA) of the chest was performed with 100 mL Omnipaque-350 intravenous contrast timed to evaluate the pulmonary arteries. Coronal maximum intensity projection 3D-reconstructions were created by the technologist. The dose-length product (DLP) was 529.63 mGy-cm. Automated exposure control and iterative reconstruction technique were employed. COMPARISON: X-ray chest, same date and 12/30/2016; CT abdomen pelvis 12/30/2016. FINDINGS: Lung parenchyma and airways: Emphysematous change. Bibasilar scar and subsegmental consolidation. Min imal distal tracheal secretions. Airway debris in multiple bilateral lower lobe bronchi, with bronchi al wall thickening. Pleura: Unremarkable. Thoracic inlet, axillae and chest wall: Unremarkable. Thoracic aorta: No significant dilation. No dissection. Atherosclerotic calcification. Mediastinum: Normal. Heart and pericardium: Normal. Coronary artery calcifications: Mild. Upper abdomen: Cholelithiasis, without inflammatory change. Left adrenal adenoma. Lobular splenic con tour likely from prior infarct. Bones: No acute osseous finding. Pulmonary arteries: Study quality: Adequate. No pulmonary emboli detected. IMPRESSION: No CT evidence of acute pulmonary embolus. Airway debris and bilateral lower lobe bronchial wall thickening may reflect chronic bronchitis and/o r aspiration. Subsegmental bibasilar atelectasis/consolidation. Reviewed, dictated and finalized at location K. IMPRESSION: No CT evidence of acute pulmonary embolus. Airway debris and bilateral lower lobe bronchial wall thickening may reflect ch ronic bronchitis and/or aspiration. Subsegmental bibasilar atelectasis/consolidation.
--- NOTE | ~2024-09-29 | CT_ITS ---
EXAMINATION: CT brain wo con DATE: 09/29/2024 13:34 INDICATION: Status post fall. Patient on blood thinners. TECHNIQUE: Computed tomography (CT) of the head was performed without intravenous contrast. The dose- length product was 605.33 mGy-cm. Automated exposure control and iterative reconstruction technique w ere employed. 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 Generalized atrophy. Chronic right frontal l obe infarction. Chronic left frontal lobe infarction. There is intracranial atherosclerosis. There is a chronic left lacunar infarction of the caudate nucleus. No ventriculomegaly or midline shift. No a cute infarction, hemorrhage, mass or mass effect. There are scattered mild periventricular and subcortical white matter changes, most likely related to small vessel ischemic disease (microangiopathy). IMPRESSION: 1. No acute intracranial abnormality. 2: Chronic focal bilateral frontal lobe, left lacunar and left cerebellar infarctions. Reviewed, dictated and finalized at location A. IMPRESSION: 1. No acute intracranial abnormality. 2: Chronic focal bilateral frontal lobe, left lacunar and left cerebellar infa rctions.
--- NOTE | 2024-09-29 13:00 | ECG_ITS ---
Test Date: 2024-09-29 13:10:04 Measurements Intervals [place]upp Rate: 66 P: -22 IA: 113 QRS: -23 QRSD: 107 T: -11 QT: 433 QTc: 454 Interpretive Statements SINUS RHYTHM WITH SHORT IA INTERVAL POSSIBLE LEFT ATRIAL ENLARGEMENT INCOMPLETE LEFT BUNDLE BRANCH BLOCK DELAYED PRECORDIAL R/S TRANSITION NONSPECIFIC ST & T-WAVE ABNORMALITY- ANTEROLAT/INF LEADS BASELINE ARTIFACT- I, II, III, AVR, AVL,A VF, V1-V6 ABNORMAL ECG No previous ECG available for comparison Electronically Signed On 09-29-2024 15:53:39 CDT by Hugo Massey D.O.
--- OUTSIDE RECORDS SUMMARY | 2024-09-29 13:20 | XMS_ITS | CONTINUITY OF CARE DOCUMENT ---
Author Name mary janemorenadave Address Unknown Organization [facility] Address [address] [place] [address] Phone [phone] Care Team Providers Care Jewel Bearing Driller Name Role Phone Micky Guerra MD Unavailable Nino Carrillo MD Unavailable Nino Carrillo MD [...] In-person encounter Office Visit Micky Guerra MD [facility] AFIB 1 - 1 In-person encounter Office Visit Micky Geurra MD [facility] Hypoxemia 0 - 0 In-person encounter Office Visit Micky Guerra MD [facility] 8 - 8 In-person encounter Office Visit Micky Guerra MD [facility] CHF, systolic dysfunction 5 - 5 In-person encounter Office Visit Micky Guerra MD [facility] 5 - 5 In-person encounter Office Visit Micky Guerra MD [facility] 0 - 0 In-person encounter Office Visit Micky Guerra MD [facility] 6 - 6 In-person encounter Office Visit Micky Guerra MD [facility] Leg pain - left 9 - 9 In-person encounter Office Visit Micky Guerra MD [facility] 8 - 9 In-person encounter Office Visit Micky Guerra MD [facility] Atherosclerotic PVD with gangrene, 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 blood pressure, systolic 147 mm[Hg] Imani wills [facility] oxygen saturation, oximetry 98 % Brenda [facility] pulse rate 65 /min Brenda [facility] blood pressure, cuff size regular Therese stanton [facility] weight E&M 164 [lb_av] Brenda [facility] height E&M 62 [in_i] [facility] Body Mass Index (Ratio) 28.49 kg/m2 Joyce Guerra MD blood pressure, diastolic 87 mm[Hg] [facility] blood pressure, systolic 128 mm[Hg] [facility] blood pressure, cuff size regular [facility] oxygen saturation, oximetry 89 % [facility] pulse rate 97 /min [facility] respiratory rate E&M 18 /min [facility] weight E&M 155.8 [lb_av] [facility] height E&M 62 [in_i] [facility] Body Mass Index (Ratio) 27.25 kg/m2 Joyce Guerra MD blood pressure, cuff size regular Ke rri Gruenenfeld blood pressure, diastolic 70 mm[Hg] Ke rri Gruenenfelder blood pressure, systolic 142 mm[Hg] Herminio ri Leonoranenfsterling oxygen saturation, oximetry 86 % Valerie Johanuenenfelder respiratory rate E&M 12 /min Valerie G yuliaenenfelder pulse rate 93 /min Valerie Bob warder weight E&M 149 [lb_av] Valerie Gruenenfe lder height E&M 62 [in_i] Valerie Bob ward blood pressure, diastolic 87 mm[Hg] An regina Bryant blood pressure, systolic 142 mm[Hg] Any camille Bryant pulse rate 74 /min Giovana Bryant oxygen saturation, oximetry 89 % Giovana Bryant blood pressure, cuff size large An regina Bryant height E&M 62 [in_i] Giovana Bryant Body Mass Index (Ratio) 28.90 kg/m2 Joyce Guerra MD Inhaled O2 4 L/min [facility] pulse rate 86 /min [facility] blood pressure, cuff size regular [facility] blood pressure, diastolic 52 mm[Hg] [facility] blood pressure, systolic 144 mm[Hg] [facility], oximetry 93 % [facility] respiratory rate E&M 16 /min [facility] E&M 158 [lb_av] [facility] height E&M 62 [in_i] [facility] Body Mass Index (Ratio) 30.18 kg/m2 Joyce Guerra MD blood pressure, cuff size regular Ke rri Win blood pressure, diastolic 100 mm[Hg] Ke rri Johanueneavtar blood pressure, systolic 160 mm[Hg] Herminio Loaiza oxygen saturation, oximetry 83 % Valerie Loaiza respiratory rate E&M 12 /min Valerie rodgers pulse rate 96 /min Valerie Rojas [facility] weight E&M 165 [lb_av] Valerie Rojas [facility] height E&M 62 [in_i] Valerie Rojas nabil Body Mass Index (Ratio) 30.76 kg/m2 Joyce Guerra MD blood pressure, diastolic 73 mm[Hg] St acmoe Goldstein blood pressure, systolic 109 mm[Hg] Sta [facility] [place] oxygen saturation, oximetry 86 % Luluhamlet Goldstein pulse rate 90 /min Luluhamlet Goldstein respiratory rate E&M 16 /min Lulu D [...] /min Jodie O'Williams blood pressure, resting Yes Tracy cardoso O'Williams weight E&M 149 [lb_av] Jodie KlarissaJosueWilliams height E&M 62 [in_i] Jodie John Body Mass Index (Ratio) 29.44 kg/m2 Joyce Guerra MD blood pressure, cuff size regular Ke rri Joses blood pressure, diastolic 70 mm[Hg] Ke rri Johanuenedaryl blood pressure, systolic 120 mm[Hg] Herminio star Loaiza oxygen saturation, oximetry 93 % Valerie Loaiza respiratory rate E&M 16 /min Valerie rodgers pulse rate 105 /min Valerie ward weight E&M 161 [lb_av] Valerie Rojas [facility] height E&M 62 [in_i] Valerie Rojas [facility] Body Mass Index (Ratio) 32.92 kg/m2 Joyce Guerra MD blood pressure, diastolic 60 mm[Hg] Ajay radhaRosario Whitley blood pressure, systolic 102 mm[Hg] Tiarra Whitley oxygen saturation, oximetry 95 % Marisabel Whitley respiratory rate E&M 20 /min Andree Whitley pulse rate 100 /min Marisabel belle weight E&M 180 [lb_av] Marisabel Steve [facility] height E&M 62 [in_i] Marisabel Deleon [facility] Body Mass Index (Ratio) 33.83 kg/m2 Joyce [...] 0-149 High cholesterol, serum 176 mg/dL [facility] 163-007 9246/10/0 9 calcium, serum 9.1 mg/dL [facility] 8.7-10.2 9 carbon dioxide, venous blood 30 mmol/L [facility] 20-29 High chloride, serum 90 mmol/L [facility] 96-106 Low 9 potassium, serum 3.7 mmol/L [facility] 3.5-5.2 9 sodium, serum 139 mmol/L [facility] 155-458 5803/10/0 9 urea nitrogen/creatinin e ratio, serum 7 [employer] 9-23 Low 9 eGFR if 60 mL/min/{1. 73_m2} [facility] >59 9 eGFR if not 52 mL/min/{1. 73_m2} [facility] >59 Low 9 creatinine, serum 1.18 mg/dL [facility] 0.57-1.00 High 9 urea nitrogen, blood 8 mg/dL [facility] 6-24 9 blood glucose, random 97 mg/dL [facility] 65-99 basophil count, absolute 0.1 x10E3/uL [facility] 0.0-0.2 Eosinophil Absolute Count 0.0 X10E3/UL [facility] 0.0-0.4 monocyte count, blood, automated 2.4 X10E3/UL [employer] [...] hemoglobin concentration, RBC 33.9 G/DL [facility] 31.5-35.7 mean corpuscular hemoglobin, RBC 31.8 pg [facility] 26.6-33.0 mean corpuscular volume, RBC 94 fL [facility] 79-97 hematocrit, blood 39.5 % [facility] 34.0-46.6 hemoglobin, blood 13.4 g/dL [facility] 11.1-15.9 erythrocyte (RBC) count 4.21 X10E6/UL [facility] 3.77-5.28 [...] history, tot al pack/day 1/3 PPD Micky Gurera MD cigarette use yes Micky Diallo smoking [...] social history E&M S moking History: P heriberto currently smokes every day. P atient has been counseled to quit. Micky Guerra MD smoking/tobacco cess ation, patient education and counseling yes Micky Guerra MD smoking status Current every day smoker Violet Guerra MD social history reviewed E&M revi [...] Goldstein smoking status Current every day smoker Maria Dolores pembertonmoe Goldstein smoking status Current every day smoker Violet Guerra MD social history E&M S moking [...] smoking status Current every day smoker Get WashburnWilliams social history E&M S moking History: P [...] Payer name Policy type / Coverage type Rochert red alliance party ID [facility] COMPLETE CARE [id number] (PPO C-SNP) SureDone insurance Tracsis [id number] [facility] Medicaid 1 [id number] ADVANCE DIRECTIVES Name Date DISCUSSED - NO DECISION MADE TREATMENT PLAN Date Name Performer [id number],C,T he patient is on a statin H er updated medication list for this problem includes: Atorvastatin 40 Mg Tablet (Atorvastatin) ..... Take 1 tablet by mouth once a day Micky Guerra MD [id number],C,P t has been instructed to start taking BP at home I f higher than 140/90 she will be started on medication BP today: 160/100 P rior BP: 109/73 (12/29/2022) Labs Reviewed: C reat: 1.18 (03/20/2020) C hol: 176 (03/20/2020) HDL: 22 (03/20/2020) Micky Guerra MD [id number],C,T he Patient was reencouraged to stop smoking. Micky Guerra MD [id number],C,U ses at home O2 O 2 Sat is 83% Micky Guerra MD [id number],C, B P today: 109/73 P rior BP: 140/90 (12/15/2022) Labs Reviewed: C reat: 1.18 (03/20/2020) C hol: 176 (03/20/2020) HDL: 22 (03/20/2020) Micky Guerra MD [id number],C,i t is more liekly to be arthritis and she has no signficant peripheral artery disease Micky Guerra MD [id number],C,S he has Hx of PAD, has stents in both illiacs and now has pain in left. We will do an ultrasound to check for any changes. Micky Guerra MD [id number],B,L 5th toe has healed since Rishabh A BI today showed that everything is patent. W ill check an ultrasound. Micky Guerra MD [id number],S, Micky Guerra MD [id number],S,o n statin p er PCP H er updated medication list for this problem includes: Atorvastatin 40 Mg Tablet (Atorvastatin) ..... Take 1 tablet by mouth once a day Micky Guerra MD [id number],S,w ell controlled B P today: 110/70 P rior BP: 120/70 (07/20/2020) Labs Reviewed: C reat: 1.18 (03/20/2020) C hol: 176 (03/20/2020) HDL: 22 (03/20/2020) Micky Guerra MD [id number],S, Micky Guerra MD [id number],S,T he Patient was reencouraged to stop smoking. [...] able to get full canisters from her [facility] S he is currently Sats in the [...] mouth daily Micky Guerra MD Cardiology Follow up :S/p amputation per Dr. Bakari Amanad dvised smoking cessation, DAPT, and continue current [...] with AIF intervention of L LE at [facility] and will obtain necessary labs. Patient has [...]
--- OUTSIDE RECORDS SUMMARY | 2024-09-29 13:20 | XMS_ITS | Data Portability ---
Author Organization [facility] [place] Address [address] [place] [address] Care Team Providers Care Online Merchant Name Role Phone EMILIE VERMA Primary Care [...] zane: Connor Disla Colle cted: 01/20 1312 PATROL MOTHER Order ing Locat ion: [place] [facility] log[facility] [...] Federica Pruitt Not Available [facility] [address] [place], [address], 01/21/2022 14:29:19 Result Notes None recorded. Procedures Surgical History Date Name Laterality Status Provider Name and Address Organization Details Recorded Time 01/21/20 22 Colposcopy completed Abbie Barajas, [facility]- [address], [place], [address], [facility] 01/20/2022 09:54:24 01/21/20 22 Colposcopy completed [facility] 01/20/2022 09:39:47 10/30/19 22 Date of Last Pap Smear completed Kiana Leena [facility] 03/28/2022 18:06:36 04/12/20 20 amputation of toe completed [facility] 01/18/2022 14:48:49 04/12/20 20 fluoroscopy guided angioplasty of bilateral iliac arteries and insertion of bilateral iliac artery stents with contrast completed [facility] 01/18/2022 14:49:05 Imaging Results None recorded. Procedure Notes None recorded. Medical Equipment None Reported. Allergies Allergen ID Allergen Name Allergen Category Reaction Reaction Severity Criticality Documentation Date Start Date Code Code System Note Provider Name and Address Organization Details Recorded Time 73672 lithium Not available Not available Not available Not available 01/18/[address] [facility] 2 14:41:39 11355 Dolobid medicatio n Not available Not available Not available 01/18/[address] [facility] 2 14:41:55 Medications Name Sig Start [...] Address Organization Details Last Updated DateTime 01/18/2022 33098.25 g Belia Layne [facility] 01/18/2022 14:40:25 Date Recorded Systolic blood pressure Diastolic blood pressure Provider Name and Address Organization Details Last Updated DateTime 01/18/2022 136 mm[Hg] 82 mm[Hg] Abbie Barajas, [facility]- [address], [place], [address], [facility] 01/18/2022 14:58:03 Date Recorded Body weight Systolic blood pressure Diastolic blood pressure Provider Name and Address Organization Details Last Updated DateTime 01/20/2022 32623.25 g 108 mm[Hg] 70 mm[Hg] Belia Layne [facility] 01/20/2022 09:39:18 Date Recorded Body weight Systolic blood pressure Diastolic blood pressure Provider Name and Address Organization Details Last Updated DateTime 03/28/2022 49028.52 g 137 mm[Hg] 69 mm[Hg] Kiana Stern [facility] 03/28/2022 17:33:41 Social History Question Answer Notes LastModified by Organizat ion Details LastModified Time Tobacco Smoking Status Current Every Day Smoker Belia Layne [facility] 01/18/2022 14:48:21 What Is Your [...] Anxious, Or Unable To Sleep At Night)? [id number] Information not available 01/18/2022 Do You Use [...] SNOMED-CT Code Diagnosis ICD10 Code Diagnosis Note [id number] Abbie Barajas [facility] [address] [address] 01/18/2022 14:10:17 01/18/2022 15:18:35 Low grade squamous intraepithelial lesion on cervical Papanicolaou smear 2760035961 9105 R87.612 Today we agreed on an [...] counseling and review of plan of care. [id number] Abbie Barajas [facility] [address],[facility] [address] 01/20/2022 09:04:35 01/20/2022 10:06:23 Low grade squamous intraepithelial lesion on cervical Papanicolaou smear 0905702823 9105 R87.612 See procedure notes.Post -procedure instructio [...] g-abnormal -hpv-and-p ap-test-re sults/unde rstanding- cervical-c hangkirill.pdf [id number] David Angel MD [place] [address] [address] 03/28/2022 16:27:49 03/29/2022 14:49:16 Dysplasia of cervix 91937199 N87.9 This patient is a 57-year-ol d [...] Perez Member ID Guarantor Name 01/18/2022 1 [facility] Yaneli Conroy [id number] Yaneli Conroy 01/20/2022 1 [facility] Yaneli Conroy [id number] Yaneli Conroy 03/28/2022 1 [facility] Yaneli Conroy [id number] Yaneli Conroy Notes Date Note Type Note [...] has been updated as documented. Abbie Barajas [facility] [address], [place], [address], [facility] 01/18/2022 15:06:38 01/20/2022 text/html Here today for colposcopy. Abbie Barajas [facility] [address], [place], [address], [facility] 01/20/2022 10:01:05 03/28/2022 text/html This patient [...] severe dysplasia. We spent over 40 minutes jrjn-nz-hicr. More than 50% was counseling. She will return in 1 year for colposcopic examination. David Angel MD [address], [place], [address], [facility] 03/28/2022 22:06:04 OBGyn Episode No OBEpisode recorded.
--- OUTSIDE RECORDS SUMMARY | 2024-09-29 13:20 | XMS_ITS | Clinical Summary ---
Author Organization [facility] Address [address] [place] [address] Phone Care Team Providers Care Monogram Operator Name Role Phone Nino Carrillo MD Primary Care Provider [phone] Allergies Active Allergy Reactions Criticality Noted Date Comments Sulfamethoxazole-Trimetho prim Other (see Comments) 01/07/2017 Cant remember Hydromorphone Hcl Nausea 01/07/2017 Latex Hives 01/30/2017 [place] Vomiting 01/07/2017 Medications gabapentin (NEURONTIN) 600 MG [...] Comments Blood Pressure 152/88 08/11/2023 9:00 PM COMPLETION MANAGER Pulse 74 08/11/2023 9:00 PM COMPLETION MANAGER Temperature 37.1 C (98.7 F) 08/11/2023 7:13 PM COMPLETION MANAGER Respiratory Rate 20 08/11/2023 9:00 PM COMPLETION MANAGER Oxygen Saturation 98% 08/11/2023 9:00 PM COMPLETION MANAGER Inhaled Oxygen Concentration - - Weight 73.5 kg (162 lb) 08/11/2023 7:13 PM COMPLETION MANAGER Height 157.5 cm (5' 2 ) 08/11/2023 7:13 PM COMPLETION MANAGER Body Mass Index 29.63 08/11/2023 7:13 PM COMPLETION MANAGER Plan of Treatment Health Maintenance Due Date [...] DIAGNOSTIC, VIA GUAIAC Routine 07/28/2019 3:[address] CHEST W/O CONTRAST Routine 07/28/2019 12:38 PM COMPLETION MANAGER from Last 3 Months or Most Recently Relevant to Health Maintenance Results * (ABNORMAL) Stool, Occult Blood, Diagnostic (07/28/2019 3:37 PM COMPLETION MANAGER) OCCULT BLOOD DIAG, GI BLEED Positive(A ) Negative 07/28/2019 3:58 PM COMPLETION MANAGER [facility] Stool specimen (specimen) STOOL SPECIMEN / Unknown Non-Phlebotomy Collection / Unknown 07/28/2019 3:37 PM COMPLETION MANAGER 07/28/2019 3:52 PM COMPLETION MANAGER Hudson Thomason APRN, CNP BODY FLUIDS & STOO LS ORDERABLES Final Result [facility] [address] [place] [address] * CT CHEST W/O CONTRAST (07/28/2019 12:38 PM COMPLETION MANAGER) Anatomical Region Laterality Modality Chest N/A Computed Tomogra phy 07/28/2019 2:37 PM COMPLETION MANAGER Impressions 07/28/2019 2:40 PM COMPLETION MANAGER IMPRESSION: 1. Evaluation of the lung parenchyma [...] as described above. Narrative 07/28/2019 2:40 PM COMPLETION MANAGER EXAM DESCRIPTION: CT CHEST W/O CONTRAST REASON [...] Quintin Ayoub M.D. RL: SAMANTHA Report ID: [id number] Reading Location: [id number] Procedure Note Quintin Ayoub MD - 07/28/2019 [...] Quintin Ayoub M.D. RL: SAMANTHA Report ID: [id number] Reading Location: [id number] IMPRESSION: 1. Evaluation of the lung parenchyma [...] findings as described above. Kirill Whatley MD [facility] CT ORDERABLES Final Result from Last 3 [...] measures to stabilize the patient. Care Teams Monogram Operator Relationship Specialty Start Date End Date Nino Carrillo MD PCP - General Internal Medicine 01/07/17
--- OUTSIDE RECORDS SUMMARY | 2024-09-29 13:20 | XMS_ITS | Data Portability ---
Author Organization [facility] [employer], Main Office Address [address] [place] [address] Assessment No assessment recorded. Plan of Treatment Reminders Order Date Submit Date Provider Last Modified By Organization Details Last Modified Time Details Appointments None recorded. Lab CBC w/ auto diff 2024 025 [place] [id number] [facility], [address], [address], [place], [address], 15:00:07 lipid panel, serum [address] (Lab), [address] [place], [address], 15:00:06 CMP, serum or plasma [address] (Lab), [address] [place], [address], 15:00:07 glycohemog lobin, total, blood [address] (Lab), [address] [place], [address], 15:00:06 vitamin D, 25-hydroxy , total, serum [address] (Lab), [address] [place], [address], 15:00:06 TSH, serum or plasma 2024 025 [email or web address] [facility] (Lab), [address] [place], [address], 5 15:00:07 glycohemog lobin, total, blood [address] (Lab), [address] [place], [address], 4 08:40:39 vitamin D, 25-hydroxy , total, serum [address] (Lab), [address] [place], [address], 4 08:40:38 lipid panel, serum [address] (Lab), [address] [place], [address], 4 08:40:38 CMP, serum or plasma [address] (Lab), [address] [place], [address], 4 08:40:39 TSH, serum or plasma [address] (Lab), [address] [place], [address], 4 08:40:39 glycohemog lobin, total, blood [address] (Lab), [address] [place], [address], 4 08:41:47 CMP, serum or plasma [address] (Lab), [address] [place], [address], 4 08:41:47 vitamin D, 25-hydroxy , total, serum [address] (Lab), [address] [place], [address], 4 08:41:47 lipid panel, serum [address] (Lab), [address] [place], [address], 4 08:41:47 lipid panel, serum [address] (Lab), [address] [place], [address], 4 08:12:18 glycohemog lobin, total, blood [address] (Lab), [address] [place], [address], 4 08:12:18 vitamin D, 25-hydroxy , total, serum [address] (Lab), [address] [place], [address], 4 08:12:18 TSH, serum or plasma [address] (Lab), [address] [place], [address], 4 08:12:19 Referral neurologis t referral 2023 [email or web address] [address] Ramesh Muse MD, [address], [address], 4 07:50:47 Procedures None recorded. Surgeries None recorded. Imaging MAMMO, screening, bilateral - Please call patient to schedule. 2024 025 [email or web address] [facility], [place], [address], 5 12:49:34 LDCT, chest, for lung cancer screening - Please call patient to schedule. 2024 025 ATHENAFAX [facility] [address], [place], [address], 5 12:50:41 DEXA 2024 025 [email or web address] [facility], [address] [place] [address], [place], [address], 5 09:25:02 MAMMO, screening, digital, bilateral [address] ([facility]), [address] [place], [address], 4 09:51:50 CT, chest, w/o contrast - Please call patient to schedule. [address] ([facility]), [address] [place], [address], 5 11:36:33 MAMMO, screening, digital, bilateral [email or web address] [place] [address] ([facility]), [address] [place], [address], 4 09:18:16 CT, chest, w/o contrast - No auth required per [facility] website for CPT code [address] [address] ([facility]), [address] [place], [address], 5 17:22:45 Medication Orders Advair Diskus 500 mcg-50 mcg/dose powder for inhalation 2023 024 [email or web address] [facility] [address] [place] [address], [address], 5 18:01:36 Advair Diskus 500 mcg-50 mcg/dose powder for inhalation 2023 024 [email or web address] [facility], [address] [place] [address], [address], 5 18:01:36 metoprolol succinate ER 100 mg tablet,ext ended release 24 hr 2023 024 ARTHUR [facility], [address] [place] [address], [address], 16:28:23 Patient TargetsNo targets recorded. Patient InstructionsNo instructions recorded. Reason for Referral Neurologist Referral for Maurilio hsieh Referring Physician: Nino Carrillo, Internal Medicine, Encounter Date: 06/15/2023 Results Created Date Observation Date Name Description Value Unit Range Abnormal Flag Note LastModifiedBy Organization Detail LastModifiedTime 12/02/1912/01/2023 myoca rdial perfu dixie study w/ eject ion fract ion (PROC ) No observ ation record ed. [email or web address] [facility] [address] , [place], [address], 12/04/2023 09:39:55 12/04/19 24 12/01/2023 myoca rdial perfu dixie study w/ eject ion fract ion (PROC ) No observ ation record ed. BAR[facility] Not Available 2023 17:52:46 09/21/19 25 09/20/2024 CT, lower extre mity, w/o contr ast No observ ation record ed. [facility] [address] [place], [address], 09/23/2024 08:29:00 Result Notes None recorded. Problems Name Problem SNOMED Code Status Onset Date Resolution Date Notes Provider Name and Address Organization Details Recorded Time Dyspnea on exertion 93425605 Active 2022 Anam Baptiste MD [address] [facility], [facility], [place], [address] , [facility] 3 13:14:17 Multiple nodules of lung 423162868 Active 2022 Anam Baptiste MD [address] [facility], [facility], [place], [address] , [facility] 3 13:30:46 Atrial fibrillat ion 82009240 Active 2022 Sylvia owen RMA null, [place] - [facility] 3 08:51:51 Hyperchol esterolem ia 79960018 Active 2022 Sylvia owen RMA null, [place] - [facility] 3 08:52:18 Insomnia 794863801 Active 2022 Sylvia owen RMA null, [place] - [facility] 3 14:25:22 Yeast detected 838100299 Active 2022 Maxine Mtz LPN null, [place] - [facility] 3 16:48:57 Pain of left hip joint 52392675815 9100 Active 2022 Nino Carrillo MD [address] [facility], [facility], [place], [address] , [facility] 3 12:58:51 Injury of elbow 826646646 Completed Not Available [facility] 3 03:15:58 Chronic obstructi ve pulmonary disease 72480061 Active Not Available [facility] 3 03:15:58 Bipolar disorder 13935768 Active Not Available [facility] 3 03:15:58 Gangrene of toe of left foot 39842678285 459836 Completed 201901/07/2022 Not Available [facility] 3 03:15:58 History of alcoholis m 349564714 Active 2016 Not Available [facility] 3 03:15:58 Transitio n of care 59775663725 05 Completed 202101/07/2022 Not Available [facility] 3 03:15:58 Anxiety disorder 028979281 Active 2021 Not Available [facility] 3 03:15:58 Anxiety disorder 002696100 Completed 201901/11/2021 Not Available [facility] 3 03:15:58 Gastroeso phageal reflux disease 892057644 Active Not Available [facility] 3 03:15:58 Closed fracture of upper end of tibia 48761260 Completed Not Available [facility] 3 03:15:58 Long-term drug therapy Completed 202001/07/2022 Not Available [facility] 3 03:15:59 Edema 816438777 Active 2020 Not Available [facility] 3 03:15:59 Adult health examinati on Active 2020 Not Available [facility] 3 03:15:59 Pain in toe 481437539 Completed 201901/07/2022 Not Available [facility] 3 03:15:59 Pain in left lower limb 482111478 Completed Not Available [facility] 3 03:15:59 Ulcer of toe 030253131 Completed 201901/07/2022 Not Available [facility] 3 03:15:59 Knee pain Completed Not Available [facility] 3 03:15:59 Fracture of tibia 46390903 Completed Not Available [facility] 3 03:15:59 Bronchiti s 17165394 Completed 201901/11/2021 Not Available [facility] 3 03:15:59 Vitamin D deficienc y 25973451 Active 2021 Not Available [facility] 3 03:15:59 Depressiv e disorder 08443696 Active 2019 Not Available [facility] 3 03:15:59 Cannabis abuse 90340045 Active Not Available [facility] 3 03:16:00 Neuropath y 585436285 Active 2020 Not Available [facility] 3 03:16:00 Umbilical hernia 671875281 Active 2021 Not Available [facility] 3 03:16:00 Sleep disorder 26492089 Active 2019 Not Available [facility] 3 03:16:00 Periphera l vascular disease 501952545 Active 2021 Not Available [facility] 3 03:16:00 Hypothyro idism 86950541 Active 2021 Not Available [facility] 3 03:16:00 Fracture of lower leg 735560710 Completed Not Available [facility] 3 03:16:00 Bacterial vaginosis 750311931 Completed Not Available [facility] 3 03:16:01 History of amputatio n of lesser toe 945328723 Active 2019 Not Available [facility] 3 03:16:01 Atypical squamous cells of undetermi al significa nce on cervical Papanicol aou smear 270832033 Active Not Available [facility] 3 03:16:01 Anxiety 26193855 Completed Not Available [facility] 3 03:16:01 Atheroscl erosis of arteries of the extremiti es 40638424 Completed 201901/11/2021 Not Available [facility] 3 03:16:01 Atheroscl erosis of arteries of the extremiti es 58447166 Active 2019 Not Available [facility] 3 03:16:01 Atrial flutter 0027366 Active 2020 Not Available [facility] 3 03:16:02 Hyperlipi demia 38458269 Active Not Available [facility] 3 03:16:02 Cigarette smoker 80587512 Completed 201901/07/2022 Not Available [facility] 3 03:16:02 Urinary tract infectiou s disease 81797859 Completed Not Available [facility] 3 03:16:02 Smoker 66206721 Active Not Available [facility] 3 03:16:02 Overactiv e urinary bladder 370753175 Active 2021 Not Available [facility] 3 03:16:02 Nodule of lung 026610932 Active 2022 Not Available [facility] 3 03:16:03 Hyperglyc emia 41223377 Active Not Available [facility] 3 03:16:03 Pneumonia caused by SARS-CoV- 2 83724921047 6773206 Completed 202101/20/2022 Not Available [facility] 3 03:16:03 Migraine 97753543 Active 2022 Nino Carrillo MD [address], [place], [address] , [facility] 3 12:52:02 Essential hypertens ion 55223134 Active 2023 Nino Carrillo MD [address], [address], [place], [address] , [facility] 4 11:51:05 Hypoxia 191147753 Active 2024 Nino Carrillo MD [address], [address], [place], [address] , [facility] 5 12:11:57 Congestiv e heart failure 77491958 Active 2024 SURESH Lovell null, [facility] 5 18:04:52 Notes:Medical History: Anxie ty/Bipolar depression Bilateral hearing loss/tinnitus Alcohol use Cannabis use Nicotine use ?COPD on 4 Lpm exertional and nocturnal O2 c/o [employer] Obesity Hypothyroidism Mixed hyperlipidemia Hypertension Atrial flutter CHAMP Cholelithiasis Umbilical hernia Left adrenal adenoma Urge urinary incontinence Vit D deficiency Osteoporosis Neuropathy PVD Procedure History: Cardiac ablation 2018 Left 5th toe amputation 2020 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 Procedures Surgical History Date Name Laterality Status Provider Name and Address Organization Details Recorded Time 3 Advanced Care Planning completed Ling Moody RN [facility] 01/19/2023 12:49:00 2 Date of Last Pap Smear completed Ling Moody RN [facility] 01/19/2023 12:44:34 2 Date of Last Mammogram completed Ling Moody RN [facility] 01/19/2023 12:42:58 2 Most Recent Bone Density completed Ling Moody RN [facility] 01/19/2023 12:43:18 [employer] Surgery completed Not Available [facility] 08/10/2022 03:08:08 ENT Procedure completed Not Available [facility] 08/10/2022 03:08:08 Imaging Results Imaging Date Name Status LastModified by Organiz ation Details LastModified Time 12/01/2023 myocardial perfusion study w/ ejection fraction (PROC) [facility] [facility], [place], [address], 12/04/2023 09:39:55 12/01/2023 myocardial perfusion study w/ ejection fraction (PROC) completed [facility] Information not available 12/04/2023 17:52:46 09/20/2024 CT, lower extremity, w/o contrast completed [address] [place], [address], 09/23/2024 08:29:00 Procedure Notes None recorded. Medical Equipment None Reported. Allergies Allergen ID Allergen Name Allergen Category Reaction Reaction Severity Criticality Documentation Date Start Date Code Code System Note Provider Name and Address Organization Details Recorded Time 5780 lithium Not available vomiting Not available Not available 08/10/2022 6448 RxNorm Not Available [facility] 3 03:25:43 5781 Dolobid medicatio n vomiting Not available Not available 08/10/2022 37970 6 RxNorm Not Available [facility] 3 03:25:43 5782 Dilaudid medicatio n vomiting Not available Not available 08/10/2022 11743 3 RxNorm Not Available [facility] 3 03:25:43 5783 Bactrim medicatio n vomiting Not available Not available 08/10/2022 55426 9 RxNorm Not Available [facility] 03:25:43 Medications Name Sig Start Date Stop [...] Available Not Available No t Available levofloxa zaira 250 mg tablet TAKE 1 TABLET BY [...] ONE CAPSULE BY MOUTH THREE TIMES DAILY active Not Available Not Available No t Available folic acid 1 mg tablet TK [...] Not Available Not Available No t Available acamprosa te 333 mg tablet,de layed [...] No t Available Jardiance 10 mg tablet active Not Available Not Available Not Available Entresto [...] Address Organization Details Last Updated DateTime 4 21059 g 28.7 kg/m2 157.48 cm 96.6 [degF] 80 /min 97 % 97 % 150 mm[Hg] 90 mm[Hg] Sylvia maravilla DANYAVasiliy [facility] 4 11:25:04 Date Recorded Body height Body mass index (BMI) Body weight Body temperature Heart rate Respiratory rate Oxygen saturation Oxygen saturation in Arterial blood by Pulse oximetry Systolic blood pressure Diastolic blood pressure Provider Name and Address Organization Details Last Updated DateTime 4 157.48 cm 29.4 kg/m2 01100.3 7 g 97.7 [degF] 80 /min 16 /min 94 % 94 % 154 mm[Hg] 84 mm[Hg] Diamond Reddy MA [facility] [employer] 4 11:16:43 Date Recorded Body height Body mass index (BMI) Body weight Body temperature Heart rate Oxygen saturation Oxygen saturation in Arterial blood by Pulse oximetry Systolic blood pressure Diastolic blood pressure Provider Name and Address Organization Details Last Updated DateTime 4 157.48 cm 27.6 kg/m2 59456.4 5 g 98.2 [degF] 70 /min 96 % 96 % 138 mm[Hg] 70 mm[Hg] Shannon Anselmo [facility] [employer] 4 15:39:39 Date Recorded Body height Body mass index (BMI) Body weight Body temperature Heart rate Oxygen saturation Oxygen saturation in Arterial blood by Pulse oximetry Systolic blood pressure Diastolic blood pressure Provider Name and Address Organization Details Last Updated DateTime 4 157.48 cm 27.8 kg/m2 09229.0 4 g 97.1 [degF] 87 /min 90 % 90 % 136 mm[Hg] 80 mm[Hg] Sylvia maravilla DANYAVasiliy [facility] 4 11:38:57 Date Recorded Body height Body mass index (BMI) Body weight Body temperature Oxygen saturation Oxygen saturation in Arterial blood by Pulse oximetry Inhaled oxygen flow rate Heart rate Systolic blood pressure Diastolic blood pressure Provider Name and Address Organization Details Last Updated DateTime 5 157.48 cm 32.2 kg/m2 13501.2 6 g 96.8 [degF] 84 % 84 % 4 L/min 84 /min 170 mm[Hg] 84 mm[Hg] SURESH Hoyt [place] - [facility] 5 11:25:19 Social History Question Answer Notes LastModified by Organization Details LastModified Time Tobacco Smoking Status Current Every Day Smoker Not Available [facility] 08/10/2022 02:52:35 Do You Have An Advance Directive? No MIGRATION.0301 [id number] Information not available 08/10/2022 What Is Your Level Of Alcohol Consumption? Occasional MIGRATION.030 012696 Information not available 08/10/2022 Are You Blind Or Do You Have Difficulty Seeing? No MIGRATION.0301 974692 Information not available 08/10/2022 What Is Your Level Of Caffeine Consumption? Moderate MIGRATION.030 239909 Information not available 08/10/2022 In The 14 Days Before Symptom Onset, Have You Had Close Contact With A Laboratory-conf irmed COVID-19 While That Case Was Ill? No MIGRATION.030 602756 Information not available 08/10/2022 In The 14 Days Before Symptom Onset, Have You Had Close Contact With A Person Who Is Under Investigation For COVID-19 While That Person Was Ill? No MIGRATION.0301 164128 Information not available 08/10/2022 Are You Deaf Or Do You Have Serious Difficulty Hearing? No MIGRATION.030 181696 Information not available 08/10/2022 What Type Of Diet Are You Following? REGULAR MIGRATION.030 356149 Information not available 08/10/2022 Which Illicit Or Recreational Drugs Have You Used? Marijuana MIGRATION.030 070481 Information not available 08/10/2022 What Is The Highest Grade Or Level Of School You Have Completed Or The Highest Degree You Have Received? [id number] MIGRATION.030 349734 Information not available 08/10/2022 Do You Have An Electrostatic Air Filter? No Information not available 08/29/2022 What Is Your Occupation? N/a MIGRATION.030 735135 Information not available 08/10/2022 Have There Been Any Changes To Your Family Or Social Situation? No MIGRATION.0301 695303 Information not available 08/10/2022 What Is The Fluoride Status Of Your Home? Unknown MIGRATION.030 092889 Information not available 08/10/2022 Are There Any Guns Present In Your Home? No MIGRATION.0301 657296 Information not available 08/10/2022 Do You Have A Humidifier? Yes Information not available 08/29/2022 Do You Use Insect Repellent Routinely? No MIGRATION.0301 836972 Information not available 08/10/2022 Where Do You Live? [place]House MIGRATION.0301 059638 Information not available 08/10/2022 Do You Have A Medical Power Of Fleet Salesperson? No MIGRATION.0301 947671 Information not available 08/10/2022 Do You Have Moisture Problems In Your Home? Yes Leak In Bathroom Information not available 08/29/2022 What Was The Date Of Your Most Recent Tobacco Screening? 01/19/2023 [email or web address] Information not available 01/19/2023 What Is Your Current Pack Years? [email or web address] MIGRATION.0301 097439 Information not available 08/10/2022 Do You Have Any Pets? Yes MIGRATION.0301 930017 Information not available 08/10/2022 What Is Your Relationship Status? MIGRATION.0301 699822 Information not available 08/10/2022 Do You Use Your Seat Belt Or Car Seat Routinely? No MIGRATION.0301 301739 Information not available 08/10/2022 Do You Have Smoke And Carbon Monoxide Detectors In Your Home? Yes MIGRATION.0301 718771 Information not available 08/10/2022 At What Age Did You Start Smoking Tobacco? 11 MIGRATION.0301 340335 Information not available 08/10/2022 Are You Passively Exposed To Smoke? Yes MIGRATION.0301 153304 Information not available 08/10/2022 Are There Any Smokers In Your House? Yes MIGRATION.0301 898617 Information not available 08/10/2022 How Much Tobacco Do You Smoke? 1 PPD MIGRATION.0301 729570 Information not available 08/10/2022 Do You Feel Stressed (tense, Restless, Nervous, Or Anxious, Or Unable To Sleep At Night)? NA8250-0 MIGRATION.0301 058104 Information not available 08/10/2022 Do You Use Any Illicit Or Recreational Drugs? Yes MIGRATION.0301 018656 Information not available 08/10/2022 Do You Use Sunscreen Routinely? No MIGRATION.0301 131794 Information not available 08/10/2022 Has Tobacco Cessation Counseling Been Provided? Yes MIGRATION.0301 433460 Information not available 08/10/2022 On What Date Was Tobacco Cessation Counseling Provided? 09/23/2021 MIGRATION.0301 212652 Information not available 08/10/2022 How Many Years Have You Smoked Tobacco? 48 [email or web address] Information not available 09/05/2024 Have You Recently Traveled Abroad? No MIGRATION.0301 534252 Information not available 08/10/2022 Have You Used IV Drugs? No MIGRATION.0301 473548 Information not available 08/10/2022 Do You Have Any Dietary Restrictions? No MIGRATION.0301 181219 Information not available 08/10/2022 Do You Or Have You Ever Used Any Other Forms Of Tobacco Or Nicotine? No MIGRATION.0301 222728 Information not available 08/10/2022 Sex: Unknown Functional Status Question Answer Note LastModified by Organizat ion Details LastModified Time Do you have difficulty walking or climbing stairs? No MIGRATION.0414599 026 Information not available 08/10/2022 Do you have transportation difficulties? No MIGRATION.5529725 026 Information not available 08/10/2022 Are you able to walk? YESASSIST MIGRATION.1733420 026 Information not available 08/10/2022 Do you have difficulty doing errands alone? No MIGRATION.0741821 026 Information not available 08/10/2022 Are you able to care for yourself? Yes MIGRATION.4293188 026 Information not available 08/10/2022 Do you have difficulty dressing or bathing? No MIGRATION.1769589 026 Information not available 08/10/2022 What is your exercise level? None MIGRATION.7806839 026 Information not available 08/10/2022 Mental Status Question Answer Note LastModified by Organizat ion Details LastModified Time Do you have difficulty concentrating, remembering or making decisions? No MIGRATION.[id number] 6 Information not available 08/10/2022 Family History [...] Recorded Time Tdap 2 completed Not Available [facility] 07/22/2023 00:44:00 Influenza, split virus, quadrivalent, PF 7 completed Not Available [facility] 07/22/2023 00:44:00 Influenza, split virus, quadrivalent, preservative 6 completed Not Available [facility] 07/22/2023 00:43:59 pneumococcal polysaccharide PPV23 4 completed Not Available [facility] 07/22/2023 00:43:59 Influenza, split virus, trivalent, PF 4 completed Not Available [facility] 07/22/2023 00:44:00 Past Encounters Encounter ID Performer Location Encounter Start Date Encounter Closed Date Diagnosis/Indication Diagnosis SNOMED-CT Code Diagnosis ICD10 Code Diagnosis Note [id number] [facility] [address] [facility] [place] [address] 09/11/2020 00:00:00 09/11/2020 11:08:04 [id number] [facility] [address] [facility] [place] [address] 01/11/2021 00:00:00 01/11/2021 14:38:32 [id number] [facility] [address] [place] [address] 05/20/2021 00:00:00 05/20/2021 13:16:35 [id number] [facility] [address] [address] 07/30/2021 00:00:00 07/30/2021 10:49:05 [id number] [facility] [address] [address] 09/23/2021 00:00:00 09/23/2021 13:25:27 [id number] [facility] [address] [address] 10/29/2021 00:00:00 10/29/2021 15:55:29 [id number] [facility] [address] [address] 01/20/2022 00:00:00 01/20/2022 13:28:48 [id number] [facility] [address] [address] 05/18/2022 00:00:00 05/18/2022 12:06:29 [id number] Anam Baptiste MD [facility] [address] [address] 08/29/2022 12:29:35 08/30/2022 08:35:13 Dyspnea on exertion 87338544 R06.09 Smoker 36567163 F17.218 F17.219 Z87.891 Multiple n odules of lung 754778314 R91.8 [id number] Nino Carrillo MD [facility] [address] [address] 09/21/2022 11:21:46 09/21/2022 12:05:26 Chronic obstructive pulmonary disease 48851769 J44.9 advise dto use o2 Anxiety disorder 5939358 06 F41.9 under control Atrial flutter 8193343 I 48.92 in sinus, to f/u with cardiology Depressive disorder 9438 9007 F32.A under control Gastroesop hageal reflux disease 149323835 K21.9 on omeprazole Hypercholesterolemia 136 71233 E78.00 watch diet Neuropathy 945725536 G62 .9 stable with meds Peripheral vascular disease 178872451 I73.9 better since stents Sleep disorder 16648370 G47.9 better with meds Vitamin D deficiency 347 00245 E55.9 can not tolerate vit d Cannabis abuse 68454011 F12.10 Has not smoked for a long time Hyperglycemia 16270053 R 73.9 watch diet, labs Umbilical hernia 5832443 07 K42.9 small, asymptomat ic Smoker 95377787 F17.218 F17.219 Z87.891 advised to quit Overactive urinary bladder 646928557 N32.81 tried samples Screening mammography 24 513333 Z12.31 [id number] Nino Carrillo MD [facility] [address] [facility] [place] [address] 01/19/2023 12:00:06 01/19/2023 13:02:10 Chronic obstructive pulmonary disease 43422403 J44.9 advised to use o2, pulse ox is only 88%, no symptoms Anxiety disorder 3678478 06 F41.9 under control Atrial flutter 2014750 I 48.92 in sinus, to f/u with cardiology Depressive disorder 3548 9007 F32.A under control Gastroesop hageal reflux disease 143151945 K21.9 on omeprazole Hypercholesterolemia 136 20139 E78.00 watch diet Neuropathy 514068578 G62 .9 stable with meds Peripheral vascular disease 556237286 I73.9 better since stents Sleep disorder 72480770 G47.9 better with meds Vitamin D deficiency 347 94066 E55.9 can not tolerate vit d Cannabis abuse 85110936 F12.10 Has not smoked for a long time Hyperglycemia 22523023 R 73.9 watch diet, labs Umbilical hernia 9429214 07 K42.9 small, asymptomat ic Smoker 08097811 F17.218 F17.219 Z87.891 advised to quit Overactive urinary bladder 716844943 N32.81 tried samples Adult heal th examination 257648466 Z00.00 Depression screening 171 961707 Z13.[address] Pain of le ft hip joint 8917937823 16455 M25.552 Screening mammography 24 534088 Z12.31 Body mass index 30+ - obesity 395567770 Z68.30 healthy diet and exercise discussed [id number] Nino Carrillo MD [facility] [address] [place] [address] 05/18/2023 11:47:48 05/18/2023 12:28:38 Chronic obstructive pulmonary disease 95628715 J44.9 advised to use inhalers daily, use o2 Anxiety disorder 0354485 06 F41.9 under control Atrial flutter 8166107 I 48.92 in sinus, to f/u with cardiology Depressive disorder 3548 9007 F32.A under control Gastroesop hageal reflux disease 884976486 K21.9 on omeprazole Hypercholesterolemia 136 17751 E78.00 watch diet Neuropathy 839522138 G62 .9 stable with meds Peripheral vascular disease 791364935 I73.9 better since stents Sleep disorder 02866599 G47.9 better with meds Vitamin D deficiency 347 63852 E55.9 can not tolerate vit d Cannabis abuse 64332092 F12.10 Has not smoked for a long time Hyperglycemia 29638013 R 73.9 watch diet, labs Umbilical hernia 9781513 07 K42.9 small, asymptomat ic Smoker 81153317 F17.218 F17.219 Z87.891 advised to quit Overactive urinary bladder 151638802 N32.81 meds did not help Screening mammography 24 522087 Z12.31 Nodule of lung 417114914 R91.1 Hyperlipidemia 14064755 E78.5 on meds Hypothyroidism 54590965 E03.9 on meds Bipolar disorder 4829787 4 F31.9 seeing psych Edema 446563343 R60.9 better [id number] Nino Carrillo MD [facility] [address] [facility] [place] [address] 05/31/2023 12:08:31 05/31/2023 12:56:01 Migraine 39112273 G43.194 [id number] Nino Carrillo MD [facility] [address] [facility] [place] [address] 06/15/2023 11:13:51 06/15/2023 11:56:54 Essential hypertension 89488325 I10 ^ METOPROLOL Migraine 89350063 G43.90 9 keep taking the same [id number] Nino Carrillo MD [facility] [address] [facility] [place] [address] 11/07/2023 10:54:50 11/07/2023 12:02:07 Chronic obstructive pulmonary disease 34626017 J44.9 use o2 Anxiety disorder 06 F41.9 under control Atrial flutter 1054394 I 48.92 in sinus, Depressive disorder 3548 9007 F32.A under control Gastroesop hageal reflux disease 504569161 K21.9 on omeprazole Hypercholesterolemia 136 64441 E78.00 watch diet Neuropathy 887284059 G62 .9 stable with meds Peripheral vascular disease 944280250 I73.9 better since stents Sleep disorder 92910668 G47.9 better with meds Vitamin D deficiency 347 70552 E55.9 can not tolerate vit d Cannabis abuse 51309236 F12.10 Has not smoked for a long time Hyperglycemia 53011810 R 73.9 watch diet, labs Umbilical hernia 1194238 07 K42.9 small, asymptomat ic Smoker 04864671 F17.218 F17.219 Z87.891 advised to quit Overactive urinary bladder 982369888 N32.81 meds did not help Screening mammography 24 829349 Z12.31 Nodule of lung 402440965 R91.1 Hypothyroidism 49841163 E03.9 on meds Bipolar disorder 1257209 4 F31.9 seeing psych Edema 559872269 R60.9 better [id number] Nino Carrillo MD [facility] Internal Med [facility] [address] [facility] [place] [address] 02/07/2024 15:24:36 02/07/2024 16:18:40 Chronic obstructive pulmonary disease 16094244 J44.9 under control Anxiety disorder F41.9 under control Atrial flutter 4816126 I 48.92 in sinus, Depressive disorder 3548 9007 F32.A under control Gastroesop hageal reflux disease 298116732 K21.9 on omeprazole Hypercholesterolemia 136 59489 E78.00 watch diet Neuropathy 471163012 G62 .9 stable with meds Peripheral vascular disease 592448549 I73.9 better since stents Sleep disorder 56963893 G47.9 better with meds Vitamin D deficiency 347 15266 E55.9 can not tolerate vit d Cannabis abuse 85838253 F12.10 Has not smoked for a long time Hyperglycemia 78746200 R 73.9 watch diet, labs Umbilical hernia 0157265 07 K42.9 small, asymptomat ic Smoker 19120299 F17.218 F17.219 Z87.891 advised to quit Overactive urinary bladder 242115323 N32.81 meds did not help Screening mammography 24 090500 Z12.31 Nodule of lung 862775323 R91.1 Hypothyroidism 28898671 E03.9 on meds Bipolar disorder 8842363 4 F31.9 seeing psych Edema 305443239 R60.9 better [id number] Nino Carrillo MD [facility] [address] [facility] [place] [address] 03/07/2024 11:24:58 03/07/2024 11:59:21 Chronic obstructive pulmonary disease 46756703 J44.9 under control Anxiety disorder 3685941 06 F41.9 under control Atrial flutter 5216708 I 48.92 in sinus, Depressive disorder 3548 9007 F32.A under control Gastroesop hageal reflux disease 260360414 K21.9 on omeprazole Hypercholesterolemia 136 51964 E78.00 watch diet Neuropathy 920077351 G62 .9 meds help Peripheral vascular disease 757397735 I73.9 better since stents Sleep disorder 00974778 G47.9 better with meds Vitamin D deficiency 347 15336 E55.9 can not tolerate vit d Cannabis abuse 66385931 F12.10 Has not smoked for a long time Hyperglycemia 30044234 R 73.9 watch diet, labs Umbilical hernia 9288565 07 K42.9 small, asymptomat ic Smoker 73800316 F17.218 F17.219 Z87.891 advised to quit Overactive urinary bladder 789674380 N32.81 meds did not help Screening mammography 24 323882 Z12.31 Scheduled in Mar Nodule of lung 914161205 R91.1 scheduled 03/2024 Hypothyroidism 08522583 E03.9 on meds Bipolar disorder 4220122 4 F31.9 seeing psych Edema 955797826 R60.9 better Adult heal th examination 930868931 Z00.00 Flu- Declined- 2022 [id number] Nino Carrillo MD [facility] [address] [place] [address] 09/05/2024 11:06:13 09/05/2024 12:22:51 Chronic obstructive pulmonary disease 45336724 J44.9 under control Anxiety disorder 0302480 06 F41.9 under control Atrial flutter 2825281 I 48.92 in sinus, Depressive disorder 3548 9007 F32.A under control Gastroesop hageal reflux disease 014434705 K21.9 on omeprazole Hypercholesterolemia 136 45281 E78.00 watch diet Neuropathy 965617107 G62 .9 meds help Peripheral vascular disease 045802573 I73.9 better since stents Sleep disorder 71943003 G47.9 better with meds Vitamin D deficiency 347 89192 E55.9 can not tolerate vit d Cannabis abuse 19431951 F12.10 Has not smoked for a long time Hyperglycemia 05829659 R 73.9 watch diet, labs Umbilical hernia 8307979 07 K42.9 small, asymptomat ic Smoker 76640355 F17.218 F17.219 Z87.891 advised to quit Overactive urinary bladder 235074859 N32.81 meds did not help Nodule of lung 101005314 R91.1 scheduled 03/2024, to get CT scan Hypothyroidism 64157633 E03.9 on meds Bipolar disorder 4121077 4 F31.9 seeing psych Edema 225020684 R60.9 on Furosemide Adult [facility] examination 755372421 Z00.00 Colonoscop y- 03/21/2017 Mammogram- 06/15/2021 ORDEREDDEX A- 06/15/2021 ORDEREDLDC T- 07/22/2022 - ORDEREDFlu - Declined- 3Pneumo vax- NEVERCOVID - DECLINED Screening mammography 24 309601 Z12.31 Scheduled in Mar Screening for osteoporosis 797509980 Z13.820 Essential hypertension 89445429 I10 bp is high, confused about her medshusban d is going to call us today about all her meds Hypoxia 780948131 R09.02 NOT IMPROVING EVEN AFTER MULTIPLE ATTEMPTS, WILL SEND TO ER Health Concerns Section Related Observation LastModified by Organization Aide osorio LastModified Time None Recorded Concern Status LastModified by Organization Details LastModified Time None Recorded Advance Directives Directive N: Payers Encounter Date Sequence Insurance Name Policy Number Policy Perez Covered Member ID Perez Member ID Guarantor Name 06/15/2023 1 [facility] [id number] Yaneli Conroy [id number] Yaneli Conroy 11/07/2023 1 [facility] [id number] Yaneli Mike Conroy [id number] Yaneli Rashid Rafiq 02/07/2024 1 [facility] [id number] Yaneli Conroy [id number] Yaneli Conroy 03/07/2024 1 [facility] [id number] Yaneli Conroy [id number] Yaneli Conroy 09/05/2024 1 [facility] (MEDICARE REPLACEMENT/A DVANTAGE - PPO) [id number] Yaneli Conroy [id number] Yaneli Conroy Notes Date Note Type Note [...] IS AROUND 160 Nino Carrillo MD [address] [facility] [facility] [address], [place], [address], [facility] [employer] 06/15/2023 11:56:01 11/07/2023 text/html Here today for routine f/u, compliant to meds.COPD- has not quit smoking yet, using inhalers, Advair and proair, some wheezing some times , using o2 when walks and goes out, no o2 needed when resting . ON 4L of O2, NO SYMPTOMSno using Advair daily, needs refillGERD- does not take meds, Deja-seltzer helps Hypertension- under control with medsMeds- Metoprolol 100mg dailyH/o A flutter-she had episode of v tach in 07/01 but got hypotensive with metoprolol.had nl GREG, seen automatic wheel line operator. Dr Uribe- Clopidogrel 75 mg daily Migraines- Has not had in a whileMeds- Divalproex ER 500mg HSHyperlipidemia- on meds, LABS 10/02,Meds- Atorvastatin 80 mg qd Hypertriglyceridemia - advised to watch dietAnxiety- stable with meds, seeing psych, not under controlBipolar disorder- seeing psych Dr. [place] schilling A1c- 6.1, advised to watch dietSmoker- advised [...] has seen dr Oliva Carrillo MD [address] [facility] [facility] [address], [place], [address], [place] [facility] [employer] 11/07/2023 11:53:22 02/07/2024 text/html Here today for [...] got hypotensive with metoprolol.had nl GREG, seen automatic wheel line operator. Dr Uribe- Clopidogrel 75 mg daily Migraines- Has not had in a while, under contyrolMeds- Divalproex ER 500mg HSHyperlipidemia- on meds, LABS 10/02, were orderedMeds- Atorvastatin 80 mg qd Hypertriglyceridemia - advised to watch dietAnxiety- stable with meds, seeing psych, not under controlBipolar disorder- seeing psych Dr. MuddassaniHyperglyce christiane- A1c- 6.1, advised to watch diet, has some weightSmoker- advised to quit-still smoking 1/2 -1 ppd, LDCT 08/04H/o alcoholism, sober since [...] willing to get Nino Carrillo MD [address] [facility] [facility] [address], [place], [address], [facility] [employer] 02/07/2024 16:17:46 03/07/2024 text/html Here today for routine f/u, compliant to meds.PT IS NOT FASTINGCOPD- has not quit smoking yet, using inhalers, Advair and proair, some wheezing some times , using o2 when walks and goes out, no o2 needed when resting . said she does not use her oxygen as she should. Her O2 today is 90GERD- OTC Milagros helps Hypertension- under control with medsMeds- Metoprolol 100mg dailyH/o A flutter-she had episode of v tach in 07/01 but got hypotensive with metoprolol.had nl GREG, seen automatic wheel line operator. Dr Uribe- Clopidogrel 75 mg daily Migraines- [...] sober since 2012H/o marijuana abuse, none since 2016Insomnia- Sees Psych, meds helpMeds- Quetiapine 100 mg 2 at bedtimeNeuropathy- better with meds , FEELS SYMPTOMS IF MISSES HER MEDSMeds- Gabapentin 600mg TID , Duloxetine 60mg every morningPVD- s/p stents, no symptomsMeds- Plavix 75mg dailyVit d def- taking otc, Pulm nodules- LDCT 08/04, seen pulm , f/u due, has seen dr Oliva Carrillo MD [address] [facility], [place], [address], [place] [facility] [place] [facility] [employer] 03/07/2024 11:57:05 09/05/2024 text/html Here today for routine f/u, compliant to meds.PT IS FASTING ( [facility] )Evicted from her place, now living [...] goes out, no o2 needed when restingmeds- John Kirkpatrick said she does not use her oxygen as she should. Her O2 today is 84 when she came on 02, later on found out that her o2 tank was empty, put a new tank and 02 sat 82- 84 % on 4 LGE- OTC Deja-seltzer helps Hypertension- Has been running high at home and also C/o having a lot of headaches. Her b/p today is 170/84SHE IS VERY CONFUSED WITH HER MEDS AND COULD NOT NAME HER MEDSMeds- Metoprolol 100mg dailyH/o A flutter-she had episode of v tach in 07/01 but got hypotensive with metoprolol.had nl GREG, seen automatic wheel line operator. Dr Uribe- Clopidogrel 75 mg daily Migraines- [...] has seen dr Oliva Carrillo MD [address] [facility] [facility] [address], [place], [address], [place] [employer] 09/05/2024 12:13:06 OBGyn Episode No OBEpisode recorded.
--- OUTSIDE RECORDS SUMMARY | 2024-09-29 13:20 | XMS_ITS | Clinical Summary ---
Author Organization [facility] [employer] Address [address] [place] [address] Care Team Providers Care Operating Room Surgical Technician Name Role Phone Nayan Torre MD Primary Care Provider [phone] Source Comments [facility] [employer],non-owned Affiliates and Associated Physician Practices is amultiple site organization consisting of ambulatory clinics and hospital sitesin [place], [place], [place] and [place]. This disclosure is being madepursuant to the Care Everywhere program and may not contain all information available regarding this patient. Last updated 18.[facility] [employer] Allergies Active Allergy Reactions Criticality Noted Date Comments Diflunisal Vomiting 07/18/2019 Hydromorphone Nausea and/or Vomiting,Vomiting 01/07/2017 Latex Itching,Rash Medium 03/06/2012 [place] Vomiting 01/07/2017 Propoxyphene Other Low 03/06/2012 Vaginal bleeding Sulfamethoxazole-Trimet hoprim Anaphylaxis High 02/05/2012 Medications * Be aware that medications may not be up to date on this document. Alwaysverify current medications with the patient. levothyroxine (SYNTHROID) 75 MCG tabletIndicatio ns:Hypothyroidi sm,Pt takes 80mcg at home Take 75 mcg [...] by mouth 2 times daily 60 tablet 0 Active estradiol-noret hindrone (ACTIVELLA) 0.5-0.1 MG tablet every 24 hours Activ e albuterol HFA (PROVENTIL;VENT KIARA;PROAIR) 108 (90 Base) MCG/ACT inhaler albuterol sulfate HFA 90 mcg/actuation aerosol inhaler INHALE 2 PUFFS BY MOUTH FOUR TIMES DAILY NEEDED Active atorvastatin (LIPITOR) 40 MG tablet TK 1 T PO QD 9 Active fluticasone-jaycee meterol (ADVAIR DISKUS) 250-50 MCG/DOSE inhaler Advair Diskus 250 mcg-50 mcg/dose powder for inhalation Inhale 1 puff twice a day by inhalation route as needed for 30 days. Active apixaban (ELIQUIS) 5 MG tablet Take 1 tablet by mouth 2 times daily 90 tablet 0 Active Active Problems Problem Noted Date Diagnosed Date Tobacco dependency 08/05/2019 (HFpEF) heart failure with preserved ejection fr action 07/28/2019 Gastroesophageal reflux disease 07/22/2019 Hyperlipidemia 07/22/2019 Knee pain 07/22/2019 Smoker 07/22/2019 Assessment & Plan (08/05/2019 3:39 PM CAPTAIN CANNERY TENDER): I encouraged the patient to quit smoking. [...] recurrence. Assessment & Plan (08/05/2019 3:43 PM CAPTAIN CANNERY TENDER): Patient in sinus rhythm today on amiodarone. I discussed ablation procedure with patient and with Dr. Jeb Mayen. Due to patient's history of hypothyroidism, I do not recommend termite exterminator use of amiodarone for rhythm control. Atrial flutter ablation has a high success rate. Patient aware of risks of procedure. All in agreement to proceed with atrial flutter ablation on 08/14/19. Continue amiodarone as ordered. Hold amiodarone 7 days prior to ablation per Dr. Mayen. Continue Eliquis 5 mg BID. Immunizations Immunization Administration Dates Next Due TD (ADULT), 5 [...] 020 Frequency of Binge Drinking Never 08/10 Comments Unknown Sex and Gender Information Value Date Recorded Sex Assigned at Not on file Legal Sex Female 6:28 PM CAPTAIN CANNERY TENDER Gender Identity Not on file Sexual Orientation [...] Oxygen Concentration 40% 06/30/2019 1 2:48 PM CAPTAIN CANNERY TENDER Weight 81.6 kg (180 lb) 08/26/2019 6:48 [...] 50+ (1 of 2 - PCV) 1984 ZOSTER [...] 7 - 26 mg/dL 08/26/2019 7:16 AM [facility] Creatinine 1.0 0.6 - 1.2 mg/dL 08/26/2019 7:16 AM [facility] Sodium 136 136 - 145 mmol/L 08/26/2019 7:16 AM [facility] Potassium 4.7(H) 3.5 - 4.5 mmol/L 08/26/2019 7:16 AM [facility] Comment:Hemolysis detected i n this specimen. Hemolysis is known to cause elevations in this analyte. Caution should be exercised in the interpretation of this result. Recommend repeat testing if clinically indicated. Chloride 100 98 - 107 mmol/L 08/26/2019 7:16 AM [facility] CO2 24 22 - 29 mmol/L 08/26/2019 7:16 AM [facility] Glucose 101 70 - 115 mg/dL 08/26/2019 7:16 AM [facility] Calcium 8.8 8.4 - 10.2 mg/dL 08/26/2019 7:16 AM [facility] Anion Gap 17 8 - 18 08/26/2019 7:16 AM [facility] BUN/Creatinine Ratio 8 7 - 23 08/26/2019 7:16 AM [facility] Osmolality Calculated 280 270 - 300 mOsm/kg 08/26/2019 7:16 AM [facility] eGFR 58(L) >60 mL/min/1. 73 m2 08/26/2019 7:16 AM [facility] Blood BLOOD SPECIMEN / Unknown Venipuncture / Unknown 08/26/2019 6:42 AM CDT 08/26/2019 6:49 AM CDT Uriel Marie MD LAB - CHEMISTRY ORDERABLES Final Result [facility] [address] [place] [address], [facility] [phone] from Last 3 Months or Most Recently Relevant to Health Maintenance Additional Health Concerns Infection Onset Date Last Indicated C DIFF 06/30/2019 06/30/2019 Insurance [employer] MEDICAID - OUT OF STATE Advance Directives * Full Code (Latest Code Status on File) Date Activated Date Inactivated Comments 08/26/2019 12:21 PM 08/27/2019 12:06 PM * Full Code Date Activated Date Inactivated Comments 06/30/2019 12:42 AM 07/04/2019 6:09 PM Care Teams Operating Room Surgical Technician Relationship Specialty Start Date End Date Nayan Torre MD [address] [place] [address] PCP - General 07/26/21
[2024-09-29] MEDS: HYDROmorphone HCL INJ (*CRX) 2 MG/ML VIAL 1 MG IM (13:49)
[2024-09-29 15:12] LABS: Anion Gap 8 mmol/L (4-12); Blood Urea Nitrogen 11 mg/dL (7-17); Calcium 7.9 mg/dL (8.4-10.2); Carbon Dioxide 28 mmol/L (22-30); Chloride 100 mmol/L (98-107); Estimated CRCL calculation 55 ml/min; Estimated Glomerular Filt Rate 58; Glucose 75 mg/dL (65-110); Potassium 3.9 mmol/L (3.4-5.0); Sodium 136 mmol/L (137-145)
--- NOTE | 2024-09-29 15:41 | ED_ITS ---
HPI - Fall General Chief Complaint: Fall Stated Complaint: GLF, syncopal, left ankle injury Time Seen by Provider: 09/29/24 13:07 History of Present Illness HPI Narrative: The patient is at rehab right now, she was going outside for a smoke when she started feeling dizzy and lightheaded, and then passed out. She did fall and hit the ground, also has bad pain to her left ankle. Denies any chest pain or shortness or prior to or during or after the incident. Related Data Allergies Allergy/AdvReac Type Severity Reaction Status Date / Time lithium Allergy Severe N/V Verified 09/29/24 12:59 sulfamethoxazole Allergy Unknown Unknown Verified 09/29/24 12:59 trimethoprim Allergy Unknown Unknown Verified 09/29/24 12:59 Review of Systems 2 Review of Systems: All systems reviewed & are unremarkable except as noted in HPI and below PMFSH Past Medical History Medical History (Updated 09/29/24 @ 18:22 by Mary Jo Elise MD) Depression Asthma Surgical History Surgical History (Updated 09/20/24 @ 07:47 by Chance Levine) No pertinent past surgical history Family History Family History (System 09/20/24 @ 07:47 by Chance Levine) Mother Family history of malignant neoplasm of esophagus Other Carcinoma of colon Diabetes mellitus Family history of coronary artery disease Family history of lung cancer Family history of malignant neoplasm of male breast Social History Social History (System 09/20/24 @ 07:47 by Chance Levine) Second hand tobacco smoke exposure: No Alcohol intake: never Exam 2 Narrative: EXAMINATION OF ORGAN SYSTEMS/BODY AREAS: Constitutional: Vital signs per nursing GENERAL:[No acute distress, non-toxic appearing.] HEAD: Normal with no signs of head trauma. EYES: EOMI, conjunctiva normal ENT: Hearing grossly intact LUNGS: Nonlabored breathing. HEART: [Regular rate and rhythm], normal DP pulses ABD: [Soft], [nontender to palpation] EXT: Tenderness and swelling to the left ankle SKIN: She bruising all over her including her right knee, bilateral arms NEURO: [Alert and oriented x 3. No gross focal sensory or strength deficits.] PSYCH: Normal affect Course Vital Signs Vital signs: Vital Signs Temperature 97.9 F 09/29/24 12:52 Pulse Rate 66 09/29/24 12:52 Respiratory Rate 12 09/29/24 12:52 Blood Pressure 96/66 L 09/29/24 12:52 Pulse Oximetry 99 09/29/24 12:52 Oxygen Delivery Room Air 09/29/24 12:52 Temperature 97.9 F 09/29/24 12:52 Pulse Rate 65 09/29/24 18:01 Respiratory Rate 15 09/29/24 18:01 Blood Pressure 104/60 09/29/24 18:01 Pulse Oximetry 96 09/29/24 18:01 Oxygen Delivery Room Air 09/29/24 12:52 Procedures EJ/Peripheral Line Arm R: EJ/Peripheral Line Date: 09/29/24 EJ/Peripheral Line Time: 16:00 Skin Cleansed in Sterile Fashion: Yes Ultrasound Guided: Yes Size (gauge): 18 IV Secured and Dressing Applied: Yes Patient Tolerated Procedure: well and no complications Orthopedic Splinting/Casting Injury #1: Splinting/Casting Date: 09/29/24 Side: left Lower Extremity Injury Location: ankle Lower Extremity Immobilizer: posterior splint and stirrup splint Splint: customized in ED Pre-Procedure Neuro Vascular Exam: normal Post-Procedure Neuro Vascular Exam: normal MDM - Fall MDM Narrative Medical decision making narrative: Patient presenting here with ground level fall after she when outside for a smoke, got dizzy and passed out. She is now denying any complaints other than pain to her left ankle. She is currently at rehab for her right knee. She is well appearing on exam other than multiple bruising her her body including her right knee, hand, she does have tenderness to her left ankle, which is neurovascularly intact. CT head, C-spine, negative. Her blood pressure however and did start her dropping, the patient denies any complaints and she is mentating very well. I did therefore get a workup started which did not show any obvious abnormality, including negative troponin, normal electrolytes, she does have slightly elevated WBC, sepsis workup initiated and CTA obtained does not show any pneumonia or signs of fluid overload so I did give her a L of IV fluids, CT does show possible signs of chronic bronchitis so I will put her on azithromycin. On re-evaluation, patient continues to be very well-appearing, her blood pressure for the past hour has now come up and is now normal for her, and she is insistent that she wants to go home. At this point since she is hemodynamically stable, she is capable of making her own medical decisions and care, I cannot keep her against her will, she declined admission and her is agreeable to this and he will be taking care of her. She does promise that she will come back to the hospital if she changes her mind about admission or she starts having symptoms again. She is also counseled to stop smoking. She will be discharged back to rehab with close follow-up to PCP. Lab Data 09/29/24 16:10 09/29/24 16:10 Labs: Lab Results 09/29/24 09/29/24 09/29/24 Range/Units 14:49 16:10 16:10 WBC 13.6 H (4.5-10.0) K/mm3 RBC 4.26 (4.2-5.4) M/mm3 Hgb 10.9 L (12.0-15.0) g/dL Hct 39.3 (37.0-47.0) % MCV 92.3 (80-100) fl MCH 25.6 L (26-34) pg MCHC 27.7 L (32-36) g/dl RDW 21.2 H (11.5-14.5) % Plt Count 464 H (150-375) k/mm3 MPV 10.6 H (7.4-10.4) fl Immature Gran % (Auto) 1.0 H (0-0.5) % Neut % (Auto) 81.4 H (45.5-73.1) % Lymph % (Auto) 8.6 L (18.3-44.2) % Gulf % (Auto) 8.7 H (2.6-8.5) % Eos % (Auto) 0.2 (0-4.4) % Baso % (Auto) 0.1 L (0.2-1.2) % Lymph # (Auto) 1.17 (0.9-3.2) K/mm3 [place] # (Auto) 1.2 H (0.1-0.6) K/mm3 Eos # (Auto) 0.0 (0-0.3) K/mm3 Baso # (Auto) 0.0 (0.0-0.1) K/mm3 Abs Immat Gran (auto) 0.14 H (0.00-0.031) K/mm3 Absolute Neuts (auto) 11.0 H (1.3-6.7) K/mm3 Absolute Nucleated RBC 0.000 (0.0-0.012) K/mm3 Band Neutrophils % Not Reportable Nucleated RBC % 0.0 (0.0-0.2) % Platelet Estimate Increased (Adequate) Hypochromasia 1+ Anisocytosis 1+ Ovalocytes 1+ Schistocytes None seen D-Dimer 2.16 H (<0.48) ug/mL Sodium 136 L 136 L (137-145) mmol/L Potassium 3.9 3.5 (3.4-5.0) mmol/L Chloride 100 97 L (98-107) mmol/L Carbon Dioxide 28 34 H (22-30) mmol/L Anion Gap 8 5 (4-12) mmol/L BUN 11 D 12 (7-17) mg/dL Creatinine 0.99 1.12 H (0.7-1.0) mg/dL Estim Creat Clear Calc 55 49 ml/min Estimated GFR 58 L 50 L (59 - ) Glucose 75 99 (65-110) mg/dL Lactic Acid 1.4 (0.7-2.0) mmol/L Calcium 7.9 L 7.9 L (8.4-10.2) mg/dL Magnesium 2.3 Cancelled (1.6-2.3) mg/dL Total Bilirubin 0.6 (0.2-1.3) mg/dL AST 29 (14-36) U/L ALT 14 (6-35) U/L Alkaline Phosphatase 68 (38-126) U/L Troponin I 0.027 (0.000-0.034) ng/mL NT-Pro-B Natriuret Pep (19.9-100) pg/mL Total Protein (6.3-8.2) g/dL Albumin (3.5-5.1) g/dL Urine Color (Yellow) Urine Appearance (Clear) Urine pH (5.0-9.0) Ur Specific [place] (1.001-1.035) Urine Protein (Negative) mg/dL Urine Glucose (UA) (Negative) mg/dL Urine Ketones (Negative) mg/dL Ur Blood (Man) (Negative) Urine Nitrate (Negative) Urine Bilirubin (Negative) Urine Urobilinogen (<2.0) mg/dL Add Ur Microanalysis Leukocyte Esterase Rfl (Negative) JUAN/UL Urine RBC (0-2) /hpf Urine WBC (0-3) /hpf Ur Squamous Epith Cells (Few) /hpf Urine Bacteria /hpf Urine Casts Urine Yeast (Budding) (None) /hpf 09/29/24 09/29/24 09/29/24 Range/Units 16:10 16:10 17:46 WBC (4.5-10.0) K/mm3 RBC (4.2-5.4) M/mm3 Hgb (12.0-15.0) g/dL Hct (37.0-47.0) % MCV (80-100) fl MCH (26-34) pg MCHC (32-36) g/dl RDW (11.5-14.5) % Plt Count (150-375) k/mm3 MPV (7.4-10.4) fl Immature Gran % (Auto) (0-0.5) % Neut % (Auto) (45.5-73.1) % Lymph % (Auto) (18.3-44.2) % Gulf % (Auto) (2.6-8.5) % Eos % (Auto) (0-4.4) % Baso % (Auto) (0.2-1.2) % Lymph # (Auto) (0.9-3.2) K/mm3 [place] # (Auto) (0.1-0.6) K/mm3 Eos # (Auto) (0-0.3) K/mm3 Baso # (Auto) (0.0-0.1) K/mm3 Abs Immat Gran (auto) (0.00-0.031) K/mm3 Absolute Neuts (auto) (1.3-6.7) K/mm3 Absolute Nucleated RBC (0.0-0.012) K/mm3 Band Neutrophils % Nucleated RBC % (0.0-0.2) % Platelet Estimate (Adequate) Hypochromasia Anisocytosis Ovalocytes Schistocytes D-Dimer (<0.48) ug/mL Sodium (137-145) mmol/L Potassium (3.4-5.0) mmol/L Chloride (98-107) mmol/L Carbon Dioxide (22-30) mmol/L Anion Gap (4-12) mmol/L BUN (7-17) mg/dL Creatinine (0.7-1.0) mg/dL Estim Creat Clear Calc ml/min Estimated GFR (59 - ) Glucose (65-110) mg/dL Lactic Acid (0.7-2.0) mmol/L Calcium (8.4-10.2) mg/dL Magnesium (1.6-2.3) mg/dL Total Bilirubin (0.2-1.3) mg/dL AST (14-36) U/L ALT (6-35) U/L Alkaline Phosphatase (38-126) U/L Troponin I Cancelled (0.000-0.034) ng/mL NT-Pro-B Natriuret Pep 1720 H Cancelled (19.9-100) pg/mL Total Protein 6.0 L (6.3-8.2) g/dL Albumin 3.2 L (3.5-5.1) g/dL Urine Color Yellow (Yellow) Urine Appearance Clear (Clear) Urine pH 6.5 (5.0-9.0) Ur Specific [place] 1.008 (1.001-1.035) Urine Protein 1+ H (Negative) mg/dL Urine Glucose (UA) Negative (Negative) mg/dL Urine Ketones Negative (Negative) mg/dL Ur Blood (Man) Negative (Negative) Urine Nitrate Negative (Negative) Urine Bilirubin Negative (Negative) Urine Urobilinogen 1.0 (<2.0) mg/dL Add Ur Microanalysis Reviewed Leukocyte Esterase Rfl Negative (Negative) JUAN/UL Urine RBC 0-2 (0-2) /hpf Urine WBC 0-5 (0-3) /hpf Ur Squamous Epith Cells None seen (Few) /hpf Urine Bacteria None seen /hpf Urine Casts 0-2 Urine Yeast (Budding) Present H (None) /hpf Discharge Plan Discharge Clinical Impression: Syncope, Ankle fracture, bimalleolar, closed Patient Disposition: Home Condition: Stable Instructions: Ankle Fracture (ED), Syncope (ED) Additional Instructions: Please follow-up with your doctor and with the orthopedic surgeon for your ankle. Please not put any weight on your left foot until you see the orthopedic surgeon. Ensure you're keeping hydrated, and make sure to come back to the hospital if you start feeling dizzy again or anything else concerning. Patient Language: Paraguayan Prescriptions: New oxycodone 5 mg tablet 5 mg PO Q8H PRN (Reason: pain) Qty: 12 0RF acetaminophen [Tylenol Extra Strength] 500 mg tablet 1,000 mg PO Q6H PRN (Reason: pain) Qty: 50 0RF azithromycin 250 mg tablet 250 mg PO DAILY 4 Days Qty: 4 0RF Rx Instructions: start on day 2 of therapy Follow-up/Referrals: Everton Arriola MD [Physician] - 2 Days UNKNOWN,DOCTOR [Primary Care Provider] -
--- NOTE | 2024-09-29 16:14 | PC.NURSE ---
first set of cultures done by Dr. Elise
[2024-09-29 16:19] LABS: Basophils Percent Auto 0.1 % (0.2-1.2); Eosinophils Percent Auto 0.2 % (0-4.4); Hematocrit 39.3 % (37.0-47.0); Hemoglobin 10.9 g/dL (12.0-15.0); Immature Granulocyte Absolute 0.14 K/mm3 (0.00-0.031); Lymphocytes Absolute Auto 1.17 K/mm3 (0.9-3.2); Lymphocytes Percent Auto 8.6 % (18.3-44.2); Mean Corpuscular HGB Conc 27.7 g/dl (32-36); Mean Corpuscular Hemoglobin 25.6 pg (26-34); Mean Corpuscular Volume 92.3 fl (80-100); Mean Platelet Volume 10.6 fl (7.4-10.4); Monocytes Absolute Auto 1.2 K/mm3 (0.1-0.6); Monocytes Percent Auto 8.7 % (2.6-8.5); Neutrophils Percent Auto 81.4 % (45.5-73.1); Platelet Count Result 464 k/mm3 (150-375); Red Blood Count 4.26 M/mm3 (4.2-5.4); Red Cell Distribution Width 21.2 % (11.5-14.5); White Blood Count 13.6 K/mm3 (4.5-10.0)
[2024-09-29] MEDS: SODIUM CHLORIDE 0.9% IV 500 ML 999 ML IV CONT (16:26)
[2024-09-29 16:31] LABS: Alanine Aminotransferase 14 U/L (6-35); Albumin Level 3.2 g/dL (3.5-5.1); Alkaline Phosphatase 68 U/L (38-126); Anion Gap 5 mmol/L (4-12); Aspartate Amino Transferase 29 U/L (14-36); Bilirubin,Total 0.6 mg/dL (0.2-1.3); Blood Urea Nitrogen 12 mg/dL (7-17); Calcium 7.9 mg/dL (8.4-10.2); Carbon Dioxide 34 mmol/L (22-30); Chloride 97 mmol/L (98-107); Estimated CRCL calculation 49 ml/min; Estimated Glomerular Filt Rate 50; Glucose 99 mg/dL (65-110); Lactic Acid Reflex 1.4 mmol/L (0.7-2.0); Magnesium 2.3 mg/dL (1.6-2.3); Potassium 3.5 mmol/L (3.4-5.0); Sodium 136 mmol/L (137-145)
[2024-09-29 16:37] LABS: Hypochromasia 1+; Platelet Estimate Increased (Adequate)
[2024-09-29 16:38] LABS: Anisocytosis 1+; Ovalocytes 1+; Schistocytes None Seen
[2024-09-29 16:39] LABS: D Dimer 2.16 ug/mL (<0.48)
[2024-09-29 16:43] LABS: NT Pro B Type Natriuretic Pept 1720 pg/mL (19.9-100); Troponin I 0.027 ng/mL (0.000-0.034)
[2024-09-29] MEDS: LACTATED RINGERS 1,000 ML 999 ML IV CONT (17:50)
[2024-09-29 18:18] LABS: Add Urine Microscopic? YES; Appearance Urine Clear (Clear); Bacteria Urine None Seen /hpf; Bilirubin Urine Negative (Negative); Blood Urine Negative (Negative); Budding Yeast Urine Present /hpf; Color Urine Yellow (Yellow); Glucose Urine UA Negative (Negative); Ketones Urine Negative (Negative); Leukocyte Esterase Ur Negative LEU/UL (Negative); Need Manual Microscopic Reviewed; Nitrate Urine Negative (Negative); Non Pathogenic Casts 0-2; Protein Urine 1+ mg/dL (Negative); RBC Urine 0-2 /hpf (0-2); Specific Grav Ur 1.008 (1.001-1.035); Squamous Epithelial Cell Urine None Seen /hpf (Few); WBC Urine 0-5 /hpf (0-3); pH Urine 6.5 (5.0-9.0)
--- NOTE | 2024-09-29 18:28 | PC.NURSE ---
called Luz Maria at [facility] at 1825 and gave report and pt update. all questions answered.
[2024-09-29] MEDS: AZITHROMYCIN 250 MG TABLET 500 MG PO (19:18)
== END 2024-09-29 19:20 ==
PROVIDERS: Emergency Provider Emergency Medicine
DX: R55 Syncope and collapse (principal); S82.842A Displaced bimalleolar fracture of left lower leg, initial encounter for closed fracture; I48.91 Unspecified atrial fibrillation; I50.9 Heart failure, unspecified; J44.89 Other specified chronic obstructive pulmonary disease; F17.200 Nicotine dependence, unspecified, uncomplicated; Z99.81 Dependence on supplemental oxygen; Z79.01 Long term (current) use of anticoagulants; R94.31 Abnormal electrocardiogram [ECG] [EKG]; I44.7 Left bundle-branch block, unspecified; W18.39XA Other fall on same level, initial encounter
CPT/HCPCS: 29515; 36415; 70450; 71045; 71275; 72125; 73600; 80048; 80053; 81001; 83605; 83735; 83880; 84484; 85025; 85380; 87040; 93005; 96360; 96361; 96372; 99284; A9270; J1171; J7040; J7120; Q9967

== ENCOUNTER 2025-06-03 12:31 | Outpatient (CLI) | payer MEDICARE, MEDICAID, SELFPAY ==
--- OUTSIDE RECORDS SUMMARY | 2025-06-03 12:36 | XMS_ITS | Clinical Summary ---
Author Organization [facility] Address [address] [place] [address] Care Team Providers Care Plywood Matcher Name Role Phone Nayan Torre MD Primary Care Provider [phone] Source Comments [facility],non-owned Affiliates and Associated Physician Practices is amultiple site organization consisting of ambulatory clinics and hospital sitesin [place], [place], [place] and [place]. This disclosure is being madepursuant to the Care Everywhere program and may not contain all information available regarding this patient. Last updated 18.[facility] Allergies Active Allergy Reactions Criticality Noted Date Comments Diflunisal Vomiting 07/18/2019 Hydromorphone Nausea and/or Vomiting,Vomiting 01/07/2017 Latex Itching,Rash Medium 03/06/2012 [place] Vomiting 01/07/2017 Propoxyphene Other Low 03/06/2012 Vaginal [...] 07/22/2019 Assessment & Plan (08/05/2019 3:39 PM THREAD SINGER): I encouraged the patient to quit smoking. [...] recurrence. Assessment & Plan (08/05/2019 3:43 PM THREAD SINGER): Patient in sinus rhythm today on amiodarone. I discussed ablation procedure with patient and with Dr. Jeb Mayen. Due to patient's history of hypothyroidism, I do not recommend keno terminal operator use of amiodarone for rhythm control. Atrial [...] on file Legal Sex Female 6:28 PM THREAD SINGER Gender Identity Not on file Sexual Orientation [...] Oxygen Concentration 40% 06/30/2019 1 2:48 PM THREAD SINGER Weight 81.6 kg (180 lb) 08/26/2019 6:48 AM CDT Height 158.8 cm (5' 2.5) 08/26/2019 6:48 AM CDT Body Mass Index [...] - COLON CA SCREENING 1966 MAMMOGRAM 1966 HIV SCREENING 1981 HEPATITIS C SCREENING 02/10/1984 HEPATITIS B VACCINE (1 of 3 - 19+ 3-dose series) 1985 PNEUMOCOCCAL VACCINE 50+ (1 of 1 - PCV) 02/15/2016 ZOSTER VACCINE (1 of 2) 02/15/2016 DTAP/TDAP/TD VACCINES (2 - Td or Tdap) 02/04/2022 02/05/2012 SCREENING FOR DIABETES 08/25/2022 0, 07/04/2019, 07/03/2019, Additional history exists COVID-19 VACCINE (1 - 2024- season) 2025 INFLUENZA VACCINE (#1) 2025 HIB VACCINE Aged Out No longer [...] 7 - 26 mg/dL 08/26/2019 7:16 AM [facility] Creatinine 1.0 0.6 - 1.2 mg/dL 08/26/2019 7:16 AM [facility] Sodium 136 136 - 145 mmol/L 08/26/2019 7:16 AM [facility] Potassium 4.7(H) 3.5 - 4.5 mmol/L 08/26/2019 7:16 AM [facility] Comment:Hemolysis detected i n this specimen. Hemolysis is known to cause elevations in this analyte. Caution should be exercised in the interpretation of this result. Recommend repeat testing if clinically indicated. Chloride 100 98 - 107 mmol/L 08/26/2019 7:16 AM [facility] CO2 24 22 - 29 mmol/L 08/26/2019 7:16 AM [facility] Glucose 101 70 - 115 mg/dL 08/26/2019 7:16 AM [facility] Calcium 8.8 8.4 - 10.2 mg/dL 08/26/2019 7:16 AM [facility] Anion Gap 17 8 - 18 08/26/2019 7:16 AM [facility] BUN/Creatinine Ratio 8 7 - 23 08/26/2019 7:16 AM [facility] Osmolality Calculated 280 270 - 300 mOsm/kg 08/26/2019 7:16 AM [facility] eGFR 58(L) >60 mL/min/1. 73 m2 08/26/2019 7:16 AM [facility] Blood BLOOD SPECIMEN / Unknown Venipuncture / Unknown 08/26/2019 6:42 AM CDT 08/26/2019 6:49 AM CDT us Uriel Marie MD LAB - CHEMISTRY ORDERABLES Final Result [facility] [address] [phone] from Last 3 Months or Most Recently Relevant to Health Maintenance Additional Health Concerns Infection Onset Date Last Indicated C DIFF 06/30/2019 06/30/2019 Insurance MEDICAID - OUT OF STATE Advance Directives * Full Code (Latest Code Status on File) Date Activated Date Inactivated Comments 08/26/2019 12:21 PM 08/27/2019 12:06 PM * Full Code Date Activated Date Inactivated Comments 06/30/2019 12:42 AM 07/04/2019 6:09 PM Care Teams Plywood Matcher Relationship Specialty Start Date End Date Nayan Torre MD [address] [place] [address] PCP - General 07/26/21
--- OUTSIDE RECORDS SUMMARY | 2025-06-03 12:36 | XMS_ITS | Encounter Summary ---
Author Organization [facility] Healthcare Address [address] [place] [address] Care Team Providers Care Emu Farmer Name Role Phone Nino Carrillo MD Primary Care Provider [phone] Terry Wilkerson MD Unavailable [phone] Bashir Crouch MD Unavailable Micky Guerra MD Unavailable Desmond Quintanilla MD Unavailable [phone] Canelo Youssef MD Unavailable [phone] Encounter Details Date Type Department Care Team (Late st Contact Info) Description 09/20/2024 [facility] Post Discharge Follow up phone call [facility] [address] [place] [address] Shirley Posada Social History Tobacco Use Types Packs/Day Years Used Date Smoking Tobacco: Every Day Cigarettes 0.1 45 Started: 1980 Smokeless Tobacco: Never Alcohol Use Standard Drinks/Week Comments Not Currently 0 (1 standard drink = 0.6 oz pur e alcohol) [facility] Utilities Answer Date Recorded In the past 12 months has [employer] electric, gas, oil, or water company threatened to shut off services in your home? No 09/06/2024 Social Connection and Isolation Panel Answer Date Recorded In a typical week, how many times do you talk on the phone with family, friends, or neighbors? More than three times a week 09/06/2024 How often do you get togethe r with friends or relatives? More than three times a week 09/06/2024 How often do you attend [facility] or mormon services? Never 09/06/2024 Do you belong to any clubs o r organizations such as cheondoism groups, unions, fraternal or athletic groups, or [...] any time in the past 12 m [facility], were you homeless or living in a [facility] (including now)? No 09/06/2024 Personal Safety Answer Date Recorded Have you ever been in or are you currently in a harmful physical or emotional relationship or is someone making you feel afraid or unsafe? Denies 09/14/2024 Comments Unknown Sex and Gender Information Value Date Recorded Sex Assigned at Not on file Legal Sex Female 3:28 PM UNIT CLERK Gender Identity Not on file Sexual Orientation Not on file documented as of this encounter Plan of Treatment Not on file documented as of this encounter Visit Diagnoses Not on filedocumented in this encounter Care Teams Emu Farmer Relationship Specialty Start Date End Date Nino Carrillo MD [address] [facility] [place] [address] PCP - General Internal Medicine 12/04/23 Terry Wilkerson MD [address] [place] [address] Consulting Physician Cardiology 12/06/23 Bashir Crouch MD [address] [place] [address] Referring Physician Cardiology 12/19/23 Micky Guerra MD [address] [place] [address] Consulting Physician Cardiovascular Disease 01/29/24 [place] [address] [address] [facility] [address] [place] [address] Consulting Physician Nephrology 09/13/24 [place] [address] [facility] [address] [place] [address] Consulting Physician Pulmonary Disease 09/13/24 documented as of this encounter
--- OUTSIDE RECORDS SUMMARY | 2025-06-03 12:36 | XMS_ITS | Continuity of Care Document ---
Author Organization [place] [facility], [facility] [address] Address [address] [place] [address] Care Team Providers Care Road Sign Installer Name Role Phone EMILIE CARRILLO Primary Care Provider EMILIE CARRILLO Referring Provider [phone] Assessment No assessment recorded. Plan of Treatment Reminders Order Date Submit Date Provider Last Modified By Organization Details Last Modified Time Details Appointments Any 15 026 09:30AM Emilie Carrillo MD Not available Not available Not available Lab None record ed. Referral None record ed. Procedures None record ed. Surgeries None record ed. Imaging None record ed. Medication Orders None record ed. Patient TargetsNo targets recorded. Patient Instructions Encounter Date Encounter Id Patient Instructions Last Modified By Organization Details Last Modified Time 04/15/2025 [id number] Discussed signs and symptoms of infection, advised to call with any questions or concerns. Keep elbow wrapped for next 72 hours. [email or web address] Not available 04/15/2025 12:16:22 Reason for Referral None Reported. Results Created Date Observation Date Name Description Value Unit Range Abnormal Flag Note LastModifiedBy Organization Detail LastModifiedTime 04/03/2004/04/2025 CMP14 +EGFR glucose 87 mg/dL 70-99 normal Not Available [facility] ([facility]) [address], [place], [address], 04/04/2025 08:23:19 04/03/20 25 04/04/2025 CMP14 +EGFR BUN 9 mg/dL 6-24 normal Not Available [facility] ([facility]) [address], [place], [address], 04/04/2025 08:23:19 04/03/20 25 04/04/2025 CMP14 +EGFR creatinine 0.81 mg/dL 0.57-1 .00 normal Not Available [facility] ([facility]) [address], [place], [address], 04/04/2025 08:23:19 04/03/20 25 04/04/2025 CMP14 +EGFR eGFR 84 mL/mi n/1.7 3 >59 normal Not Available [facility] ([facility]) [address], [place], [address], 04/04/2025 08:23:19 04/03/2004/04/2025 CMP14 +EGFR BUN/creatini ne ratio 11 9-23 normal Not Available [facility] ([facility]) [address], [place], [address], 04/04/2025 08:23:19 04/03/20 25 04/04/2025 CMP14 +EGFR sodium 139 mmol/ L 134-14 4 normal Not Available [facility] ([facility]) [address] [place], [address], 04/04/2025 08:23:19 04/03/20 25 04/04/2025 CMP14 +EGFR potassium 4.7 mmol/ L 3.5-5. 2 normal Not Available [facility] ([facility]) [address] [place], [address], 04/04/2025 08:23:19 04/03/20 25 04/04/2025 CMP14 +EGFR chloride 102 mmol/ L 96-106 normal Not Available [facility] ([facility]) [address] [place], [address], 04/04/2025 08:23:19 04/03/20 25 04/04/2025 CMP14 +EGFR carbon dioxide, total 24 mmol/ L 20-29 normal Not Available [facility] ([facility]) [address] [place], [address], 04/04/2025 08:23:19 04/03/2004/04/2025 CMP14 +EGFR calcium 8.4 mg/dL 8.7-10 .2 below low normal Not Available [facility] ([facility]) [address] [place], [address], 04/04/2025 08:23:19 04/03/2004/04/2025 CMP14 +EGFR protein, total 6.6 g/dL 6.0-8. 5 normal Not Available [facility] ([facility]) [address] [place], [address], 04/04/2025 08:23:19 04/03/2004/04/2025 CMP14 +EGFR albumin 3.3 g/dL 3.8-4. 9 below low normal Not Available [facility] ([facility]) [address] [place], [address], 04/04/2025 08:23:19 04/03/2004/04/2025 CMP14 +EGFR globulin, total 3.3 g/dL 1.5-4. 5 Not Available [facility] ([facility]) [address] [place], [address], 04/04/2025 08:23:19 04/03/2004/04/2025 CMP14 +EGFR bilirubin, total <0.2 mg/dL 0.0-1. 2 Not Available [facility] ([facility]) [address] [place], [address], 04/04/2025 08:23:19 04/03/2004/04/2025 CMP14 +EGFR alkaline phosphatase 172 IU/L 49-135 above high normal Not Available [facility] ([facility]) [address] [place], [address], 04/04/2025 08:23:19 04/03/20 25 04/04/2025 CMP14 +EGFR AST (SGOT) 15 IU/L 0-40 normal Not Available [facility] ([facility]) [address] [place], [address], 04/04/2025 08:23:19 04/03/20 25 04/04/2025 CMP14 +EGFR ALT (SGPT) 6 IU/L 0-32 normal Not Available [facility] ([facility]) [address], [place], [address], 04/04/2025 08:23:19 04/03/2004/04/2025 CBC WITH DIFFE RENTI AL/PL ATELE T WBC 8.6 x10e3 /uL 3.4-10 .8 normal Not Available [facility] ([facility]) [address] [place], [address], 04/04/2025 08:23:19 04/03/20 25 04/04/2025 CBC WITH DIFFE RENTI AL/PL ATELE T RBC 4.06 x10e6 /uL 3.77-5 .28 normal Not Available [facility] ([facility]) [address] [place], [address], 04/04/2025 08:23:19 04/03/20 25 04/04/2025 CBC WITH DIFFE RENTI AL/PL ATELE T hemoglobin 11.7 g/dL 11.1-1 5.9 normal Not Available [facility] ([facility]) [address] [place], [address], 04/04/2025 08:23:19 04/03/2004/04/2025 CBC WITH DIFFE RENTI AL/PL ATELE T hematocrit 39.5 % 34.0-4 6.6 normal Not Available [facility] ([facility]) [address] [place], [address], 04/04/2025 08:23:19 04/03/20 25 04/04/2025 CBC WITH DIFFE RENTI AL/PL ATELE T MCV 97 fL 79-97 normal Not Available [facility] ([facility]) [address] [place], [address], 04/04/2025 08:23:19 04/03/20 25 04/04/2025 CBC WITH DIFFE RENTI AL/PL ATELE T MCH 28.8 pg 26.6-3 3.0 normal Not Available [facility] ([facility]) [address] [place], [address], 04/04/2025 08:23:19 04/03/20 25 04/04/2025 CBC WITH DIFFE RENTI AL/PL ATELE T MCHC 29.6 g/dL 31.5-3 5.7 below low normal Not Available [facility] ([facility]) [address] [place], [address], 04/04/2025 08:23:19 04/03/20 25 04/04/2025 CBC WITH DIFFE RENTI AL/PL ATELE T RDW 16.3 % 11.7-1 5.4 above high normal Not Available [facility] ([facility]) [address] [place], [address], 04/04/2025 08:23:19 04/03/20 25 04/04/2025 CBC WITH DIFFE RENTI AL/PL ATELE T platelets 481 x10e3 /uL 150-45 0 above high normal Not Available [facility] ([facility]) [address] [place], [address], 04/04/2025 08:23:19 04/03/20 25 04/04/2025 CBC WITH DIFFE RENTI AL/PL ATELE T neutrophils 66 % not estab. normal Not Available [facility] ([facility]) [address] [place], [address], 04/04/2025 08:23:19 04/03/20 25 04/04/2025 CBC WITH DIFFE RENTI AL/PL ATELE T lymphs 14 % not estab. normal Not Available [facility] ([facility]) [address], [place], [address], 04/04/2025 08:23:19 04/03/20 25 04/04/2025 CBC WITH DIFFE RENTI AL/PL ATELE T monocytes 15 % not estab. normal Not Available [facility] ([facility]) [address], [place], [address], 04/04/2025 08:23:19 04/03/20 25 04/04/2025 CBC WITH DIFFE RENTI AL/PL ATELE T eos 4 % not estab. normal Not Available [facility] ([facility]) [address], [place], [address], 04/04/2025 08:23:19 04/03/20 25 04/04/2025 CBC WITH DIFFE RENTI AL/PL ATELE T basos 1 % not estab. normal Not Available [facility] ([facility]) [address], [place], [address], 04/04/2025 08:23:19 04/03/20 25 04/04/2025 CBC WITH DIFFE RENTI AL/PL ATELE T immature cells EDITOR MANAGING NEWSPAPER Not Available [facility] ([facility]) [address], [place], [address], 04/04/2025 08:23:19 04/03/20 25 04/04/2025 CBC WITH DIFFE RENTI AL/PL ATELE T neutrophils (absolute) 5.7 x10e3 /uL 1.4-7. 0 normal Not Available [facility] ([facility]) [address], [place], [address], 04/04/2025 08:23:19 04/03/20 25 04/04/2025 CBC WITH DIFFE RENTI AL/PL ATELE T lymphs (absolute) 1.2 x10e3 /uL 0.7-3. 1 normal Not Available [facility] ([facility]) [address], [place], [address], 04/04/2025 08:23:19 04/03/20 25 04/04/2025 CBC WITH DIFFE RENTI AL/PL ATELE T monocytes(ab solute) 1.3 x10e3 /uL 0.1-0. 9 above high normal Not Available [facility] ([facility]) [address], [place], [address], 04/04/2025 08:23:19 04/03/20 25 04/04/2025 CBC WITH DIFFE RENTI AL/PL ATELE T eos (absolute) 0.3 x10e3 /uL 0.0-0. 4 normal Not Available [facility] ([facility]) [address], [place], [address], 04/04/2025 08:23:19 04/03/20 25 04/04/2025 CBC WITH DIFFE RENTI AL/PL ATELE T baso (absolute) 0.0 x10e3 /uL 0.0-0. 2 normal Not Available [facility] ([facility]) [address], [place], [address], 04/04/2025 08:23:19 04/03/2004/04/2025 CBC WITH DIFFE RENTI AL/PL ATELE T immature granulocytes 0 % not estab. Not Available [facility] ([facility]) [address] [place], [address], 04/04/2025 08:23:19 04/03/20 25 04/04/2025 CBC WITH DIFFE RENTI AL/PL ATELE T immature grans (abs) 0.0 x10e3 /uL 0.0-0. 1 Not Available [facility] ([facility]) [address] [place], [address], 04/04/2025 08:23:19 04/03/20 25 04/04/2025 CBC WITH DIFFE RENTI AL/PL ATELE T NRBC EDITOR MANAGING NEWSPAPER Not Available [facility] ([facility]) [address], [place], [address], 04/04/2025 08:23:19 04/03/20 25 04/04/2025 CBC WITH DIFFE RENTI AL/PL ATELE T hematology comments: EDITOR MANAGING NEWSPAPER Not Available [facility] ([facility]) [address], [place], [address], 04/04/2025 08:23:19 04/03/2004/04/2025 HEMOG LOBIN A1C hemoglobin A1C 5.1 % 4.8-5. 6 normal Predi abete s: 5.7 - 6.4 Diabe leila: >6.4 Glyce tu contr ol for adult s with diabe leila: <7.0 Not Available [facility] ([facility]) [address], [place], [address], 04/04/2025 08:23:20 05/26/20 XR, elbow No observ ation record ed. [email or web address] [facility] [address], [place], [address], 05/26/2025 12:21:26 Result Notes None recorded. Problems Name Problem SNOMED Code Status Onset Date Resolution Date Notes Provider Name and Address Organization Details Recorded Time Injury of elbow 495010353 Completed Not Available [facility] 3 03:15:58 Bipolar disorder 21613619 Active Not Available [facility] 3 03:15:58 Gastroeso phageal reflux disease 670352268 Active Not Available [facility] 3 03:15:58 Closed fracture of upper end of tibia 93417138 Completed Not Available [facility] 3 03:15:58 Pain in left lower limb 714488200 Completed Not Available [facility] 3 03:15:59 Knee pain Completed Not Available [facility] 3 03:15:59 Fracture of tibia 37894637 Completed Not Available [facility] 3 03:15:59 Harmful pattern of use of Cannabis 25358664 Active Not Available [facility] 3 03:16:00 Fracture of lower leg 432325337 Completed Not Available [facility] 3 03:16:00 Bacterial vaginosis 500045750 Completed Not Available [facility] 3 03:16:01 Atypical squamous cells of undetermi al significa nce on cervical Papanicol aou smear 590493636 Active Not Available [facility] 3 03:16:01 Anxiety 41357152 Completed Not Available [facility] 3 03:16:01 Hyperlipi demia 56863552 Active Not Available [facility] 3 03:16:02 Urinary tract infectiou s disease 53700096 Completed Not Available [facility] 3 03:16:02 Smoker 92259655 Active Not Available [facility] 3 03:16:02 History of alcoholis m 365774917 Active 2016 Not Available [facility] 3 03:15:58 Gangrene of toe of left foot 09292470208 412049 Completed 201901/07/2022 Not Available [facility] 3 03:15:58 Anxiety disorder 680179536 Completed 201901/11/2021 Not Available [facility] 3 03:15:58 Ulcer of toe 212044865 Completed 201901/07/2022 Not Available [facility] 3 03:15:59 Bronchiti s 65797764 Completed 201901/11/2021 Not Available [facility] 3 03:15:59 Depressiv e disorder 52675981 Active 2019 Not Available [facility] 3 03:15:59 Atheroscl erosis of arteries of the extremiti es 41760240 Completed 201901/11/2021 Not Available [facility] 3 03:16:01 Atheroscl erosis of arteries of the extremiti es 47730258 Active 2019 Not Available [facility] 3 03:16:01 Cigarette smoker 70758880 Completed 201901/07/2022 Not Available [facility] 3 03:16:02 Pain in toe 555611440 Completed 201901/07/2022 Not Available [facility] 3 03:15:59 History of amputatio n of lesser toe 456958145 Active 2019 Not Available [facility] 3 03:16:01 Long-term drug therapy Completed 202001/07/2022 Not Available [facility] 3 03:15:59 Neuropath y 604593515 Active 2020 Not Available [facility] 3 03:16:00 Atrial flutter 0235160 Active 2020 Not Available [facility] 3 03:16:02 Transitio n of care 02832745880 05 Completed 202101/07/2022 Not Available [facility] 3 03:15:58 Pneumonia caused by SARS-CoV- 2 02434934075 2379725 Completed 202101/20/2022 Not Available [facility] 3 03:16:03 Anxiety disorder 445816798 Active 2021 Not Available [facility] 3 03:15:58 Periphera l vascular disease 406252147 Active 2021 Not Available [facility] 3 03:16:00 Vitamin D deficienc y 21346480 Active 2021 Not Available [facility] 3 03:15:59 Umbilical hernia 022870608 Active 2021 Not Available [facility] 3 03:16:00 Hypothyro idism 61638002 Active 2021 Not Available [facility] 3 03:16:00 Overactiv e urinary bladder 953023575 Active 2021 Anam Baptiste MD [address] [place] [address], [place] [address], [place], [address] , [place] [facility] 5 08:37:10 Multiple nodules of lung 117216104 Active 2022 Anam Baptiste MD [address], [address], [place], [address] , [facility] 5 11:52:55 Hyperchol esterolem ia 57441137 Active 2022 Anam Baptiste MD [address], [address], [place], [address] , [facility] 5 08:37:52 Migraine 71093307 Active 2022 Anam Baptiste MD [address], [address], [place], [address] , [facility] 5 08:37:40 Essential hypertens ion 85031768 Active 2023 Anam Baptiste MD [address], [address], [place], [address] , [facility] 5 08:37:54 Congestiv e heart failure 64183782 Active 2024 Anam Baptiste MD [address], [address], [place], [address] , [facility] 5 08:36:53 Effusion of joint of right elbow 22191660495 9102 Active 2024 HARMONY Edmond [address], [address] [facility], [place], [address] , [facility] 5 15:25:10 Pain of right elbow joint 84384815057 605689 Active 2024 DREW Vogt, [place] [facility] 5 11:22:42 Bursitis of olecranon of right elbow 46929895276 9108 Active 2024 MARU Noyola [address], [address], [place], [address] , [facility] 5 12:21:41 Notes:Medical History: Anxie ty/Bipolar depression Bilateral hearing loss/tinnitus COVID infection 10/2021 Cannabis use Nicotine use ?COPD on 1 Lpm at rest and 4 Lpm exertional and nocturnal O2 c/o [employer] Obesity Hypothyroidism Mixed hyperlipidemia Hypertension EF 55% Mild RVE Atrial flutter CHAMP Cholelithiasis Umbilical hernia Left adrenal adenoma Urge urinary incontinence Vit D deficiency Osteoporosis Neuropathy Mild left PAD Procedure History: Cardiac ablation 2018 Left 5th toe amputation 2020 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 Procedures Surgical History Date Name Laterality Status Provider Name and Address Organization Details Recorded Time 04/15/20 25 Arthrocentesis Major Joint/Bursa 1588 completed GRICEL Edmond-C [address], [address], [place], [address], [facility] [employer] [facility] 04/15/2025 12:14:57 01/25/20 25 Transitional_Care_ Management cancelled GRICEL Emdond-C [address], [address], [place], [address], [employer] [facility] 01/21/2025 14:43:51 01/20/20 23 Advanced Care Planning completed Ling Moody RN [facility] 01/19/2023 12:49:00 10/30/19 22 Date of Last Pap Smear completed Ling Moody RN [place] [employer] [facility] 01/19/2023 12:44:34 06/15/19 22 Date of Last Mammogram completed Ling Moody RN [place] [employer] [facility] 01/19/2023 12:42:58 06/15/19 22 Most Recent Bone Density completed Ling Moody RN [place] [email or web address] 01/19/2023 12:43:18 [employer]Y MAKER Surgery completed Not Available [facility] 08/10/2022 03:08:08 ENT Procedure completed Not Available [facility] 08/10/2022 03:08:08 Imaging Results None recorded. Procedure Notes None recorded. Medical Equipment None Reported. Allergies Allergen ID Allergen Name Allergen Category Reaction Reaction Severity Criticality Documentation Date Start Date Code Code System Note Provider Name and Address Organization Details Recorded Time 5780 lithium Not available vomiting Not available Not available 08/10/2022 6448 RxNorm Not Available [facility] 3 03:25:43 5781 Dolobid medicatio n vomiting Not available Not available 08/10/2022 60299 6 RxNorm Not Available [facility] 3 03:25:43 5782 Dilaudid medicatio n vomiting Not available Not available 08/10/2022 50797 3 RxNorm Not Available [facility] 3 03:25:43 5783 Bactrim medicatio n vomiting Not available Not available 08/10/2022 26909 9 RxNorm Not Available [facility] 3 03:25:43 78720 ciproflox acin medicatio n Not available Not available [facility] 04/28/2025 2551 RxNorm Not Available [facility] External Data Service - prod 5 15:30:06 63156 vancomyci n medicatio n Not available Not available [facility] 04/28/2025 01191 RxNorm Not Available [facility] External Data Service - prod 5 15:30:06 53924 etodolac medicatio n Not available Not available [facility] 04/28/2025 25759 RxNorm unrec ogniz ed react ion (text : Red color (qual ifier value ), code: 02175 0000) (from exter nal sourc e) unrec ogniz ed react ion (text : Blush ing, funct ion (obse rvabl e entit y), code: 65171 002) (from exter nal sourc e) Not Available [facility] - External Data Service - prod 5 15:30:06 98576 loracarbe f medicatio n Not available Not available [facility] 04/28/2025 58705 RxNorm unrec ogniz ed react ion (text : Sever e (evert rity modif ier) (qual ifier value ), code: 89733 000) (from exter nal sourc e) Not Available [facility] External Data Service - prod 5 15:30:06 08418 phenazopy ridine medicatio n Not available Not available [facility] 04/28/2025 8120 RxNorm Not Available [facility] External Data Service - prod 5 15:30:06 05097 diflunisa l medicatio n vomiting Not available Not available 04/28/20252019 3393 RxNorm Not Available [facility] [employer] - prod 5 15:30:06 00463 [employer] melanie medicatio n vomiting Not available Not available 04/28/20252016 3423 RxNorm unrec ogniz ed react ion (text : Nause a and/o r Vomit ing, code: 29693 000) (from exter nal sour e) Not Available [employer] - prod 15:30:06 92640 latex environme nt,medica tion itching rash Not available Not available [facility] 04/28/20252011 09664 91 RxNorm Not Available [employer] - prod 15:30:06 46102 propoxyph darshana medicatio n Not available Not available low 04/28/20252011 8785 RxNorm Vagin al bleed ing unrec ogniz ed react ion (text : Other , code: 41501 07) (from exter [facility] sour e) Not Available [employer] - prod 15:30:06 17645 diltiazem Not available other Not available high 04/28/20252023 3443 RxNorm IV AND PO-AN Y dose cause s pause s. EVEN small doses of 30 mg Not Available [employer] - prod 15:30:08 05285 sulfameth oxazole / trimethop rim medicatio n anaphylax is other Not available Not available high 04/28/20252011 38508 RxNorm Cant remem julian Not Available [employer] - prod 15:30:08 Medications Name Sig Start Date Stop Date [...] TAKE 1 TABLET BY MOUTH EVERY DAY 2024 active SNOW 05/01/25 NOV 08/04/25 ok to rf Not Available Not Available Not Available bupropion HCl SR 150 mg tablet,12 [...] Not Available gabapenti n 600 mg tablet Take 0.5 tablets twice a day by oral route. active Not [...] mg tablet TK 1 T PO D 01/17 completed Not Available Not Available Not Available ibuprofen 800 mg tablet Take 1 tablet 3 times a day by oral route. active Not Available Not Available No t Available diltiazem CD 180 mg capsule,e xtended release 24 hr TAKE 1 CAPSULE BY MOUTH DAILY 04/03 completed Not Available Not Available Not Available alprazola m 1 mg tablet active Not Available Not Available Not Available tramadol 37.5 mg-acetam inophen 325 mg tablet TK 1 TO 2 TS PO Q 6 H PRN 01/10 completed Not Available Not Available Not Available fluconazo le 150 mg tablet one daily active Not Available Not Available No t Available amiodaron e 200 mg tablet 04/03 completed Not Available Not Available Not Available metoprolo [...] t Available lisinopri l 20 mg tablet 04/03 completed Not Available Not Available Not Available ondansetr on HCl 4 mg tablet 07/11 completed Not Available Not Available Not Available bupivacai ne HCl 0.5 % (5 mg/mL) injection solution Take 15 mg by injectio n route. 2024 active Not Available Not Available Not Avai lable prednison e 20 mg tablet TAKE 2 TABLETS BY MOUTH DAILY 11/06 completed Not Available Not Available Not Available clonazepa m 0.5 mg tablet active Not Available Not Available Not Available metoprolo l succinate ER 100 mg tablet,ex tended release 24 hr TAKE 1 TABLET BY MOUTH EVERY DAY 04/03 completed Not Available Not Available Not Available quetiapin e 200 mg tablet TAKE 1 TABLET BY MOUTH DAILY AT BEDTIME 04/03 completed Not Available Not Available Not Available [...] BY MOUTH EVERY DAY AT BEDTIME FOR 30 DAYS FOR MOOD SWINGS. 05/26 completed Not Available Not Available Not Available amitripty line 50 mg tablet TAKE 1 TABLET BY MOUTH EVERY NIGHT AT BEDTIME 2024 active SNOW 05/01/25 NOV 08/04/25 ok to rf Not Available Not Available Not Available bupropion HCl SR 100 mg tablet,12 hr sustained -release 01/10 completed Not Available Not Available Not Available vancomyci n 125 mg capsule TK 1 C PO RACHEL 6 HOURS FOR 6 DAYS 09/05 completed Not Available Not Available Not Available levothyro xine 75 mcg tablet TK 1 T PO QAM B JEFFREY 03/12 completed Not Available Not Available Not Available prednison e 10 mg tablets in a dose pack Take 1 tab by mouth, 3 times a day for 3 daysTake 1 tab by mouth 2 times a day for 2 daysTake 1 tab by mouth once a day for 1 day 2024 active Not Available Not Available Not Avai lable oxycodone -acetamin ophen 5 mg-325 mg tablet 09/05 completed Not Available Not Available Not Available levothyro xine 88 mcg tablet TAKE 1 TABLET BY MOUTH EVERY DAY 2024 active SNOW 05/01/25 NOV 08/04/25 ok to rf Not Available Not Available Not Available famotidin e 20 mg tablet active [...] hr TAKE 1 TABLET BY MOUTH DAILY AT BEDTIME active Not Available Not Available [...] INHALE 1 PUFF BY MOUTH TWICE DAILY 05/26 completed Not Available Not Available Not Available nicotine 21 mg/24 hr daily transderm al patch APPLY 1 PATCH QD FOR 7 DAYS ONLY 12/27 completed Not Available Not Available Not Available gabapenti n 300 mg capsule TAKE ONE CAPSULE BY MOUTH THREE TIMES DAILY 04/24 completed Not Available Not Available Not Available [...] week by oral route for 90 days. 05/26 completed Not Available Not Available Not Available clobetaso l 0.05 % topical ointment APPLY THIN LAYER TOPICALL Y TO THE AFFECTED AREA TWICE DAILY 08/19 completed Not Available Not Available Not Available levofloxa zaira 500 mg tablet TAKE 1 TABLET BY MOUTH DAILY 11/06 completed Not Available Not Available Not Available methylpre dnisolone 4 mg tablets in a dose pack FOLLOW PACKAGE DIRECTIO NS 04/03 completed Not Available Not Available Not Available [...] TOTAL) BY MOUTH EVERY 8 (EIGHT) HOURS 04/03 completed Not Available Not Available Not Available topiramat e 50 mg tablet TAKE 1 TABLET BY MOUTH TWICE DAILY 04/03 completed Not Available Not Available Not Available [...] release TAKE 1 CAPSULE BY MOUTH EVERY MORNING FOR 90 DAYS 05/26 completed Not Available Not Available Not Available fentanyl 12 mcg/hr transderm al patch [...] Available Not Available Not Available quetiapin e 50 mg tablet TAKE 1 TABLET BY MOUTH EVERY DAY AT BEDTIME FOR BIPOLAR active Not Available Not Available No t Available quetiapin e 400 mg tablet TK [...] Not Available Eliquis 5 mg tablet TAKE ONE (1) TABLET BY MOUTH TWICE DAILY active Not Available Not Available No t Available Breo Ellipta 100 mcg-25 mcg/dose powder for inhalatio n USE 1 INHALATI ON PO QD. active Not Available Not Available No t Available Jardiance 10 mg tablet 05/01 completed Not Available Not Available Not Available Entresto 49 mg-51 mg tablet TAKE 1 TABLET BY MOUTH TWICE DAILY 09/05 completed Not Available Not Available Not Available Entresto 24 mg-26 mg tablet TAKE 1 TABLET BY MOUTH TWICE DAILY 05/26 completed SNOW 05/01/25 NOV 08/04/25 ok to rf Not Available Not Available Not Available Gemtesa 75 mg tablet Take 1 tablet every day by oral route. 08/29 completed Not Available Not Available Not Available Vitals Date Recorded Body height Body mass index (BMI) Body weight Oxygen saturation Inhaled oxygen flow rate Body temperature Heart rate Systolic And Diastolic Provider Name and Address Organization Details Last Updated DateTime 5 157.48 cm 28.2 kg/m2 80447.2 2 g 94 % 4 L/min 97.8 [degF] 92 /min 138/72 mm[Hg] Svitlana tipton [place] [facility] [place] [facility] 5 11:39:23 Social History Question Answer Notes LastModified by Organization Details LastModified Time Tobacco Smoking Status Current Every Day Smoker Not Available [facility] 08/10/2022 02:52:35 Do You Have An Advance Directive? No MIGRATION.0301 [id number] Information not available 08/10/2022 Are You Blind Or Do You Have Difficulty Seeing? No MIGRATION.0301 082619 Information not available 08/10/2022 What Is Your Level Of Caffeine Consumption? Moderate MIGRATION.0301 [id number] Information not available 08/10/2022 In The 14 Days Before Symptom Onset, Have You Had Close Contact With A Laboratory-conf irmed COVID-19 While That Case Was Ill? No MIGRATION.0301 [id number] Information not available 08/10/2022 In The 14 Days Before Symptom Onset, Have You Had Close Contact With A Person Who Is Under Investigation For COVID-19 While That Person Was Ill? No MIGRATION.0301 058780 Information not available 08/10/2022 Are You Deaf Or Do You Have Serious Difficulty Hearing? No MIGRATION.0301 868254 Information not available 08/10/2022 What Type Of Diet Are You Following? REGULAR MIGRATION.0301 333444 Information not available 08/10/2022 Which Illicit Or Recreational Drugs Have You Used? Marijuana MIGRATION.0301 991111 Information not available 08/10/2022 What Is The Highest Grade Or Level Of School You Have Completed Or The Highest Degree You Have Received? [id number] MIGRATION.0301 219612 Information not available 08/10/2022 Do You Have An Electrostatic Air Filter? No Information not available 08/29/2022 Have There Been Any Changes To Your Family Or Social Situation? No MIGRATION.0301 715210 Information not available 08/10/2022 What Is The Fluoride Status Of Your Home? Unknown MIGRATION.0301 870283 Information not available 08/10/2022 Are There Any Guns Present In Your Home? No MIGRATION.0301 693900 Information not available 08/10/2022 Do You Have A Humidifier? Yes Information not available 08/29/2022 Do You Use Insect Repellent Routinely? No MIGRATION.0301 043201 Information not available 08/10/2022 Where Do You Live? SingleLevelHouse MIGRATION.0301 272139 Information not available 08/10/2022 Do You Have A Medical Power Of Career Education Teacher? No MIGRATION.0301 749711 Information not available 08/10/2022 Do You Have Moisture Problems In Your Home? Yes Leak In Bathroom Information not available 08/29/2022 What Was The Date Of Your Most Recent Tobacco Screening? 05/26/2025 Information not available 05/26/2025 What Is Your Current Pack Years? 30ormorepackyears MIGRATION.0301 724898 Information not available 08/10/2022 Do You Have Any Pets? Yes MIGRATION.0301 208986 Information not available 08/10/2022 What Is Your Relationship Status? MIGRATION.0301 876082 Information not available 08/10/2022 Do You Use Your Seat Belt Or Car Seat Routinely? No MIGRATION.0301 575325 Information not available 08/10/2022 Do You Have Smoke And Carbon Monoxide Detectors In Your Home? Yes MIGRATION.0301 181669 Information not available 08/10/2022 At What Age Did You Start Smoking Tobacco? 11 MIGRATION.0301 367269 Information not available 08/10/2022 Are You Passively Exposed To Smoke? Yes MIGRATION.0301 821025 Information not available 08/10/2022 Are There Any Smokers In Your House? Yes MIGRATION.0301 019796 Information not available 08/10/2022 How Much Tobacco Do You Smoke? 0.5 PPD 1/2 Pack To A Pack Information not available 05/26/2025 Do You Use Sunscreen Routinely? No MIGRATION.0301 089705 Information not available 08/10/2022 Has Tobacco Cessation Counseling Been Provided? Yes MIGRATION.0301 977951 Information not available 08/10/2022 On What Date Was Tobacco Cessation Counseling Provided? 09/23/2021 MIGRATION.0301 279425 Information not available 08/10/2022 How Many Years Have You Smoked Tobacco? 48 [email or web address] Information not available 09/05/2024 Have You Recently Traveled Abroad? No MIGRATION.0301 966041 Information not available 08/10/2022 Have You Used IV Drugs? No MIGRATION.0301 035239 Information not available 08/10/2022 Do You Have Difficulty Walking Or Climbing Stairs? No MIGRATION.0301 327522 Information not available 08/10/2022 Do You Have Any Dietary Restrictions? No MIGRATION.0301 964374 Information not available 08/10/2022 Sex: Unknown Functional Status Question Answer Note LastModified by [employer] ion Details LastModified Time Do you use any illicit or recreational drugs? Yes MIGRATION.[id number] 026 Information not available 08/10/2022 Do you or have you ever used any other forms of tobacco or nicotine? No MIGRATION.5601383 026 Information not available 08/10/2022 What is your level of alcohol consumption? None Information not available 05/26/2025 Do you have transportation difficulties? No MIGRATION.9374345 026 Information not available 08/10/2022 Are you able to walk independently without assistance or assistive devices? YESASSIST MIGRATION.8613584 026 Information not available 08/10/2022 Do you have difficulty doing errands alone? No MIGRATION.9309404 026 Information not available 08/10/2022 Are you able to care for yourself independently? Yes MIGRATION.0377744 026 Information not available 08/10/2022 What is your occupation? N/a MIGRATION.6275192 026 Information not available 08/10/2022 Do you have difficulty dressing, bathing, grooming, or toileting? No MIGRATION.9674788 026 Information not available 08/10/2022 What is your exercise level? None MIGRATION.8601141 026 Information not available 08/10/2022 Mental Status Question Answer Note LastModified by Organizat ion Details LastModified Time Do you feel stressed (tense, restless, nervous, or anxious, or unable to sleep at night)? EP0766-0 MIGRATION.[id number] 26 Information not available 08/10/2022 Do you have difficulty concentrating, remembering or making decisions? No MIGRATION.89067224 26 Information not available 08/10/2022 Family History Relationship Description Onset Age of this Age Resolved Age Notes LastModified by Organization Details LastModified Time Mother Malignant neoplasm of esophagus [email or web address] Not available 2022 13:32:41 Mother Heart disease [email or web address] Not available 2022 13:35:01 Maternal Aunt Malignant neoplasm of lung [email or web address] Not available 2022 13:32:52 Maternal Aunt Diabetes mellitus [email or web address] Not available 2022 13:34:31 Paternal Uncle Malignant neoplasm of lung [email or web address] Not available 2022 13:33:13 Paternal Uncle Heart disease [email or web address] Not available 2022 13:35:10 Paternal Aunt Malignant neoplasm of lung [email or web address] Not available 2022 13:33:18 Maternal Uncle Diabetes mellitus [email or web address] Not available 2022 13:34:26 Maternal Uncle Heart disease [email or web address] Not available 2022 13:34:55 Notes:CANCER-MOTHER/AUNTS/CO USINS/UNCLES Medical History Condition Response USE OF BLOOD THINNERS Y COPD Y Gynecological History Statement/Question Response Date of Last Pap Smear 10/29/2021 Date of Last Mammogram 06/15/2021 Most Recent Bone Density 06/15/2021 Obstetrics History GPAL:G 0 P 0 0 0 0 Immunizations Vaccine Type Date Status Note Provider Nam e and Address Organization Details Recorded Time Tdap 2 completed Not Available [facility] 07/22/2023 00:44:00 Influenza, split virus, quadrivalent, PF 7 completed Not Available [facility] 07/22/2023 00:44:00 Influenza, split virus, quadrivalent, preservative 6 completed Not Available [facility] 07/22/2023 00:43:59 pneumococcal polysaccharide PPV23 4 completed Not Available [facility] 07/22/2023 00:43:59 Influenza, split virus, trivalent, PF 4 completed Not Available [facility] 07/22/2023 00:44:00 Past Encounters Encounter ID Performer Location Encounter Start Date Encounter Closed Date Diagnosis/Indication Diagnosis SNOMED-CT Code Diagnosis ICD10 Code Diagnosis IMO Codes Diagnosis Note [id number] Emilie Carrillo MD [facility] [address] [place] [address] 04/03/2025 11:16:10 04/03/2025 15:45:37 Effusion of joint of right elbow 7132802092 28878 M25.421 [id number] keep wrapped, use ice, and elevated, use tylenol only as needed does not need tap at this time Screening for cardiovascular system disease 748235631 Z13.6 863498 Dependence on supplemental oxygen 1622239835 07 Z99.81 065415 History of alcoholism 16 1146119 F10.21 discussed importance of compliance and health risk associated with alcoholism Smoker 81713645 F17.218 F17.219 Z87.891 extensive education provided on smoking cessation. Chronic ob structive pulmonary disease 96314641 J44.9 [id number] Emilie Carrillo MD [facility] Internal Med [facility] [address] [place] [address] 04/15/2025 11:31:26 04/15/2025 12:39:24 Effusion of joint of right elbow 6862786656 51888 M25.421 20859041 wrapped and advised to use tylenol and iceKeep wrapped for 72 hours.6mls only taken off at this time Health Concerns Section Related Observation LastModified by Organization Detai ls LastModified Time None Recorded Concern Status LastModified by Organization Details LastModified Time None Recorded Payers Encounter Date Sequence Insurance Name Policy Number Policy Perez Covered Member ID Perez Member ID Guarantor Name 04/15/[address] [facility] (MEDICARE REPLACEMENT/A DVANTAGE - PPO) [id number] Yaneli Conroy [id number] Yaneli Conroy 04/15/2025 2 [place] [facility] Yaneli Conroy [id number] Yaneli Conroy Notes Date Note Type Note Provider Name and Address Organization Details Recorded Time 04/15/2025 text/html ROS as noted in the HPI Patient is 60y/o female who is here for bursa of right elbow. Patient is back in office today. She reports she had kept it wrapped after last initial visit but recently bumped her elbow again and it had swollen back up. She reports that it does hurt at this time but has not taken any tylenol or has used ice. She denies fever, redness, streaking, warmth, discharge, or other issues at this time. GRICEL Edmond-Yoanna [address] [facility], [facility] [address], [place], [address], [facility] [place] [facility] 04/15/2025 12:22:12 OBGyn Episode No OBEpisode recorded.
--- OUTSIDE RECORDS SUMMARY | 2025-06-03 12:36 | XMS_ITS | Clinical Summary ---
Author Organization [facility] Address [address] [place] [address] Care Team Providers Care Certified Nurse Aide Name Role Phone Nino Carrillo MD Primary Care Provider Terry Wilkerson MD Unavailable [phone] Bashir Crouch MD Unavailable Micky Guerra MD Unavailable Desmond Quintanilla MD Unavailable [phone] Canelo Youssef MD Unavailable Allergies Active Allergy Reactions Criticality Noted Date Comments Diltiazem Other (See comments) High 12/04/2023 IV AND PO-ANY dose causes pauses. EVEN small doses of 30 mg Diflunisal Vomiting Low 07/18/2019 Hydromorphone Nausea And Vomiting,Nausea only,Vomiting Low 01/07/2017 Latex Hives,Itching,Rash Medium 03/06/2012 Burley Vomiting Low 01/07/2017 Sulfamethoxazole-Trimeth oprim Anaphylaxis,Other (See comments) High 02/05/2012 Cant remember Medications empagliflozin (JARDIANCE) 10 mg tablet Take 1 tablet (10 mg total) by mouth daily 30 tablet 5 Active albuterol HFA (PROVENTIL HFA,VENTOLIN HFA,PROAIR HFA) 90 mcg/actuation inhaler Inhale 2 puffs every 4 (four) hours as needed for wheezing or shortness of breath 1 each 5 Active fluticasone propion-salmet Maribeth (ADVAIR DISKUS) 500-50 mcg/dose diskus inhaler Inhale 1 puff 2 (two) times a day Rinse mouth with water after use. Do not swallow. 1 each 5 Active metoprolol tartrate (LOPRESSOR) 25 mg immediate release tablet Take 0.5 tablets (12.5 mg total) by mouth 2 (two) times a day Hold if SBP less than 100, HR less than 60 30 tablet 5 Active lidocaine (ASPERCREME) 4 % adhesive patch,medicate dIndications:r ight leg medial to knee Place 1 patch on the skin daily for 12 hours 30 patch 5 Active gabapentin (NEURONTIN) 300 mg capsule Take 1 capsule (300 mg total) by mouth daily Active tiotropium (SPIRIVA) 18 mcg per inhalation capsule Place 1 puff (1 capsule total) into inhaler and inhale daily 30 capsule 5 Active clopidogreL (PLAVIX) 75 mg tablet Take 1 tablet (75 mg total) by mouth daily 5 Active Entresto 24-26 mg tablet Take 1 tablet by mouth 2 (two) times a day Active QUEtiapine (SEROquel) 200 mg tablet Take 0.5 tablets (100 mg total) by mouth nightly 5 Active acetaminophen 500 mg capsule Take 2 capsules (1,000 mg total) by mouth every 6 (six) hours 5 Active oxyCODONE (ROXICODONE) 5 mg immediate release tabletIndicati ons:Pain Take 1 tablet (5 mg total) by mouth every 4 (four) hours as needed for pain 12 tablet 5 Active ALPRAZolam (XANAX) 1 mg tablet Active amiodarone (PACERONE) 200 mg tablet Active amitriptyline (ELAVIL) 50 mg tablet 5 Active Eliquis 5 mg tablet Take 1 tablet (5 mg total) by mouth 2 (two) times a day 5 Active asenapine maleate (SAPHRIS) 10 mg tablet, sublingual Active aspirin 81 mg enteric coated tablet Take 1 tablet (81 mg total) by mouth daily Active atorvastatin (LIPITOR) 40 mg tablet 5 Active azithromycin (ZITHROMAX) 250 mg tablet Take by mouth Ac tive budesonide-for moteroL (SYMBICORT) 160-4.5 mcg/actuation inhaler Inhale 2 puffs 2 (two) times a day 0 Active dilTIAZem CD 180 mg 24 hr capsule 5 Active divalproex ER (DEPAKOTE ER) 500 mg 24 hr tablet [address] (CYMBALTA) 60 mg capsule 5 Active famotidine (PEPCID) 20 mg tablet Active furosemide (LASIX) 40 mg tablet Take 1 tablet (40 mg total) by mouth every morning 5 Active hydrOXYzine (ATARAX) 25 mg tablet Active hydrOXYzine (VISTARIL) 100 mg capsule TK ONE C PO EVERY NIGHT AT BEDTIME Active hydrOXYzine (VISTARIL) 25 mg capsule TK ONE C PO BID Act matty levoFLOXacin (LEVAQUIN) 750 mg tablet 5 Active levothyroxine (SYNTHROID) 88 mcg tablet 5 Active lisinopriL (PRINIVIL,ZEST RIL) 20 mg tablet 5 Active lithium 300 mg tablet/capsule Activ e methylPREDNISo lone (MEDROL DOSEPACK) 4 mg Dosepack 5 Active metoprolol XL (TOPROL-XL) 100 mg 24 hr tablet 5 Active metroNIDAZOLE (METROGEL) 0.75 % (37.5mg/5 gram) vaginal gel Insert 1 applicatorful by vaginal route for 5 days. Active Dulera 100-5 mcg/actuation inhaler 5 Active norethindrone ac-eth estradioL (Jinteli) 1-5 mg-mcg tablet Take 1 tablet every day by oral route. Active omeprazole (PriLOSEC) 40 mg capsule Take 1 capsule (40 mg total) by mouth daily Active piroxicam (FELDENE) 20 mg capsule Active topiramate (TOPAMAX) 50 mg tablet 5 Active traMADoL (ULTRAM) 50 mg tablet TK 1 T PO Q 6 H Acti ve varenicline tartrate (CHANTIX) 1 mg tablet FPD. Active ergocalciferol (VITAMIN D) 50,000 unit capsule 5 Active Active Problems Problem Noted Date Diagnosed Date Atypical squamous cells of u ndetermined significance (ASCUS) on Papanicolaou smear of cervix 10/29/2024 Bacterial vaginosis 10/29/2024 Closed fracture of upper end of tibia 10/29/2024 Fracture of lower leg 10/29/2024 Hyperglycemia 10/29/2024 Injury of elbow 10/29/2024 Open wound of right knee 10/08/2024 Assessment & Plan (10/08/2024 12:49 PM CDT): -knee previously injured during fall in early September - necrotic tissue removed, wound cleansed, applied Santyl to wound base followed by Vashe dampened gauze and dry dressing. To be changed daily Acute post-operative pain 10/07/2024 Assessment & Plan (10/08/2024 12:51 PM CDT): Pain well controlled with oral pain regimen Discharge planning issues 10/07/2024 Assessment & Plan (10/09/2024 12:27 PM CDT): 10/07 OR with orthopedics, requires PT/OT and pain control ADD 10/09 Patient is medically stable for discharge, SW/CM updated. Discharge pending transportation [x]Treatment note completed Encounter for medication review 10/07/2024 Assessment & Plan (10/07/2024 3:12 PM CDT): Home medications reviewed and updated Nondisp fx of lateral malleolus of left fibula, init 10/06/2024 Assessment & Plan (10/07/2024 3:11 PM CDT): See closed trimalleolar of left ankle Closed trimalleolar fracture of left ankle 10/05 Assessment & Plan (10/09/2024 9:56 AM CDT): 10/06: Ortho c/s: s/p splint 10/07: ORIF L ankle fx. NWB in a splint. Ancef x24 hrs. PT/OT, DVT PPX 10/08: pain well controlled, remains NWB, therapy recommending IPR Patient to discharge on home Apixiban for DVT prophylaxis Hematoma of right knee region 09/14/2024 Assessment & Plan (10/06/2024 7:14 PM CDT): 10/06: wound care, CTM Traumatic hematoma of right knee, sequela 2024 Vitamin D deficiency 09/12/2024 JEANETTE (acute kidney injury) 09/11/2024 Pain and swelling of right knee 09/11/2024 Fall 09/11/2024 Fall, initial encounter 09/06/2024 Hypokalemia 09/06/2024 Knee effusion, right 09/06/2024 Coronary artery disease invo lving [place] coronary artery of [place] heart without angina pectoris 09/06/2024 Dyslipidemia associated with type 2 diabetes amado litus 09/06/2024 Assessment & Plan (10/09/2024 9:55 AM CDT): Diabetic diet Holding home Jardiance Continue with SSI Jardiance resumed at discharge Patient to follow up with PCP for further evaluation and management Acquired hypothyroidism 09/06/2024 Neuropathy 09/06/2024 Panlobular emphysema 09/06/2024 Acute pain of right knee 09/06/2024 Hypoxia 09/05/2024 Hypoxemia 04/12/2024 Abdominal pain 01/24/2024 Acute UTI (urinary tract infection) 01/07/2024 Acute chest pain 12/09/2023 Paroxysmal atrial fibrillation 12/03/2023 Assessment & Plan (10/09/2024 9:54 AM CDT): Holding home apixiban - Metoprolol continued Apixiban resumed on day of discharge Patient to follow up with PCP for further evaluation and management Sinus pause 12/02/2023 Sick sinus syndrome 12/02/2023 Migraine 05/30/2023 Yeast detected 01/05/2023 Insomnia 11/25/2022 Dyspnea on exertion 08/29/2022 Multiple nodules of lung 07/27/2022 Overactive bladder 05/17/2022 Umbilical hernia 01/20/2022 Peripheral vascular disease 09/23/2021 Pneumonia due to COVID-19 virus 07/29/2021 Atrial flutter 09/11/2020 Edema 09/10/2020 History of amputation of lesser toe 05/27/2020 Cardiac arrhythmia 03/19/2020 Pain in toe 03/19/2020 Atherosclerosis of arteries of extremities 03/12 Assessment & Plan (10/08/2024 12:47 PM CDT): Established with [facility], for her vascular issues. Iliac stents bilateral (?) on clopidogrel 75mg daily -holding Anxiety and depression 03/12/2020 Gangrene of toe of left foot 03/12/2020 Bronchitis 03/12/2020 Sleep disorder 03/12/2020 Ulcer of toe 03/12/2020 Primary hypertension 10/11/2019 Assessment & Plan (10/07/2024 3:17 PM CDT): Home regimen Lisinopril, holding Difficulty walking 10/11/2019 Asthenia 10/11/2019 Metabolic encephalopathy 10/11/2019 Muscle weakness 10/11/2019 Recurrent major depression 10/11/2019 Encephalopathy 10/08/2019 Fall from ground level 10/08/2019 Metabolic alkalosis 10/08/2019 Tobacco dependence syndrome 08/05/2019 Chronic heart failure with p reserved ejection fraction (HFpEF) 07/28/2019 Assessment & Plan (10/09/2024 9:55 AM CDT): Home entresto holding at this time Resumed at dischage Patient to follow up with PCP for further evaluation and management Hyponatremia 07/28/2019 Normocytic anemia 07/28/2019 Gastroesophageal reflux disease without esophagi tis 07/22/2019 Hyperlipidemia 07/22/2019 Assessment & Plan (10/07/2024 3:13 PM CDT): Continue home lipitor Smoker 07/22/2019 Anxiety 07/18/2019 Chronic obstructive pulmonary disease 07/18/2019 Assessment & Plan (10/09/2024 9:54 AM CDT): Resume home albuterol, and hospital surrogate for advair and spiriva; home oxygen 4L nasal cannula Patient to follow up with PCP for further evaluation and management Cannabis abuse, uncomplicated 07/18/2019 C. difficile colitis 07/04/2019 Chronic respiratory failure with hypoxia 019 Thrombocythemia 01/30/2017 Bipolar 1 disorder 01/11/2017 Assessment & Plan (10/09/2024 9:55 AM CDT): Continue home amitriptyline, duloxetine, quetiapine Patient to follow up with PCP for further evaluation and management Infarction of spleen 01/11/2017 Pure hypercholesterolemia 01/11/2017 History of alcoholism 01/10/2017 Overview (10/29/2024): IMO 09/11/2024 Nontraumatic subdural hemorrhage 02/07/2012 Other fracture of base of sk ull, initial encounter for closed fracture 02/07/2012 Temporal bone fracture 02/06/2012 Resolved Problems Problem Noted Date Diagnosed Date Resolved Date Acute on chronic systolic co ngestive heart failure 09/06/2024 09/14/2024 Immunizations Immunization Administration Dates Next Due Influenza, Quadrivalent, Split, Intramuscular Influenza, Quadrivalent, Spl it, Preservative Free, Intramuscular 03/30/2017 Influenza, Trivalent, Preservative Free, Intramu scular 06/02/2014 Pneumococcal Polysaccharide PPV23 06/02/2014 TD Preservative Free 02/05/2012 Tdap 09/23/2021 Surgical History Surgery Date Site/Laterality Comments FRACTURE SURGERY 10/07/2024 Left ankle Medical History Medical History Date Comments Oxygen dependent Hypertension Diabetes mellitus COPD (chronic obstructive pulmonary disease) Emphysema lung Smoker Sinus pause Atrial fibrillation, new onset (HCC) Sick sinus syndrome (HCC) GERD (gastroesophageal reflux disease) Overactive bladder Anxiety Septic shock (HCC) Acute on chronic respiratory failure with hypoxe christiane (HCC) Infarction of spleen Fall PONV (postoperative nausea and vomiting) Type 2 diabetes mellitus Hypothyroidism Depression Bipolar disorder Social History Tobacco Use Types Packs/Day Years Used Date Smoking Tobacco: Every Day Cigarettes 0.1 45 Started: 1980 Passive Smoke Exposure: Past Smokeless Tobacco: Never Tobacco Cessation:Ready to Q uit: Not Asked; Counseling Given: Not Answered Alcohol Use Standard Drinks/Week Comments Not Currently 0 (1 standard drink = 0.6 oz pur e alcohol) [facility] Utilities Answer Date Recorded In the past 12 months has [employer], gas, oil, or water [employer] threatened to shut off services in your home? No 10/09/2024 Social Connection and Isolation Panel Answer Date Recorded In a typical week, how many times do you talk on the phone with family, friends, or neighbors? More than three times a week 10/09/2024 How often do you get togethe r with friends or relatives? More than three times a week 10/09/2024 How often do you attend chur ch or religion services? Never 10/09/2024 Do you belong to any clubs o r organizations such as scientology groups, unions, fraternal or athletic groups, or school groups? No 10/09/2024 How often do you attend meet ings of the clubs or organizations you belong to? Never 10/09/2024 Are you , , di vorced, , never , or living with a partner? 10/09/2024 AUDIT-C Answer Date Recorded Q1: How often do you have a drink containing alcohol? Never 10/07/2024 Q2: How many drinks containi ng alcohol do you have on a typical day when you are drinking? Patient does not drink Q3: How often do you have si x or more drinks on one occasion? Never 10/07/2024 Overall Financial Resource Strain (CARDIA) Answe r Date Recorded How hard is it for you to pa y for the very basics like food, housing, medical care, and heating? Not hard at all 10/09/2024 PHQ-2 Answer Date Recorded PHQ-2 Total Score (If total score is 3 or more points, staff should administer the PHQ-9) 0 10/09/2024 Hunger Vital Sign Answer Date Recorded Within the past 12 months, y ou worried that your food would run out before you got the money to buy more. Never true 10/10/19 25 Within the past 12 months, t he food you bought just didn't last and you didn't have money to get more. Never true 10/09/2024 PRAPARE - Transportation Answer Date Re corded In the past 12 months, has l ack of transportation kept you from medical appointments or from getting medications? No 09/12 In the past 12 months, has l ack of transportation kept you from meetings, work, or from getting things needed for daily living? No 10/09/2024 PHQ-9 Answer Date Recorded PHQ-9 Total Score 0 12/10/2023 Housing Stability Vital Sign Answer Frank e Recorded In the last 12 months, was t here a time when you were not able to pay the mortgage or rent on time? No 10/09/2024 In the past 12 months, how m any times have you moved where you were living? 1 10/09/2024 At any time in the past 12 m [facility], were you homeless or living in a [facility] (including now)? No 10/09/2024 Personal Safety Answer Date Recorded Have you ever been in or are you currently in a harmful physical or emotional relationship or is someone making you feel afraid or unsafe? 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 Gender Identity Not on file Sexual Orientation Not on file Last Filed Vital Signs Vital Sign Reading Time Taken Comments Blood Pressure 139/68 10/09/2024 8:00 AM CDT Pulse 73 10/09/2024 8:00 AM CDT Temperature 36.8 C (98.2 F) 10/09/2024 8:00 AM CDT Respiratory Rate 16 10/09/2024 8:00 AM CDT Oxygen Saturation 100% 10/09/2024 8:00 AM CDT Inhaled Oxygen Concentration - - Weight 82.6 kg (182 lb) 10/06/2024 2:32 PM CDT Height 157.5 cm (5' 2) 10/06/2024 2:32 PM CDT Body Mass Index 33.29 10/06/2024 2:32 PM CDT Plan of Treatment Health Maintenance Due Date Last Done Comments Albumin Creatinine Ratio, Urine 1966 Breast Cancer Screening-Mammogram 1966 Cervical Cancer Screening 1966 Colon Cancer Screening-Colonoscopy 1966 Hepatitis C Screening 1966 Dilated Eye Exam 1966 Foot Exam 1966 Hepatitis B Screening 02/15/1984 Regular Well Visit/Exam 18-64 02/15/1984 Pneumococcal vaccine <65 (2 of 2 - PCV) 06/02/2015 06/02/2014 Zoster Vaccine (1 of 2) 02/15/2016 Influenza Vaccine (#1) 2025 7, 03/29/2016, 06/02/2014 Hemoglobin A1C 03/09/2025 09/06/2024 Depression Screening 10/05/2025 10/05/2024, 12/09/2023, 12/09/2023 Lipid Panel 10/05/2025 10/05/2024 eGFR 10/08/2025 10/08/2024, 09/11, 10/05/2024, Additional history exists DTaP/Tdap/Td Vaccine (2 - Td or Tdap) 09/24/2031 09/23/2021, 02/05/2012 Medical Devices Implanted Type Area Ear Nose And Throat Specialist Device Identifier Shelf Expiration Date Model / Serial / Lot [employer] Nail Intramedullary Fibula Fibulock [id number] Titanium [id number] - [id number] Implanted:Qty: 1 on 10/07/2024 by Wellington Grubbs MD at [facility] Other - see comments Left: Ankle [employer] 05/11/2029 AR-[id number]- 30-130 / / [id number] [employer] Low Profile Screws 3mm 16mm Self Drill Solid Modular Ankle Ar-8830-16 - [id number] Implanted:Qty: 1 on 10/07/2024 by Wellington Grubbs MD at [facility] Screw Left: Ankle [employer] AR-8830-1 6 / / [id number] [employer] Low Profile Screws 3mm 18mm Modular Solid Hexalobe Self Tap Ankle Ar-8830-18 - [id number] Implanted:Qty: 1 on 10/07/2024 by Wellington Grubbs MD at [facility] Screw Left: Ankle [employer] AR-8830-1 8 / / [id number] [employer] Low Profile Screws 3.5mm 55mm Self Drill Solid Modular Ankle Ar-8835-55 - [id number] Implanted:Qty: 1 on 10/07/2024 by Wellington Grubbs MD at [facility] Screw Left: Ankle [employer] AR-8835-5 5 / / [id number] [employer] Low Profile Screws 3.5mm 48mm Modular Self Drill Solid Ankle Ar-8835-48 - [id number] Implanted:Qty: 1 on 10/07/2024 by Wellington Grubbs MD at [facility] Screw Left: Ankle [employer] AR-8835-4 8 / / [id number] [employer] Plate Bone Straight 4 Hole 2.7mm Ti [id number] - [id number] Implanted:Qty: 1 on 10/07/2024 by Wellington Grubbs MD at [facility] Screw Left: Ankle [employer] AR-74289T -01 / / [id number] Biotronik daysoft Loop Recorder Monitor Cardiac Biomonitor Iv [id number] - [id number] - [id number] Implanted:Qty: 1 on 12/06/2023 by Terry Wilkerson MD at [facility] 03/11/2025 [id number] / [id number] / [employer] Screw Bone Cortical Threaded 2.7x80mm Ti Ar-37146-62 - [id number] Implanted:Qty: 2 on 10/07/2024 by Wellington Grubbs MD at [facility] Left: Ankle [employer] AR-68394- 80 / / [id number] Procedures Procedure Name Priority Date/Time Associated Diagnosis Comments EGFR Routine 10/08/2024 12:00 AM CDT LIPID PANEL STAT 10/05/2024 10:59 PM CDT HEMOGLOBIN A1C Routine 09/06/2024 3:04 AM CDT from Last 3 Months or Most Recently Relevant to Health Maintenance Results * eGFR (10/08/2024 12:00 AM CDT) eGFR 60 >=60 mL/min/1. 73 [...] interpretive data was last reviewed 2021. Blood 10/08/2024 10/08/2024 2:5 9 AM CDT us Canelo Chapman MD LAB BLOOD ORDERAB LES Final Result [facility] [place] [address] * Lipid panel (10/05/2024 10:59 PM CDT) Cholesterol 114 30 - 199 mg/dL Comment: Interpretive Data Ages < or = 19 years Acceptable: <170 mg/dL Borderline high: 170-199 mg/dL High: >or= 200 mg/dL Ages > or = 20 years Desirable: <200 mg/dL Borderline high: 200-239 mg/dL High: >or= 240 mg/dL Literature References: 1. Expert Panel on Integrated Guidelines for Cardiovascular Health and Risk Reduction in Children and Adolescents. Pediatrics 2011;128:S213 2. NCEP Expert Panel. Circulation 2004;110:227 Current Interpretive Data was last revised on 2018. Triglycerides 110 <=149 mg/dL MOUNA GIBSON Comment: Interpretive Data Ages < or = 9 years Acceptable: <75 mg/dL Borderline high: 75-99 mg/dL High: >or= 100 mg/dL Ages 10 to 20 years Acceptable: <90 mg/dL Borderline high: 90-129 mg/dL High: >or= 130 mg/dL Ages > or = 20 years Desirable: <150 mg/dL Borderline high: 150-199 mg/dL High: 200-499 mg/dL Very high: >or= 499 mg/dL Literature References: 1. Expert Panel on Integrated Guidelines for Cardiovascular Health and Risk Reduction in Children and Adolescents. Pediatrics 2011;128:S213 2. NCEP Expert Panel. Circulation 2004;110:227 Current Interpretive Data was last revised on 2018. HDL 46 >=40 mg/dL MOUNA [facility] Comment: Interpretive Data Ages < or = 19 years Acceptable: >45 mg/dL Borderline low: 40-45 mg/dL Low: <40 mg/dL Ages > or = 20 years Desirable: >or= 60 mg/dL Low: <40 mg/dL Literature References: 1. Expert Panel on Integrated Guidelines for Cardiovascular Health and Risk Reduction in Children and Adolescents. Pediatrics 2011;128:S213 2. NCEP Expert Panel. Circulation 2004;110:227 Current Interpretive Data was last revised on 2018. LDL, calculated 48 <=129 mg/dL MOUNA [facility] Comment: Interpretive Data Ages < or = 19 years Acceptable: <110 mg/dL Borderline high: 110-129 mg/dL High: >or= 130 mg/dL Ages > or = 20 years Optimal: <100 mg/dL Near optimal: 100-129 mg/dL Borderline high: 130-159 mg/dL High: >160 mg/dL Calculated using the Mert LDL-C estimating equation. This equation was implemented on 2024. Prior to this date LDL-C was estimated using the Friedewald equation. Literature References: 1. Expert Panel on Integrated Guidelines for Cardiovascular Health and Risk Reduction in Children and Adolescents. Pediatrics 2011;128:S213 2. NCEP Expert Panel. Circulation 2004;110:227 3. Mert Plasencia al. CORNELL Cardiol. 2019October 10;5(5):540-548. doi: 10.1001/[email or web address].2020.0013 Current Interpretive Data was last revised on 2024. Non-HDL Cholesterol 68 mg/dL [facility] Comment: Interpretive Data Ages < or = 19 years Acceptable: <120 mg/dL Borderline high: 120-144 mg/dL High: >145 mg/dL Ages > or = 20 years When triglycerides are >200 mg/dL, Non-HDL cholesterol is a secondary target of therapy with treatment goals that are 30 mg/dL greater than the LDL cholesterol target. Literature References: 1. Expert Panel on Integrated Guidelines for Cardiovascular Health and Risk Reduction in Children and Adolescents. Pediatrics 2011;128:S213 2. NCEP Expert Panel. Circulation 2004;110:227 Current Interpretive Data was last revised on 2018. Chol/HDL ratio 2 [facility] Blood 10/05/2024 10:5 9 PM CDT 10/05/2024 11:22 PM CDT us Canelo Chapman MD LAB BLOOD ORDERAB LES Final Result Performing Organization Address [facility] Co de Phone Number [facility] [place] [address] * (ABNORMAL) Hemoglobin A1c (09/06/2024 3:04 AM CDT) Hgb A1C 6.0(H) 4.0 - 5.6 % Estimated Average Glucose 126 mg/dL MOUNA GRIFFITHS Comment: The ADA recommends reporting an estimated Average Glucose (eAG) with all Hemoglobin A1c results using the equation derived from a study of 507 normal and diabetic adults. Minority populations were underrepresented and children were not included. (Diabetes Care 31:5900-5665, 2008). The eAG is not equivalent to a fasting glucose. Blood 09/06/2024 3:04 AM CDT 09/06/2024 4:25 AM CDT Marcy Chacon NP LAB BLOOD ORDERABLES Jalyn l Result Performing Organization Address City/[facility]/ZIP Co de Phone Number [facility] [address] [place] [address] from Last 3 Months or Most Recently Relevant to Health Maintenance Insurance IDPA [facility] MEDICARE ADVANTAGE [facility] [address] [phone] [facility] MEDICARE ADVANTAGE Advance Directives For more information, please contact: [phone] * Full Code (Latest Code Status on File) Date Activated Date Inactivated Comments 10/06/2024 2:33 PM 10/09/2024 6:52 PM * Full Code Date Activated Date Inactivated Comments 09/14/2024 11:14 AM 09/14/2024 11:42 PM * Full Code Date Activated Date Inactivated Comments 09/06/2024 1:31 AM 09/13/2024 7:34 PM * Full Code Date Activated Date Inactivated Comments 01/07/2024 8:43 PM 01/12/2024 5:19 PM * Full Code Date Activated Date Inactivated Comments 12/09/2023 11:36 PM 12/19/2023 10:49 PM Care Teams Certified Nurse Aide Relationship Specialty Start Date End Date Nino Carrillo MD [address] [facility] [place] [address] PCP - General Internal Medicine 12/04/23 Terry Wilkerson MD [address] [place] [address] Consulting Physician Cardiology 12/06/23 Bashir Crouch MD [address] [place] [address] Referring Physician Cardiology 12/19/23 Micky Guerra MD [address] [place] [address] Consulting Physician Cardiovascular Disease 01/29/24 [place] [address] [facility] [address] [place] [address] Consulting Physician Nephrology 09/13/24 [place] [address] [facility] [place] [facility] [address] [place] [address] Consulting Physician Pulmonary Disease 09/13/24
--- OUTSIDE RECORDS SUMMARY | 2025-06-03 12:36 | XMS_ITS | Data Portability ---
Author Organization [place] - [facility], Main Office Address [address] [place] [address] Care Team Providers Care Data Integration Developer Name Role Phone EMILIE CARRILLO Primary Care Provider EMILIE CARRILLO Referring Provider [phone] Assessment Encounter Date Assessment Date Assessment LastModified by Organization Details LastModified Time 04/24/2025 04/24/2025 Assessment: Nicotine smoke: 1/ ppd 1980-present = 22 pack years Bilateral pulmonary nodules Cough Dyspnea Plan: The following were reviewed and explained to the patient: Chest CT 07/22/22 6 mm RML density, 3 mm RUL density, 3 mm MIRIAN density Oxygen saturation at rest: 1. 85% on room air 2. 94% at 1 Lpm O2 via NC Nicotine cessation counseling provided. [place] for quitting nicotine include getting ready, getting support and encouragement, learning new skills and behaviors and being prepared to handle slips. Tips for dealing with cravings provided. Prevention of subsequent illnesses from nicotine addiction discussed. Comorbidities include but are not limited to hypertension, cerebrovascular disease, coronary heart disease, congestive heart failure, hyperlipidemia, COPD/asthma, peptic ulcer disease, esophagitis/gastri tis, and osteoporosis. Therapy options offered include: Quitting by total abstinence Receiving nicotine replacement therapy Undergoing hypnosis Filling a bupropion or varenicline prescription Enrolling in Quit For Life program Registering at www.quitline.com Making a call to 8-302-ZAGJ-NOW ( ). A strong, clear, personalized message was given to the patient to quit smoking. The patient was urged to set a quit date. We discussed patient's barriers to quitting and I will be of assistance when patient is ready to quit. I encouraged patient to inform friends and family of plans to quit with a request for support. I encouraged the patient to remove all cigarettes from the environment. We reviewed any previous quit attempts and lessons learned from them. I encouraged total abstinence from smoking and advised the patient that drinking alcohol and/or associating with other smokers are associated with failure or relapse. Patient can enroll in [facility]'s smoking cessation class at . Enrollment is free and classes are held every monday of the month from 1:30 pm to 2:30 pm at the conference room next to the cafeteria on the ground floor. Patient tried Chantix in 2018 for 1 month and she quit due to loss of appetite and dizziness. Patient tried bupropion in 2019 for 1 month and she quit due to abdominal upset and loss of appetite. Differential diagnoses for pulmonary nodule: 1. malignant tumor 2. benign tumor 3. inflammatory processes 4. infectious process (viral, atypical bacterial, fungal, atypical mycobacterial) The Fleischner Society pulmonary nodule recommendations below pertain to the follow-up and management of indeterminate pulmonary nodules detected incidentally on CT and are published by the Fleischner Society. The guideline does not apply to lung cancer screening, patients younger than 35 years, or patients with a history of primary cancer or immunosuppression. These recommendations reflect the 2017 revision 4, which supersedes prior versions published in 2005 and 2013. Multiple solid nodules <6 mm (<100 mm3) *low-risk patients: no routine follow-up required *high-risk patients: optional CT at 12 months Multiple solid nodules >6 mm (>100 mm3) *low-risk patients: CT at 3-6 months, then consider CT at 18-24 months *high-risk patients: CT at 3-6 months, then CT at 18-[address] SHANT. Cough/Dyspnea/Pulm nodules workup will be done as follows: Respiratory allergen panel for [facility] Serum IgE Serum total IgG, IgG1, IgG2, IgG3, IgG4 Ukhqb-4-qsjuceultl n phenotype and level TB stimulated gamma interferon B-type natriuretic peptide (BNP) Eosinophil count Hypersensitivity pneumonitis profile ANCA DARIAN ALEX levels RF CCP SSA SSB Scl 70 Centromere B Sneha-1 Myositis panel Complete pulmonary function testing (PFT) Continue albuterol HFA as needed. The patient does not know how to accurately administer the inhaler. Today, the patient was shown how to take this medication. The proper technique for delivering this medication was instructed. The patient expressed a clear understanding and demonstrated back how to use this medication. Without the proper technique, the patient will not reap the benefits of the treatment as the contents of the inhaler will not reach the lower airways as intended to be. Adherence to therapy is advocated. Nonadherence may lead to treatment failure, further progression of the condition, and other complications. Hospitals admissions are often the result of individuals not taking prescription medications accurately. Alternatively, greater adherence to medication regimens have shown to lower rates of hospitalization and decrease total medical costs in patients with chronic medical conditions. Advocated influenza vaccination annually and pneumonia vaccination SHANT. Advocated weight loss through diet and exercise. Patient's ideal body weight according to height and gender is up to 120 lbs. Encouraged patient to adjust caloric intake to maintain/achieve ideal body weight, emphasizing on fruits, vegetables, whole grains, and fat-free or low-fat products. These include lean meats, poultry, fish, beans, eggs, and nuts and foods that are low in saturated fats, trans-fats, cholesterol, salt (sodium), and glycemic index. Stressed the importance of regular exercise up to the patient's capacity limits. In this case, we recommend 20 min daily walking, 2 days a week of resistance training. Patient to monitor BP daily and bring records to PCP for further management. Follow-up: 1 week after PFT and chest CT [email or web address] Not available 04/24/2025 12:01:03 05/26/2025 05/26/2025 The patient has olecranon bursitis noted on today's x-ray and exam. Bony structures appear to be unremarkable without evidence of a chip fracture or foreign body noted on today's x-ray. We talked about treatment options in detail today she can not take NSAIDs we will give her a short course of prednisone see if this helps calm down the inflammation. This could be thickened bursa tissue versus a clotted hematoma she is on blood thinners and did have trauma to the elbow. We did talk about possibly trying an aspiration she states last time the provider was able to get a little bit of fluid out and she wanted to proceed therefore under sterile conditions I injected 3 cc of 0.5% bupivacaine subcutaneously over the right olecranon bursa sac I then did another sterile prep and used an 18 gauge needle and attempted to aspirate the area I was able to obtain about one cc of straw-colored fluid streaked with a little bit of blood, really was not able to obtain any significant fluid in the area really did not decompress much. I think this mass most likely represents thickened bursa tissue from her injury where she fell on the point of her right elbow. A sterile dressing was applied he has an Alex wrap for compression. She will wear this for a day or 2 take the steroids see if this helps calm down the issue if not I have advised her that the only other option would be to live with it versus surgical excision of the thickened tissue. She is going to think about it see how it goes give it 6 weeks. She will follow up with Dr. King if necessary. She voiced understanding agrees above plan she will call for any further problems difficulties or questions. Certainly if it starts to look red hot more swollen or infected in any way she will call she voiced understanding. [email or web address] Not available 05/26/2025 12:20:29 Plan of Treatment Reminders Order Date Submit Date Provider Last Modified By Organization Details Last Modified Time Details Appointments Any 15 2025 09:30A Get Carrillo MD Not available Not available Not available Lab alpha-1-a ntitrypsi n (aat) phenotype , serum 2024 025 [email or web address] 2 [facility] (Lab), [address] [place], [address], 05/12/2025 17:50:53 BNP (B-type natriuret ic peptide), serum or plasma 2024 025 [email or web address] 2 [facility] (Lab), [address] [place], [address], 05/12/2025 17:51:07 ige, total, serum 2024 025 2 [facility] (Lab), [address] [place], [address], 05/12/2025 17:51:19 tb (M tuberculo sis), ifn-gamma vasiliy, blood 2024 025 [email or web address] 2 [facility] (Lab), [address] [place], [address], 05/12/2025 17:51:32 eosinophi l count, manual, blood (OBS) 2024 025 [email or web address] 2 [facility] (Lab), [address] [place], [address], 05/12/2025 17:51:44 igg subclasse s 1+2+3+4, serum 2024 025 [email or web address] 2 [facility] (Lab), [address] [place], [address], 05/12/2025 17:51:56 respirato ry allergen panel, [facility] A, serum 2024 025 [email or web address] 2 [facility] (Lab), [address] [place], [address], 05/12/2025 17:52:08 respirato ry allergen panel - [facility] b [address] (Lab), [address] [place], [address], 05/12/2025 17:52:21 hypersens itivity pneumonit is profile, serum 2024 025 [email or web address] 2 [facility] (Lab), [address] [place], [address], 05/12/2025 17:52:32 anca panel, serum 2024 025 [email or web address] 2 [facility] (Lab), [address] [place], [address], 05/12/2025 17:52:44 DARIAN (antinucl ear antibodie s) screen, serum [address] (Lab), [address] [place], [address], 05/12/2025 17:52:56 ALEX (angioten sin-conve rting enzyme), serum [email or web address] [place] [address] (Lab), [address] [place], [address], 05/12/2025 17:53:07 rf (rheumato id factor), serum [address] (Lab), [address] [place], [address], 05/12/2025 17:53:18 ccp (cyclic citrullin ated peptide) iga+igg, serum [address] (Lab), [address] [place], [address], 05/12/2025 17:53:29 ssa Ab, serum [address] (Lab), [address] [place], [address], 05/12/2025 17:53:40 ssa Ab, serum [address] (Lab), [address] [place], [address], 05/12/2025 17:53:50 sneha-1 Ab, serum [address] (Lab), [address] [place], [address], 05/12/2025 17:54:00 centromer e B Ab, serum [address] (Lab), [address] [place], [address], 05/12/2025 17:54:12 scleroder ma (SCL-70) autoantib odies, serum 2024 025 [email or web address] 2 [facility] (Lab), [address] [place], [address], 05/12/2025 17:54:23 myositis autoantib will panel, serum or plasma 2024 025 [email or web address] 2 [facility] (Lab), [address] [place], [address], 05/12/2025 17:54:33 histoplas ma Ab, serum 2024 025 [email or web address] 2 [facility] (Lab), [address] [place], [address], 05/12/2025 17:54:45 Blastomyc es dermatiti dis Ab, qual ID, serum 2024 025 [email or web address] 2 [facility] (Lab), [address] [place], [address], 05/12/2025 17:54:55 coccidioi juan Ab, serum 2024 025 [email or web address] 2 [facility] (Lab), [address] [place], [address], 05/12/2025 17:55:06 HbA1c (hemoglob in A1c), blood 2024 025 CARLYN [facility], [address], [place], [address], 04/04/2025 08:23:20 CMP, serum or plasma 2024 025 CARLYN [facility], [address], [place], [address], 04/04/2025 08:23:19 CBC w/ auto diff 2024 [place] [facility], [address], [place], [address], 04/04/2025 08:23:20 Referral orthopedi c surgeon referral - Please call patient to schedule. 2024 [email or web address] Price King MD, [address], [place], [address], 05/01/2025 16:39:49 pulmonolo gist referral - Please call patient to schedule an appointme nt. Thank you. 2024 [facility], [address], [place], [address], 04/09/2025 17:01:20 Procedures injection /aspirati on joint/bur sa (PROC) 2024 [email or web address] In-Office Order, Internal Use Only DO Not Attach Compendium DO Not Attach Compendium, Do Not Delete/merge, [id number] 05/26/2025 12:04:26 Surgeries None recorded. Imaging XR, elbow 2024 [email or web address] [facility], [address], [place], [address], 05/26/2025 13:00:59 PFT, complete - Please call patient to schedule. 2024 [facility] ([facility]), [address], [place], [address], 05/19/2025 12:25:21 CT, chest, w/o contrast - Please call patient to schedule. [address] [facility], [address] , [address], [place], [address], 05/13/2025 15:10:39 Medication Orders bupivacai ne HCl 0.5 % (5 mg/mL) injection solution [address] [id number], [address], [place], [place], [id number], 05/26/2025 13:00:59 prednison e 10 mg tablets in a dose pack [email or web address] [id number], [address], [place], [place], [id number], 05/26/2025 13:00:59 Patient TargetsNo targets recorded. Patient Instructions Encounter Date Encounter Id Patient Instructions Last Modified By Organization Details Last Modified Time 04/03/2025 [id number] smoking cessatio n counseling, greater than 3 minutes up to 10 minutes* [email or web address] Not available 04/10/2025 09:34:18 04/15/2025 [id number] Discussed signs and symptoms of infection, advised to call with any questions or concerns. Keep elbow wrapped for next 72 hours. Not available 04/15/2025 12:16:22 05/01/2025 [id number] All questions an d concerns addressed at this time. Not available 05/01/2025 12:58:04 Reason for Referral Journeyman Lineman Referral for C hronic obstructive pulmonary disease Please call patient to schedule an appointment. Thank you. Referring Physician: Michelle Thomason, Internal Medicine, Encounter Date: 04/03/2025 Orthopedic Surgeon Referral for Effusion of joint of right elbow Please call patient to schedule. Referring Physician: Michelle Thomason, Internal Medicine, Encounter Date: 05/01/2025 Results Created Date Observation Date Name Description Value Unit Range Abnormal Flag Note LastModifiedBy Organization Detail LastModifiedTime 04/03/2004/04/2025 CMP14 +EGFR glucose 87 mg/dL 70-99 normal Not Available [facility] ([facility]) [address], [place], [address], 04/04/2025 08:23:19 04/03/20 25 04/04/2025 CMP14 +EGFR BUN 9 mg/dL 6-24 normal Not Available [facility] ([facility]) [address] [place], [address], 04/04/2025 08:23:19 04/03/20 25 04/04/2025 CMP14 +EGFR creatinine 0.81 mg/dL 0.57-1 .00 normal Not Available [facility] ([facility]) [address] [place], [address], 04/04/2025 08:23:19 04/03/2004/04/2025 CMP14 +EGFR eGFR 84 mL/mi n/1.7 3 >59 normal Not Available [facility] ([facility]) [address] [place], [address], 04/04/2025 08:23:19 04/03/20 25 04/04/2025 CMP14 +EGFR BUN/creatini ne ratio 11 9-23 normal Not Available [facility] ([facility]) [address] [place], [address], 04/04/2025 08:23:19 04/03/20 25 04/04/2025 CMP14 +EGFR sodium 139 mmol/ L 134-14 4 normal Not Available [facility] ([facility]) [address] [place], [address], 04/04/2025 08:23:19 04/03/20 25 04/04/2025 CMP14 +EGFR potassium 4.7 mmol/ L 3.5-5. 2 normal Not Available [facility] ([facility]) [address] [place], [address], 04/04/2025 08:23:19 04/03/20 25 04/04/2025 CMP14 +EGFR chloride 102 mmol/ L 96-106 normal Not Available [facility] ([facility]) [address] [place], [address], 04/04/2025 08:23:19 04/03/2004/04/2025 CMP14 +EGFR carbon dioxide, total 24 mmol/ L normal Not Available [facility] ([facility]) [address] [facility], [place], [address], 04/04/2025 08:23:19 04/03/2004/04/2025 CMP14 +EGFR calcium 8.4 mg/dL 8.7-10 .2 below low normal Not Available [facility] ([facility]) [address] [facility] [place], [address], 04/04/2025 08:23:19 04/03/2004/04/2025 CMP14 +EGFR protein, total 6.6 g/dL 6.0-8. 5 normal Not Available [facility] ([facility]) [address] [facility], [place], [address], 04/04/2025 08:23:19 04/03/2004/04/2025 CMP14 +EGFR albumin 3.3 g/dL 3.8-4. 9 below low normal Not Available [facility] ([facility]) [address] [facility] [facility], [place], [address], 04/04/2025 08:23:19 04/03/2004/04/2025 CMP14 +EGFR globulin, total 3.3 g/dL 1.5-4. 5 Not Available [facility] ([facility]) [address] [facility] [place], [address], 04/04/2025 08:23:19 04/03/2004/04/2025 CMP14 +EGFR bilirubin, total <0.2 mg/dL 0.0-1. 2 Not Available [facility] ([facility]) [address] [facility], [address], 04/04/2025 08:23:19 04/03/20 25 04/04/2025 CMP14 +EGFR alkaline phosphatase 172 IU/L 49-135 above high normal Not Available [facility] ([facility]) [address] [place], [address], 04/04/2025 08:23:19 04/03/20 25 04/04/2025 CMP14 +EGFR AST (SGOT) 15 IU/L 0-40 normal Not Available [facility] ([facility]) [address] [facility], [place], [address], 04/04/2025 08:23:19 04/03/2004/04/2025 CMP14 +EGFR ALT (SGPT) 6 IU/L 0-32 normal Not Available [facility] ([facility]) [address] [place], [address], 04/04/2025 08:23:19 04/03/20 25 04/04/2025 CBC WITH DIFFE RENTI AL/PL ATELE T WBC 8.6 x10e3 /uL 3.4-10 .8 normal Not Available [facility] ([facility]) [address] [place], [address], 04/04/2025 08:23:19 04/03/20 25 04/04/2025 CBC WITH DIFFE RENTI AL/PL ATELE T RBC 4.06 x10e6 /uL 3.77-5 .28 normal Not Available [facility] ([facility]) [address] [place], [address], 04/04/2025 08:23:19 04/03/20 25 04/04/2025 CBC WITH DIFFE RENTI AL/PL ATELE T hemoglobin 11.7 g/dL 11.1-1 5.9 normal Not Available [facility] ([facility]) [address] [place], [address], 04/04/2025 08:23:19 04/03/20 25 04/04/2025 CBC WITH DIFFE RENTI AL/PL ATELE T hematocrit 39.5 % 34.0-4 6.6 normal Not Available [facility] ([facility]) [address] [place], [address], 04/04/2025 08:23:19 04/03/20 25 04/04/2025 CBC WITH DIFFE RENTI AL/PL ATELE T MCV 97 fL 79-97 normal Not Available [facility] ([facility]) [address] [place], [address], 04/04/2025 08:23:19 04/03/20 25 04/04/2025 CBC WITH DIFFE RENTI AL/PL ATELE T MCH 28.8 pg 26.6-3 3.0 normal Not Available [facility] ([facility]) [address] [place], [address], 04/04/2025 08:23:19 04/03/20 25 04/04/2025 CBC WITH DIFFE RENTI AL/PL ATELE T MCHC 29.6 g/dL 31.5-3 5.7 below low normal Not Available [facility] ([facility]) [address] [place], [address], 04/04/2025 08:23:19 04/03/20 25 04/04/2025 CBC WITH DIFFE RENTI AL/PL ATELE T RDW 16.3 % 11.7-1 5.4 above high normal Not Available [facility] ([facility]) [address] [place], [address], 04/04/2025 08:23:19 04/03/20 25 04/04/2025 CBC WITH DIFFE RENTI AL/PL ATELE T platelets 481 x10e3 /uL 150-45 0 above high normal Not Available [facility] ([facility]) [address] [place], [address], 04/04/2025 08:23:19 04/03/20 25 04/04/2025 CBC WITH DIFFE RENTI AL/PL ATELE T neutrophils 66 % not estab. normal Not Available [facility] ([facility]) [address] [facility], [place], [address], 04/04/2025 08:23:19 04/03/20 25 04/04/2025 CBC WITH DIFFE RENTI AL/PL ATELE T lymphs 14 % not estab. normal Not Available [facility] ([facility]) [address] [facility], [place], [address], 04/04/2025 08:23:19 04/03/20 25 04/04/2025 CBC WITH DIFFE RENTI AL/PL ATELE T monocytes 15 % not estab. normal Not Available [facility] ([facility]) [address] [facility], [place], [address], 04/04/2025 08:23:19 04/03/20 25 04/04/2025 CBC WITH DIFFE RENTI AL/PL ATELE T eos 4 % not estab. normal Not Available [facility] ([facility]) [address] [facility], [place], [address], 04/04/2025 08:23:19 04/03/20 25 04/04/2025 CBC WITH DIFFE RENTI AL/PL ATELE T basos 1 % not estab. normal Not Available [facility] ([facility]) [address] [facility], [place], [address], 04/04/2025 08:23:19 04/03/20 25 04/04/2025 CBC WITH DIFFE RENTI AL/PL ATELE T immature cells CARPENTERS Not Available [facility] ([facility]) [address] [place], [address], 04/04/2025 08:23:19 04/03/20 25 04/04/2025 CBC WITH DIFFE RENTI AL/PL ATELE T neutrophils (absolute) 5.7 x10e3 /uL 1.4-7. 0 normal Not Available [facility] ([facility]) [address] [facility], [place], [address], 04/04/2025 08:23:19 04/03/20 25 04/04/2025 CBC WITH DIFFE RENTI AL/PL ATELE T lymphs (absolute) 1.2 x10e3 /uL 0.7-3. 1 normal Not Available [facility] ([facility]) [address] [facility], [place], [address], 04/04/2025 08:23:19 04/03/20 25 04/04/2025 CBC WITH DIFFE RENTI AL/PL ATELE T monocytes(ab solute) 1.3 x10e3 /uL 0.1-0. 9 above high normal Not Available [facility] ([facility]) [address] [facility], [place], [address], 04/04/2025 08:23:19 04/03/20 25 04/04/2025 CBC WITH DIFFE RENTI AL/PL ATELE T eos (absolute) 0.3 x10e3 /uL 0.0-0. 4 normal Not Available [facility] ([facility]) [address] [facility], [place], [address], 04/04/2025 08:23:19 04/03/20 25 04/04/2025 CBC WITH DIFFE RENTI AL/PL ATELE T baso (absolute) 0.0 x10e3 /uL 0.0-0. 2 normal Not Available [facility] ([facility]) [address] [place], [address], 04/04/2025 08:23:19 04/03/20 25 04/04/2025 CBC WITH DIFFE RENTI AL/PL ATELE T immature granulocytes 0 % not estab. Not Available [facility] ([facility]) [address] [facility], [place], [address], 04/04/2025 08:23:19 04/03/20 25 04/04/2025 CBC WITH DIFFE RENTI AL/PL ATELE T immature grans (abs) 0.0 x10e3 /uL 0.0-0. 1 Not Available [facility] ([facility]) [address] [facility], [place], [address], 04/04/2025 08:23:19 04/03/20 25 04/04/2025 CBC WITH DIFFE RENTI AL/PL ATELE T NRBC CARPENTERS Not Available [facility] ([facility]) [address] [facility], [place], [address], 04/04/2025 08:23:19 04/03/20 25 04/04/2025 CBC WITH DIFFE RENTI AL/PL ATELE T hematology comments: CARPENTERS Not Available [facility] ([facility]) [address] [facility], [place], [address], 04/04/2025 08:23:19 04/03/20 25 04/04/2025 HEMOG LOBIN A1C hemoglobin A1C 5.1 % 4.8-5. 6 normal Predi abete s: 5.7 - 6.4 Diabe leila: >6.4 Glyce tu contr ol for adult s with diabe leila: <7.0 Not Available [facility] ([facility]) [address] [facility], [place], [address], 04/04/2025 08:23:20 05/26/20 25 XR, elbow No observ ation record ed. [email or web address] [facility] [address], [place], [address], 05/26/2025 12:21:26 Result Notes None recorded. Problems Name Problem SNOMED Code Status Onset Date Resolution Date Notes Provider Name and Address Organization Details Recorded Time Injury of elbow 985630390 Completed Not Available [facility] 3 03:15:58 Bipolar disorder 54277030 Active Not Available [facility] 3 03:15:58 Gastroeso phageal reflux disease 871812303 Active Not Available [facility] 3 03:15:58 Closed fracture of upper end of tibia 54765331 Completed Not Available [facility] 3 03:15:58 Pain in left lower limb 058126622 Completed Not Available [facility] 3 03:15:59 Knee pain Completed Not Available [facility] 3 03:15:59 Fracture of tibia 69728829 Completed Not Available [facility] 3 03:15:59 Harmful pattern of use of Cannabis 93704044 Active Not Available [facility] 3 03:16:00 Fracture of lower leg 669498346 Completed Not Available [facility] 3 03:16:00 Bacterial vaginosis 504628022 Completed Not Available [facility] 3 03:16:01 Atypical squamous cells of undetermi al significa nce on cervical Papanicol aou smear 525922596 Active Not Available [facility] 3 03:16:01 Anxiety 70993912 Completed Not Available [facility] 3 03:16:01 Hyperlipi demia 66109140 Active Not Available [facility] 3 03:16:02 Urinary tract infectiou s disease 59899745 Completed Not Available [facility] 3 03:16:02 Smoker 34421368 Active Not Available [facility] 3 03:16:02 History of alcoholis m 606258907 Active 2016 Not Available [facility] 3 03:15:58 Gangrene of toe of left foot 56315380224 581766 Completed 201901/07/2022 Not Available [facility] 3 03:15:58 Anxiety disorder 660511758 Completed 201901/11/2021 Not Available [facility] 3 03:15:58 Ulcer of toe 653005207 Completed 201901/07/2022 Not Available [facility] 3 03:15:59 Bronchiti s 85998766 Completed 201901/11/2021 Not Available [facility] 3 03:15:59 Depressiv e disorder 06008363 Active 2019 Not Available [facility] 3 03:15:59 Atheroscl erosis of arteries of the extremiti es 78430238 Completed 201901/11/2021 Not Available [facility] 3 03:16:01 Atheroscl erosis of arteries of the extremiti es 08453885 Active 2019 Not Available [facility] 3 03:16:01 Cigarette smoker 44812366 Completed 201901/07/2022 Not Available [facility] 3 03:16:02 Pain in toe 859182140 Completed 201901/07/2022 Not Available [facility] 3 03:15:59 History of amputatio n of lesser toe 364177489 Active 2019 Not Available [facility] 3 03:16:01 Long-term drug therapy Completed 202001/07/2022 Not Available [facility] 3 03:15:59 Neuropath y 058174616 Active 2020 Not Available [facility] 3 03:16:00 Atrial flutter 7475206 Active 2020 Not Available [facility] 3 03:16:02 Transitio n of care 15557278986 05 Completed 202101/07/2022 Not Available [facility] 3 03:15:58 Pneumonia caused by SARS-CoV- 2 42234506983 8797310 Completed 202101/20/2022 Not Available [facility] 3 03:16:03 Anxiety disorder 483448725 Active 2021 Not Available [facility] 3 03:15:58 Periphera l vascular disease 568918861 Active 2021 Not Available [facility] 3 03:16:00 Vitamin D deficienc y 61218359 Active 2021 Not Available [facility] 3 03:15:59 Umbilical hernia 242691698 Active 2021 Not Available [facility] 3 03:16:00 Hypothyro idism 65474391 Active 2021 Not Available [facility] 3 03:16:00 Overactiv e urinary bladder 958459500 Active 2021 Anam Baptiste MD [address], [place], [address] , [facility] 5 08:37:10 Multiple nodules of lung 144838812 Active 2022 Anam Baptiste MD [address], [address], [place], [address] , [facility] 5 11:52:55 Hyperchol esterolem ia 11071732 Active 2022 Anam Baptiste MD [address], [place], [address] , [facility] 5 08:37:52 Migraine 31355491 Active 2022 Anam Baptiste MD [address], [address] [employer] [place], [address] , [facility] 5 08:37:40 Essential hypertens ion 85683953 Active 2023 Anam Baptiste MD [address], [address] [employer] [place], [address] , [facility] 5 08:37:54 Congestiv e heart failure 92843000 Active 2024 Anam Baptiste MD [address], [address] [employer] [place], [address] , [facility] 5 08:36:53 Effusion of joint of right elbow 31966788350 9102 Active 2024 HARMONY Edmond [address], [address] [employer] [place], [address] , [facility] 5 15:25:10 Pain of right elbow joint 68093740361 322680 Active 2024 DREW Vogt, [place] - [facility] 5 11:22:42 Bursitis of olecranon of right elbow 10255500260 9108 Active 2024 MARU Noyola [address], [address], [place], [address] , [employer] 12:21:41 Notes:Medical History: Anxie ty/Bipolar depression Bilateral [...] Left 5th toe amputation 2020 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 Procedures Surgical History Date Name Laterality Status Provider Name and Address Organization Details Recorded Time 04/15/20 25 Arthrocentesis Major Joint/Bursa 1588 completed HARMONY Edmond [address], [address], [place], [address], [employer] 04/15/2025 12:14:57 01/25/20 25 Transitional_Care_ Management cancelled HARMONY Edmond [address], [address], [place], [address], [employer] 01/21/2025 14:43:51 01/20/20 23 Advanced Care Planning completed Ling Moody RN [employer] 01/19/2023 12:49:00 10/30/19 22 Date of Last Pap Smear completed Ling Moody RN [employer] 01/19/2023 12:44:34 06/15/19 22 Date of Last Mammogram completed Ling Moody RN [place] [employer] 01/19/2023 12:42:58 06/15/19 22 Most Recent Bone Density completed Ling Moody RN [place] [employer] 01/19/2023 12:43:18 [employer]VE[employer]ATION [employer]GE[employer] Surgery completed Not Available [facility] 08/10/2022 03:08:08 ENT Procedure completed Not Available [facility] 08/10/2022 03:08:08 Imaging Results None recorded. Procedure Notes None recorded. Medical Equipment None Reported. Allergies Allergen ID Allergen Name Allergen Category Reaction Reaction Severity Criticality Documentation Date Start Date Code Code System Note Provider Name and Address Organization Details Recorded Time 5780 lithium Not available vomiting Not available Not available 08/10/2022 6448 RxNorm Not Available [facility] 3 03:25:43 5781 Dolobid medicatio n vomiting Not available Not available 08/10/2022 23665 6 RxNorm Not Available [facility] 3 03:25:43 5782 Dilaudid medicatio n vomiting Not available Not available 08/10/2022 01812 3 RxNorm Not Available [facility] 3 03:25:43 5783 Bactrim medicatio n vomiting Not available Not available 08/10/2022 55682 9 RxNorm Not Available [facility] 3 03:25:43 43085 ciproflox acin medicatio n Not available Not available [facility] 04/28/2025 2551 RxNorm Not Available [facility] - External Data [employer] - prod 5 15:30:06 50973 vancomyci n medicatio n Not available Not available [facility] 04/28/2025 10749 RxNorm Not Available [employer] [employer] Data [employer] - prod 5 15:30:06 64863 etodolac medicatio n Not available Not available [facility] 04/28/2025 71985 RxNorm unrec ogniz ed react ion (text : Red color (qual ifier value ), code: 12163 0000) (from exter nal sourc e) unrec ogniz ed react ion (text : Blush ing, funct ion (obse rvabl e entit y), code: 74986 002) (from exter nal sourc e) Not Available [facility] [employer] - prod 5 15:30:06 26829 loracarbe f medicatio n Not available Not available [facility] 04/28/2025 58968 RxNorm unrec ogniz ed react ion (text : Sever e (evert rity modif ier) (qual ifier value ), code: 68680 000) (from exter nal sourc e) Not Available [facility] - External Data Service - prod 15:30:06 45679 phenazopy ridine medicatio n Not available Not available [facility] 04/28/2025 8120 RxNorm Not Available [facility] - External Data [employer] - prod 15:30:06 80458 diflunisa l medicatio n vomiting Not available Not available 04/28/20252019 3393 RxNorm Not Available [facility] - External Data Service - prod 15:30:06 05897 hydromorp melanie medicatio n vomiting Not available Not available 04/28/20252016 3423 RxNorm unrec ogniz ed react ion (text : Nause a and/o r Vomit ing, code: 38800 000) (from exter nal sourc e) Not Available [facility] - [employer] Data Service - prod 15:30:06 05613 latex environme nt,medica tion itching rash Not available Not available [facility] 04/28/20252011 20429 91 RxNorm Not Available [facility] [employer] Data Service - prod 15:30:06 22410 propoxyph darshana medicatio n Not available Not available [facility] 04/28/20252011 8785 RxNorm Vagin al bleed ing unrec ogniz ed react ion (text : Other , code: 11102 07) (from exter nal sourc e) Not Available [facility] [employer] Data Service - prod 15:30:06 01427 diltiazem Not available other Not available [facility] 04/28/20252023 3443 RxNorm IV AND PO-AN Y dose cause s pause s. EVEN small doses of 30 mg Not Available [facility] - [employer] Data Service - prod 15:30:08 56826 sulfameth oxazole / trimethop rim medicatio n anaphylax is other Not available Not available [facility] 04/28/20252011 79904 RxNorm Cant remem julian Not Available [facility] - [employer] Data Service - prod 5 15:30:08 Medications Name Sig Start Date Stop [...] height Body temperature Heart rate Oxygen saturation Inhaled oxygen flow rate Systolic And Diastolic Provider Name and Address Organization Details Last Updated DateTime 5 32539.2 2 g 28.2 kg/m2 157.48 cm 97.8 [degF] 88 /min 88 % 4 L/min 128/78 mm[Hg] Svitlana aRy [facility] [facility] 5 11:27:00 Date Recorded Body height Body mass index (BMI) Body weight Oxygen saturation Inhaled oxygen flow rate Body temperature Heart rate Systolic And Diastolic Provider Name and Address Organization Details Last Updated DateTime 5 157.48 cm 28.2 kg/m2 51395.2 2 g 94 % 4 L/min 97.8 [degF] 92 /min 138/72 mm[Hg] Svitlana tipton [place] [employer] [facility] 11:39:23 Date Recorded Heart rate Respiratory rate Provider N bob and Address Organization Details Last Updated DateTime 04/24/2025 97 /min 15 /min Anam Baptiste MD [address] [place] [address], [facility] [address], [place], [address], [place] [employer] [facility] 04/24/2025 11:54:52 Date Recorded Body height Body mass index (BMI) Body weight Body temperature Heart rate Oxygen saturation Systolic And Diastolic Provider Name and Address Organization Details Last Updated DateTime 157.48 cm 28.2 kg/m2 10406.2 2 g 98.1 [degF] 97 /min 85 % 112/72 mm[Hg] Ana Cazares MA [facility] [employer] [facility] 11:46:20 Date Recorded Body height Body mass index (BMI) Body weight Body temperature Heart rate Oxygen saturation Inhaled oxygen flow rate Respiratory rate Systolic And Diastolic Provider Name and Address Organization Details Last Updated DateTime 157.48 cm 29.3 kg/m2 90245.7 8 g 97.4 [degF] 88 /min 98 % 4 L/min 16 /min 142/74 mm[Hg] Maya Aparicio RN [facility] [employer] [facility] 12:29:05 Date Recorded Body height Body mass index (BMI) Body weight Provider Name and Address Organization Details Last Updated DateTime 05/26/2025 157.48 cm 30.2 kg/m2 67647.74 g Payton Rhoades CNA [facility] [employer] 05/26/2025 11:16:26 Social History Question Answer Notes LastModified by Organization Details LastModified Time Tobacco Smoking Status Current Every Day Smoker Not Available [facility] 08/10/2022 02:52:35 Do You Have An Advance Directive? No MIGRATION.030 [id number] Information not available 08/10/2022 Are You Blind Or Do You Have Difficulty Seeing? No MIGRATION.030 601724 Information not available 08/10/2022 What Is Your Level Of Caffeine Consumption? Moderate MIGRATION.030884125 Information not available 08/10/2022 In The 14 Days Before Symptom Onset, Have You Had Close Contact With A Laboratory-conf irmed COVID-19 While That Case Was Ill? No MIGRATION.030 [id number] Information not available 08/10/2022 In The 14 Days Before Symptom Onset, Have You Had Close Contact With A Person Who Is Under Investigation For COVID-19 While That Person Was Ill? No MIGRATION.030 301805 Information not available 08/10/2022 Are You Deaf Or Do You Have Serious Difficulty Hearing? No MIGRATION.030 998845 Information not available 08/10/2022 What Type Of Diet Are You Following? REGULAR MIGRATION.030 520591 Information not available 08/10/2022 Which Illicit Or Recreational Drugs Have You Used? Marijuana MIGRATION.0301 850276 Information not available 08/10/2022 What Is The Highest Grade Or Level Of School You Have Completed Or The Highest Degree You Have Received? GI05271-5 MIGRATION.0301 289295 Information not available 08/10/2022 Do You Have An Electrostatic Air Filter? No Information not available 08/29/2022 Have There Been Any Changes To Your Family Or Social Situation? No MIGRATION.0301 707529 Information not available 08/10/2022 What Is The Fluoride Status Of Your Home? Unknown MIGRATION.0301 676673 Information not available 08/10/2022 Are There Any Guns Present In Your Home? No MIGRATION.0301 075879 Information not available 08/10/2022 Do You Have A Humidifier? Yes Information not available 08/29/2022 Do You Use Insect Repellent Routinely? No MIGRATION.0301 414126 Information not available 08/10/2022 Where Do You Live? 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 No MIGRATION.030 677181 Information not available 08/10/2022 Do You Have Moisture Problems In Your Home? Yes Leak In Bathroom Information not available 08/29/2022 What Was The Date Of Your Most Recent Tobacco Screening? 05/26/2025 Information not available 05/26/2025 What Is Your Current Pack Years? 30ormorepackyears MIGRATION.0301 [id number] Information not available 08/10/2022 Do You Have Any Pets? Yes MIGRATION.0301 692911 Information not available 08/10/2022 What Is Your Relationship Status? MIGRATION.0301 483129 Information not available 08/10/2022 Do You Use Your Seat Belt Or Car Seat Routinely? No MIGRATION.0301 548655 Information not available 08/10/2022 Do You Have Smoke And Carbon Monoxide Detectors In Your Home? Yes MIGRATION.0301 823511 Information not available 08/10/2022 At What Age Did You Start Smoking Tobacco? 11 MIGRATION.0301 349979 Information not available 08/10/2022 Are You Passively Exposed To Smoke? Yes MIGRATION.0301 919995 Information not available 08/10/2022 Are There Any Smokers In Your House? Yes MIGRATION.0301 067351 Information not available 08/10/2022 How Much Tobacco Do You Smoke? 0.5 PPD 1/2 Pack To A Pack Information not available 05/26/2025 Do You Use Sunscreen Routinely? No MIGRATION.0301 146867 Information not available 08/10/2022 Has Tobacco Cessation Counseling Been Provided? Yes MIGRATION.0301 673468 Information not available 08/10/2022 On What Date Was Tobacco Cessation Counseling Provided? 09/23/2021 MIGRATION.0301 [id number] Information not available 08/10/2022 How Many Years Have You Smoked Tobacco? 48 [email or web address] Information not available 09/05/2024 Have You Recently Traveled Abroad? No MIGRATION.0301 724696 Information not available 08/10/2022 Have You Used IV Drugs? No MIGRATION.0301 507803 Information not available 08/10/2022 Do You Have Difficulty Walking Or Climbing Stairs? No MIGRATION.0301 345351 Information not available 08/10/2022 Do You Have Any Dietary Restrictions? No MIGRATION.0301 763376 Information not available 08/10/2022 Sex: Unknown Functional Status Question Answer Note LastModified by Organizat ion Details LastModified Time Do you use any illicit or recreational drugs? Yes MIGRATION.6187650 026 Information not available 08/10/2022 Do you or have you ever used any other forms of tobacco or nicotine? No MIGRATION.0763127 026 Information not available 08/10/2022 What is your level of alcohol consumption? None Information not available 05/26/2025 Do you have transportation difficulties? No MIGRATION.3975574 026 Information not available 08/10/2022 Are you able to walk independently without assistance or assistive devices? YESASSIST MIGRATION.1580106 026 Information not available 08/10/2022 Do you have difficulty doing errands alone? No MIGRATION.4759990 026 Information not available 08/10/2022 Are you able to care for yourself independently? Yes MIGRATION.2995543 026 Information not available 08/10/2022 What is your occupation? N/a MIGRATION.4127519 026 Information not available 08/10/2022 Do you have difficulty dressing, bathing, grooming, or toileting? No MIGRATION.6960338 026 Information not available 08/10/2022 What is your exercise level? None MIGRATION.1524762 026 Information not available 08/10/2022 Mental Status Question Answer Note LastModified by Organizat ion Details LastModified Time Do you feel stressed (tense, restless, nervous, or anxious, or unable to sleep at night)? UM5583-5 MIGRATION.06025329 26 Information not available 08/10/2022 Do you have difficulty concentrating, remembering or making decisions? No MIGRATION.38629944 26 Information not available 08/10/2022 Family History [...] Recorded Time Tdap 2 completed Not Available [facility] 07/22/2023 00:44:00 Influenza, split virus, quadrivalent, PF 7 completed Not Available [facility] 07/22/2023 00:44:00 Influenza, split virus, quadrivalent, preservative 6 completed Not Available [facility] 07/22/2023 00:43:59 pneumococcal polysaccharide PPV23 4 completed Not Available [facility] 07/22/2023 00:43:59 Influenza, split virus, trivalent, PF 4 completed Not Available [facility] 07/22/2023 00:44:00 Past Encounters Encounter ID Performer Location Encounter Start Date Encounter Closed Date Diagnosis/Indication Diagnosis SNOMED-CT Code Diagnosis ICD10 Code Diagnosis IMO Codes Diagnosis Note [id number] Emilie Carrillo MD [facility] [address] [place] [address]. [place] [address] 09/11/2020 00:00:00 09/11/2020 11:08:04 [id number] Emilie Carrillo MD [facility] [address] [place] [address]. [place] [address] 01/11/2021 00:00:00 01/11/2021 14:38:32 [id number] Emilie Carrillo MD [facility] [address] [place] [address]. [place] [address] 05/20/2021 00:00:00 05/20/2021 13:16:35 [id number] Emilie Carrillo MD [facility] [address] [place] [address]. [place] [address] 07/30/2021 00:00:00 07/30/2021 10:49:05 [id number] Emilie Carrillo MD [facility] [address] [place] [address]. [place] [address] 09/23/2021 00:00:00 09/23/2021 13:25:27 [id number] Emilie Carrillo MD [facility] Med [address] [address] 10/29/2021 00:00:00 10/29/2021 15:55:29 [id number] MD IDALIA Sarkar[facility] [address] [place] [address] 01/20/2022 00:00:00 01/20/2022 13:28:48 [id number] Emilie Carrillo MD [facility] Internal [address] [place] [address] 05/18/2022 00:00:00 05/18/2022 12:06:29 [id number] Anam Baptiste MD [facility] Pulmon[place] [facility] [place] [address] [facility] [address] [place] [address] 08/29/2022 12:29:35 08/30/2022 08:35:13 Dyspnea on exertion 68902801 R06.09 Smoker 37307590 F17.218 F17.219 Z87.891 Multiple n odules of lung 391366628 R91.8 [id number] Emilie Carrillo MD [facility] Internal [address] [place] [address] 09/21/2022 11:21:46 09/21/2022 12:05:26 Chronic obstructive pulmonary disease 99101379 J44.9 advise dto use o2 Anxiety disorder 3962791 06 F41.9 under control Atrial flutter 3399243 I 48.92 in sinus, to f/u with cardiology Depressive disorder 3548 9007 F32.A under control Gastroesop hageal reflux disease 059837057 K21.9 on omeprazole Hypercholesterolemia 136 79279 E78.00 watch diet Neuropathy 826090299 G62 .9 stable with meds Peripheral vascular disease 922345836 I73.9 better since stents Sleep disorder 47623796 G47.9 better with meds Vitamin D deficiency 347 50456 E55.9 can not tolerate vit d Harmful pa ttern of use of Cannabis 59283961 F12.10 Has not smoked for a long time Hyperglycemia 74062392 R 73.9 watch diet, labs Umbilical hernia 7099709 07 K42.9 small, asymptomat ic Smoker 46150066 F17.218 F17.219 Z87.891 advised to quit Overactive urinary bladder 194099635 N32.81 tried samples Screening mammography 24 134453 Z12.31 [id number] Emilie Carrillo MD [facility] Internal [address] [place] [address] 01/19/2023 12:00:06 01/19/2023 13:02:10 Chronic obstructive pulmonary disease 38601024 J44.9 advised to use o2, pulse ox is only 88%, no symptoms Anxiety disorder 06 F41.9 under control Atrial flutter 5384193 I 48.92 in sinus, to f/u with cardiology Depressive disorder 3548 9007 F32.A under control Gastroesop hageal reflux disease 871026000 K21.9 on omeprazole Hypercholesterolemia 136 68398 E78.00 watch diet Neuropathy 430207886 G62 .9 stable with meds Peripheral vascular disease 961858566 I73.9 better since stents Sleep disorder 02492482 G47.9 better with meds Vitamin D deficiency 347 07510 E55.9 can not tolerate vit d Harmful pa ttern of use of Cannabis 44159197 F12.10 Has not smoked for a long time Hyperglycemia 45847971 R 73.9 watch diet, labs Umbilical hernia 5403266 07 K42.9 small, asymptomat ic Smoker 54960745 F17.218 F17.219 Z87.891 advised to quit Overactive urinary bladder 444737025 N32.81 tried samples Adult heal th examination 409550300 Z00.00 Depression screening 171 882755 Z13.[address] care [address]ri st Pain of le ft hip joint 9933348748 40243 M25.552 Screening mammography 24 143170 Z12.31 Body mass index 30+ - obesity 220789884 Z68.30 healthy diet and exercise discussed [id number] Emilie Carrillo MD [facility] [address] [facility] [place] [address] 05/18/2023 11:47:48 05/18/2023 12:28:38 Chronic obstructive pulmonary disease 65970485 J44.9 advised to use inhalers daily, use o2 Anxiety disorder F41.9 under control Atrial flutter 1207274 I 48.92 in sinus, to f/u with cardiology Depressive disorder 3548 9007 F32.A under control Gastroesop hageal reflux disease 694626550 K21.9 on omeprazole Hypercholesterolemia 136 09325 E78.00 watch diet Neuropathy 946347008 G62 .9 stable with meds Peripheral vascular disease 171463881 I73.9 better since stents Sleep disorder 05454203 G47.9 better with meds Vitamin D deficiency 347 54345 E55.9 can not tolerate vit d Harmful pa ttern of use of Cannabis 71521084 F12.10 Has not smoked for a long time Hyperglycemia 99547147 R 73.9 watch diet, labs Umbilical hernia 8174594 07 K42.9 small, asymptomat ic Smoker 23389565 F17.218 F17.219 Z87.891 advised to quit Overactive urinary bladder 464145538 N32.81 meds did not help Screening mammography 24 835195 Z12.31 Nodule of lung 408943023 R91.1 Hyperlipidemia 44540014 E78.5 on meds Hypothyroidism 11494194 E03.9 on meds Bipolar disorder 7094816 4 F31.9 seeing psych Edema 816671169 R60.9 better [id number] Emilie Carrillo MD [facility] Med [address] [place] [address] 05/31/2023 12:08:31 05/31/2023 12:56:01 Migraine 51693709 G43.004 [id number] Emilie Carrillo MD [facility] Internal Med [address] [place] [address] 06/15/2023 11:13:51 06/15/2023 11:56:54 Essential hypertension 89099810 I10 ^ METOPROLOL Migraine 42090126 G43.90 9 keep taking the same [id number] Emilie Carrillo MD [facility] Internal Med [address] [place] [address] 11/07/2023 10:54:50 11/07/2023 12:02:07 Chronic obstructive pulmonary disease 00490363 J44.9 use o2 Anxiety disorder 3105769 06 F41.9 under control Atrial flutter 5739632 I 48.92 in sinus, Depressive disorder 3548 9007 F32.A under control Gastroesop hageal reflux disease 818244016 K21.9 on omeprazole Hypercholesterolemia 136 27048 E78.00 watch diet Neuropathy 444400421 G62 .9 stable with meds Peripheral vascular disease 892610479 I73.9 better since stents Sleep disorder 07272943 G47.9 better with meds Vitamin D deficiency 347 37480 E55.9 can not tolerate vit d Harmful pa ttern of use of Cannabis 22381077 F12.10 Has not smoked for a long time Hyperglycemia 92137172 R 73.9 watch diet, labs Umbilical hernia 7025875 07 K42.9 small, asymptomat ic Smoker 05432027 F17.218 F17.219 Z87.891 advised to quit Overactive urinary bladder 630671404 N32.81 meds did not help Screening mammography 24 985894 Z12.31 Nodule of lung 323533420 R91.1 Hypothyroidism 99728935 E03.9 on meds Bipolar disorder 8632417 4 F31.9 seeing psych Edema 900890302 R60.9 better [id number] Emilie Carrillo MD [facility] Internal Med [address] [facility] [place] [address] 02/07/2024 15:24:36 02/07/2024 16:18:40 Chronic obstructive pulmonary disease 35393229 J44.9 under control Anxiety disorder 4728558 06 F41.9 under control Atrial flutter 7995203 I 48.92 in sinus, Depressive disorder 3548 9007 F32.A under control Gastroesop hageal reflux disease 980661342 K21.9 on omeprazole Hypercholesterolemia 136 24056 E78.00 watch diet Neuropathy 905745980 G62 .9 stable with meds Peripheral vascular disease 616641733 I73.9 better since stents Sleep disorder 54828666 G47.9 better with meds Vitamin D deficiency 347 23297 E55.9 can not tolerate vit d Harmful pa ttern of use of Cannabis 35701302 F12.10 Has not smoked for a long time Hyperglycemia 68367480 R 73.9 watch diet, labs Umbilical hernia 7642661 07 K42.9 small, asymptomat ic Smoker 64140533 F17.218 F17.219 Z87.891 advised to quit Overactive urinary bladder 147708032 N32.81 meds did not help Screening mammography 24 316538 Z12.31 Nodule of lung 795340449 R91.1 Hypothyroidism 76589359 E03.9 on meds Bipolar disorder 3540195 4 F31.9 seeing psych Edema 421025983 R60.9 better [id number] Emilie Carrillo MD [facility] [address] [facility] [place] [address] 03/07/2024 11:24:58 03/07/2024 11:59:21 Chronic obstructive pulmonary disease 98416977 J44.9 under control Anxiety disorder 06 F41.9 under control Atrial flutter 7404723 I 48.92 in sinus, Depressive disorder 3548 9007 F32.A under control Gastroesop hageal reflux disease 368885731 K21.9 on omeprazole Hypercholesterolemia 136 56554 E78.00 watch diet Neuropathy 950587761 G62 .9 meds help Peripheral vascular disease 859446176 I73.9 better since stents Sleep disorder 03103443 G47.9 better with meds Vitamin D deficiency 347 92936 E55.9 can not tolerate vit d Harmful pa ttern of use of Cannabis 94823277 F12.10 Has not smoked for a long time Hyperglycemia 87967407 R 73.9 watch diet, labs Umbilical hernia 4474318 07 K42.9 small, asymptomat ic Smoker 92555900 F17.218 F17.219 Z87.891 advised to quit Overactive urinary bladder 391994094 N32.81 meds did not help Screening mammography 24 764330 Z12.31 Scheduled in Mar Nodule of lung 096738060 R91.1 scheduled 03/2024 Hypothyroidism 09083436 E03.9 on meds Bipolar disorder 7425331 4 F31.9 seeing psych Edema 127925658 R60.9 better Adult heal th examination 357484898 Z00.00 Flu- Declined- 2022 [id number] Emilie Carrillo MD [facility] Med [facility] [address] [facility] [place] [address] 09/05/2024 11:06:13 09/05/2024 12:22:51 Chronic obstructive pulmonary disease 44970733 J44.9 under control Anxiety disorder F41.9 under control Atrial flutter 1086749 I 48.92 in sinus, Depressive disorder 3548 9007 F32.A under control Gastroesop hageal reflux disease 156888513 K21.9 on omeprazole Hypercholesterolemia 136 26001 E78.00 watch diet Neuropathy 843347899 G62 .9 meds help Peripheral vascular disease 249115836 I73.9 better since stents Sleep disorder 59252198 G47.9 better with meds Vitamin D deficiency 347 33219 E55.9 can not tolerate vit d Harmful pa ttern of use of Cannabis 98518304 F12.10 Has not smoked for a long time Hyperglycemia 33502201 R 73.9 watch diet, labs Umbilical hernia 1631522 07 K42.9 small, asymptomat ic Smoker 28787628 F17.218 F17.219 Z87.891 advised to quit Overactive urinary bladder 400054306 N32.81 meds did not help Nodule of lung 888262969 R91.1 scheduled 03/2024, to get CT scan Hypothyroidism 64459572 E03.9 on meds Bipolar disorder 8638663 4 F31.9 seeing psych Edema 084580935 R60.9 on Furosemide Adult heal th examination 424787162 Z00.00 Colonoscop y- 03/21/2017 Mammogram- 06/15/2021 ORDEREDDEX A- 06/15/2021 ORDEREDLDC T- 07/22/2022 - ORDEREDFlu - Declined- 3Pneumo vax- NEVERCOVID - DECLINED Screening mammography 24 150702 Z12.31 Scheduled in Mar Screening for osteoporosis 638174976 Z13.820 Essential hypertension 18735275 I10 bp is high, confused about her medshusban d is going to call us today about all her meds Hypoxia 586652753 R09.02 NOT IMPROVING EVEN AFTER MULTIPLE ATTEMPTS, WILL SEND TO ER [id number] Emilie Carrillo MD [facility] Internal Med [address] [facility] [place] [address] 04/03/2025 11:16:10 04/03/2025 15:45:37 Effusion of joint of right elbow 5859508761 69969 M25.421 79625628 keep wrapped, use ice, and elevated, use tylenol only as needed does not need tap at this time Screening for cardiovascular system disease 994465927 Z13.6 620007 Dependence on supplemental oxygen 3874789751 07 Z99.81 297111 History of alcoholism 16 3171771 F10.21 discussed importance of compliance and health risk associated with alcoholism Smoker 97633979 F17.218 F17.219 Z87.891 extensive education provided on smoking cessation. Chronic ob structive pulmonary disease 19585829 J44.9 [id number] Emilie Carrillo MD [facility] [address] [facility] [place] [address] 04/15/2025 11:31:26 04/15/2025 12:39:24 Effusion of joint of right elbow 8887133809 53389 M25.421 67499404 wrapped and advised to use tylenol and iceKeep wrapped for 72 hours.6mls only taken off at this time [id number] Anam Baptiste MD [facility] Pulmonolo gy [place] [address] [facility], [facility] [address] [place] [address] 04/24/2025 11:22:07 04/25/2025 10:27:42 Dyspnea on exertion 27121881 R06.09 Smoker 15833194 F17.218 F17.219 Z87.891 Multiple n odules of lung 860239289 R91.8 065530 [id number] Emilie Carrillo MD [facility] Med [address] [facility] [place] [address] 05/01/2025 12:16:26 05/01/2025 14:19:44 Effusion of joint of right elbow 5327816296 48825 M25.421 29014830 wrapped and advised to use tylenol and iceKeep wrapped [id number] Price King MD [facility] [place] [address] [place] [address] 05/26/2025 11:00:55 05/26/2025 12:05:12 Pain of right elbow joint 5661638990 1266579 M25.521 209128 Bursitis o f olecranon of right elbow 7073454183 11489 M70.21 [id number] Health Concerns Section Related Observation LastModified by Organization Detai ls LastModified Time None Recorded Concern Status LastModified by Organization Details LastModified Time None Recorded Advance Directives Directive N: Payers Insurance Date Sequence Insurance Name Policy Number Policy Perez Covered Member ID Perez Member ID Guarantor Name 05/26/2025 1 [facility] (MEDICARE REPLACEMENT/A DVANTAGE - PPO) [id number] Yaneli Conroy [id number] Yaneli Conroy 05/18/2025 2 [place] [employer] [place] [employer] Yaneli Conroy [id number] Yaneli Mike Rafiq 04/24/2025 1 [facility] [id number] Yaneli Mike Rafiq [id number] Yaneli Conroy Notes Date Note Type Note Provider Name and Address Organization Details Recorded Time 04/03/2025 text/html ROS as noted in the HPI Patient is 60y/o female who is here to discuss concerns with elbow and oxygen refill. Patient reports she has not followed up with cardiology or pulmonology for a while.. She currently states she does not remember when her last appointment was. She reports that she also is still actively smoking. She reports she fell a couple weeks ago and landed on her left elbow. She reports it is sometimes tender but has some slight swelling present. She has full ROM and no pain during palpation. She denies no redness or warmth present at this time. She also reports she wears her oxygen at all times now. She currently is on 4LNC and is currently saturating at 88%. She currently denies chest pain, shortness of breath, headache, fatigue, abdominal pains, fevers, numbness or tingling. advised she needs to see pulmonology and follow up with cardiology- patient aware Dr Feng Hsieh- has not quit smoking yet, using inhalers, some wheezing some times , using o2 when walks andmeds- Advair, proair said she will not stop smoking and has not been complaint with health HARMONY Edmond [address] [employer], [address], [place], [address], [facility] 04/03/2025 13:18:36 04/15/2025 text/html ROS as noted in the [...] discharge, or other issues at this time. HARMONY Edmond [address] [employer], [address], [place], [address], [place] [facility] 04/15/2025 12:22:12 04/24/2025 text/html Primary care/Referring provider: Emilie Carrillo MD CC: I have an abnormal chest CT. Patient is here to go over shortness of breath evaluation/managemen t. Initial development of shortness of breath: 2013Duration of shortness of breath: 11 yearsCondition of shortness of breath: stableTiming of shortness of breath: noneFrequency: up to 3 times a dayLimits activities: yesAggravating factors: walkingAlleviating factors: rest Modified [employer] (mMRC) Dyspnea Scale - Grade 2Grade 0 I only get breathless with strenuous exercise .Grade 1 I get short of breath when hurrying on the level or walking up a slight hill .Grade 2 I walk slower than people of the same age on the level because of breathlessness or have to stop for breath when walking at my own pace on the level .Grade 3 I stop for breath after walking about 100 yards or after a few minutes on the level .Grade 4 I am too breathless to leave the house or I am breathless when dressing . Treatment history: Albuterol nebs as needed [phone] Albuterol HFA as needed since 2013 Other symptoms:Drooling: noDysarthria: noNeck pain: noOdynophagia: noDysphagia: noWeak mastication: noFacial weakness: noNasal speech: noProtruding tongue: noProductive cough: milkyWheezing: noChest tightness: yesOrthopnea: noFrequent throat clearing or swallowing: noPalpitations: noHeartburn: noEdema: yes Environmental exposures:Nicotine smoke: 1/2 ppd 1981-present = 22 pack yearsPaint: yesDye: yesDust mites: yesMold: yesDamp basement: noWood burning stove: yesAnimal dander: cockatiel, dogs, catsCockroaches: yesPollen: yesArsenic: noAsbestos: noBeryllium: noCadmium: noChromium: noCoal smoke: noDiesel fumes: noNickel: noSilica: noSoot: no EPWORTH SLEEPINESS SCALE (ESS) CHANCE OF DOZING SCORE0 = would never doze1 = slight chance of dozing2 = moderate chance of dozing3 = high chance of dozing SITUATION AND CHANCE OF DOZINGSitting and reading - 2Watching television - 2Sitting inactive in a public place (e.g. a theater or meeting) - 0As a passenger in a car for an hour without a break - 0Lying down to rest in the afternoon when circumstances permit - 2Sitting and talking to someone - 0Sitting quietly after lunch without alcohol - 0In a car, while stopped for a few minutes in the traffic - 0TOTAL SCORE 6Subjectively, patient has a slight chance of dozing. Anam Baptiste MD [address] [facility], [place], [address] [address], [place], [address], [facility] [employer] [facility] 04/24/2025 12:13:57 05/01/2025 text/html ROS as noted in the HPI Patient is 60y/o female who has continued swelling in left arm. Patient reports that she has not kept it wrapped due to pain and discomfort. She also report's that she has not taken anything at this time for pain. She denies redness, streaking, warmth or discharge. At previous visit, patient elbow was drained but continues to swell. HARMONY Edmond [address], [facility] [address], [place], [address], [facility] [employer] [facility] 05/01/2025 12:58:34 05/26/2025 text/html The patient is a 60-year-old female who presents with a three-month history of swelling over the olecranon bursa region of the right elbow. She states 3 months ago she was sitting in the kitchen on a stool when she slipped and fell off landing on the point of her right elbow. A couple of weeks later she started to develop some swelling there by her report. She had a gum ball sized fluid sac she saw her primary care provider who did an aspiration and got a little bit of fluid out not much. She states she has continuing swelling here it does not bother her unless she bumps it or leans on it. Then it causes some stabbing pains. She is on chronic blood thinners so can not take NSAIDs. She was trying to see if it went down with time however it continues. To palpation it feels like more of a solid mass like thickened bursa or may be a clotted hematoma. She denies any erythema heat no signs of infection no pain at rest no skin breakdown or drainage and no dysfunction of the right elbow joint. She comes in today for initial evaluation and treatment. New past medical history sheet was reviewed and signed on the intake sheet of today's date drug allergies current medications family social history previous surgical history 10 point review of systems was reviewed and discussed in detail today with the patient. MARU Noyola [address] [facility], [place], [facility] [address], [place], [address], [place] - [facility] 05/26/2025 12:23:05 OBGyn Episode No OBEpisode recorded.
--- OUTSIDE RECORDS SUMMARY | 2025-06-03 12:36 | XMS_ITS | Clinical Summary ---
Author Organization [facility] Address [address] [place] [address] Phone Care Team Providers Care Cane Feeder Name Role Phone Nino Carrillo MD Primary Care Provider [phone] Allergies Active Allergy Reactions Criticality Noted Date Comments Sulfamethoxazole-Trimetho prim Other (see Comments) 01/07/2017 Cant remember Hydromorphone Hcl Nausea 01/07/2017 Latex Hives 01/30/2017 [place] Vomiting 01/07/2017 Medications gabapentin (NEURONTIN) 600 MG [...] Date Smoking Tobacco: Every Day Cigarettes 1 45.4 Started: 01/12/1980 Smokeless Tobacco: Never Tobacco Cessation:Ready [...] Comments Blood Pressure 152/88 08/11/2023 9:00 PM PLASTIC MANAGER Pulse 74 08/11/2023 9:00 PM PLASTIC MANAGER Temperature 37.1 C (98.7 F) 08/11/2023 7:13 PM PLASTIC MANAGER Respiratory Rate 20 08/11/2023 9:00 PM PLASTIC MANAGER Oxygen Saturation 98% 08/11/2023 9:00 PM PLASTIC MANAGER Inhaled Oxygen Concentration - - Weight 73.5 kg (162 lb) 08/11/2023 7:13 PM PLASTIC MANAGER Height 157.5 cm (5' 2) 08/11/2023 7:13 PM PLASTIC MANAGER Body Mass Index 29.63 08/11/2023 7:13 PM PLASTIC MANAGER Plan of Treatment Health Maintenance Due Date Last Done Comments Hepatitis C Virus (HCV) Screening 1966 Mammogram 1966 Hepatitis B Immunization (1 of 3 - 19+ 3-dose series) 1985 Pap Smear 1987 Cervical Cancer Screening (CCS) 02/15/1996 HPV/Cotest 02/15/1996 Cologuard 2011 Colonoscopy 2011 Pneumococcal Immunization (5 0+ years) (2 of 2 - PCV) 06/02/2015 06/02/2014 Respiratory Syncytial Virus (RSV) Immunization (Adult) (1 - Risk 50-74 years 1-dose series) 02/15/2016 Zoster Immunization (1 of 2) 02/15/2016 Medicare Initial AWV G0438 03/12/2016 Colorectal Cancer Screening 07/28/2020 Immunochemical Fecal Occult Blood 07/28/2020 07/28/2019 Influenza Immunization (#1) 02/10/202503/12, 03/29/2016, 06/02/2014 SARS-COV-2 Immunization ( - season) 2025 Pneumococcal Immunization Combined Discontinued 06/02/2014 Lung Cancer Screening Discontinued 07/28/2019 , 02/04/2019 DTaP/Tdap/Td Immunization Discontinued 2021, 02/05/2012 TdaP Immunization Completed 09/23/2021 Human Papillomavirus (HPV) Immunization (No Doses Required) Completed Meningococcal Immunization (ACWY) Aged Out No longer eligible based on patient's age to complete this topic Rotavirus Immunization Aged Out No lo nger eligible based on patient's age to complete this topic Procedures Procedure Name Priority Date/Time Associated Diagnosis Comments STOOL, OCCULT BLOOD, DIAGNOSTIC, VIA GUAIAC Routine 07/28/2019 3:[address] CHEST W/O CONTRAST Routine 07/28/2019 12:38 PM PLASTIC MANAGER from Last 3 Months or Most Recently Relevant to Health Maintenance Results * (ABNORMAL) Stool, Occult Blood, Diagnostic (07/28/2019 3:37 PM PLASTIC MANAGER) OCCULT BLOOD DIAG Positive(A ) Negative 07/28/2019 3:58 PM PLASTIC MANAGER [facility] Stool specimen (specimen) STOOL SPECIMEN / Unknown Non-Phlebotomy Collection / Unknown 07/28/2019 3:37 PM PLASTIC MANAGER 07/28/2019 3:52 PM PLASTIC MANAGER Hudson Thomason BOLT THREADER, PUMP TECHNICIAN BODY FLUIDS & STOO LS ORDERABLES Final Result [facility] [address] [place] [address] * CT CHEST W/O CONTRAST (07/28/2019 12:38 PM PLASTIC MANAGER) Anatomical Region Laterality Modality Chest N/A Computed Tomogra phy 07/28/2019 2:37 PM PLASTIC MANAGER Impressions 07/28/2019 2:40 PM PLASTIC MANAGER IMPRESSION: 1. Evaluation of the lung [...] as described above. Narrative 07/28/2019 2:40 PM PLASTIC MANAGER EXAM DESCRIPTION: CT CHEST W/O CONTRAST [...] Quintin Ayoub M.D. RL: SAMANTHA Report ID: [id number] Reading Location: [id number] Procedure Note Quintin Ayoub MD - 07/28/2019 [...] Quintin Ayoub M.D. RL: SAMANTHA Report ID: [id number] Reading Location: [id number] IMPRESSION: 1. Evaluation of the lung parenchyma [...] findings as described above. Kirill Whatley MD IMG CT ORDERABLES Final Result from Last 3 [...] measures to stabilize the patient. Care Teams Cane Feeder Relationship Specialty Start Date End Date Nino Carrillo MD PCP - General Internal Medicine 01/07/17
--- OUTSIDE RECORDS SUMMARY | 2025-06-03 12:36 | XMS_ITS | Continuity of Care Document ---
Author Organization [place] [facility] [email or web address] GROUP [facility], [facility] Internal [address] Address [address] [place] [address] Care Team Providers Care Station Captain Name Role Phone EMILIE CARRILLO Primary Care Provider [phone] EMILIE CARRILLO Referring Provider [phone] Assessment No assessment recorded. Plan of Treatment Reminders Order Date Submit Date Provider Last Modified By Organization Details Last Modified Time Details Appointments Any 15 2025 09:30A M Emilie Carrillo MD Not available Not available Not available Lab HbA1c (hemoglob in A1c), blood 2024 025 CARLYN [facility], [address], [place], [address], 04/04/2025 08:23:20 CMP, serum or plasma 2024 025 CARLYN [facility], [address], [place], [address], 04/04/2025 08:23:19 CBC w/ auto diff 2024 025 CARLYN [facility], [address], [place], [address], 04/04/2025 08:23:20 Referral pulmonolo gist referral - Please call patient to schedule an appointme nt. Thank you. 2024 025 [facility], [address], [place], [address], 04/09/2025 17:01:20 Procedures None recorded. Surgeries None recorded. Imaging None recorded. Medication Orders None recorded. Patient TargetsNo targets recorded. 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 Thank you. Referring Physician: Michelle Thomason, Internal Medicine, Encounter Date: 04/03/2025 Results Created Date Observation Date Name Description Value Unit Range Abnormal Flag Note LastModifiedBy Organization Detail LastModifiedTime 04/03/2004/04/2025 CMP14 +EGFR glucose 87 mg/dL 70-99 normal Not Available [facility] ([facility]) [address] [place], [address], 04/04/2025 08:23:19 04/03/20 25 04/04/2025 CMP14 +EGFR BUN 9 mg/dL 6-24 normal Not Available [facility] ([facility]) [address] [place], [address], 04/04/2025 08:23:19 04/03/20 25 04/04/2025 CMP14 +EGFR creatinine 0.81 mg/dL 0.57-1 .00 normal Not Available [facility] ([facility]) [address] [place], [address], 04/04/2025 08:23:19 04/03/20 25 04/04/2025 CMP14 +EGFR eGFR 84 mL/mi n/1.7 3 >59 normal Not Available [facility] ([facility]) [address] [place], [address], 04/04/2025 08:23:19 04/03/20 25 04/04/2025 CMP14 +EGFR BUN/creatini ne ratio 11 9-23 normal Not Available [facility]) [address] [facility], [place], [address], 04/04/2025 08:23:19 04/03/2004/04/2025 CMP14 +EGFR sodium 139 mmol/ L 134-14 4 normal Not Available [facility] ([facility]) [address] [facility], [place], [address], 04/04/2025 08:23:19 04/03/2004/04/2025 CMP14 +EGFR potassium 4.7 mmol/ L 3.5-5. 2 normal Not Available [facility] ([facility]) [address] [facility] [place], [address], 04/04/2025 08:23:19 04/03/2004/04/2025 CMP14 +EGFR chloride 102 mmol/ L 96-106 normal Not Available [facility] ([facility]) [address] [place], [address], 04/04/2025 08:23:19 04/03/2004/04/2025 CMP14 +EGFR carbon dioxide, total 24 mmol/ L 20-29 normal Not Available [facility] ([facility]) [address] [facility], [place], [address], 04/04/2025 08:23:19 04/03/2004/04/2025 CMP14 +EGFR calcium 8.4 mg/dL 8.7-10 .2 below low normal Not Available [facility] ([facility]) [address] [place], [address], 04/04/2025 08:23:19 04/03/2004/04/2025 CMP14 +EGFR protein, total 6.6 g/dL 6.0-8. 5 normal Not Available [facility] ([facility]) [address] [place], [address], 04/04/2025 08:23:19 04/03/20 25 04/04/2025 CMP14 +EGFR albumin 3.3 g/dL 3.8-4. 9 below low normal Not Available [facility] ([facility]) [address] [place], [address], 04/04/2025 08:23:19 04/03/20 25 04/04/2025 CMP14 +EGFR globulin, total 3.3 g/dL 1.5-4. 5 Not Available [facility] ([facility]) [address] [place], [address], 04/04/2025 08:23:19 04/03/2004/04/2025 CMP14 +EGFR bilirubin, total <0.2 mg/dL 0.0-1. 2 Not Available [facility] ([facility] [address] [place], [address], 04/04/2025 08:23:19 04/03/2004/04/2025 CMP14 +EGFR alkaline phosphatase 172 IU/L 49-135 above high normal Not Available [facility] ([facility]) [address] [place], [address], 04/04/2025 08:23:19 04/03/20 25 04/04/2025 CMP14 +EGFR AST (SGOT) 15 IU/L 0-40 normal Not Available [facility] ([facility] [address] [place], [address], 04/04/2025 08:23:19 04/03/2004/04/2025 CMP14 +EGFR ALT (SGPT) 6 IU/L 0-32 normal Not Available [facility] ([facility] [address] [place], [address], 04/04/2025 08:23:19 04/03/20 25 04/04/2025 CBC WITH DIFFE RENTI AL/PL ATELE T WBC 8.6 x10e3 /uL 3.4-10 .8 normal Not Available [facility] ([facility]) [address] [facility], [place], [address], 04/04/2025 08:23:19 04/03/2004/04/2025 CBC WITH DIFFE RENTI AL/PL ATELE T RBC 4.06 x10e6 /uL 3.77-5 .28 normal Not Available [facility] ([facility]) [address] [facility], [place], [address], 04/04/2025 08:23:19 04/03/20 25 04/04/2025 CBC WITH DIFFE RENTI AL/PL ATELE T hemoglobin 11.7 g/dL 11.1-1 5.9 normal Not Available [facility] ([facility]) [address] [facility], [place], [address], 04/04/2025 08:23:19 04/03/2004/04/2025 CBC WITH DIFFE RENTI AL/PL ATELE T hematocrit 39.5 % 34.0-4 6.6 normal Not Available [facility] ([facility]) [address] [place], [address], 04/04/2025 08:23:19 04/03/2004/04/2025 CBC WITH DIFFE RENTI AL/PL ATELE T MCV 97 fL 79-97 normal Not Available [facility] ([facility] [address] [place], [address], 04/04/2025 08:23:19 04/03/2004/04/2025 CBC WITH DIFFE RENTI AL/PL ATELE T MCH 28.8 pg 26.6-3 3.0 normal Not Available [facility] ([facility] [address] [place], [address], 04/04/2025 08:23:19 04/03/20 25 04/04/2025 CBC WITH DIFFE RENTI AL/PL ATELE T MCHC 29.6 g/dL 31.5-3 5.7 below low normal Not Available [facility] ([facility]) [address] [facility], [place], [address], 04/04/2025 08:23:19 04/03/20 25 04/04/2025 CBC WITH DIFFE RENTI AL/PL ATELE T RDW 16.3 % 11.7-1 5.4 above high normal Not Available [facility] ([facility]) [address] [facility], [place], [address], 04/04/2025 08:23:19 04/03/20 25 04/04/2025 CBC WITH DIFFE RENTI AL/PL ATELE T platelets 481 x10e3 /uL 150-45 0 above high normal Not Available [facility] ([facility]) [address] [facility], [place], [address], 04/04/2025 08:23:19 04/03/20 25 04/04/2025 CBC WITH DIFFE RENTI AL/PL ATELE T neutrophils 66 % not estab. normal Not Available [facility]) [address] [facility], [place], [address], 04/04/2025 08:23:19 04/03/20 25 04/04/2025 CBC WITH DIFFE RENTI AL/PL ATELE T lymphs 14 % not estab. normal Not Available [facility] ([facility]) [address] [place], [address], 04/04/2025 08:23:19 04/03/20 25 04/04/2025 CBC WITH DIFFE RENTI AL/PL ATELE T monocytes 15 % not estab. normal Not Available [facility] ([facility]) [address] [place], [address], 04/04/2025 08:23:19 04/03/20 25 04/04/2025 CBC WITH DIFFE RENTI AL/PL ATELE T eos 4 % not estab. normal Not Available [facility] ([facility]) [address] [place], [address], 04/04/2025 08:23:19 04/03/2004/04/2025 CBC WITH DIFFE RENTI AL/PL ATELE T basos 1 % not estab. normal Not Available [facility] ([facility]) [address] [facility], [place], [address], 04/04/2025 08:23:19 04/03/2004/04/2025 CBC WITH DIFFE RENTI AL/PL ATELE T immature cells [employer] Not Available [facility] [address] [facility], [place], [address], 04/04/2025 08:23:19 04/03/20 25 04/04/2025 CBC WITH DIFFE RENTI AL/PL ATELE T neutrophils (absolute) 5.7 x10e3 /uL 1.4-7. 0 normal Not Available [facility] ([facility]) [address] [facility], [place], [address], 04/04/2025 08:23:19 04/03/20 25 04/04/2025 CBC WITH DIFFE RENTI AL/PL ATELE T lymphs (absolute) 1.2 x10e3 /uL 0.7-3. 1 normal Not Available [facility] ([facility]) [address] [place], [address], 04/04/2025 08:23:19 04/03/20 25 04/04/2025 CBC WITH DIFFE RENTI AL/PL ATELE T monocytes(ab solute) 1.3 x10e3 /uL 0.1-0. 9 above high normal Not Available [facility] ([facility]) [address] [place], [address], 04/04/2025 08:23:19 04/03/20 25 04/04/2025 CBC WITH DIFFE RENTI AL/PL ATELE T eos (absolute) 0.3 x10e3 /uL 0.0-0. 4 normal Not Available [facility] ([facility]) [address] [facility], [place], [address], 04/04/2025 08:23:19 04/03/20 25 04/04/2025 CBC WITH DIFFE RENTI AL/PL ATELE T baso (absolute) 0.0 x10e3 /uL 0.0-0. 2 normal Not Available [facility] ([facility]) [address] [facility], [place], [address], 04/04/2025 08:23:19 04/03/20 25 04/04/2025 CBC WITH DIFFE RENTI AL/PL ATELE T immature granulocytes 0 % not estab. Not Available [facility] ([facility]) [address] [facility], [place], [address], 04/04/2025 08:23:19 04/03/2004/04/2025 CBC WITH DIFFE RENTI AL/PL ATELE T immature grans (abs) 0.0 x10e3 /uL 0.0-0. 1 Not Available [facility] ([facility]) [address] [facility], [place], [address], 04/04/2025 08:23:19 04/03/20 25 04/04/2025 CBC WITH DIFFE RENTI AL/PL ATELE T NRBC [employer] Not Available [facility] ([facility]) [address] [facility], [place], [address], 04/04/2025 08:23:19 04/03/2004/04/2025 CBC WITH DIFFE RENTI AL/PL ATELE T hematology comments: [employer] Not Available [facility]) [address] [facility], [place], [address], 04/04/2025 08:23:19 04/03/20 25 04/04/2025 HEMOG LOBIN A1C hemoglobin A1C 5.1 % 4.8-5. 6 normal Predi abete s: 5.7 - 6.4 Diabe leila: >6.4 Glyce tu contr ol for adult s with diabe leila: <7.0 Not Available [facility] ([facility]) [address], [place], [address], 04/04/2025 08:23:20 05/26/20 25 XR, elbow No observ ation record ed. [email or web address] [facility] [place] [address], [place], [address], 05/26/2025 12:21:26 Result Notes None recorded. Problems Name Problem SNOMED Code Status Onset Date Resolution Date Notes Provider Name and Address Organization Details Recorded Time Injury of elbow 108798888 Completed Not Available [facility] 3 03:15:58 Bipolar disorder 85552055 Active Not Available [facility] 3 03:15:58 Gastroeso phageal reflux disease 228635485 Active Not Available [facility] 3 03:15:58 Closed fracture of upper end of tibia 12396894 Completed Not Available [facility] 3 03:15:58 Pain in left lower limb 382559717 Completed Not Available [facility] 3 03:15:59 Knee pain Completed Not Available [facility] 3 03:15:59 Fracture of tibia 28356942 Completed Not Available [facility] 3 03:15:59 Harmful pattern of use of Cannabis 37190160 Active Not Available [facility] 3 03:16:00 Fracture of lower leg 765915893 Completed Not Available [facility] 3 03:16:00 Bacterial vaginosis 619515922 Completed Not Available [facility] 3 03:16:01 Atypical squamous cells of undetermi al significa nce on cervical Papanicol aou smear 448378222 Active Not Available [facility] 3 03:16:01 Anxiety 52553782 Completed Not Available [facility] 3 03:16:01 Hyperlipi demia 24547850 Active Not Available [facility] 3 03:16:02 Urinary tract infectiou s disease 73878764 Completed Not Available [facility] 3 03:16:02 Smoker 45046776 Active Not Available [employer] 3 03:16:02 History of alcoholis m 771927931 Active 2016 Not Available [facility] 3 03:15:58 Gangrene of toe of left foot 16810226264 369549 Completed 201901/07/2022 Not Available [facility] 3 03:15:58 Anxiety disorder 360206546 Completed 201901/11/2021 Not Available [facility] 3 03:15:58 Ulcer of toe 971587847 Completed 201901/07/2022 Not Available [facility] 3 03:15:59 Bronchiti s 52448649 Completed 201901/11/2021 Not Available [facility] 3 03:15:59 Depressiv e disorder 82447868 Active 2019 Not Available [facility] 3 03:15:59 Atheroscl erosis of arteries of the extremiti es 15353179 Completed 201901/11/2021 Not Available [facility] 3 03:16:01 Atheroscl erosis of arteries of the extremiti es 38064749 Active 2019 Not Available [facility] 3 03:16:01 Cigarette smoker 75988387 Completed 201901/07/2022 Not Available [facility] 3 03:16:02 Pain in toe 898097981 Completed 201901/07/2022 Not Available [facility] 3 03:15:59 History of amputatio n of lesser toe 575320443 Active 2019 Not Available [facility] 3 03:16:01 Long-term drug therapy Completed 202001/07/2022 Not Available [facility] 3 03:15:59 Neuropath y 785978501 Active 2020 Not Available [facility] 3 03:16:00 Atrial flutter 1029161 Active 2020 Not Available [facility] 3 03:16:02 Transitio n of care 06768140111 05 Completed 202101/07/2022 Not Available [facility] 3 03:15:58 Pneumonia caused by SARS-CoV- 2 43053033641 1522938 Completed 202101/20/2022 Not Available [facility] 3 03:16:03 Anxiety disorder 174321399 Active 2021 Not Available [facility] 3 03:15:58 Periphera l vascular disease 645890844 Active 2021 Not Available [facility] 3 03:16:00 Vitamin D deficienc y 52571081 Active 2021 Not Available [facility] 3 03:15:59 Umbilical hernia 587712375 Active 2021 Not Available [facility] 3 03:16:00 Hypothyro idism 83455231 Active 2021 Not Available [facility] 3 03:16:00 Overactiv e urinary bladder 796686610 Active 2021 Anam Baptiste MD [address], [address], [place], [address] , [facility] [employer] [facility] 5 08:37:10 Multiple nodules of lung 713139705 Active 2022 Anam Baptiste MD [address], [place], [address] , [email or web address] [email or web address] GROUP [facility] 5 11:52:55 Hyperchol esterolem ia 95153637 Active 2022 Anam Baptiste MD [address], [place], [address] , [facility] [email or web address] GROUP [facility] 5 08:37:52 Migraine 30116880 Active 2022 Anam Baptiste MD [address], [place], [address] , [facility] [employer] [facility] [email or web address] GROUP [facility] 5 08:37:40 Essential hypertens ion 26268245 Active 2023 Anam Baptiste MD [address], [address], [place], [address] , [employer] [facility] [employer] 5 08:37:54 Congestiv e heart failure 68595500 Active 2024 Anam Baptiste MD [address], [place], [address] , [facility] [employer] [facility] [employer] 5 08:36:53 Effusion of joint of right elbow 34567572298 9102 Active 2024 HARMONY Edmond [address], [place], [address] , [employer] [facility] [employer] 5 15:25:10 Pain of right elbow joint 50869869483 567198 Active 2024 DREW V[place], [place] [employer] [facility] [employer] 5 11:22:42 Bursitis of olecranon of right elbow 27067306656 9108 Active 2024 MARU Noyola [address], [place], [address] , [email or web address] 12:21:41 Notes:Medical History: Anxie ty/Bipolar depression Bilateral [...] Left 5th toe amputation 2020 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 Procedures Surgical History Date Name Laterality Status Provider Name and Address Organization Details Recorded Time 04/15/20 25 Arthrocentesis Major Joint/Bursa 1588 completed HARMONY Edmond [address], [place], [address], [employer] [facility] [employer] 04/15/2025 12:14:57 01/25/20 25 Transitional_Care_ Management cancelled HARMONY Edmond [address] [facility], [facility] [address], [place], [address], 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 Procedure Notes None recorded. Medical Equipment None Reported. Allergies Allergen ID Allergen Name Allergen Category Reaction Reaction Severity Criticality Documentation Date Start Date Code Code System Note Provider Name and Address Organization Details Recorded Time 5780 lithium Not available vomiting Not available Not available 08/10/2022 6448 RxNorm Not Available [facility] 3 03:25:43 5781 Dolobid medicatio n vomiting Not available Not available 08/10/2022 31617 6 RxNorm Not Available [facility] 3 03:25:43 5782 Dilaudid medicatio n vomiting Not available Not available 08/10/2022 11618 3 RxNorm Not Available [facility] 3 03:25:43 5783 Bactrim medicatio n vomiting Not available Not available 08/10/2022 64169 9 RxNorm Not Available [facility] 3 03:25:43 67026 ciproflox acin medicatio n Not available Not available unabletoasse 04/28/2025 2551 RxNorm Not Available counts include [facility] beds at [facility] External Data Service - prod 5 15:30:06 95529 vancomyci n medicatio n Not available Not available [facility] 04/28/2025 21512 RxNorm Not Available carlyn - External Data Service - prod 15:30:06 88817 etodolac medicatio n Not available Not available high 04/28/2025 18107 RxNorm unrec ogniz ed react ion (text : Red color (qual ifier value ), code: 36941 0000) (from exter nal sourc e) unrec ogniz ed react ion (text : Blush ing, funct ion (obse rvabl e entit y), code: 87665 002) (from exter nal sourc e) Not Available [employer] - External Data Service - prod 15:30:06 08401 loracarbe f medicatio n Not available Not available high 04/28/2025 32111 RxNorm unrec ogniz ed react ion (text : Sever e (evert rity modif ier) (qual ifier value ), code: 59864 000) (from exter nal sour e) Not Available carlyn - External Data Service - prod 15:30:06 16926 phenazopy ridine medicatio n Not available Not available low 04/28/2025 8120 RxNorm Not Available carlyn - External Data Service - prod 15:30:06 75713 diflunisa l medicatio n vomiting Not available Not available 04/28/20252019 3393 RxNorm Not Available carlyn - External Data Service - prod 15:30:06 47829 hyd[employer] melanie medicatio n vomiting Not available Not available 04/28/20252016 3423 RxNorm unrec ogniz ed react ion (text : Nause a and/o r Vomit ing, code: 89404 000) (from exter nal sour e) Not Available carlyn - External Data Service - prod 15:30:06 82730 latex environme nt,medica tion itching rash Not available Not available high 04/28/20252011 42199 91 RxNorm Not Available carlyn - External Data Service - prod 15:30:06 36105 propoxyph darshana medicatio n Not available Not available low 04/28/20252011 8785 RxNorm Vagin al bleed ing unrec ogniz ed react ion (text : Other , code: 49268 07) (from [facility]) Not Available carlyn - External Data Service - prod 5 15:30:06 24108 diltiazem Not available other Not available high 04/28/20252023 3443 RxNorm IV AND PO-AN Y dose cause s pause s. EVEN small doses of 30 mg Not Available carlyn - External Data Service - prod 5 15:30:08 22871 sulfameth oxazole / trimethop rim medicatio n anaphylax is other Not available Not available high 04/28/20252011 94633 RxNorm Cant remem julian Not Available carlyn - External Data Service - [facility] 15:30:08 Medications Name Sig Start Date Stop [...] Address Organization Details Last Updated DateTime 5 95669.2 2 g 28.2 kg/m2 157.48 cm 97.8 [degF] 88 /min 88 % 4 L/min 128/78 mm[Hg] Svitlana tipton [place] - [facility] 11:27:00 Social History Question Answer Notes LastModified by Organization Details LastModified Time Tobacco Smoking Status Current Every Day Smoker Not Available [facility] 08/10/2022 02:52:35 Do You Have An Advance Directive? No MIGRATION.0301 [id number] Information not available 08/10/2022 Are You Blind Or Do You Have Difficulty Seeing? No MIGRATION.030 [id number] Information not available 08/10/2022 What Is Your Level Of Caffeine Consumption? Moderate MIGRATION.030 [id number] Information not available 08/10/2022 In The 14 Days Before Symptom Onset, Have You Had Close Contact With A Laboratory-conf irmed COVID-19 While That Case Was Ill? No MIGRATION.030 [id number] Information not available 08/10/2022 In The 14 Days Before Symptom Onset, Have You Had Close Contact With A Person Who Is Under Investigation For COVID-19 While That Person Was Ill? No MIGRATION.030 [id number] Information not available 08/10/2022 Are You Deaf Or Do You Have Serious Difficulty Hearing? No MIGRATION.030 423534 Information not available 08/10/2022 What Type Of Diet Are You Following? REGULAR MIGRATION.030 [id number] Information not available 08/10/2022 Which Illicit Or Recreational Drugs Have You Used? Marijuana MIGRATION.030 379941 Information not available 08/10/2022 What Is The Highest Grade Or Level Of School You Have Completed Or The Highest Degree You Have Received? OM44373-7 MIGRATION.030 697860 Information not available 08/10/2022 Do You Have An Electrostatic Air Filter? No Information not available 08/29/2022 Have There Been Any Changes To Your Family Or Social Situation? No MIGRATION.0301 669705 Information not available 08/10/2022 What Is The Fluoride Status Of Your Home? Unknown MIGRATION.030 739261 Information not available 08/10/2022 Are There Any Guns Present In Your Home? No MIGRATION.030 888997 Information not available 08/10/2022 Do You Have A Humidifier? Yes Information not available 08/29/2022 Do You Use Insect Repellent Routinely? No MIGRATION.0301 [id number] Information not available 08/10/2022 Where Do You Live? SingleLevelHouse MIGRATION.0301 [id number] Information not available 08/10/2022 Do You Have A Medical Power Of Chemical Production Technician? No MIGRATION.0301 [id number] Information not available 08/10/2022 Do You Have Moisture Problems In Your Home? Yes Leak In Bathroom Information not available 08/29/2022 What Was The Date Of Your Most Recent Tobacco Screening? 05/26/2025 Information not available 05/26/2025 What Is Your Current Pack Years? 30ormorepackyears MIGRATION.0301 [id number] Information not available 08/10/2022 Do You Have Any Pets? Yes MIGRATION.0301 [id number] Information not available 08/10/2022 What Is Your Relationship Status? MIGRATION.0301 [id number] Information not available 08/10/2022 Do You Use Your Seat Belt Or Car Seat Routinely? No MIGRATION.0301 [id number] Information not available 08/10/2022 Do You Have Smoke And Carbon Monoxide Detectors In Your Home? Yes MIGRATION.0301 127069 Information not available 08/10/2022 At What Age Did You Start Smoking Tobacco? 11 MIGRATION.0301 834106 Information not available 08/10/2022 Are You Passively Exposed To Smoke? Yes MIGRATION.0301 457583 Information not available 08/10/2022 Are There Any Smokers In Your House? Yes MIGRATION.0301 994694 Information not available 08/10/2022 How Much Tobacco Do You Smoke? 0.5 PPD 1/2 Pack To A Pack Information not available 05/26/2025 Do You Use Sunscreen Routinely? No MIGRATION.0301 897590 Information not available 08/10/2022 Has Tobacco Cessation Counseling Been Provided? Yes MIGRATION.0301 119015 Information not available 08/10/2022 On What Date Was Tobacco Cessation Counseling Provided? 09/23/2021 MIGRATION.0301 523568 Information not available 08/10/2022 How Many Years Have You Smoked Tobacco? 48 [email or web address] Information not available 09/05/2024 Have You Recently Traveled Abroad? No MIGRATION.0301 457752 Information not available 08/10/2022 Have You Used IV Drugs? No MIGRATION.0301 455975 Information not available 08/10/2022 Do You Have Difficulty Walking Or Climbing Stairs? No MIGRATION.0301 958053 Information not available 08/10/2022 Do You Have Any Dietary Restrictions? No MIGRATION.0301 826199 Information not available 08/10/2022 Sex: Unknown Functional Status Question Answer Note LastModified by Organizat [employer] Details LastModified Time Do you use any illicit or recreational drugs? Yes MIGRATION.5045738 026 Information not available 08/10/2022 Do you or have you ever used any other forms of tobacco or nicotine? No MIGRATION.0684047 026 Information not available 08/10/2022 What is your level of alcohol consumption? None Information not available 05/26/2025 Do you have transportation difficulties? No MIGRATION.1279498 026 Information not available 08/10/2022 Are you able to walk independently without assistance or assistive devices? YESASSIST MIGRATION.9703319 026 Information not available 08/10/2022 Do you have difficulty doing errands alone? No MIGRATION.5368739 026 Information not available 08/10/2022 Are you able to care for yourself independently? Yes MIGRATION.5177927 026 Information not available 08/10/2022 What is your occupation? N/a MIGRATION.0346054 026 Information not available 08/10/2022 Do you have difficulty dressing, bathing, grooming, or toileting? No MIGRATION.2958283 026 Information not available 08/10/2022 What is your exercise level? None MIGRATION.7338979 026 Information not available 08/10/2022 Mental Status Question Answer Note LastModified by Organizat ion Details LastModified Time Do you feel stressed (tense, restless, nervous, or anxious, or unable to sleep at night)? DW0809-4 MIGRATION.57489108 26 Information not available 08/10/2022 Do you have difficulty concentrating, remembering or making decisions? No MIGRATION.13353458 26 Information not available 08/10/2022 Family History Relationship Description Onset Age of this Age Resolved Age Notes LastModified by Organization Details LastModified Time Mother Malignant neoplasm of esophagus [email or web address] Not available 2022 13:32:41 Mother Heart disease [email or web address] Not available 2022 13:35:01 Maternal Aunt Malignant [...] Recorded Time Tdap 2 completed Not Available [facility] 07/22/2023 00:44:00 Influenza, split virus, quadrivalent, PF 7 completed Not Available [facility] 07/22/2023 00:44:00 Influenza, split virus, quadrivalent, preservative 6 completed Not Available [facility] 07/22/2023 00:43:59 pneumococcal polysaccharide PPV23 4 completed Not Available [facility] 07/22/2023 00:43:59 Influenza, split virus, trivalent, PF 4 completed Not Available [facility] 07/22/2023 00:44:00 Past Encounters Encounter ID Performer Location Encounter Start Date Encounter Closed Date Diagnosis/Indication Diagnosis SNOMED-CT Code Diagnosis ICD10 Code Diagnosis IMO Codes Diagnosis Note [id number] Emilie Carrillo MD [facility] [address] [facility] [place] [address] 04/03/2025 11:16:10 04/03/2025 15:45:37 Effusion of joint of right elbow 4984588409 70629 M25.421 42811325 keep wrapped, use ice, and elevated, use tylenol only as needed does not need tap at this time Screening for cardiovascular system disease 750518097 Z13.6 288110 Dependence on supplemental oxygen 6931614549 07 Z99.81 765246 History of alcoholism 16 0260549 F10.21 discussed importance of compliance and health risk associated with alcoholism Smoker 56528997 F17.218 F17.219 Z87.891 extensive education provided on smoking cessation. Chronic ob structive pulmonary disease 74801270 J44.9 Health Concerns Section Related Observation LastModified by Organization Detai ls LastModified Time None Recorded Concern Status LastModified by Organization Details LastModified Time None Recorded Payers Encounter Date Sequence Insurance Name Policy Number Policy Perez Covered Member ID Perez Member ID Guarantor Name 04/03/2025 1 [facility] (MEDICARE REPLACEMENT/A DVANTAGE - PPO) [id number] Yaneli Conroy [id number] Yaneli Conroy 04/03/2025 2 [place] [facility] Yaneli Conroy [id number] Yaneli Conroy Notes Date Note Type Note [...] and has not been complaint with health GRICEL Edmond-C [address] [facility], [facility] [address], [place], [address], [facility] 04/03/2025 13:18:36 OBGyn Episode No OBEpisode recorded.
--- OUTSIDE RECORDS SUMMARY | 2025-06-03 12:36 | XMS_ITS | Data Portability ---
Author Organization [facility] Address [address] [place] [address] Care Team Providers Care Consular Officer Name Role Phone EMILIE VERMA Primary Care Provider [phone] Assessment No assessment recorded. Plan of Treatment [...] Repor t Case: [id number] Autho tristain cohen Provi zane: Connor Disla Colle cted: 01/20 1312 [employer] Order ing Locat ion: [place] [facility] [...] ervix , curet tage: -Frag ments of stacy n ectoc ervic al mucos a. -No endoc ervic al mucos a prese nt for evalu ation . Elect elielrob shaffer by Ryan Painter MD on 2021 [...] one casse tte. Gross ed by Federica Sosa Endoc ervix . The speci men is [...] Federica Pruitt Not Available [facility] [address] [place], [address], 01/21/2022 14:29:19 Result Notes None recorded. Procedures Surgical History Date Name Laterality Status Provider Name and Address Organization Details Recorded Time 01/21/20 22 Colposcopy completed Abbie Barajas [facility]- [address], [place], [address], [facility] 01/20/2022 09:54:24 01/21/20 22 Colposcopy completed [facility] 01/20/2022 09:39:47 10/30/19 22 Date of Last Pap Smear completed Kiana Stern [facility] 03/28/2022 18:06:36 04/12/20 20 amputation of toe completed [facility] 01/18/2022 14:48:49 04/12/20 20 fluoroscopy guided percutaneous transluminal angioplasty of bilateral iliac arteries and insertion of bilateral iliac artery stents with contrast completed [facility] 01/18/2022 14:49:05 Imaging Results None recorded. Procedure Notes None recorded. Medical Equipment None Reported. Allergies Allergen ID Allergen Name Allergen Category Reaction Reaction Severity Criticality Documentation Date Start Date Code Code System Note Provider Name and Address Organization Details Recorded Time 22548 lithium Not available Not available Not available Not available 01/18/2022 6448 RxNorm [facility] 2 14:41:39 85112 Dolobid medicatio n Not available Not available Not available 01/18/2022 37803 6 RxNorm [facility] 2 14:41:55 Medications Name Sig Start [...] Not Available Not Available Vitals Date Recorded Systolic And Diastolic Provider Name and Address Organization Details Last Updated DateTime 01/18/2022 136/82 mm[Hg] Abbie Barajas, [facility]- [address], [place], [address], [facility] 01/18/2022 14:58:03 Date Recorded Body weight Provider Name an d Address Organization Details Last Updated DateTime 01/18/2022 25302.25 g Belia Layne [facility] 01/18/2022 14:40:25 Date Recorded Body weight Systolic And Diastolic Provider Name and Address Organization Details Last Updated DateTime 01/20/2022 27983.25 g 108/70 mm[Hg] Belia Layne [facility] 01/20/2022 09:39:18 Date Recorded Body weight Systolic And Diastolic Provider Name and Address Organization Details Last Updated DateTime 03/28/2022 30844.52 g 137/69 mm[Hg] Kiana Stern [facility] 03/28/2022 17:33:41 Social History Question Answer Notes LastModified by [email or web address] ion Details LastModified Time Tobacco Smoking Status Current Every Day Smoker Belia Layne [facility] 01/18/2022 14:48:21 Are You Blind Or Do You Have [...] Yes Information not available 01/18/2022 Do You Use Sunscreen Routinely? Yes Information not available 01/18/2022 Do You Have Difficulty Walking Or Climbing Stairs? Yes Information not available 01/18/2022 Sex: Unknown Functional Status Question Answer Note LastModified by Organizat ion Details LastModified Time Do you use any illicit or recreational drugs? No Information not available 01/18/2022 What is your level of alcohol consumption? None Information not available 01/18/2022 Are you able to walk independently without assistance or assistive devices? YESASSIST Information not available 01/18/2022 Are you able to care for yourself independently? Yes Information not available 01/18/2022 Do you have difficulty dressing, bathing, grooming, or toileting? No Information not available 01/18/2022 What is your exercise level? None Information not available 01/18/2022 Mental Status Question Answer Note LastModified by Organization D etails LastModified Time Do you feel stressed (tense, restless, nervous, or anxious, or unable to sleep at night)? [id number] Information not available 01/18/2022 Family History Relationship Description Onset Age of [...] Not available 2021 14:46:36 Maternal Aunt Malignant neoplasm of breast Not available 2021 14:46:14 Maternal Aunt Blood coagulation disorder Not available 2021 14:46:21 Maternal Aunt Diabetes mellitus Not available 2021 14:46:36 Maternal Aunt Malignant neoplasm of lung Not available 2021 14:47:08 Paternal Uncle Malignant neoplasm of lung Not available 2021 14:47:08 Father [...] ICD10 Code Diagnosis IMO Codes Diagnosis Note [id number] Abbie Barajas [facility] [address] [address] 01/18/2022 14:10:17 01/18/2022 15:18:35 Low grade squamous intraepithelial lesion on cervical Papanicolaou smear 6605099995 9105 R87.612 Today we agreed on an [...] counseling and review of plan of care. [id number] [facility] [address],[facility] [place] [address] 01/20/2022 09:04:35 01/20/2022 10:06:23 Low grade squamous intraepithelial lesion on cervical Papanicolaou smear 9450336462 9105 R87.612 See procedure notes.Post -procedure instructio [...] derstandin g-abnormal -hpv-and-p ap-test-re sults/unde rstanding- cervical-c hangkirill.pdf [id number] David Angel MD [facility] [address] [address] 03/28/2022 16:27:49 03/29/2022 14:49:16 Dysplasia of cervix 26712250 N87.9 This patient is a 57-year-ol d [...] Recorded Advance Directives Directive None Recorded Payers Insurance Date Sequence Insurance Name Policy Number Policy Perez Covered Member ID Perez Member ID Guarantor Name 03/21/2023 1 [facility] Yaneli Conroy [id number] Yaneli Conroy 03/21/2023 2 [facility] (MEDICARE REPLACEMENT/A DVANTAGE - PPO) Yaneli Conroy [id number] Yaneli Conroy Notes Date Note Type Note Provider Name and Address Organization Details Recorded Time 01/18/2022 text/html Referred from Dr. Marrufo's office for continuous abn pap. Here [...] has been updated as documented. [facility] [address], [place], [address], [facility] 01/18/2022 15:06:38 01/20/2022 text/html ROS as noted in the HPI Here today for colposcopy. [facility] [address], [place], [address], [facility] 01/20/2022 10:01:05 03/28/2022 text/html This patient [...] severe dysplasia. We spent over 40 minutes [id number]-zr-bowm. More than 50% was counseling. She will return in 1 year for colposcopic examination. David Angel MD [address], [place], [address], [facility] 03/28/2022 22:06:04 OBGyn Episode No OBEpisode recorded.
--- OUTSIDE RECORDS SUMMARY | 2025-06-03 12:37 | XMS_ITS | Continuity of Care Document ---
Author Organization [place] - [facility], [facility] [place] Address [address] [address] Care Team Providers Care Granite Setter Name Role Phone EMILIE CARRILLO Primary Care Provider EMILIE CARRILLO Referring Provider Assessment Encounter Date Assessment Date Assessment LastModified [...] O2 via [place] Nicotine cessation counseling provided. [place] for quitting nicotine include getting ready, getting [...] Registering at [email or web address] Making a call to [phone] ( [phone] A strong, clear, personalized message [...] failure or relapse. Patient can enroll in [facility]'s smoking cessation class at . Enrollment is [...] done as follows: Respiratory allergen panel for [facility] Serum IgE Serum total IgG, IgG1, IgG2, IgG3, IgG4 Gzviq-1-hjcpthpifx n phenotype and level TB stimulated gamma interferon B-type natriuretic peptide (BNP) Eosinophil count Hypersensitivity pneumonitis profile ANCA DARIAN PAIGE levels RF CCP SSA SSB Scl 70 [...] chest CT [email or web address] Not available 04/24/2025 12:01:03 Plan of Treatment Reminders Order Date Submit Date Provider Last Modified By Organization Details Last Modified Time Details Appointments Any 15 2025 09:30A Get Carrillo MD Not available Not available Not available Lab alpha-1-a ntitrypsi n (aat) phenotype , serum 2024 025 2 [facility] (Lab), [address] [place], [address], 05/12/2025 17:50:53 BNP (B-type natriuret ic peptide), serum or plasma 2024 025 [email or web address] 2 [facility] (Lab), [address] [place], [address], 05/12/2025 17:51:07 ige, total, serum 2024 025 [email or web address] 2 [facility] (Lab), [address] [place], [address], 05/12/2025 17:51:19 tb (M tuberculo sis), ifn-gamma vasiliy, blood 2024 025 [id number] 2 [facility] (Lab), [address] [place], [address], 05/12/2025 17:51:32 eosinophi l count, manual, blood (OBS) 2024 025 [id number] 2 [facility] (Lab), [address] [place], [address], 05/12/2025 17:51:[address] 1+2+3+4, serum 2024 025 2 [facility] (Lab), [address] [place], [address], 05/12/2025 17:51:56 respirato ry allergen panel, [facility] A, serum 2024 025 [email or web address] 2 [facility] (Lab), [address] [place], [address], 05/12/2025 17:52:08 respirato ry allergen panel - [facility] b 2024 025 [email or web address] 2 [facility] (Lab), [address] [place], [address], 05/12/2025 17:52:21 hypersens itivity pneumonit is profile, serum 2024 025 [email or web address] 2 [facility] (Lab), [address] [place], [address], 05/12/2025 17:52:32 anca panel, serum 2024 025 [email or web address] [email or web address] 2 [facility] (Lab), [address] [place], [address], 05/12/2025 17:52:44 DARIAN (antinucl ear antibodie s) screen, serum 2024 025 [email or web address] [id number] 2 [facility] (Lab), [address] [place], [address], 05/12/2025 17:52:56 PAIGE (angioten sin-conve rting enzyme), serum [address] (Lab), [address] [place], [address], 05/12/2025 17:53:07 rf (rheumato id factor), serum [address] (Lab), [address] [place], [address], 05/12/2025 17:53:18 ccp (cyclic citrullin ated peptide) iga+igg, serum [address] [place] [address] (Lab), [address] [place], [address], 05/12/2025 17:53:29 ssa Ab, serum [address] [place] [address] (Lab), [address] [place], [address], 05/12/2025 17:53:40 ssa Ab, serum [address] (Lab), [address] [place], [address], 05/12/2025 17:53:50 sneha-1 Ab, serum 2024 025 2 [facility] (Lab), [address] [place], [address], 05/12/2025 17:54:00 centromer e B Ab, serum 2024 025 [id number] 2 [facility] (Lab), [address] [place], [address], 05/12/2025 17:54:12 scleroder ma (SCL-70) autoantib odies, serum 2024 025 [id number] 2 [facility] (Lab), [address] [place], [address], 05/12/2025 17:54:23 myositis autoantib will panel, serum or plasma 2024 025 [email or web address] 2 [facility] (Lab), [address] [place], [address], 05/12/2025 17:54:33 histoplas ma Ab, serum 2024 025 [id number] 2 [facility] (Lab), [address] [place], [address], 05/12/2025 17:54:45 Blastomyc es dermatiti dis Ab, qual ID, serum 2024 025 [id number] 2 [facility] (Lab), [address] [place], [address], 05/12/2025 17:54:55 coccidioi juan Ab, serum 2024 025 [email or web address] 2 [facility] (Lab), [address] [place], [address], 05/12/2025 17:55:06 Referral None recorded. Procedures None recorded. Surgeries None recorded. Imaging PFT, complete - Please call patient to schedule. 2024 [facility] (Resp Services), [address], [place], [address], 05/19/2025 12:25:21 CT, chest, w/o contrast - Please call patient to schedule. 2024 025 [facility], [address], [address], [place], [address], 05/13/2025 15:10:39 Medication Orders None recorded. Patient TargetsNo targets recorded. Patient InstructionsNo instructions recorded. Reason for Referral None Reported. Results Created Date Observation Date Name Description Value Unit Range Abnormal Flag Note LastModifiedBy Organization Detail LastModifiedTime 04/03/2004/04/2025 CMP14 +EGFR glucose 87 mg/dL 70-99 normal Not Available [facility] ([facility]) [address] [place], [address], 04/04/2025 08:23:19 04/03/2004/04/2025 CMP14 +EGFR BUN 9 mg/dL 6-24 normal Not Available [facility] ([facility]) [address] [place], [address], 04/04/2025 08:23:19 04/03/2004/04/2025 CMP14 +EGFR creatinine 0.81 mg/dL 0.57-1 .00 normal Not Available [facility] ([facility]) [address] [place], [address], 04/04/2025 08:23:19 04/03/20 25 04/04/2025 CMP14 +EGFR eGFR 84 mL/mi n/1.7 3 >59 normal Not Available [facility] ([facility]) [address] [place], [address], 04/04/2025 08:23:19 04/03/20 25 04/04/2025 CMP14 +EGFR BUN/creatini ne ratio 11 9-23 normal Not Available [facility] ([facility]) [address] [place], [address], 04/04/2025 08:23:19 04/03/20 25 04/04/2025 CMP14 +EGFR sodium 139 mmol/ L 134-14 4 normal Not Available [facility] ([facility]) [address] [place], [address], 04/04/2025 08:23:19 04/03/2004/04/2025 CMP14 +EGFR potassium 4.7 mmol/ L 3.5-5. 2 normal Not Available [facility] ([facility]) [address] [place], [address], 04/04/2025 08:23:19 04/03/2004/04/2025 CMP14 +EGFR chloride 102 mmol/ L 96-106 normal Not Available [facility] ([facility]) [address] [place], [address], 04/04/2025 08:23:19 04/03/20 25 04/04/2025 CMP14 +EGFR carbon dioxide, total 24 mmol/ L 20-29 normal Not Available [facility] ([facility]) [address] [place], [address], 04/04/2025 08:23:19 04/03/2004/04/2025 CMP14 +EGFR calcium 8.4 mg/dL 8.7-10 .2 below low normal Not Available [facility] ([facility]) [address] [place], [address], 04/04/2025 08:23:19 04/03/20 25 04/04/2025 CMP14 +EGFR protein, total 6.6 g/dL 6.0-8. 5 normal Not Available [facility] ([facility]) [address] [facility], [place], [address], 04/04/2025 08:23:19 04/03/2004/04/2025 CMP14 +EGFR albumin 3.3 g/dL 3.8-4. 9 below low normal Not Available [facility] ([facility]) [address] [facility], [place], [address], 04/04/2025 08:23:19 04/03/2004/04/2025 CMP14 +EGFR globulin, total 3.3 g/dL 1.5-4. 5 Not Available [facility] ([facility]) [address] [facility], [place], [address], 04/04/2025 08:23:19 04/03/2004/04/2025 CMP14 +EGFR bilirubin, total <0.2 mg/dL 0.0-1. 2 Not Available [facility] ([facility]) [address] [place], [address], 04/04/2025 08:23:19 04/03/20 25 04/04/2025 CMP14 +EGFR alkaline phosphatase 172 IU/L 49-135 above high normal Not Available [facility] ([facility]) [address] [facility], [place], [address], 04/04/2025 08:23:19 04/03/2004/04/2025 CMP14 +EGFR AST (SGOT) 15 IU/L 0-40 normal Not Available [facility] ([facility]) [address] [facility], [place], [address], 04/04/2025 08:23:19 04/03/2004/04/2025 CMP14 +EGFR ALT (SGPT) 6 IU/L 0-32 normal Not Available [facility] ([facility]) [address] [place], [address], 04/04/2025 08:23:19 04/03/20 25 04/04/2025 CBC WITH DIFFE RENTI AL/PL ATELE T WBC 8.6 x10e3 /uL 3.4-10 .8 normal Not Available [facility] ([facility]) [address] [place], [address], 04/04/2025 08:23:19 04/03/20 25 04/04/2025 CBC WITH DIFFE RENTI AL/PL ATELE T RBC 4.06 x10e6 /uL 3.77-5 .28 normal Not Available [facility] ([facility]) [address] [place], [address], 04/04/2025 08:23:19 04/03/2004/04/2025 CBC WITH DIFFE RENTI AL/PL ATELE T hemoglobin 11.7 g/dL 11.1-1 5.9 normal Not Available [facility] ([facility]) [address] [place], [address], 04/04/2025 08:23:19 04/03/20 25 04/04/2025 CBC WITH DIFFE RENTI AL/PL ATELE T hematocrit 39.5 % 34.0-4 6.6 normal Not Available [facility] ([facility]) [address] [place], [address], 04/04/2025 08:23:19 04/03/2004/04/2025 CBC WITH DIFFE RENTI AL/PL ATELE T MCV 97 fL 79-97 normal Not Available [facility] ([facility]) [address] [place], [address], 04/04/2025 08:23:19 04/03/2004/04/2025 CBC WITH DIFFE RENTI AL/PL ATELE T MCH 28.8 pg 26.6-3 3.0 normal Not Available [facility] ([facility]) [address] [place], [address], 04/04/2025 08:23:19 04/03/20 25 04/04/2025 CBC WITH DIFFE RENTI AL/PL ATELE T MCHC 29.6 g/dL 31.5-3 5.7 below low normal Not Available [facility] ([facility]) [address] [facility], [place], [address], 04/04/2025 08:23:19 04/03/20 25 04/04/2025 CBC WITH DIFFE RENTI AL/PL ATELE T RDW 16.3 % 11.7-1 5.4 above high normal Not Available [facility] ([facility]) [address] [facility], [place], [address], 04/04/2025 08:23:19 04/03/20 25 04/04/2025 CBC WITH DIFFE RENTI AL/PL ATELE T platelets 481 x10e3 /uL 150-45 0 above high normal Not Available [facility] ([facility]) [address] [facility], [place], [address], 04/04/2025 08:23:19 04/03/20 25 04/04/2025 CBC WITH DIFFE RENTI AL/PL ATELE T neutrophils 66 % not estab. normal Not Available [facility] ([facility]) [address] [facility], [place], [address], 04/04/2025 08:23:19 04/03/20 25 04/04/2025 CBC WITH DIFFE RENTI AL/PL ATELE T lymphs 14 % not estab. normal Not Available [facility] ([facility]) [address] [place], [address], 04/04/2025 08:23:19 04/03/20 25 04/04/2025 CBC WITH DIFFE RENTI AL/PL ATELE T monocytes 15 % not estab. normal Not Available [facility] ([facility]) [address] [place], [address], 04/04/2025 08:23:19 04/03/20 25 04/04/2025 CBC WITH DIFFE RENTI AL/PL ATELE T eos 4 % not estab. normal Not Available [facility] ([facility]) [address] [facility], [place], [address], 04/04/2025 08:23:19 04/03/20 25 04/04/2025 CBC WITH DIFFE RENTI AL/PL ATELE T basos 1 % not estab. normal Not Available [facility] ([facility]) [address] [facility], [place], [address], 04/04/2025 08:23:19 04/03/2004/04/2025 CBC WITH DIFFE RENTI AL/PL ATELE T immature cells [employer] Not Available [facility] ([facility]) [address] [place], [address], 04/04/2025 08:23:19 04/03/20 25 04/04/2025 CBC WITH DIFFE RENTI AL/PL ATELE T neutrophils (absolute) 5.7 x10e3 /uL 1.4-7. 0 normal Not Available [facility] ([facility]) [address] [place], [address], 04/04/2025 08:23:19 04/03/20 25 04/04/2025 CBC WITH DIFFE RENTI AL/PL ATELE T lymphs (absolute) 1.2 x10e3 /uL 0.7-3. 1 normal Not Available [facility] ([facility]) [address] [place], [address], 04/04/2025 08:23:19 04/03/20 25 04/04/2025 CBC WITH DIFFE RENTI AL/PL ATELE T monocytes(ab solute) 1.3 x10e3 /uL 0.1-0. 9 above high normal Not Available [facility] ([facility]) [address] [place], [address], 04/04/2025 08:23:19 04/03/20 25 04/04/2025 CBC WITH DIFFE RENTI AL/PL ATELE T eos (absolute) 0.3 x10e3 /uL 0.0-0. 4 normal Not Available [facility] ([facility]) [address] [facility], [place], [address], 04/04/2025 08:23:19 04/03/20 25 04/04/2025 CBC WITH DIFFE RENTI AL/PL ATELE T baso (absolute) 0.0 x10e3 /uL 0.0-0. 2 normal Not Available [facility] ([facility]) [address] [facility], [place], [address], 04/04/2025 08:23:19 04/03/2004/04/2025 CBC WITH DIFFE RENTI AL/PL ATELE T immature granulocytes 0 % not estab. Not Available [facility] ([facility]) [address] [facility], [place], [address], 04/04/2025 08:23:19 04/03/20 25 04/04/2025 CBC WITH DIFFE RENTI AL/PL ATELE T immature grans (abs) 0.0 x10e3 /uL 0.0-0. 1 Not Available [facility] ([facility]) [address] [facility], [place], [address], 04/04/2025 08:23:19 04/03/2004/04/2025 CBC WITH DIFFE RENTI AL/PL ATELE T NRBC [employer] Not Available [facility] ([facility]) [address] [facility], [place], [address], 04/04/2025 08:23:19 04/03/2004/04/2025 CBC WITH DIFFE RENTI AL/PL ATELE T hematology comments: [employer] Not Available [facility] ([facility]) [address] [place], [address], 04/04/2025 08:23:19 04/03/20 25 04/04/2025 HEMOG LOBIN A1C hemoglobin A1C 5.1 % 4.8-5. 6 normal Predi abete s: 5.7 - 6.4 Diabe leila: >6.4 Glyce tu contr ol for adult s with diabe leila: <7.0 Not Available [facility] ([facility]) [address], [place], [address], 04/04/2025 08:23:20 05/26/20 25 XR, elbow No observ ation record ed. [email or web address] [facility] [place] [address], [place], [address], 05/26/2025 12:21:26 Result Notes None recorded. Problems Name Problem SNOMED Code Status Onset Date Resolution Date Notes Provider Name and Address Organization Details Recorded Time Injury of elbow 763297086 Completed Not Available [facility] 3 03:15:58 Bipolar disorder 27633502 Active Not Available [facility] 3 03:15:58 Gastroeso phageal reflux disease 534083644 Active Not Available [facility] 3 03:15:58 Closed fracture of upper end of tibia 88364329 Completed Not Available [facility] 3 03:15:58 Pain in left lower limb 395459237 Completed Not Available [facility] 3 03:15:59 Knee pain Completed Not Available [facility] 3 03:15:59 Fracture of tibia 01842999 Completed Not Available [facility] 3 03:15:59 Harmful pattern of use of Cannabis 97278455 Active Not Available [facility] 3 03:16:00 Fracture of lower leg 399993726 Completed Not Available [facility] 3 03:16:00 Bacterial vaginosis 125462369 Completed Not Available [facility] 3 03:16:01 Atypical squamous cells of undetermi al significa nce on cervical Papanicol aou smear 536162119 Active Not Available [facility] 3 03:16:01 Anxiety 54511653 Completed Not Available [facility] 3 03:16:01 Hyperlipi demia 51712788 Active Not Available [facility] 3 03:16:02 Urinary tract infectiou s disease 43452668 Completed Not Available [facility] 3 03:16:02 Smoker 11846269 Active Not Available [facility] 3 03:16:02 History of alcoholis m 309406019 Active 2016 Not Available [facility] 3 03:15:58 Gangrene of toe of left foot 14074705317 594297 Completed 201901/07/2022 Not Available [facility] 3 03:15:58 Anxiety disorder 444127370 Completed 201901/11/2021 Not Available [facility] 3 03:15:58 Ulcer of toe 037437490 Completed 201901/07/2022 Not Available [facility] 3 03:15:59 Bronchiti s 59822016 Completed 201901/11/2021 Not Available [facility] 3 03:15:59 Depressiv e disorder 95667266 Active 2019 Not Available [facility] 3 03:15:59 Atheroscl erosis of arteries of the extremiti es 46753343 Completed 201901/11/2021 Not Available [facility] 3 03:16:01 Atheroscl erosis of arteries of the extremiti es 22248385 Active 2019 Not Available [facility] 3 03:16:01 Cigarette smoker 84314258 Completed 201901/07/2022 Not Available [facility] 3 03:16:02 Pain in toe 958104199 Completed 201901/07/2022 Not Available [facility] 3 03:15:59 History of amputatio n of lesser toe 058534613 Active 2019 Not Available [facility] 3 03:16:01 Long-term drug therapy Completed 202001/07/2022 Not Available [facility] 3 03:15:59 Neuropath y 903015075 Active 2020 Not Available [facility] 3 03:16:00 Atrial flutter 9065345 Active 2020 Not Available [facility] 3 03:16:02 Transitio n of care 58048289089 05 Completed 202101/07/2022 Not Available [facility] 3 03:15:58 Pneumonia caused by SARS-CoV- 2 16188216804 0395400 Completed 202101/20/2022 Not Available [facility] 3 03:16:03 Anxiety disorder 182220142 Active 2021 Not Available [facility] 3 03:15:58 Periphera l vascular disease 625847966 Active 2021 Not Available [facility] 3 03:16:00 Vitamin D deficienc y 95781821 Active 2021 Not Available [facility] 3 03:15:59 Umbilical hernia 446860589 Active 2021 Not Available [facility] 3 03:16:00 Hypothyro idism 95275135 Active 2021 Not Available [facility] 3 03:16:00 Overactiv e urinary bladder 029525853 Active 2021 Anam Baptiste MD [address], [address], [place], [address] , [employer] [facility] [employer] [facility] 5 08:37:10 Multiple nodules of lung 799790055 Active 2022 Anam Baptiste MD [address], [address], [place], [address] , [employer] [facility] [employer] 5 11:52:55 Hyperchol esterolem ia 88275070 Active 2022 Anam Baptiste MD [address], [address], [place], [address] , [facility] [employer] [facility] 5 08:37:52 Migraine 44915123 Active 2022 Anam Baptiste MD [address], [address], [place], [address] , [facility] 5 08:37:40 Essential hypertens ion 69958307 Active 2023 Anam Baptiste MD [address], [place] [address], [place], [address] , [facility] 5 08:37:54 Congestiv e heart failure 64773001 Active 2024 Anam Baptiste MD [address], [place] [address], [place], [address] , [facility] 5 08:36:53 Effusion of joint of right elbow 28391316856 9102 Active 2024 HARMONY Edmond [address], [place] [address], [place], [address] , [facility] [email or web address] [facility] 5 15:25:10 Pain of right elbow joint 01714045340 783108 Active 2024 DREW Vogt, [facility] 5 11:22:42 Bursitis of olecranon of right elbow 55324658178 9108 Active 2024 MARU Noyola [address], [place] [address], [place], [address] , [facility] [email or web address] [facility] 5 12:21:41 Notes:Medical History: Anxie ty/Bipolar depression [...] Left 5th toe amputation 2020 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 Procedures Surgical History Date Name Laterality Status Provider Name and Address Organization Details Recorded Time 04/15/20 25 Arthrocentesis Major Joint/Bursa 1588 completed HARMONY Edmond [address], [place] [address], [place], [address], [facility] [email or web address] [facility] 04/15/2025 12:14:57 01/25/20 25 Transitional_Care_ Management cancelled Michelle GRICEL Thomason-Yoanna [address], [place], [address], [facility] [email or web address] [facility] 01/21/2025 14:43:51 01/20/20 23 Advanced Care Planning completed Ling Moody RN [facility] [email or web address] [facility] 01/19/2023 12:49:00 10/30/19 22 Date of Last Pap Smear completed Ling Moody RN [facility] [email or web address] [facility] 01/19/2023 12:44:34 06/15/19 22 Date of Last Mammogram completed Ling Moody RN [facility] [email or web address] [facility] 01/19/2023 12:42:58 06/15/19 22 Most Recent Bone Density completed Ling Moody RN [facility] [email or web address] [facility] 01/19/2023 12:43:18 ENVIRONMENTAL HEALTH PHYSICIAN Surgery completed Not Available [facility] 08/10/2022 03:08:08 ENT Procedure completed Not Available [facility] 08/10/2022 03:08:08 Imaging Results None recorded. Procedure Notes None recorded. Medical Equipment None Reported. Allergies Allergen ID Allergen Name Allergen Category Reaction Reaction Severity Criticality Documentation Date Start Date Code Code System Note Provider Name and Address Organization Details Recorded Time 5780 lithium Not available vomiting Not available Not available 08/10/2022 6448 RxNorm Not Available [facility] 3 03:25:43 5781 Dolobid medicatio n vomiting Not available Not available 08/10/2022 59806 6 RxNorm Not Available [facility] 3 03:25:43 5782 Dilaudid medicatio n vomiting Not available Not available 08/10/2022 68472 3 RxNorm Not Available [facility] 3 03:25:43 5783 Bactrim medicatio n vomiting Not available Not available 08/10/2022 01679 9 RxNorm Not Available [facility] 3 03:25:43 67312 ciproflox acin medicatio n Not available Not available unabletoasse 04/28/2025 2551 RxNorm Not Available [facility] - External Data Service - prod 15:30:06 19600 vancomyci n medicatio n Not available Not available high 04/28/2025 35929 RxNorm Not Available [facility] External [employer] - prod 15:30:06 74206 etodolac medicatio n Not available Not available high 04/28/2025 33161 RxNorm unrec ogniz ed react ion (text : Red color (qual ifier value ), code: 02535 0000) (from exter nal sourc e) unrec ogniz ed react ion (text : Blush ing, funct ion (obse rvabl e entit y), code: 60578 002) (from exter nal sourc e) Not Available [facility] External Data Service - prod 15:30:06 19497 loracarbe f medicatio n Not available Not available high 04/28/2025 18156 RxNorm unrec ogniz ed react ion (text : Sever e (evert rity modif ier) (qual ifier value ), code: 67562 000) (from exter nal sourc e) Not Available [facility] - External Data Service - prod 5 15:30:06 34294 phenazopy ridine medicatio n Not available Not available low 04/28/2025 8120 RxNorm Not Available [facility] - External Data Service - prod 15:30:06 89743 diflunisa l medicatio n vomiting Not available Not available 04/28/20252019 3393 RxNorm Not Available [facility] - External Data Service - prod 5 15:30:06 85132 [employer] melanie medicatio n vomiting Not available Not available 04/28/20252016 3423 RxNorm unrec ogniz ed react ion (text : Nause a and/o r Vomit ing, code: 36248 000) (from exter nal sourc e) Not Available [facility] - External Data Service - prod 5 15:30:06 56875 latex environme nt,medica tion itching rash Not available Not available high 04/28/20252011 89867 91 RxNorm Not Available [facility] - External Data Service - prod 5 15:30:06 12601 propoxyph darshana medicatio n Not available Not available low 04/28/20252011 8785 RxNorm Vagin al bleed ing unrec ogniz ed react ion (text : Other , code: 23088 07) [facility] Not Available [facility] - External Data Service - [facility] 5 15:30:06 19893 diltiazem Not available other Not available high 04/28/20252023 3443 RxNorm IV AND PO-AN Y dose cause s pause s. EVEN small doses of 30 mg Not Available [facility] [facility] [employer] Data Service - [facility] 15:30:08 87821 sulfameth oxazole / trimethop rim medicatio n anaphylax is other Not available Not available high 04/28/20252011 60234 RxNorm Cant remem julian Not Available [facility] External Data Service - [facility] 15:30:08 Medications Name Sig Start Date Stop [...] Not Available Not Available Vitals Date Recorded Heart rate Respiratory rate Provider N bob and Address Organization Details Last Updated DateTime 04/24/2025 97 /min 15 /min Anam Baptiste MD [address], [address], [place], [address], [facility] [email or web address] [facility] 04/24/2025 11:54:52 Date Recorded Body height Body mass index (BMI) Body weight Body temperature Heart rate Oxygen saturation Systolic And Diastolic Provider Name and Address Organization Details Last Updated DateTime 5 157.48 cm 28.2 kg/m2 97886.2 2 g 98.1 [degF] 97 /min 85 % 112/72 mm[Hg] Ana Cazares MA [facility] [email or web address] [facility] 11:46:20 Social History Question Answer Notes LastModified by Organization Details LastModified Time Tobacco Smoking Status Current Every Day Smoker Not Available [employer] 08/10/2022 02:52:35 Do You Have An Advance Directive? No MIGRATION.030 031734 Information not available 08/10/2022 Are You Blind Or Do You Have Difficulty Seeing? No MIGRATION.030 626347 Information not available 08/10/2022 What Is Your Level Of Caffeine Consumption? Moderate MIGRATION.030 424050 Information not available 08/10/2022 In The 14 Days Before Symptom Onset, Have You Had Close Contact With A Laboratory-conf irmed COVID-19 While That Case Was Ill? No MIGRATION.030 348106 Information not available 08/10/2022 In The 14 Days Before Symptom Onset, Have You Had Close Contact With A Person Who Is Under Investigation For COVID-19 While That Person Was Ill? No MIGRATION.030 122319 Information not available 08/10/2022 Are You Deaf Or Do You Have Serious Difficulty Hearing? No MIGRATION.030 628544 Information not available 08/10/2022 What Type Of Diet Are You Following? REGULAR MIGRATION.030 211166 Information not available 08/10/2022 Which Illicit Or Recreational Drugs Have You Used? Marijuana MIGRATION.030 301501 Information not available 08/10/2022 What Is The Highest Grade Or Level Of School You Have Completed Or The Highest Degree You Have Received? BD88456-2 MIGRATION.030 041712 Information not available 08/10/2022 Do You Have An Electrostatic Air Filter? No Information not available 08/29/2022 Have There Been Any Changes To Your Family Or Social Situation? No MIGRATION.030 518230 Information not available 08/10/2022 What Is The Fluoride Status Of Your Home? Unknown MIGRATION.0301 374880 Information not available 08/10/2022 Are There Any Guns Present In Your Home? No MIGRATION.0301 300166 Information not available 08/10/2022 Do You Have A Humidifier? Yes Information not available 08/29/2022 Do You Use Insect Repellent Routinely? No MIGRATION.0301 886355 Information not available 08/10/2022 Where Do You Live? [place]LevelHouse MIGRATION.0301 678153 Information not available 08/10/2022 Do You Have A Medical Power Of Roll Dough Divider? No MIGRATION.0301 637427 Information not available 08/10/2022 Do You Have Moisture Problems In Your Home? Yes Leak In Bathroom Information not available 08/29/2022 What Was The Date Of Your Most Recent Tobacco Screening? 05/26/2025 Information not available 05/26/2025 What Is Your Current Pack Years? 30ormorepackyears MIGRATION.0301 518282 Information not available 08/10/2022 Do You Have Any Pets? Yes MIGRATION.0301 660440 Information not available 08/10/2022 What Is Your Relationship Status? MIGRATION.0301 155952 Information not available 08/10/2022 Do You Use Your Seat Belt Or Car Seat Routinely? No MIGRATION.0301 593402 Information not available 08/10/2022 Do You Have Smoke And Carbon Monoxide Detectors In Your Home? Yes MIGRATION.0301 529856 Information not available 08/10/2022 At What Age Did You Start Smoking Tobacco? 11 MIGRATION.0301 916377 Information not available 08/10/2022 Are You Passively Exposed To Smoke? Yes MIGRATION.0301 751446 Information not available 08/10/2022 Are There Any Smokers In Your House? Yes MIGRATION.0301 173367 Information not available 08/10/2022 How Much Tobacco Do You Smoke? 0.5 PPD 1/2 Pack To A Pack Information not available 05/26/2025 Do You Use Sunscreen Routinely? No MIGRATION.0301 443515 Information not available 08/10/2022 Has Tobacco Cessation Counseling Been Provided? Yes MIGRATION.0301 043868 Information not available 08/10/2022 On What Date Was Tobacco Cessation Counseling Provided? 09/23/2021 MIGRATION.0301 908075 Information not available 08/10/2022 How Many Years Have You Smoked Tobacco? 48 [id number] Information not available 09/05/2024 Have You Recently Traveled Abroad? No MIGRATION.0301 382503 Information not available 08/10/2022 Have You Used IV Drugs? No MIGRATION.0301 653075 Information not available 08/10/2022 Do You Have Difficulty Walking Or Climbing Stairs? No MIGRATION.0301 227046 Information not available 08/10/2022 Do You Have Any Dietary Restrictions? No MIGRATION.0301 708905 Information not available 08/10/2022 Sex: Unknown Functional Status Question Answer Note LastModified by [employer] Details LastModified Time Do you use any illicit or recreational drugs? Yes MIGRATION.8387341 026 Information not available 08/10/2022 Do you or have you ever used any other forms of tobacco or nicotine? No MIGRATION.9597710 026 Information not available 08/10/2022 What is your level of alcohol consumption? None Information not available 05/26/2025 Do you have transportation difficulties? No MIGRATION.6353434 026 Information not available 08/10/2022 Are you able to walk independently without assistance or assistive devices? YESASSIST MIGRATION.6830793 026 Information not available 08/10/2022 Do you have difficulty doing errands alone? No MIGRATION.7264719 026 Information not available 08/10/2022 Are you able to care for yourself independently? Yes MIGRATION.5440943 026 Information not available 08/10/2022 What is your occupation? N/a MIGRATION.2901659 026 Information not available 08/10/2022 Do you have difficulty dressing, bathing, grooming, or toileting? No MIGRATION.3238347 026 Information not available 08/10/2022 What is your exercise level? None MIGRATION.1089677 026 Information not available 08/10/2022 Mental Status Question Answer Note LastModified by [employer] Details LastModified Time Do you feel stressed (tense, restless, nervous, or anxious, or unable to sleep at night)? MW4179-8 MIGRATION.70536071 26 Information not available 08/10/2022 Do you have difficulty concentrating, remembering or making decisions? No MIGRATION.67886371 26 Information not available 08/10/2022 Family History [...] 13:34:55 Notes:CANCER-MOTHER/AUNTS/CO USINS/UNCLES Medical History Condition Response COPD Y USE OF BLOOD THINNERS Y Gynecological History Statement/Question Response Date of Last Pap Smear 10/29/2021 Date of Last Mammogram 06/15/2021 Most Recent Bone Density 06/15/2021 Obstetrics History GPAL:G 0 P 0 0 0 0 Immunizations Vaccine Type Date Status Note Provider Nam e and Address Organization Details Recorded Time Tdap 2 completed Not Available [facility] 07/22/2023 00:44:00 Influenza, split virus, quadrivalent, PF 7 completed Not Available [facility] 07/22/2023 00:44:00 Influenza, split virus, quadrivalent, preservative 6 completed Not Available [facility] 07/22/2023 00:43:59 pneumococcal polysaccharide PPV23 4 completed Not Available [facility] 07/22/2023 00:43:59 Influenza, split virus, trivalent, PF 4 completed Not Available [facility] 07/22/2023 00:44:00 Past Encounters Encounter ID Performer Location Encounter Start Date Encounter Closed Date Diagnosis/Indication Diagnosis SNOMED-CT Code Diagnosis ICD10 Code Diagnosis IMO Codes Diagnosis Note [id number] Emilie Carrillo MD [facility] [place] [facility] [address] [place] [address] 04/03/2025 11:16:10 04/03/2025 15:45:37 Effusion of joint of right elbow 4080986926 28653 M25.421 09696243 keep wrapped, use ice, and elevated, use tylenol only as needed does not need tap at this time Screening for cardiovascular system disease 318436511 Z13.6 660931 Dependence on supplemental oxygen 7029185195 07 Z99.81 951175 History of alcoholism 16 6572371 F10.21 discussed importance of compliance and health risk associated with alcoholism Smoker 85154960 F17.218 F17.219 Z87.891 extensive education provided on smoking cessation. Chronic ob structive pulmonary disease 20044159 J44.9 [id number] Emilie Carrillo MD [facility] [place] [address] [place] [address] 04/15/2025 11:31:26 04/15/2025 12:39:24 Effusion of joint of right elbow 1932016950 76778 M25.421 59117359 wrapped and advised to use tylenol and iceKeep wrapped for 72 hours.6mls only taken off at this time [id number] Anam Baptiste MD [facility] [place] [address] [address] 04/24/2025 11:22:07 04/25/2025 10:27:42 Dyspnea on exertion 87770561 R06.09 Smoker 76214999 F17.218 F17.219 Z87.891 Multiple n odules of lung 285048676 R91.8 [id number] Health Concerns Section Related Observation LastModified by Organization Detai ls LastModified Time None Recorded Concern Status LastModified by Organization Details LastModified Time None Recorded Payers Encounter Date Sequence Insurance Name Policy Number Policy Perez Covered Member ID Perez Member ID Guarantor Name 04/24/2025 1 [facility] (MEDICARE REPLACEMENT/A DVANTAGE - PPO) [id number] Yaneli Conroy [id number] Yaneli Conroy 04/24/2025 2 [place] [facility] Yaneli Conroy [id number] Yaneli Conroy Notes Date Note Type Note Provider Name and Address Organization Details Recorded Time 04/24/2025 text/html Primary care/Referring provider: Emilie Carrillo [...] factors: walkingAlleviating factors: rest Modified [employer] [place] ([facility]) Dyspnea Scale - Grade 2Grade 0 [...] . Treatment history: Albuterol nebs as needed 4734-5771 Albuterol HFA as needed since 2013 Other [...] slight chance of dozing. Anam Baptiste MD [address] [place] [address], [address] [address], [place], [address], [facility] 04/24/2025 12:13:57 OBGyn Episode No OBEpisode recorded.
--- OUTSIDE RECORDS SUMMARY | 2025-06-03 12:37 | XMS_ITS | Continuity of Care Document ---
Author Organization [place] - [facility], [facility] Rashdi Perez Address [address] [place] [address] Care Team Providers Care Store Receiving Clerk Name Role Phone EMILIE CARRILLO Primary Care Provider EMILIE CARRILLO Referring Provider Assessment Encounter Date Assessment Date Assessment LastModified by Organization Details LastModified Time 05/26/2025 05/26/2025 The patient has olecranon bursitis [...] Details Last Modified Time Details Appointments Any 2025 09:30A M Emilie Carrillo MD Not available Not available Not available Lab None recorded. Referral None recorded. Procedures injection /aspirati on joint/bur sa (PROC) 2024 025 [email or web address] In-Office Order, Internal Use Only DO Not Attach Compendium DO Not Attach Compendium, Do Not Delete/merge, [id number] 05/26/2025 12:04:26 Surgeries None recorded. Imaging XR, elbow 2024 025 [email or web address] [facility] [place], [address], [place], [address], 05/26/2025 13:00:59 Medication Orders bupivacai ne HCl 0.5 % (5 mg/mL) injection solution 2024 025 [email or web address] [id number], [address], [place], [place], [id number], 05/26/2025 13:00:59 prednison e 10 mg tablets in a dose pack 2024 025 [email or web address] [facility] #[id number], [address] , [place], [place], [id number], 05/26/2025 13:00:59 Patient TargetsNo targets recorded. Patient InstructionsNo instructions recorded. Reason for Referral None Reported. Results Created Date Observation Date Name Description Value Unit Range Abnormal Flag Note LastModifiedBy Organization Detail LastModifiedTime 05/26/20 25 XR, elbow No observ ation record ed. [email or web address] [facility] [address], [place], [place], [address], 05/26/2025 12:21:26 Result Notes None recorded. Problems Name Problem SNOMED Code Status Onset Date Resolution Date Notes Provider Name and Address Organization Details Recorded Time Injury of elbow 891103385 Completed Not Available [facility] 3 03:15:58 Bipolar disorder 25880892 Active Not Available [facility] 3 03:15:58 Gastroeso phageal reflux disease 163468442 Active Not Available [facility] 3 03:15:58 Closed fracture of upper end of tibia 18015156 Completed Not Available [facility] 3 03:15:58 Pain in left lower limb 655295359 Completed Not Available [facility] 3 03:15:59 Knee pain Completed Not Available [facility] 3 03:15:59 Fracture of tibia 37134566 Completed Not Available [facility] 3 03:15:59 Harmful pattern of use of Cannabis 03820322 Active Not Available [facility] 3 03:16:00 Fracture of lower leg 796652568 Completed Not Available [facility] 3 03:16:00 Bacterial vaginosis 414064117 Completed Not Available [facility] 3 03:16:01 Atypical squamous cells of undetermi al significa nce on cervical Papanicol aou smear 818968205 Active Not Available [facility] 3 03:16:01 Anxiety 15347171 Completed Not Available [facility] 3 03:16:01 Hyperlipi demia 67917964 Active Not Available [facility] 3 03:16:02 Urinary tract infectiou s disease 48033070 Completed Not Available [facility] 3 03:16:02 Smoker 37844513 Active Not Available [facility] 3 03:16:02 History of alcoholis m 136795288 Active 2016 Not Available [facility] 3 03:15:58 Gangrene of toe of left foot 28718243284 677783 Completed 201901/07/2022 Not Available [facility] 3 03:15:58 Anxiety disorder 611347468 Completed 201901/11/2021 Not Available [facility] 3 03:15:58 Ulcer of toe 050210806 Completed 201901/07/2022 Not Available [facility] 3 03:15:59 Bronchiti s 04319670 Completed 201901/11/2021 Not Available [facility] 3 03:15:59 Depressiv e disorder 16616733 Active 2019 Not Available [facility] 3 03:15:59 Atheroscl erosis of arteries of the extremiti es 41111977 Completed 201901/11/2021 Not Available [facility] 3 03:16:01 Atheroscl erosis of arteries of the extremiti es 97460889 Active 2019 Not Available [facility] 3 03:16:01 Cigarette smoker 09249022 Completed 201901/07/2022 Not Available [facility] 3 03:16:02 Pain in toe 096983727 Completed 201901/07/2022 Not Available [facility] 3 03:15:59 History of amputatio n of lesser toe 980532444 Active 2019 Not Available [facility] 3 03:16:01 Long-term drug therapy Completed 202001/07/2022 Not Available [facility] 3 03:15:59 Neuropath y 738754711 Active 2020 Not Available [facility] 3 03:16:00 Atrial flutter 4257833 Active 2020 Not Available [facility] 3 03:16:02 Transitio n of care 52199418586 05 Completed 202101/07/2022 Not Available [facility] 3 03:15:58 Pneumonia caused by SARS-CoV- 2 87717579399 3301484 Completed 202101/20/2022 Not Available [facility] 3 03:16:03 Anxiety disorder 454358500 Active 2021 Not Available [facility] 3 03:15:58 Periphera l vascular disease 991273570 Active 2021 Not Available [facility] 3 03:16:00 Vitamin D deficienc y 20505832 Active 2021 Not Available [facility] 3 03:15:59 Umbilical hernia 640890707 Active 2021 Not Available [facility] 3 03:16:00 Hypothyro idism 59602450 Active 2021 Not Available [facility] 3 03:16:00 Overactiv e urinary bladder 938217937 Active 2021 Anam Baptiste MD [email or web address], [place], [address] , [facility] [employer] [facility] 5 08:37:10 Multiple nodules of lung 319388026 Active 2022 Anam Baptiste MD [address], [place], [address] , [facility] 5 11:52:55 Hyperchol esterolem ia 10202539 Active 2022 Anam Baptiste MD [address], [place], [address] , [facility] 5 08:37:52 Migraine 03526775 Active 2022 Anam Baptiste MD [address], [place], [address] , [facility] 5 08:37:40 Essential hypertens ion 85893189 Active 2023 Anam Baptiste MD [address], [place], [address] , [facility] [email or web address] [facility] 5 08:37:54 Congestiv e heart failure 43685303 Active 2024 Anam Baptiste MD [address], [place], [address] , [facility] [email or web address] [facility] [employer] [facility] 5 08:36:53 Effusion of joint of right elbow 65751404035 9102 Active 2024 HARMONY Edmond [address], [place], [address] , [facility] [email or web address] [facility] [employer] 5 15:25:10 Pain of right elbow joint 46027564404 034125 Active 2024 DREW Vogt, [place] [email or web address] [facility] [employer] 5 11:22:42 Bursitis of olecranon of right elbow 77390187545 9108 Active 2024 MARU Noyola [address], [place], [address] , [facility] [email or web address] [facility] 12:21:41 Notes:Medical History: Anxie ty/Bipolar depression Bilateral [...] Mild left PAD Procedure History: Cardiac ablation 2019 Left 5th toe amputation 2020 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 Procedures Surgical History Date Name Laterality Status Provider Name and Address Organization Details Recorded Time 04/15/20 25 Arthrocentesis Major Joint/Bursa 1588 completed HARMONY Edmond [address], [place], [address], [facility] [email or web address] [facility] 04/15/2025 12:14:57 01/25/20 25 Transitional_Care_ Management cancelled HARMONY Edmond [address], [place], [address], [facility] [email or web address] [facility] [employer] 01/21/2025 14:43:51 01/20/20 23 Advanced Care Planning completed Ling Moody RN [facility] 01/19/2023 12:49:00 10/30/19 22 Date of Last Pap Smear completed Ling Moody RN [facility] 01/19/2023 12:44:34 06/15/19 22 Date of Last Mammogram completed Ling Moody RN [facility] 01/19/2023 12:42:58 06/15/19 22 Most Recent Bone Density completed Ling Moody RN [facility] 01/19/2023 12:43:18 CARDIOPULMONARY PHYSICAL THERAPIST Surgery completed Not Available [facility] 08/10/2022 03:08:08 ENT Procedure completed Not Available [facility] 08/10/2022 03:08:08 Imaging Results None recorded. Procedure Notes None recorded. Medical Equipment None Reported. Allergies Allergen ID Allergen Name Allergen Category Reaction Reaction Severity Criticality Documentation Date Start Date Code Code System Note Provider Name and Address Organization Details Recorded Time 5780 lithium Not available vomiting Not available Not available 08/10/2022 6448 RxNorm Not Available [facility] 3 03:25:43 5781 Dolobid medicatio n vomiting Not available Not available 08/10/2022 84401 6 RxNorm Not Available [facility] 3 03:25:43 5782 Dilaudid medicatio n vomiting Not available Not available 08/10/2022 84921 3 RxNorm Not Available [facility] 3 03:25:43 5783 Bactrim medicatio n vomiting Not available Not available 08/10/2022 20894 9 RxNorm Not Available [facility] 3 03:25:43 38021 ciproflox acin medicatio n Not available Not available [facility] 04/28/2025 2551 RxNorm Not Available [facility] External Data Service - [facility] 5 15:30:06 81354 vancomyci n medicatio n Not available Not available [facility] 04/28/2025 09026 RxNorm Not Available [facility] [employer] Data Service - [facility] 5 15:30:06 01087 etodolac medicatio n Not available Not available [facility] 04/28/2025 45331 RxNorm unrec ogniz ed react ion (text : Red color (qual ifier value ), code: 97015 0000) ([facility] unrec ogniz ed react ion (text : Blush ing, funct ion (obse rvabl e entit y), code: 59732 002) ([facility]) Not Available [facility] - External Data Service - prod 15:30:06 62705 loracarbe f medicatio n Not available Not available high 04/28/2025 73505 RxNorm unrec ogniz ed react ion (text : Sever e (evert rity modif ier) (qual ifier value ), code: 33563 000) (from [facility] e) Not Available [facility] - External Data Service - prod 15:30:06 51377 phenazopy ridine medicatio n Not available Not available low 04/28/2025 8120 RxNorm Not Available [facility] - External Data Service - prod 15:30:06 29448 diflunisa l medicatio n vomiting Not available Not available 04/28/20252019 3393 RxNorm Not Available [facility] - External Data Service - prod 15:30:06 62351 [employer] melanie medicatio n vomiting Not available Not available 04/28/20252016 3423 RxNorm unrec ogniz ed react ion (text : Nause a and/o r Vomit ing, code: 66982 000) (from [facility]) Not Available [facility] - External Data Service - prod 15:30:06 57296 latex environme nt,medica tion itching rash Not available Not available high 04/28/20252011 67142 91 RxNorm Not Available [facility] - External Data Service - prod 15:30:06 55461 propoxyph darshana medicatio n Not available Not available low 04/28/20252011 8785 RxNorm Vagin al bleed ing unrec ogniz ed react ion (text : Other , code: 84651 07) (from exter nal sourc e) Not Available [facility] - External Data Service - prod 5 15:30:06 58275 diltiazem Not available other Not available [facility] 04/28/20252023 3443 RxNorm IV AND PO-AN Y dose cause s pause s. EVEN small doses of 30 mg Not Available [facility] External Data Service - [facility] 15:30:08 48483 sulfameth oxazole / trimethop rim medicatio n anaphylax is other Not available Not available [facility] 04/28/20252011 69200 RxNorm Cant remem julian Not Available [facility] External Data Service - [facility] 15:30:08 Medications Name Sig Start Date [...] Updated DateTime 05/26/2025 157.48 cm 30.2 kg/m2 01132.74 g DREW Vogt - [place] [employer] [facility] 05/26/2025 11:16:26 Social History Question Answer Notes LastModified by Organization Details LastModified Time Tobacco Smoking Status Current Every Day Smoker Not Available [facility] 08/10/2022 02:52:35 Do You Have An Advance Directive? No MIGRATION.0301 041566 Information not available 08/10/2022 Are You Blind Or Do You Have Difficulty Seeing? No MIGRATION.0301 127120 Information not available 08/10/2022 What Is Your Level Of Caffeine Consumption? Moderate MIGRATION.0301 286073 Information not available 08/10/2022 In The 14 Days Before Symptom Onset, Have You Had Close Contact With A Laboratory-conf irmed COVID-19 While That Case Was Ill? No MIGRATION.0301 533489 Information not available 08/10/2022 In The 14 Days Before Symptom Onset, Have You Had Close Contact With A Person Who Is Under Investigation For COVID-19 While That Person Was Ill? No MIGRATION.0301 194614 Information not available 08/10/2022 Are You Deaf Or Do You Have Serious Difficulty Hearing? No MIGRATION.0301 656506 Information not available 08/10/2022 What Type Of Diet Are You Following? REGULAR MIGRATION.0301 754365 Information not available 08/10/2022 Which Illicit Or Recreational Drugs Have You Used? Marijuana MIGRATION.030 325588 Information not available 08/10/2022 What Is The Highest Grade Or Level Of School You Have Completed Or The Highest Degree You Have Received? IP18005-9 MIGRATION.030 316226 Information not available 08/10/2022 Do You Have An Electrostatic Air Filter? No Information not available 08/29/2022 Have There Been Any Changes To Your Family Or Social Situation? No MIGRATION.0301 455943 Information not available 08/10/2022 What Is The Fluoride Status Of Your Home? Unknown MIGRATION.0301 650283 Information not available 08/10/2022 Are There Any Guns Present In Your Home? No MIGRATION.0301 316941 Information not available 08/10/2022 Do You Have A Humidifier? Yes Information not available 08/29/2022 Do You Use Insect Repellent Routinely? No MIGRATION.0301 559026 Information not available 08/10/2022 Where Do You Live? [place] MIGRATION.0301 116222 Information not available 08/10/2022 Do You Have A Medical Power Of Appliance Counselor? No MIGRATION.0301 120393 Information not available 08/10/2022 Do You Have Moisture Problems In Your Home? Yes Leak In Bathroom Information not available 08/29/2022 What Was The Date Of Your Most Recent Tobacco Screening? 05/26/2025 Information not available 05/26/2025 What Is Your Current Pack Years? 30ormorepackyears MIGRATION.0301 171810 Information not available 08/10/2022 Do You Have Any Pets? Yes MIGRATION.0301 387714 Information not available 08/10/2022 What Is Your Relationship Status? MIGRATION.0301 438903 Information not available 08/10/2022 Do You Use Your Seat Belt Or Car Seat Routinely? No MIGRATION.0301 897041 Information not available 08/10/2022 Do You Have Smoke And Carbon Monoxide Detectors In Your Home? Yes MIGRATION.0301 745005 Information not available 08/10/2022 At What Age Did You Start Smoking Tobacco? 11 MIGRATION.0301 938166 Information not available 08/10/2022 Are You Passively Exposed To Smoke? Yes MIGRATION.0301 900160 Information not available 08/10/2022 Are There Any Smokers In Your House? Yes MIGRATION.0301 804257 Information not available 08/10/2022 How Much Tobacco Do You Smoke? 0.5 PPD 1/2 Pack To A Pack Information not available 05/26/2025 Do You Use Sunscreen Routinely? No MIGRATION.0301 656350 Information not available 08/10/2022 Has Tobacco Cessation Counseling Been Provided? Yes MIGRATION.0301 594773 Information not available 08/10/2022 On What Date Was Tobacco Cessation Counseling Provided? 09/23/2021 MIGRATION.0301 722490 Information not available 08/10/2022 How Many Years Have You Smoked Tobacco? 48 [email or web address] Information not available 09/05/2024 Have You Recently Traveled Abroad? No MIGRATION.0301 377114 Information not available 08/10/2022 Have You Used IV Drugs? No MIGRATION.0301 843581 Information not available 08/10/2022 Do You Have Difficulty Walking Or Climbing Stairs? No MIGRATION.0301 689310 Information not available 08/10/2022 Do You Have Any Dietary Restrictions? No MIGRATION.0301 406229 Information not available 08/10/2022 Sex: Unknown Functional Status Question Answer Note LastModified by Organizat ion Details LastModified Time Do you use any illicit or recreational drugs? Yes MIGRATION.2223581 026 Information not available 08/10/2022 Do you or have you ever used any other forms of tobacco or nicotine? No MIGRATION.9259887 026 Information not available 08/10/2022 What is your level of alcohol consumption? None Information not available 05/26/2025 Do you have transportation difficulties? No MIGRATION.9276183 026 Information not available 08/10/2022 Are you able to walk independently without assistance or assistive devices? YESASSIST MIGRATION.6680080 026 Information not available 08/10/2022 Do you have difficulty doing errands alone? No MIGRATION.4287295 026 Information not available 08/10/2022 Are you able to care for yourself independently? Yes MIGRATION.5742478 026 Information not available 08/10/2022 What is your occupation? N/a MIGRATION.0519575 026 Information not available 08/10/2022 Do you have difficulty dressing, bathing, grooming, or toileting? No MIGRATION.1276593 026 Information not available 08/10/2022 What is your exercise level? None MIGRATION.7577046 026 Information not available 08/10/2022 Mental Status Question Answer Note LastModified by Organizat ion Details LastModified Time Do you feel stressed (tense, restless, nervous, or anxious, or unable to sleep at night)? QT2325-9 MIGRATION.95329185 26 Information not available 08/10/2022 Do you have difficulty concentrating, remembering or making decisions? No MIGRATION.66272116 26 Information not available 08/10/2022 Family History [...] Recorded Time Tdap 2 completed Not Available [facility] 07/22/2023 00:44:00 Influenza, split virus, quadrivalent, PF 7 completed Not Available [facility] 07/22/2023 00:44:00 Influenza, split virus, quadrivalent, preservative 6 completed Not Available [facility] 07/22/2023 00:43:59 pneumococcal polysaccharide PPV23 4 completed Not Available [facility] 07/22/2023 00:43:59 Influenza, split virus, trivalent, PF 4 completed Not Available [facility] 07/22/2023 00:44:00 Past Encounters Encounter ID Performer Location Encounter Start Date Encounter Closed Date Diagnosis/Indication Diagnosis SNOMED-CT Code Diagnosis ICD10 Code Diagnosis IMO Codes Diagnosis Note [id number] Emilie Carrillo MD [facility] [address] [place] [address] 05/01/2025 12:16:26 05/01/2025 14:19:44 Effusion of joint of right elbow 8060251396 99749 M25.421 42142545 wrapped and advised to use tylenol and iceKeep wrapped [id number] Price King MD [facility] [address] [place] [address] 05/26/2025 11:00:55 05/26/2025 12:05:12 Pain of right elbow joint 9510777104 3015932 M25.521 570822 Bursitis o f olecranon of right elbow 9405677482 01111 M70.21 [id number] Health Concerns Section Related Observation LastModified by Organization Detai ls LastModified Time None Recorded Concern Status LastModified by Organization Details LastModified Time None Recorded Payers Encounter Date Sequence Insurance Name Policy Number Policy Perez Covered Member ID Perez Member ID Guarantor Name 05/26/[address] [facility] (MEDICARE REPLACEMENT/A DVANTAGE - PPO) [id number] Yaneli Conroy [id number] Yaneli Conroy 05/26/2025 2 [place] [facility] [place] [facility] A[facility] Yaneli Conroy [id number] Yaneli Conroy Notes Date Note Type Note Provider Name and Address Organization Details Recorded Time 05/26/2025 text/html The patient is a 60-year-old [...] today with the patient. MARU Noyola [address], [place], [address], [place] - [facility] [employer] 05/26/2025 12:23:05 OBGyn Episode No OBEpisode recorded.
--- OUTSIDE RECORDS SUMMARY | 2025-06-03 12:37 | XMS_ITS | Continuity of Care Document ---
Author Organization [place] - [facility], [facility] [address] Address [address] [place] [address] Care Team Providers Care Machine Bunch Maker Name Role Phone EMILIE CARRILLO Primary Care Provider EMILIE CARRILLO Referring Provider Assessment No assessment recorded. Plan of Treatment Reminders Order Date Submit Date Provider Last Modified By Organization Details Last Modified Time Details Appointments Any 15 2025 09:30A M Emilie Carrillo MD Not available Not available Not available Lab None recorded. Referral orthopedi c surgeon referral - Please call patient to schedule. 2024 025 [email or web address] Price King MD, [address], [place], [address], 05/01/2025 16:39:49 Procedures None recorded. Surgeries None recorded. Imaging None recorded. Medication Orders None recorded. Patient TargetsNo targets recorded. Patient Instructions Encounter Date Encounter Id Patient Instructions Last Modified By Organization Details Last Modified Time 05/01/2025 [id number] All questions an d concerns addressed at this time. [email or web address] Not available 05/01/2025 12:58:04 Reason for Referral Orthopedic Surgeon Referral for Effusion of joint of right elbow Please call patient to schedule. Referring Physician: Michelle Thomason, Internal Medicine, Encounter Date: 05/01/2025 Results Created Date Observation Date Name Description Value Unit Range Abnormal Flag Note LastModifiedBy Organization Detail LastModifiedTime 04/03/20 25 04/04/2025 CMP14 +EGFR glucose 87 mg/dL 70-99 normal Not Available [facility] ([facility]) [address], [place], [address], 04/04/2025 08:23:19 04/03/20 25 04/04/2025 CMP14 +EGFR BUN 9 mg/dL 6-24 normal Not Available [facility] ([facility]) [address], [place], [address], 04/04/2025 08:23:19 04/03/2004/04/2025 CMP14 +EGFR creatinine 0.81 mg/dL 0.57-1 .00 normal Not Available [facility] ([facility]) [address], [place], [address], 04/04/2025 08:23:19 04/03/2004/04/2025 CMP14 +EGFR eGFR 84 mL/mi n/1.7 3 >59 normal Not Available [facility] ([facility]) [address], [place], [address], 04/04/2025 08:23:19 04/03/2004/04/2025 CMP14 +EGFR BUN/creatini ne ratio 11 9-23 normal Not Available [facility] ([facility]) [address], [place], [address], 04/04/2025 08:23:19 04/03/20 25 04/04/2025 CMP14 +EGFR sodium 139 mmol/ L 134-14 4 normal Not Available [facility] ([facility]) [address] [place], [address], 04/04/2025 08:23:19 04/03/20 25 04/04/2025 CMP14 +EGFR potassium 4.7 mmol/ L 3.5-5. 2 normal Not Available [facility] ([facility]) [address] [place], [address], 04/04/2025 08:23:19 04/03/20 25 04/04/2025 CMP14 +EGFR chloride 102 mmol/ L 96-106 normal Not Available [facility] ([facility]) [address] [place], [address], 04/04/2025 08:23:19 04/03/20 25 04/04/2025 CMP14 +EGFR carbon dioxide, total 24 mmol/ L 20-29 normal Not Available [facility] ([facility]) [address] [place], [address], 04/04/2025 08:23:19 04/03/2004/04/2025 CMP14 +EGFR calcium 8.4 mg/dL 8.7-10 .2 below low normal Not Available [facility] ([facility]) [address] [place], [address], 04/04/2025 08:23:19 04/03/2004/04/2025 CMP14 +EGFR protein, total 6.6 g/dL 6.0-8. 5 normal Not Available [facility] ([facility]) [address] [place], [address], 04/04/2025 08:23:19 04/03/2004/04/2025 CMP14 +EGFR albumin 3.3 g/dL 3.8-4. 9 below low normal Not Available [facility] ([facility]) [address] [facility] [place], [address], 04/04/2025 08:23:19 04/03/2004/04/2025 CMP14 +EGFR globulin, total 3.3 g/dL 1.5-4. 5 Not Available [facility] ([facility]) [address] [place], [address], 04/04/2025 08:23:19 04/03/2004/04/2025 CMP14 +EGFR bilirubin, total <0.2 mg/dL 0.0-1. 2 Not Available [facility] ([facility]) [address] [place], [address], 04/04/2025 08:23:19 04/03/20 25 04/04/2025 CMP14 +EGFR alkaline phosphatase 172 IU/L 49-135 above high normal Not Available [facility] ([facility]) [address] [place], [address], 04/04/2025 08:23:19 04/03/2004/04/2025 CMP14 +EGFR AST (SGOT) 15 IU/L 0-40 normal Not Available [facility] ([facility]) [address] [place], [address], 04/04/2025 08:23:19 04/03/2004/04/2025 CMP14 +EGFR ALT (SGPT) 6 IU/L 0-32 normal Not Available [facility] ([facility]) [address] [place], [address], 04/04/2025 08:23:19 04/03/20 25 04/04/2025 CBC WITH DIFFE RENTI AL/PL ATELE T WBC 8.6 x10e3 /uL 3.4-10 .8 normal Not Available [facility] ([facility]) [address] [place], [address], 04/04/2025 08:23:19 04/03/2004/04/2025 CBC WITH DIFFE RENTI AL/PL ATELE T RBC 4.06 x10e6 /uL 3.77-5 .28 normal Not Available [facility] ([facility]) [address] [facility] [place], [address], 04/04/2025 08:23:19 04/03/2004/04/2025 CBC WITH DIFFE RENTI AL/PL ATELE T hemoglobin 11.7 g/dL 11.1-1 5.9 normal Not Available [facility] ([facility]) [address] [place], [address], 04/04/2025 08:23:19 04/03/20 25 04/04/2025 CBC WITH DIFFE RENTI AL/PL ATELE T hematocrit 39.5 % 34.0-4 6.6 normal Not Available [facility] ([facility]) [address] [place], [address], 04/04/2025 08:23:19 04/03/20 25 04/04/2025 CBC WITH DIFFE RENTI AL/PL ATELE T MCV 97 fL 79-97 normal Not Available [facility] ([facility]) [address] [place], [address], 04/04/2025 08:23:19 04/03/20 25 04/04/2025 CBC WITH DIFFE RENTI AL/PL ATELE T MCH 28.8 pg 26.6-3 3.0 normal Not Available [facility] ([facility]) [address] [place], [address], 04/04/2025 08:23:19 04/03/20 25 04/04/2025 CBC WITH DIFFE RENTI AL/PL ATELE T MCHC 29.6 g/dL 31.5-3 5.7 below low normal Not Available [facility] ([facility]) [address] [place], [address], 04/04/2025 08:23:19 04/03/2004/04/2025 CBC WITH DIFFE RENTI AL/PL ATELE T RDW 16.3 % 11.7-1 5.4 above high normal Not Available [facility] ([facility]) [address] [place], [address], 04/04/2025 08:23:19 04/03/20 25 04/04/2025 CBC WITH DIFFE RENTI AL/PL ATELE T platelets 481 x10e3 /uL 150-45 0 above high normal Not Available [facility] ([facility]) [address] [place], [address], 04/04/2025 08:23:19 04/03/20 25 04/04/2025 CBC WITH DIFFE RENTI AL/PL ATELE T neutrophils 66 % not estab. normal Not Available [facility] ([facility]) [address], [place], [address], 04/04/2025 08:23:19 04/03/20 25 04/04/2025 CBC WITH DIFFE RENTI AL/PL ATELE T lymphs 14 % not estab. normal Not Available [facility] ([facility]) [address], [place], [address], 04/04/2025 08:23:19 04/03/2004/04/2025 CBC WITH DIFFE RENTI AL/PL ATELE T monocytes 15 % not estab. normal Not Available [facility] ([facility]) [address], [place], [address], 04/04/2025 08:23:19 04/03/20 25 04/04/2025 CBC WITH DIFFE RENTI AL/PL ATELE T eos 4 % not estab. normal Not Available [facility] ([facility]) [address], [place], [address], 04/04/2025 08:23:19 04/03/20 25 04/04/2025 CBC WITH DIFFE RENTI AL/PL ATELE T basos 1 % not estab. normal Not Available [facility] ([facility]) [address], [place], [address], 04/04/2025 08:23:19 04/03/20 25 04/04/2025 CBC WITH DIFFE RENTI AL/PL ATELE T immature cells [employer] Not Available [facility] ([facility]) [address] [place], [address], 04/04/2025 08:23:19 04/03/20 25 04/04/2025 CBC WITH DIFFE RENTI AL/PL ATELE T neutrophils (absolute) 5.7 x10e3 /uL 1.4-7. 0 normal Not Available [facility] ([facility]) [address] [place], [address], 04/04/2025 08:23:19 04/03/20 25 04/04/2025 CBC WITH DIFFE RENTI AL/PL ATELE T lymphs (absolute) 1.2 x10e3 /uL 0.7-3. 1 normal Not Available [facility] ([facility]) [address] [place], [address], 04/04/2025 08:23:19 04/03/2004/04/2025 CBC WITH DIFFE RENTI AL/PL ATELE T monocytes(ab solute) 1.3 x10e3 /uL 0.1-0. 9 above high normal Not Available [facility] ([facility]) [address] [place], [address], 04/04/2025 08:23:19 04/03/20 25 04/04/2025 CBC WITH DIFFE RENTI AL/PL ATELE T eos (absolute) 0.3 x10e3 /uL 0.0-0. 4 normal Not Available [facility] ([facility]) [address] [place], [address], 04/04/2025 08:23:19 04/03/20 25 04/04/2025 CBC WITH DIFFE RENTI AL/PL ATELE T baso (absolute) 0.0 x10e3 /uL 0.0-0. 2 normal Not Available [facility] ([facility]) [address] [place], [address], 04/04/2025 08:23:19 04/03/20 25 04/04/2025 CBC WITH DIFFE RENTI AL/PL ATELE T immature granulocytes 0 % not estab. Not Available [facility] ([facility]) [address] [place], [address], 04/04/2025 08:23:19 04/03/20 25 04/04/2025 CBC WITH DIFFE RENTI AL/PL ATELE T immature grans (abs) 0.0 x10e3 /uL 0.0-0. 1 Not Available [facility] ([facility]) [address], [place], [address], 04/04/2025 08:23:19 04/03/2004/04/2025 CBC WITH DIFFE RENTI AL/PL ATELE T NRBC [employer] Not Available [facility] ([facility]) [address], [place], [address], 04/04/2025 08:23:19 04/03/2004/04/2025 CBC WITH DIFFE RENTI AL/PL ATELE T hematology comments: [employer] Not Available [facility] ([facility]) [address], [place], [address], 04/04/2025 08:23:19 04/03/2004/04/2025 HEMOG LOBIN A1C hemoglobin A1C 5.1 % 4.8-5. 6 normal Predi abete s: 5.7 - 6.4 Diabe leila: >6.4 Glyce tu contr ol for adult s with diabe leila: <7.0 Not Available [facility] ([facility]) [address], [place], [address], 04/04/2025 08:23:20 05/26/20 XR, elbow No observ ation record ed. [email or web address] [place] [address], [place], [address], 05/26/2025 12:21:26 Result Notes None recorded. Problems Name Problem SNOMED Code Status Onset Date Resolution Date Notes Provider Name and Address Organization Details Recorded Time Injury of elbow 699173492 Completed Not Available [facility] 3 03:15:58 Bipolar disorder 81293945 Active Not Available [facility] 3 03:15:58 Gastroeso phageal reflux disease 120637879 Active Not Available [facility] 3 03:15:58 Closed fracture of upper end of tibia 92399759 Completed Not Available [facility] 3 03:15:58 Pain in left lower limb 802753000 Completed Not Available [facility] 3 03:15:59 Knee pain Completed Not Available [facility] 3 03:15:59 Fracture of tibia 58807757 Completed Not Available [facility] 3 03:15:59 Harmful pattern of use of Cannabis 71183491 Active Not Available [facility] 3 03:16:00 Fracture of lower leg 102398572 Completed Not Available [facility] 3 03:16:00 Bacterial vaginosis 168335190 Completed Not Available [facility] 3 03:16:01 Atypical squamous cells of undetermi al significa nce on cervical Papanicol aou smear 755063126 Active Not Available [facility] 3 03:16:01 Anxiety 89164331 Completed Not Available [facility] 3 03:16:01 Hyperlipi demia 73546750 Active Not Available [facility] 3 03:16:02 Urinary tract infectiou s disease 68834410 Completed Not Available [facility] 3 03:16:02 Smoker 58964510 Active Not Available [facility] 3 03:16:02 History of alcoholis m 769884320 Active 2016 Not Available [facility] 3 03:15:58 Gangrene of toe of left foot 06706856427 453991 Completed 201901/07/2022 Not Available [facility] 3 03:15:58 Anxiety disorder 943396010 Completed 201901/11/2021 Not Available [facility] 3 03:15:58 Ulcer of toe 161583201 Completed 201901/07/2022 Not Available [facility] 3 03:15:59 Bronchiti s 80691858 Completed 201901/11/2021 Not Available [facility] 3 03:15:59 Depressiv e disorder 20504009 Active 2019 Not Available [facility] 3 03:15:59 Atheroscl erosis of arteries of the extremiti es 15630477 Completed 201901/11/2021 Not Available [facility] 3 03:16:01 Atheroscl erosis of arteries of the extremiti es 14792486 Active 2019 Not Available [facility] 3 03:16:01 Cigarette smoker 54534415 Completed 201901/07/2022 Not Available [facility] 3 03:16:02 Pain in toe 254616201 Completed 201901/07/2022 Not Available [facility] 3 03:15:59 History of amputatio n of lesser toe 472346595 Active 2019 Not Available [facility] 3 03:16:01 Long-term drug therapy Completed 202001/07/2022 Not Available [facility] 3 03:15:59 Neuropath y 088099695 Active 2020 Not Available [facility] 3 03:16:00 Atrial flutter 8709539 Active 2020 Not Available [facility] 3 03:16:02 Transitio n of care 14490904160 05 Completed 202101/07/2022 Not Available [facility] 3 03:15:58 Pneumonia caused by SARS-CoV- 2 47577171608 8982649 Completed 202101/20/2022 Not Available [facility] 3 03:16:03 Anxiety disorder 621674262 Active 2021 Not Available [facility] 3 03:15:58 Periphera l vascular disease 696061396 Active 2021 Not Available [facility] 3 03:16:00 Vitamin D deficienc y 69625575 Active 2021 Not Available [facility] 3 03:15:59 Umbilical hernia 983251805 Active 2021 Not Available [facility] 3 03:16:00 Hypothyro idism 61920578 Active 2021 Not Available [facility] 3 03:16:00 Overactiv e urinary bladder 995727985 Active 2021 Anam Baptiste MD [address], [place], [address] , [place] [facility] 5 08:37:10 Multiple nodules of lung 748889284 Active 2022 Anam Baptiste MD [address], [address], [place], [address] , [place] [facility] 5 11:52:55 Hyperchol esterolem ia 68614979 Active 2022 Anam Baptiste MD [address], [address], [place], [address] , [place] [facility] 5 08:37:52 Migraine 61104624 Active 2022 Anam Baptiste MD [address], [place], [address] , [place] [facility] 5 08:37:40 Essential hypertens ion 22904051 Active 2023 Anam Baptiste MD [address], [address], [place], [address] , [facility] 5 08:37:54 Congestiv e heart failure 79361286 Active 2024 Anam Baptiste MD [address], [place], [address] , [facility] 5 08:36:53 Effusion of joint of right elbow 79129388209 9102 Active 2024 HARMONY Edmond [address], [place], [address] , [facility] 5 15:25:10 Pain of right elbow joint 41590493125 906605 Active 2024 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 Procedures Surgical History Date Name Laterality Status Provider Name and Address Organization Details Recorded Time 04/15/20 25 Arthrocentesis Major Joint/Bursa 1588 completed HARMONY Edmond [address], [address], [employer] 04/15/2025 12:14:57 01/25/20 25 Transitional_Care_ Management cancelled HARMONY Edmond [address] [address], [place], [address], [employer] 01/21/2025 14:43:51 01/20/20 23 Advanced Care Planning completed Ling Moody RN [place] [email or web address] 01/19/2023 12:49:00 10/30/19 22 Date of Last Pap Smear completed Ling Moody RN [place] [facility] [employer] 01/19/2023 12:44:34 06/15/19 22 Date of Last Mammogram completed Ling Moody RN [place] [email or web address] 01/19/2023 12:42:58 06/15/19 22 Most Recent Bone Density completed Ling Moody RN [facility] [employer] 01/19/2023 12:43:18 [employer]USSIAN LANGU[employer] PROFESSOR Surgery completed Not Available [facility] 08/10/2022 03:08:08 ENT Procedure completed Not Available [facility] 08/10/2022 03:08:08 Imaging Results None recorded. Procedure Notes None recorded. Medical Equipment None Reported. Allergies Allergen ID Allergen Name Allergen Category Reaction Reaction Severity Criticality Documentation Date Start Date Code Code System Note Provider Name and Address Organization Details Recorded Time 5780 lithium Not available vomiting Not available Not available 08/10/2022 6448 RxNorm Not Available [facility] 3 03:25:43 5781 Dolobid medicatio n vomiting Not available Not available 08/10/2022 65327 6 RxNorm Not Available [facility] 3 03:25:43 5782 Dilaudid medicatio n vomiting Not available Not available 08/10/2022 56055 3 RxNorm Not Available [facility] 3 03:25:43 5783 Bactrim medicatio n vomiting Not available Not available 08/10/2022 11646 9 RxNorm Not Available [facility] 3 03:25:43 17601 ciproflox acin medicatio n Not available Not available [facility] 04/28/2025 2551 RxNorm Not Available [facility] [employer] - prod 5 15:30:06 82525 vancomyci n medicatio n Not available Not available [facility] 04/28/2025 49809 RxNorm Not Available [facility] [employer] - prod 5 15:30:06 66632 etodolac medicatio n Not available Not available [facility] 04/28/2025 56159 RxNorm unrec ogniz ed react ion (text : Red color (qual ifier value ), code: 07447 0000) (from exter nal sourc e) unrec ogniz ed react ion (text : Blush ing, funct ion (obse rvabl e entit y), code: 65031 002) (from exter nal sourc e) Not Available [facility] External [employer] - prod 5 15:30:06 40963 loracarbe f medicatio n Not available Not available [facility] 04/28/2025 70851 RxNorm unrec ogniz ed react ion (text : Sever e (evert rity modif ier) (qual ifier value ), code: 18363 000) (from exter nal sour e) Not Available [facility] [employer] Data Service - prod 15:30:06 21887 phenazopy ridine medicatio n Not available Not available low 04/28/2025 8120 RxNorm Not Available [facility] - External [employer] - prod 15:30:06 97353 diflunisa l medicatio n vomiting Not available Not available 04/28/20252019 3393 RxNorm Not Available [facility] - External Data [employer] - prod 15:30:06 12357 [employer] melanie medicatio n vomiting Not available Not available 04/28/20252016 3423 RxNorm unrec ogniz ed react ion (text : Nause a and/o r Vomit ing, code: 62694 000) ([facility] Not Available [facility] [employer] Data Service - prod 15:30:06 52324 latex environme nt,medica tion itching rash Not available Not available high 04/28/20252011 71111 91 RxNorm Not Available [facility] - [employer] Data Service - prod 15:30:06 21442 propoxyph darshana medicatio n Not available Not available low 04/28/20252011 8785 RxNorm Vagin al bleed ing unrec ogniz ed react ion (text : Other , code: 29048 07) ([facility] Not Available [facility] - External Data Service - prod 15:30:06 97058 diltiazem Not available other Not available high 04/28/20252023 3443 RxNorm IV AND PO-AN Y dose cause s pause s. EVEN small doses of 30 mg Not Available [employer] - prod 15:30:08 71091 sulfameth oxazole / trimethop rim medicatio n anaphylax is other Not available Not available high 04/28/20252011 94170 RxNorm Cant remem julian Not Available [facility] [employer] Data Service - prod 15:30:08 Medications Name [...] Last Updated DateTime 157.48 cm 29.3 kg/m2 67102.7 8 g 97.4 [degF] 88 /min 98 % 4 L/min 16 /min 142/74 mm[Hg] Maya Aparicio RN [place] [facility] [place] [employer] 12:29:05 Social History Question Answer Notes LastModified by Organization Details LastModified Time Tobacco Smoking Status Current Every Day Smoker Not Available [facility] 08/10/2022 02:52:35 Do You Have An Advance Directive? No MIGRATION.030 [id number] Information not available 08/10/2022 Are You Blind Or Do You Have Difficulty Seeing? No MIGRATION.030 905877 Information not available 08/10/2022 What Is Your Level Of Caffeine Consumption? Moderate MIGRATION.0301 [id number] Information not available 08/10/2022 In The 14 Days Before Symptom Onset, Have You Had Close Contact With A Laboratory-conf irmed COVID-19 While That Case Was Ill? No MIGRATION.030 113708 Information not available 08/10/2022 In The 14 Days Before Symptom Onset, Have You Had Close Contact With A Person Who Is Under Investigation For COVID-19 While That Person Was Ill? No MIGRATION.0301 [id number] Information not available 08/10/2022 Are You Deaf Or Do You Have Serious Difficulty Hearing? No MIGRATION.0301 [id number] Information not available 08/10/2022 What Type Of Diet Are You Following? REGULAR MIGRATION.0301 [id number] Information not available 08/10/2022 Which Illicit Or Recreational Drugs Have You Used? Marijuana MIGRATION.030 280035 Information not available 08/10/2022 What Is The Highest Grade Or Level Of School You Have Completed Or The Highest Degree You Have Received? GF22831-3 MIGRATION.030 466460 Information not available 08/10/2022 Do You Have An Electrostatic Air Filter? No Information not available 08/29/2022 Have There Been Any Changes To Your Family Or Social Situation? No MIGRATION.030 500637 Information not available 08/10/2022 What Is The Fluoride Status Of Your Home? Unknown MIGRATION.030 966999 Information not available 08/10/2022 Are There Any Guns Present In Your Home? No MIGRATION.0301 [id number] Information not available 08/10/2022 Do You Have A Humidifier? Yes Information not available 08/29/2022 Do You Use Insect Repellent Routinely? No MIGRATION.0301 261593 Information not available 08/10/2022 Where Do You Live? [place] MIGRATION.030 980797 Information not available 08/10/2022 Do You Have A Medical Power Of Ict Programmer? No MIGRATION.030 102734 Information not available 08/10/2022 Do You Have Moisture Problems In Your Home? Yes Leak In Bathroom Information not available 08/29/2022 What Was The Date Of Your Most Recent Tobacco Screening? 05/26/2025 Information not available 05/26/2025 What Is Your Current Pack Years? 30ormorepackyears MIGRATION.0301 614510 Information not available 08/10/2022 Do You Have Any Pets? Yes MIGRATION.030 788600 Information not available 08/10/2022 What Is Your Relationship Status? MIGRATION.0301 [id number] Information not available 08/10/2022 Do You Use Your Seat Belt Or Car Seat Routinely? No MIGRATION.0301 005012 Information not available 08/10/2022 Do You Have Smoke And Carbon Monoxide Detectors In Your Home? Yes MIGRATION.0301 940244 Information not available 08/10/2022 At What Age Did You Start Smoking Tobacco? 11 MIGRATION.0301 401421 Information not available 08/10/2022 Are You Passively Exposed To Smoke? Yes MIGRATION.0301 912277 Information not available 08/10/2022 Are There Any Smokers In Your House? Yes MIGRATION.0301 029264 Information not available 08/10/2022 How Much Tobacco Do You Smoke? 0.5 PPD 1/2 Pack To A Pack Information not available 05/26/2025 Do You Use Sunscreen Routinely? No MIGRATION.0301 [id number] Information not available 08/10/2022 Has Tobacco Cessation Counseling Been Provided? Yes MIGRATION.0301 [id number] Information not available 08/10/2022 On What Date Was Tobacco Cessation Counseling Provided? 09/23/2021 MIGRATION.0301 [id number] Information not available 08/10/2022 How Many Years Have You Smoked Tobacco? 48 [email or web address] Information not available 09/05/2024 Have You Recently Traveled Abroad? No MIGRATION.0301 [id number] Information not available 08/10/2022 Have You Used IV Drugs? No MIGRATION.0301 [id number] Information not available 08/10/2022 Do You Have Difficulty Walking Or Climbing Stairs? No MIGRATION.0301 484607 Information not available 08/10/2022 Do You Have Any Dietary Restrictions? No MIGRATION.0301 272879 Information not available 08/10/2022 Sex: Unknown Functional Status Question Answer Note LastModified by Organizat ion Details LastModified Time Do you use any illicit or recreational drugs? Yes MIGRATION.[id number] 026 Information not available 08/10/2022 Do you or have you ever used any other forms of tobacco or nicotine? No MIGRATION.7842980 026 Information not available 08/10/2022 What is your level of alcohol consumption? None Information not available 05/26/2025 Do you have transportation difficulties? No MIGRATION.4474340 026 Information not available 08/10/2022 Are you able to walk independently without assistance or assistive devices? YESASSIST MIGRATION.4471522 026 Information not available 08/10/2022 Do you have difficulty doing errands alone? No MIGRATION.6278326 026 Information not available 08/10/2022 Are you able to care for yourself independently? Yes MIGRATION.6865532 026 Information not available 08/10/2022 What is your occupation? N/a MIGRATION.3152324 026 Information not available 08/10/2022 Do you have difficulty dressing, bathing, grooming, or toileting? No MIGRATION.6483884 026 Information not available 08/10/2022 What is your exercise level? None MIGRATION.4691750 026 Information not available 08/10/2022 Mental Status Question Answer Note LastModified by Organizat ion Details LastModified Time Do you feel stressed (tense, restless, nervous, or anxious, or unable to sleep at night)? [id number] MIGRATION.[id number] 26 Information not available 08/10/2022 Do you have difficulty concentrating, remembering or making decisions? No MIGRATION.[id number] 26 Information not available 08/10/2022 Family History [...] Recorded Time Tdap 2 completed Not Available [facility] 07/22/2023 00:44:00 Influenza, split virus, quadrivalent, PF 7 completed Not Available [facility] 07/22/2023 00:44:00 Influenza, split virus, quadrivalent, preservative 6 completed Not Available [facility] 07/22/2023 00:43:59 pneumococcal polysaccharide PPV23 4 completed Not Available [facility] 07/22/2023 00:43:59 Influenza, split virus, trivalent, PF 4 completed Not Available [facility] 07/22/2023 00:44:00 Past Encounters Encounter ID Performer Location Encounter Start Date Encounter Closed Date Diagnosis/Indication Diagnosis SNOMED-CT Code Diagnosis ICD10 Code Diagnosis IMO Codes Diagnosis Note [id number] Emilie Carrillo MD [facility] [address] [facility] [place] [address] 04/03/2025 11:16:10 04/03/2025 15:45:37 Effusion of joint of right elbow [id number] 32495 M25.421 [id number] keep wrapped, use ice, and elevated, use tylenol only as needed does not need tap at this time Screening for cardiovascular system disease 104563036 Z13.6 343164 Dependence on supplemental oxygen 3483807282 07 Z99.81 054261 History of alcoholism 16 3229215 F10.21 discussed importance of compliance and health risk associated with alcoholism Smoker 06090451 F17.218 F17.219 Z87.891 extensive education provided on smoking cessation. Chronic ob structive pulmonary disease 81309770 J44.9 [id number] Emilie aCrrillo MD [facility] [place] [facility] [address] [facility] [place] [address] 04/15/2025 11:31:26 04/15/2025 12:39:24 Effusion of joint of right elbow 6774824295 95596 M25.421 51481575 wrapped and advised to use tylenol and iceKeep wrapped for 72 hours.6mls only taken off at this time [id number] Anam Baptiste MD [facility] [place] [address] [place] [address] 04/24/2025 11:22:07 04/25/2025 10:27:42 Dyspnea on exertion 88551191 R06.09 Smoker 52692662 F17.218 F17.219 Z87.891 Multiple n odules of lung 059735512 R91.8 993011 [id number] Emilie Carrillo MD [facility] [place] [facility] [address] [place] [address] 05/01/2025 12:16:26 05/01/2025 14:19:44 Effusion of joint of right elbow 8619381798 55688 M25.421 25783924 wrapped and advised to use tylenol and iceKeep wrapped Health Concerns Section Related Observation LastModified by Organization Detai ls LastModified Time None Recorded Concern Status LastModified by Organization Details LastModified Time None Recorded Payers Encounter Date Sequence Insurance Name Policy Number Policy Perez Covered Member ID Perez Member ID Guarantor Name 05/01/2025 1 [facility] (MEDICARE REPLACEMENT/A DVANTAGE - PPO) [id number] Yaneli Conroy [id number] Yaneli Conroy 05/01/2025 2 [place] [employer] [place] [employer] Yaneli Conroy [id number] Yaneli Conroy Notes Date Note Type Note Provider Name and Address Organization Details Recorded Time 05/01/2025 text/html ROS as noted in the [...] elbow was drained but continues to swell. Michelle Thomason, OIL SPREADER OPERATOR-C [address] [facility] [facility] [address], [place], [address], [facility] [employer] [facility] 05/01/2025 12:58:34 OBGyn Episode No OBEpisode recorded.
--- NOTE | 2025-06-03 14:29 | WPDPFTINT ---
PFT Procedure Performed PFT Procedure Performed Plethysmography (Lung Vol) Diffusing Cap (DLCO) Flow Vol Loop Spirometry w/o Bronchodil PFT Interpretation This is a pulmonary function test with spirometry, plethysmography and diffusing capacity. The test was performed and results interpreted in accordance with the 2019 and 2005 ATS/ERS Task Force guidelines respectively using the Global Lung Function Initiative-2012 reference equations. Patient demonstrated good effort and cooperation. Reproducibility criteria were met. The quality of the spirometry maneuver was Grade A. Findings: Spirometry: There is decreased maximal expiratory airflow at all lung volumes with a concave expiratory flow tracing. The contour the inspiratory flow tracing is normal. The FVC is 1.56 L, 53% predicted. The FEV1 is 0.89 L, 38% predicted. The FEV1: FVC ratio is 57%. Plethysmography: The total lung capacity is 4.96 L, 105% predicted. The functional residual capacity is 3.62 L, 136% predicted. The residual volume is 3.17 L, 171% predicted. The residual volume: Total lung capacity ratio 64%. Diffusing capacity: The diffusing capacity unadjusted for hemoglobin and carboxyhemoglobin is 4.3, 20% predicted. The diffusing capacity adjusted for alveolar volume is 1.73, 38% predicted. Impression: There is a severe obstructive abnormality. The increase in residual volume to total lung volume ratio is consistent with hyperinflation from an obstructive abnormality. The diffusing capacity unadjusted for hemoglobin and carboxyhemoglobin is severely decreased and remains severely decreased when adjusted for alveolar volume. There are no prior studies for comparison
== END 2025-06-03 12:32 | disposition home or self-care (01) ==
LOC: ANHPEDST 12:33 → ANHPFT 12:35
PROVIDERS: PCP Anesthesiology; Visit Provider Internal Medicine Pulmonary Disease
DX: R94.2 Abnormal results of pulmonary function studies (principal); R06.09 Other forms of dyspnea
CPT/HCPCS: 94375; 94726; 94729